=== PATIENT | female | born 1960 | race Caucasian/White ===

== ENCOUNTER 2017-11-09 18:27 | Emergency (ER) | payer OTHER ==
[2017-11-09] MEDS ORDERED: IBUPROFEN 400 MG TAB ONE (20:50)
[2017-11-09] MEDS ORDERED: IBUPROFEN 200 MG TAB PO ONE (20:51)
--- NOTE | 2017-11-09 20:56 | RAD REPORT ---
EXAM DESCRIPTION: RAD - Hip Left 2 View - 11/09/2017 8:42 pm CLINICAL HISTORY: Left hip pain FINDINGS: No fracture or dislocation is seen. The bones appear osteoporotic. Mild osteoarthritis involves the left hip
--- NOTE | 2017-11-09 22:55 | ER ---
Nurse's Notes [facility] Name: Radha Saleh Age: 57 yrs Sex: Female : 1960 Arrival Date: 11/09/2017 Time: 18:28 Bed 23 Private MD: Diagnosis: Strain of adductor muscle, fascia and tendon of left thigh Presentation: 11/09 18:30 Presenting complaint: Patient states: khai been having this pain for 4 days now coming hj from my L groin to the L leg and its also hurts on the L hip are; denies fever and chills;. Transition of care: patient was not received from another setting of care. Onset of symptoms was November 09, 2017. Initial Sepsis Screen: Does the patient meet any 2 criteria? No. Patient's initial sepsis screen is negative. Does the patient have a suspected source of infection? No. Patient's initial sepsis screen is negative. Care prior to arrival: None. 18:30 Method Of Arrival: Ambulatory 18:30 Acuity: OSMANY 3 hj Triage Assessment: 18:34 General: Appears in no apparent distress. uncomfortable, Behavior is calm, cooperative, hj appropriate for age. Pain: Complains of pain in left femoral area Pain currently is 6 out of 10 on a pain scale. 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 - Social history:: The patient lives at home, Smoking status: Patient/guardian denies using tobacco, never smoked. Screenin:14 Abuse screen: Denies threats or abuse. Denies injuries from another. Nutritional aj1 screening: No deficits noted. Tuberculosis screening: No symptoms or risk factors identified. 23:16 Fall Risk None identified. tl3 Assessment: 19:14 General: Appears in no apparent distress. uncomfortable, Behavior is calm, cooperative, aj1 appropriate for age. Pain: Complains of pain in left femoral area Pain radiates to left leg Pain currently is 10 out of 10 on a pain scale. Quality of pain is described as sharp, Pain began 4 days ago Is continuous, Alleviated by nothing. Patient states that she has tried multiple OTC pain medications, none of which have provided relief Aggravated by increased activity, repositioning, weight bearing, Also complains of sleeplessness, Patient states that her pain wakes her up from sleep. Neuro: Level of Consciousness is awake, alert, obeys commands, Oriented to person, place, time, situation, Speech is normal, Facial symmetry appears normal. Cardiovascular: Patient's skin is warm and dry. Respiratory: Airway is patent Respiratory effort is even, unlabored, Respiratory pattern is regular, symmetrical. GI: No signs and/or symptoms were reported involving the gastrointestinal system. : No signs and/or symptoms were reported regarding the genitourinary system. EENT: No signs and/or symptoms were reported regarding the EENT system. Derm: No signs and/or symptoms reported regarding the dermatologic system. Skin is pink, warm \T\ dry. normal. Musculoskeletal: Circulation, motion, and sensation intact. Capillary refill < 3 seconds, in bilateral toes. Range of motion: intact in all extremities. 20:44 Reassessment: Patient appears in no apparent distress at this time. No changes from aj1 previously documented assessment. Patient and/or family updated on plan of care and expected duration. Pain level reassessed. Patient is alert, oriented x 3, equal unlabored respirations, skin warm/dry/pink. 21:46 Reassessment: Patient appears in no apparent distress at this time. No changes from aj1 previously documented assessment. Patient and/or family updated on plan of care and expected duration. Pain level reassessed. Patient is alert, oriented x 3, equal unlabored respirations, skin warm/dry/pink. 22:41 Reassessment: pt to ultra sound. tl3 23:16 Reassessment: Patient appears in no apparent distress at this time. No changes from tl3 previously documented assessment. Patient and/or family updated on plan of care and expected duration. Pain level reassessed. Patient is alert, oriented x 3, equal unlabored respirations, skin warm/dry/pink. augustus at bedside to discuss ultra sound findings. Vital Signs: 18:35 BP 165 / 98; Pulse 94; Resp 18; Temp 97.4(TE); Pulse Ox 99% on R/A; Weight 86.18 kg; hj Height 5 ft. 3 in. (160.02 cm); Pain 6/10; 19:45 BP 143 / 80; Pulse 89; Resp 18; Pulse Ox 100% on R/A; aj1 20:44 BP 127 / 72; Pulse 76; Resp 18; Pulse Ox 98% on R/A; aj1 21:47 BP 134 / 86; Pulse 86; Resp 18; Pulse Ox 99% on R/A; aj1 23:16 BP 147 / 91; Pulse 76; Resp 16; Pulse Ox 100% on R/A; tl3 18:35 Body Mass Index 33.66 (86.18 kg, 160.02 cm) ED Course: 18:28 Patient arrived in ED. sb2 18:32 Triage completed. hj 18:35 Arm band placed on right wrist. hj 18:42 Deisy Philippe, RN is Primary Nurse. aj1 18:48 Fuad Tyson MD is Attending Physician. gs 19:14 Patient has correct armband on for positive identification. Bed in low position. Call aj1 light in reach. Side rails up X 1. 19:14 No provider procedures requiring assistance completed. aj1 20:40 Hip Left 2 View XRAY In Process Unspecified. EDMS 21:01 Notified ED physician of a critical lab result(s). D-dimer 525. aj1 21:53 Augustus Mace PA is PHCP. jr8 22:54 Extremity Venous Uni Ltd In Process Unspecified. EDMS 23:16 IV discontinued, intact, bleeding controlled, No redness/swelling at site. Pressure tl3 dressing applied. Administered Medications: 20:58 Drug: Motrin 600 mg Route: PO; aj1 23:01 Follow up: Response: No adverse reaction; Pain is decreased tl3 Outcome: 22:54 Discharge ordered by . jr8 23:16 Discharged to home ambulatory. tl3 23:16 Condition: stable 23:16 Discharge instructions given to patient, Instructed on discharge instructions, follow up and referral plans. Demonstrated understanding of instructions, follow-up care. 23:19 Patient left the ED. tl3 Signatures: Dispatcher [employer] EDDeisy Hood, RN RN aj1 Augustus Mace PA PA jr8 Viet Wasserman RN RN Fuad Murphy MD MD gs Billeau, Sheri 2 Saloni Baptiste RN RN tl3 Corrections: (The following items were deleted from the chart) 18:38 18:35 Pulse 94bpm; Resp 18bpm; Pulse Ox 99% RA; Temp 97.4F Temporal; 86.18 kg; Height 5 hj ft. 3 in.; BMI: 33.6; Pain 6/10; hj
--- NOTE | 2017-11-09 22:55 | EDPHYS ---
Physician Documentation [facility] Name: Radha Saleh Age: 57 yrs Sex: Female : 1960 Arrival Date: 11/09/2017 Time: 18:28 Bed 23 Private MD: ED Physician Fuad Tyson HPI: 11/09 20:49 This 57 yrs old Female presents to ER via Ambulatory with complaints of Leg gs Pain. 20:49 The patient presents with pain. The complaints affect the pelvis and left femoral area. gs Onset: The symptoms/episode began/occurred 2 day(s) ago, and became worse and became persistent. Modifying factors: The symptoms are alleviated by nothing. the symptoms are aggravated by movement. Associated signs and symptoms: Pertinent negatives numbness, swelling, weakness. Severity of symptoms: At their worst the symptoms were mild. The patient has not experienced similar symptoms in the past. 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 - Social history:: The patient lives at home, Smoking status: Patient/guardian denies using tobacco, never smoked. ROS: 22:24 Eyes: Negative for injury, pain, redness, and discharge, ENT: Negative for injury, jr8 pain, and discharge, Neck: Negative for injury, pain, and swelling, Cardiovascular: Negative for chest pain, palpitations, and edema, Respiratory: Negative for shortness of breath, cough, wheezing, and pleuritic chest pain, Abdomen/GI: Negative for abdominal pain, nausea, vomiting, diarrhea, and constipation, Back: Negative for injury and pain, Skin: Negative for injury, rash, and discoloration, Neuro: Negative for headache, weakness, numbness, tingling, and seizure. 22:24 MS/extremity: Positive for pain, of the left leg. Exam: 20:57 Chest/axilla: Normal chest wall appearance and motion. Nontender with no deformity. gs No lesions are appreciated. Cardiovascular: Regular rate and rhythm with a normal S1 and S2. No gallops, murmurs, or rubs. Normal PMI, no JVD. No pulse deficits. Respiratory: Lungs have equal breath sounds bilaterally, clear to auscultation and percussion. No rales, rhonchi or wheezes noted. No increased work of breathing, no retractions or nasal flaring. Abdomen/GI: Soft, non-tender, with normal bowel sounds. No distension or tympany. No guarding or rebound. No evidence of tenderness throughout. Back: No spinal tenderness. No costovertebral tenderness. Full range of motion. Skin: Warm, dry with normal turgor. Normal color with no rashes, no lesions, and no evidence of cellulitis. Neuro: Awake and alert, GCS 15, oriented to person, place, time, and situation. Cranial nerves II-XII grossly intact. Motor strength 5/5 in all extremities. Sensory grossly intact. Cerebellar exam normal. Normal gait. 20:57 Constitutional: The patient appears in no acute distress, alert, awake. 20:57 Musculoskeletal/extremity: Extremities: noted in the left upper thigh: tenderness, ROM: no acute changes, Circulation is intact in all extremities. Vital Signs: 18:35 BP 165 / 98; Pulse 94; Resp 18; Temp 97.4(TE); Pulse Ox 99% on R/A; Weight 86.18 kg; hj Height 5 ft. 3 in. (160.02 cm); Pain 6/10; 19:45 BP 143 / 80; Pulse 89; Resp 18; Pulse Ox 100% on R/A; aj1 20:44 BP 127 / 72; Pulse 76; Resp 18; Pulse Ox 98% on R/A; aj1 21:47 BP 134 / 86; Pulse 86; Resp 18; Pulse Ox 99% on R/A; aj1 23:16 BP 147 / 91; Pulse 76; Resp 16; Pulse Ox 100% on R/A; tl3 18:35 Body Mass Index 33.66 (86.18 kg, 160.02 cm) MDM: 19:36 Patient medically screened. gs 20:57 Differential diagnosis: tendonitis, dvt. Data reviewed: vital signs, nurses notes. Response to treatment: the patient's symptoms have markedly improved after treatment, and as a result, I will discharge patient. 22:23 Counseling: I had a detailed discussion with the patient and/or guardian regarding: the 8 historical points, exam findings, and any diagnostic results supporting the discharge/admit diagnosis, lab results, radiology results, the need for outpatient follow up, a family practitioner, to return to the emergency department if symptoms worsen or persist or if there are any questions or concerns that arise at home. 11/09 19:36 Order name: D-Dimer; Complete Time: 20:58 11/09 19:36 Order name: Hip Left 2 View XRAY; Complete Time: 20:57 11/09 21:00 Order name: US Extremity Venous Unilateral Ltd 11/09 22:27 Order name: Extremity Venous Uni Ltd EDSC Administered Medications: 20:58 Drug: Motrin 600 mg Route: PO; aj1 23:01 Follow up: Response: No adverse reaction; Pain is decreased tl3 Disposition: 11/09/17 22:54 Discharged to Home. Impression: Strain of adductor muscle, fascia and tendon of left thigh. - Condition is Stable. - Discharge Instructions: Groin Strain. - Medication Reconciliation Form, Thank You Letter, Antibiotic Education, Prescription Opioid Use, Work release form form. - Follow up: Private Physician; When: 2 - 3 days; Reason: Re-evaluation by your physician. Addendum: 11/25/2017 21:53 Co-signature as Attending Physician, Fuad Tyson MD. g s Signatures: Dispatcher [facility] Deisy Philippe RN RN aj1 Augustus Mace PA PA jr8 Viet Wasserman RN RN hj Starr, Gregory, MD MD Saloni Baptiste, RN RN tl3 Corrections: (The following items were deleted from the chart) 11/09 22:24 20:49 All other systems are negative, [id number] 23:19 22:54 11/09/2017 22:54 Discharged to Home. Impression: Strain of adductor muscle, tl3 fascia and tendon of left thigh. Condition is Stable. Discharge Instructions: Groin Strain. Forms are Medication Reconciliation Form, Thank You Letter, Antibiotic Education, Prescription Opioid Use. Follow up: Private Physician; When: 2 - 3 days; Reason: Re-evaluation by your physician. jr8
[2017-11-09 23:32] VITALS: TEMP 97.4
[2017-11-09 23:36] VITALS: BP 147/91; O2SAT 100
--- NOTE | 2017-11-10 07:43 | RAD REPORT ---
EXAM DESCRIPTION: Eric Venous Uni Ltd11/09/2017 10:54 pm CLINICAL HISTORY: left leg pain and swelling. COMPARISON: 2016 FINDINGS: Left common femoral, superficial femoral, popliteal and posterior tibial veins are compre ssible and demonstrate augmentation. Doppler demonstrates good flow. IMPRESSION: No evidence of deep venous thrombosis involving the left lower extremity.
== END 2017-11-09 23:19 | disposition home or self-care (01) ==
LOC: ER 18:27
DX: S76.212A Strain of adductor muscle, fascia and tendon of left thigh, initial encounter (principal); I10 Essential (primary) hypertension; E78.5 Hyperlipidemia, unspecified; E03.9 Hypothyroidism, unspecified; Z88.5 Allergy status to narcotic agent
CPT/HCPCS: 36415; 85379; 93971; 99283

== ENCOUNTER 2018-01-31 15:52 | Emergency (ER) | payer OTHER ==
[2018-01-31] MEDS ORDERED: METOPROLOL TAR 50 MG TAB ONE (16:34)
[2018-01-31] MEDS ORDERED: ASPIRIN 81 MG CHEWABLE TABLET ONE (16:34)
[2018-01-31 16:51] LABS: Protime INR 0.96
[2018-01-31 16:55] LABS: ALT/SGPT 14 U/L (12-78); AST/SGOT 19 U/L (15-37); Albumin 3.5 g/dL (3.4-5.0); Alkaline Phosphatase 73 U/L (45-117); BUN Blood Urea Nitrogen 10 mg/dL (7-18); Bicarbonate 31 mmol/L (21-32); Bilirubin Direct < 0.1 mg/dL (0-0.2); Bilirubin Total 0.2 mg/dL (0.2-1.0); CKMB Creatine Kinase MB 3.2 ng/mL (0.3-3.6); Creatine Phosphokinase 178 U/L (26-192); Glucose Level 85 mg/dL (74-106); Magnesium 2.2 mg/dL (1.8-2.4); NT PRO-BNP 223 pg/mL (<125); Potassium 3.3 mmol/L (3.5-5.1); Protein, Total 7.8 g/dL (6.4-8.2); Sodium Level 137 mmol/L (136-145)
[2018-01-31 17:25] LABS: Urine Blood NEGATIVE (NEG); Urine Glucose NEGATIVE (NEG); Urine Protein NEGATIVE (NEG); Urine pH 6.5 (5.0-7.0)
--- NOTE | 2018-01-31 17:30 | ER ---
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 Transition of care: patient was not received from another setting of care. Onset of symptoms was January 31, 2018 at 15:30. Risk Assessment: Do you want to hurt yourself or someone else? Patient reports no desire to harm self or others. Initial Sepsis Screen: Does the patient meet any 2 criteria? No. Patient's initial sepsis screen is negative. Does the patient have a suspected source of infection? No. Patient's initial sepsis screen is negative. Care prior to arrival: v/s 190/107 02, 95%, pulse 85-90, 99 oral temp. 16:06 Method Of Arrival: EMS: [facility] ae1 16:06 Acuity: OSMANY 3 ae1 Triage Assessment: 16:39 General: Appears in no apparent distress. comfortable, Behavior is calm, cooperative. ae1 Pain: Complains of pain in chest and right arm. Historical: - Allergies: 16:05 Morphine; ae1 - PMHx: 16:05 Hyperlipidemia; Hypertension; Hypothyroidism; ae1 - Immunization history:: Pneumococcal vaccine is not up to date, Flu vaccine is not up to date. - Social history:: Smoking status: Patient uses tobacco products, smokes one pack cigarettes per day. - Ebola Screening: : Patient negative for fever greater than or equal to 101.5 degrees Fahrenheit, and additional compatible Ebola Virus Disease symptoms Patient denies exposure to infectious person Patient denies travel to an Ebola-affected area in the 21 days before illness onset No symptoms or risks identified at this time. Screenin:08 Abuse screen: Denies threats or abuse. Denies injuries from another. Nutritional ae1 screening: No deficits noted. Tuberculosis screening: No symptoms or risk factors identified. Fall Risk None identified. Assessment: 16:09 Pain: Pain does not radiate. Pain began suddenly, 30 min ago. Neuro: Level of ae1 Consciousness is awake, alert, obeys commands, Oriented to person, place, time, situation. Cardiovascular: Heart tones S1 S2 present Patient's skin is warm and dry. Cardiovascular: Reports chest pain. Respiratory: Airway is patent Respiratory effort is even, unlabored, Respiratory pattern is regular, symmetrical. GI: No signs and/or symptoms were reported involving the gastrointestinal system. Patient currently denies nausea. : No signs and/or symptoms were reported regarding the genitourinary system. EENT: No signs and/or symptoms were reported regarding the EENT system. Derm: Skin is pink, warm \T\ dry. Musculoskeletal: No signs and/or symptoms reported regarding the musculoskeletal system. 16:38 Reassessment: patient up to restroom, ambulated with steady gait, patient encouraged to ae1 urinate to provide urine sample. Vital Signs: 16:03 BP 191 / 99; Pulse 82; Resp 20; Temp 98.8(O); Pulse Ox 94% on R/A; Weight 90.26 kg (R); ae1 16:39 BP 171 / 90; ae1 17:25 BP 173 / 85; Pulse 66; Resp 21; Pulse Ox 96% on R/A; ae1 18:21 BP 179 / 96; Pulse 67; Resp 21 S; Pulse Ox 98% on R/A; ae1 ED Course: 16:03 Patient arrived in ED. ae1 16:06 EKG done, by health and safety technician. reviewed by Melecio Eubanks MD. sm3 16:08 Triage completed. ae1 16:08 Placed in gown. Bed in low position. Call light in reach. Side rails up X2. Cardiac ae1 monitor on. Pulse ox on. NIBP on. 16:09 Patient maintains SpO2 saturation greater than 95% on room air. ae1 16:09 Arm band placed on right wrist. EKG completed in triage. Results shown to MD. ae1 16:11 Melecio Goldman PA is PHCP. cp 16:11 Melecio Eubanks MD is Attending Physician. cp 16:24 Pelon Handy, SUSANA is Primary Nurse. ae1 16:37 Inserted saline lock: 20 gauge in right antecubital area, using aseptic technique. ae1 Blood collected. 17:13 XRAY Chest (1 view) In Process Unspecified. EDMS 17:14 X-ray completed. Portable x-ray completed in exam room. Patient tolerated procedure bb2 well. 17:29 Eliza Sharp MD is Hospitalizing Provider. cp 17:50 Yonatan Gaspar MD is Referral Physician. cp 18:22 No provider procedures requiring assistance completed. IV discontinued, intact, ae1 bleeding controlled, No redness/swelling at site. Pressure dressing applied. Administered Medications: 16:37 Drug: Metoprolol 50 mg Route: PO; ae1 16:37 Drug: Aspirin Chewable Tablet 324 mg Route: PO; ae1 17:03 Follow up: Response: No adverse reaction ae1 Outcome: 17:30 Decision to Hospitalize by Provider. cp 18:22 AMA AMA form signed ae1 18:22 Condition: stable 18:22 Instructed on follow up and referral plans. Demonstrated understanding of instructions. 18:23 Patient left the ED. ae1 Signatures: Dispatcher [employer] EDMS Melecio Goldman PA PA cp Elliott, Andrea, RN RN ae1 Kenya Randhawa bb2 Violette Hairston sm3
--- NOTE | 2018-01-31 17:30 | EDPHYS ---
Physician Documentation [facility] Name: Radha Saleh Age: 57 yrs Sex: Female : 1960 Arrival Date: 01/31/2018 Time: 16:03 Bed 20 Private MD: ED Physician Melecio Eubanks HPI: 01/31 16:15 This 57 yrs old Female presents to ER via EMS with complaints of Chest Pain. cp 16:15 The patient or guardian reports chest pain that is located primarily in the anterior cp chest wall. 16:15 Onset: today, at 11:00, and improved. The pain does not radiate. Associated signs and cp symptoms: Pertinent negatives: abdominal pain, cough, diaphoresis, dizziness, lower extremity pain, lower extremity swelling, lightheadedness, shortness of breath, syncope. The chest pain is described as a pressure. Duration: The patient or guardian reports a single episode, that is now resolved. Historical: - Allergies: 16:05 Morphine; ae1 - PMHx: 16:05 Hyperlipidemia; Hypertension; Hypothyroidism; ae1 - Immunization history:: Pneumococcal vaccine is not up to date, Flu vaccine is not up to date. - Social history:: Smoking status: Patient uses tobacco products, smokes one pack cigarettes per day. - Ebola Screening: : Patient negative for fever greater than or equal to 101.5 degrees Fahrenheit, and additional compatible Ebola Virus Disease symptoms Patient denies exposure to infectious person Patient denies travel to an Ebola-affected area in the 21 days before illness onset No symptoms or risks identified at this time. ROS: 16:20 Constitutional: Negative for body aches, chills, fever, poor PO intake. cp 16:20 Eyes: Negative for injury, pain, redness, and discharge. cp 16:20 ENT: Negative for drainage from ear(s), ear pain, sore throat, difficulty swallowing, difficulty handling secretions. 16:20 Cardiovascular: Positive for chest pain, Negative for edema, palpitations. 16:20 Respiratory: Negative for cough, shortness of breath, wheezing. 16:20 Abdomen/GI: Negative for abdominal pain, nausea, vomiting, and diarrhea, black/tarry stool, rectal bleeding. 16:20 Back: Negative for pain at rest, pain with movement, radiated pain. 16:20 : Negative for urinary symptoms. 16:20 Skin: Negative for cellulitis, rash. 16:20 Neuro: Negative for altered mental status, headache, syncope, near syncope, weakness. 16:20 All other systems are negative. Exam: 16:05 ECG was reviewed by the Attending Physician. cp 16:27 Constitutional: The patient appears in no acute distress, alert, awake, cp non-diaphoretic, non-toxic, well developed, well nourished. 16:27 Head/Face: Normocephalic, atraumatic. cp 16:27 Eyes: Periorbital structures: appear normal, Conjunctiva: normal, no exudate, no injection, Sclera: no appreciated abnormality, Lids and lashes: appear normal, bilaterally. 16:27 ENT: External ear(s): are unremarkable, Nose: is normal, Mouth: Lips: moist, Oral mucosa: pink and intact, moist, Posterior pharynx: is normal, airway is patent, no erythema, no exudate. 16:27 Neck: ROM/movement: is normal, is supple, without pain, no range of motions limitations, no meningismus, no nuchal rigidity, nuchal rigidity, is not appreciated. 16:27 Chest/axilla: Inspection: normal, Palpation: is normal, no crepitus, no tenderness. 16:27 Cardiovascular: Rate: normal, Rhythm: regular, Edema: is not appreciated, JVD: is not appreciated. 16:27 Respiratory: the patient does not display signs of respiratory distress, Respirations: normal, no use of accessory muscles, no retractions, no splinting, no tachypnea, labored breathing, is not present, Breath sounds: are clear throughout, no decreased breath sounds, no stridor, no wheezing. 16:27 Abdomen/GI: Inspection: abdomen appears normal, Bowel sounds: active, all quadrants, Palpation: abdomen is soft and non-tender, in all quadrants. 16:27 Back: pain, is absent, ROM is normal. 16:27 Skin: cellulitis, is not appreciated, no rash present. 16:28 Neuro: Orientation: to person, place \T\ time. Mentation: lucid, able to follow commands, cp Cerebellar function: is grossly normal, Motor: moves all fours, strength is normal, Sensation: no obvious gross deficits. Vital Signs: 16:03 BP 191 / 99; Pulse 82; Resp 20; Temp 98.8(O); Pulse Ox 94% on R/A; Weight 90.26 kg (R); ae1 16:39 BP 171 / 90; ae1 17:25 BP 173 / 85; Pulse 66; Resp 21; Pulse Ox 96% on R/A; ae1 18:21 BP 179 / 96; Pulse 67; Resp 21 S; Pulse Ox 98% on R/A; ae1 MDM: 16:11 Patient medically screened. matt 16:30 Differential diagnosis: abnormal EKG, acute myocardial infarction, acute pericarditis, cp costochondritis, esophagitis, gastroesophageal reflux disease (GERD), myocarditis, pericarditis, pleurisy, pneumonia, pneumothorax, pulmonary embolus, stable angina, thoracic aortic disection, unstable angina. 17:25 The patient was given aspirin in the Emergency Department. cp 17:25 Data reviewed: vital signs, nurses notes. cp 17:25 Test interpretation: by ED physician or midlevel provider: ECG, plain radiologic cp studies. Counseling: I had a detailed discussion with the patient and/or guardian regarding: the historical points, exam findings, and any diagnostic results supporting the discharge/admit diagnosis, lab results, radiology results. 17:31 Physician consultation: Eliza Sharp MD was called at 17:25, was contacted at 17:25, regarding admission, to the telemetry unit. patient's condition. 17:50 Refusal of service: The patient/guardian displays adequate decision making capability and despite a detailed discussion of alternatives, benefits, risks, and consequences refuses: Admission to the hospital for further work-up and treatment, Patient reports she has children at home and is unable to be admitted. 01/31 16:17 Order name: Basic Metabolic Panel; Complete Time: 17: cp 01/31 16:17 Order name: Ckmb; Complete Time: 17: cp 01/31 16:17 Order name: CPK; Complete Time: 17:21 cp 01/31 16:17 Order name: LFT's; Complete Time: : cp 01/31 16:17 Order name: Magnesium; Complete Time: 17: cp 01/31 16:17 Order name: NT PRO-BNP; Complete Time: 17:21 cp 01/31 16:17 Order name: PT-INR; Complete Time: 17: cp 01/31 16:17 Order name: Ptt, Activated; Complete Time: 17:21 cp 01/31 16:17 Order name: Troponin (emerg Dept Use Only); Complete Time: 17:21 cp 01/31 17:06 Order name: Urine Dipstick--Ancillary (enter results); Complete Time: 17:40 bd 01/31 17:06 Order name: Urine --Ancillary (enter results); Complete Time: 17:40 bd 01/31 17:47 Order name: Basic Metabolic Panel [facility] 01/31 16:17 Order name: Urine Test (obtain specimen); Complete Time: 17:04 cp 01/31 16:17 Order name: XRAY Chest (1 view); Complete Time: 17:40 cp 01/31 17:40 Interpretation: Report review. 01/31 16:17 Order name: EKG; Complete Time: 16:18 cp 01/31 16:17 Order name: Cardiac monitoring; Complete Time: 16:24 cp 01/31 17:47 Order name: CONS Physician Consult [facility] 01/31 17:47 Order name: Heart Healthy [facility] 01/31 17:47 Order name: CBC with Automated Diff EDMD 01/31 17:47 Order name: Lipid Profile [facility] 01/31 17:47 Order name: Troponin I [facility] 01/31 16:17 Order name: EKG - Nurse/Tech; Complete Time: 16:24 cp 01/31 16:17 Order name: IV Saline Lock; Complete Time: 16:37 cp 01/31 16:17 Order name: Labs collected and sent; Complete Time: 16:37 cp 01/31 16:17 Order name: O2 Per Protocol; Complete Time: 16:25 cp 01/31 16:17 Order name: O2 Sat Monitoring; Complete Time: 16:25 cp 01/31 16:17 Order name: Urine Dipstick-Ancillary (obtain specimen); Complete Time: 17:04 cp EC:05 Rate is 81 beats/min. Rhythm is regular. CA interval is normal. QRS interval is normal. cp QT interval is normal. No ST changes noted. Interpreted by me. Reviewed by me. Administered Medications: 16:37 Drug: Metoprolol 50 mg Route: PO; ae1 16:37 Drug: Aspirin Chewable Tablet 324 mg Route: PO; ae1 17:03 Follow up: Response: No adverse reaction ae1 Disposition: 02/01 07:22 Co-signature as Attending Physician, Melecio Eubanks MD I agree with the assessment and [facility] plan of care. Disposition: 01/31/18 17:51 Patient has left against medical advice. Impression: Chest pain, unspecified, Hypertensive heart disease. - Patients states they are going to Home. - Condition is Stable. - Discharge Instructions: Nonspecific Chest Pain, Hypertension, How to Take Your Blood Pressure, [id number], Aspirin and Your Heart, Managing Your Hypertension, Form - Excuse from Work, School, or Physical Activity. Work release form form. Follow up: Yonatan Gaspar MD; When: 1 - 2 days; Reason: Recheck today's complaints. - Problem is new. - Symptoms have improved. Signatures: Dispatcher [employer] EDMD Melecio Eubanks MD MD cha Page, Corey, PA PA cp Pelon Handy, RN RN ae1 Corrections: (The following items were deleted from the chart) 01/31 17:50 17:30 Hospitalization Ordered by Eliza Sharp MD for Observation. Preliminary diagnosis cp is Chest pain, unspecified. Bed requested for Telemetry/MedSurg (observation). Status is Observation. Condition is Stable. Problem is new. Symptoms have improved. UTI on Admission? No. cp 18:20 16:18 CBC+H.LAB.BRZ ordered. EDMD EDMD 18:22 17:47 Troponin I ordered. [facility] EDMS 18:23 17:51 01/31/2018 17:51 Patients has left against medical advice. Impression: Chest ae1 pain, unspecified; Hypertensive heart disease. Patient states they are going to Home. Condition is Stable. Follow up: Yonatan Gaspar; When: 1 - 2 days; Reason: Recheck today's complaints. Problem is new. Symptoms have improved. cp
--- NOTE | 2018-01-31 17:33 | RAD REPORT ---
EXAM DESCRIPTION: RAD - Chest Single View - 01/31/2018 5:13 pm CLINICAL HISTORY: Chest pain COMPARISON: June 2016 TECHNIQUE: AP portable chest image was obtained 1705 hours . FINDINGS: No peripheral mass or consolidation seen. Cardiac silhouette has enlarged significantly fr om the comparison. Pulmonary vasculature within normal limits. No significant failure or volume overl oad identifiable. Trachea is midline. No measurable pleural effusion and no pneumothorax. No gross [place] abnormality seen. No acute aortic findings suspected. IMPRESSION: Cardiomegaly, new from 2016, without acute failure findings. No acute lung parenchymal process.
[2018-01-31] MEDS ORDERED: ACETAMINOPHEN 500 MG TAB PO PRN (17:43)
[2018-01-31] MEDS ORDERED: MORPHINE 4 MG/ML SYR IV PRN (17:43)
[2018-01-31] MEDS ORDERED: NITROGLYCERIN 0.4 MG/TAB SL PRN (17:54)
[2018-01-31] MEDS ORDERED: ENOXAPARIN 40 MG/0.4 ML SQ SCH (18:00)
[2018-01-31 18:33] VITALS: TEMP 98.8
[2018-01-31 18:37] VITALS: BP 179/96; O2SAT 98
--- NOTE | 2018-01-31 19:09 | EKG ---
Test Date: 2018-01-31 Test Time: 15:56:09 Operations Developer: CHERI MEASUREMENT RESULTS: Intervals: Rate: 81 NM: 190 QRSD: 96 QT: 390 QTc: 453 [place]: P: 43 NM: 190 QRS: -12 T: 73 INTERPRETIVE STATEMENTS: Normal sinus rhythm Normal ECG Compared to ECG 06/16/2016 07:07:52 T-wave abnormality no longer present Electronically Signed On 01-31-18 19:08:21 CDT by Yonatan Gaspar
[2018-01-31] MEDS ORDERED: ATORVASTATIN 40 MG TAB PO SCH (21:00)
[2018-02-01] MEDS ORDERED: METOPROLOL TAR 50 MG TAB PO SCH (09:00)
[2018-02-01] MEDS ORDERED: LISINOPRIL 10 MG TAB PO SCH (09:00)
[2018-02-01] MEDS ORDERED: ASPIRIN EC 81 MG TAB PO SCH (09:00)
== END 2018-01-31 18:23 | disposition left against medical advice (07) ==
LOC: ER 15:52
DX: R07.9 Chest pain, unspecified (principal); I11.9 Hypertensive heart disease without heart failure; E78.5 Hyperlipidemia, unspecified; E03.9 Hypothyroidism, unspecified; F17.210 Nicotine dependence, cigarettes, uncomplicated; Z88.6 Allergy status to analgesic agent
CPT/HCPCS: 36415; 71045; 80048; 80076; 81003; 81025; 82550; 82553; 83735; 83880; 84484; 85610; 85730; 93005; 99285

== ENCOUNTER 2018-02-21 09:04 | Observation (INO) | payer OTHER ==
[2018-02-21 10:13] LABS: Absolute Lymphocytes (CBC) 1.5 K/uL (0.7-4.9); Absolute Monocytes 0.4 K/uL (0.1-1.3); Absolute Neutrophil 3.5 K/uL (1.8-8.0); Basophils % 1.1 % (0-1.3); Eosinophils % 1.8 % (0-4.4); Hematocrit 25.6 % (36.0-45.0); Lymphocytes % 26.1 % (15.3-44.8); MCH 21.2 pg (27.0-35.0); MPV 8.8 fL (7.6-11.3); Monocytes % 7.9 % (3.3-12.3); RBC Red Blood Cell Count 3.66 M/uL (3.86-4.86)
[2018-02-21 10:19] LABS: Albumin 3.5 g/dL (3.4-5.0); Bilirubin Total 0.2 mg/dL (0.2-1.0); Protein, Total 7.8 g/dL (6.4-8.2)
--- NOTE | 2018-02-21 11:49 | ER ---
Nurse's Notes [facility] Name: Radha Saleh Age: 57 yrs Sex: Female : 1960 Arrival Date: 02/21/2018 Time: 09:09 Bed 26 Private MD: None, None Diagnosis: Anemia, unspecified;GI bleeding Presentation: 02/21 09:14 Presenting complaint: Patient states: my pcp was running labs because I have been lightheaded for a while. she called me and said I needed to go to the ER because my labs were off. Transition of care: patient was not received from another setting of care. Onset of symptoms was January 2018. Risk Assessment: Do you want to hurt yourself or someone else? Patient reports no desire to harm self or others. Initial Sepsis Screen: Does the patient meet any 2 criteria? No. Patient's initial sepsis screen is negative. Does the patient have a suspected source of infection? No. Patient's initial sepsis screen is negative. Care prior to arrival: None. 09:14 Method Of Arrival: Ambulatory 09:14 Acuity: OSMANY 3 ch Triage Assessment: 09:17 General: Appears in no apparent distress. comfortable, Behavior is calm, cooperative, ch appropriate for age. Pain: Complains of pain in abdomen Pain currently is 3 out of 10 on a pain scale. Historical: - Allergies: :17 Morphine; ch - Home Meds: :17 amlodipine 10 mg tab 1 tab once daily [Active]; atorvastatin 20 mg Oral tab 1 tab once ch daily [Active]; fenofibrate 160 mg Oral tab 1 tab once daily [Active]; hydrochlorothiazide 25 mg Oral tab 1 tab once daily [Active]; hydroxyzine HCl 25 mg Oral tab 2 tab nightly [Active]; levothyroxine 112 mcg tab 1 tab once daily [Active]; lisinopril 20 mg Oral tab 1 tab once daily [Active]; - PMHx: :17 Hyperlipidemia; Hypertension; Hypothyroidism; ch - PSHx: :17 ; - Immunization history:: Adult Immunizations up to date, Last tetanus immunization: not indicated for visit today. Pneumococcal vaccine is not up to date, Flu vaccine is not up to date. - Social history:: Smoking status: Patient uses tobacco products, smokes one pack cigarettes per day. Patient/guardian denies using alcohol, street drugs. - Ebola Screening: : Patient negative for fever greater than or equal to 101.5 degrees Fahrenheit, and additional compatible Ebola Virus Disease symptoms Patient denies exposure to infectious person Patient denies travel to an Ebola-affected area in the 21 days before illness onset No symptoms or risks identified at this time. Screenin:26 Abuse screen: Denies threats or abuse. Denies injuries from another. Nutritional ss screening: No deficits noted. Tuberculosis screening: Never had TB. Fall Risk None identified. Assessment: 09:35 General: Appears in no apparent distress. comfortable, Behavior is calm, cooperative, sv appropriate for age. Pain: Denies pain. Neuro: Level of Consciousness is awake, alert, obeys commands, Oriented to person, place, time, situation, Moves all extremities. Full function Speech is normal, Reports weakness. Cardiovascular: Patient's skin is warm and dry. Pulses are 3+ in right radial artery and left radial artery. Respiratory: Respiratory effort is even, unlabored, Respiratory pattern is regular, symmetrical. Derm: Skin is pale, Skin temperature is cool. Musculoskeletal: Range of motion: intact in all extremities. 11:26 Reassessment: Patient appears in no apparent distress at this time. Patient is alert, ss oriented x 3, equal unlabored respirations, skin warm/dry/pink. Pt updated on plan of care. Awaiting for CT to be obtained. Pt has no complaints. CT here with wheelchair to transport patient. 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 Pt given verbal reassurance. 11:50 Reassessment: Dr. Lloyd at bedside to discuss POC with patient. Patient verbalizes ss understanding importance of being admitted to hospital for further testing/ assessment. Pt is still concerned about the family member that she provides care for. Patient states she will attempt to call somebody else to care for the elderly family member so she can stay and receive care in the hospital setting. Will call Dr. Lloyd and let her know what patient decides. 14:00 Reassessment: Dr. Lloyd notified that patient can stay over night just for one day. ss 14:30 Reassessment: PRBC blood consent signed. ss 14:35 Reassessment: Patient appears in no apparent distress at this time. No changes from ss previously documented assessment. Patient and/or family updated on plan of care and expected duration. Pain level reassessed. Patient states feeling better. 14:41 Reassessment: attempted to call report. SUSANA Pacheco requests to call back in 15 minutes. ss 15:01 Reassessment: report called to SUSANA Pacheco. Vital Signs: 09:17 BP 162 / 92; Pulse 66; Resp 14; Temp 98.7; Pulse Ox 98% on R/A; Weight 86.18 kg; Height 5 ft. 4 in. (162.56 cm); Pain 3/10; 10:12 BP 136 / 79; Pulse 62; Resp 18; Pulse Ox 96% ; sv 14:00 BP 126 / 79; Pulse 67; Resp 16; Temp 98.0(O); Pulse Ox 98% on R/A; Pain 0/10; ss 09:17 Body Mass Index 32.61 (86.18 kg, 162.56 cm) ED Course: 09:09 Patient arrived in ED. sb2 09:09 None, None is Private Physician. sb2 09:16 Triage completed. ch 09:17 Arm band placed on left wrist. Patient placed in an exam room, on a stretcher. ch 09:18 Yuriy Montoya MD is Attending Physician. kdr 09:40 Tonia Medeiros RN is Primary Nurse. sv 09:40 Initial lab(s) drawn, by vt, sent to lab. Inserted saline lock: 20 gauge in right sv antecubital area, using aseptic technique. Blood collected. Flushed right antecubital with 5 ml normal saline. 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 sv 11:26 Patient has correct armband on for positive identification. Bed in low position. Call ss light in reach. 11:41 CT Abd/Pelvis - W/Contrast In Process Unspecified. EDMS 11:48 Dione Lloyd MD is Hospitalizing Provider. kdr 14:46 Patient admitted, IV remains in place. ss Administered Medications: No medications were administered Outcome: 11:48 Decision to Hospitalize by Provider. kdr 14:46 Condition: good ss 14:46 Instructed on the need for admit. 15:31 Patient left the ED. kr2 Signatures: Dispatcher [employer] EDMS Maris Avalos RN RN Tonia Medeiros RN RN Yuriy Martínez MD MD kdr Yasmin Duran, RN RN ss Jaqui Balbuena RN RN kr2 Luisa Duncan2
--- NOTE | 2018-02-21 11:49 | EDPHYS ---
Physician Documentation [facility] Name: Radha Saleh Age: 57 yrs Sex: Female : 1960 Arrival Date: 02/21/2018 Time: 09:09 Bed 26 Private MD: None, None ED Physician Yuriy Montoya HPI: 02/21 17:39 This 57 yrs old Female presents to ER via Ambulatory with complaints of kdr Abnormal Lab Results. 17:39 The patient presents to the emergency department with rectal bleeding, a small amount, kdr bright red blood with bowel movement, with multiple such episodes. Onset: The symptoms/episode began/occurred Off and on for a year. Abdominal pain: none is appreciated. Modifying factors: The symptoms are alleviated by nothing, the symptoms are aggravated by nothing. Associated signs and symptoms: Pertinent positives: The patient was sent by the [facility] after a blood draw revealed a Hgb of 7.9. The patient states that she has been having BRB per rectum for about a year and was to see GI in the near future. Severity of symptoms: At their worst the symptoms were mild in the emergency department the symptoms are unchanged. It is unknown whether or not the patient has had similar symptoms in the past. The patient has not recently seen a physician. Historical: - Allergies: : Morphine; ch - Home Meds: :17 amlodipine 10 mg tab 1 tab once daily [Active]; atorvastatin 20 mg Oral tab 1 tab once ch daily [Active]; fenofibrate 160 mg Oral tab 1 tab once daily [Active]; hydrochlorothiazide 25 mg Oral tab 1 tab once daily [Active]; hydroxyzine HCl 25 mg Oral tab 2 tab nightly [Active]; levothyroxine 112 mcg tab 1 tab once daily [Active]; lisinopril 20 mg Oral tab 1 tab once daily [Active]; - PMHx: 09:17 Hyperlipidemia; Hypertension; Hypothyroidism; ch - PSHx: :17 ; ch - Immunization history:: Adult Immunizations up to date, Last tetanus immunization: not indicated for visit today. Pneumococcal vaccine is not up to date, Flu vaccine is not up to date. - Social history:: Smoking status: Patient uses tobacco products, smokes one pack cigarettes per day. Patient/guardian denies using alcohol, street drugs. - Ebola Screening: : Patient negative for fever greater than or equal to 101.5 degrees Fahrenheit, and additional compatible Ebola Virus Disease symptoms Patient denies exposure to infectious person Patient denies travel to an Ebola-affected area in the 21 days before illness onset No symptoms or risks identified at this time. ROS: 17:39 Constitutional: Negative for fever, chills, and weight loss, Eyes: Negative for injury, kdr pain, redness, and discharge, Neck: Negative for injury, pain, and swelling, Cardiovascular: Negative for chest pain, palpitations, and edema, Respiratory: Negative for shortness of breath, cough, wheezing, and pleuritic chest pain, Back: Negative for injury and pain, : Negative for injury, bleeding, discharge, and swelling, MS/Extremity: Negative for injury and deformity, Skin: Negative for injury, rash, and discoloration, Neuro: Negative for headache, weakness, numbness, tingling, and seizure activity. Psych: Negative for depression, anxiety, suicide ideation, homicidal ideation, and hallucinations, Allergy/Immunology: Negative for hives, rash, and allergies, Endocrine: Negative for neck swelling, polydipsia, polyuria, polyphagia, and marked weight changes, Hematologic/Lymphatic: Negative for swollen nodes, abnormal bleeding, and unusual bruising. 17:39 Abdomen/GI: Positive for rectal bleeding. Exam: 17:39 Constitutional: This is a well developed, well nourished patient who is awake, alert, kdr and in no acute distress. Head/Face: Normocephalic, atraumatic. Eyes: Pupils equal round and reactive to light, extra-ocular motions intact. Lids and lashes normal. Conjunctiva and sclera are non-icteric and not injected. Cornea within normal limits. Periorbital areas with no swelling, redness, or edema. Neck: Trachea midline, no thyromegaly or masses palpated, and no cervical lymphadenopathy. Supple, full range of motion without nuchal rigidity, or vertebral point tenderness. No Meningismus. Chest/axilla: Normal chest wall appearance and motion. Nontender with no deformity. No lesions are appreciated. Cardiovascular: Regular rate and rhythm with a normal S1 and S2. No gallops, murmurs, or rubs. Normal PMI, no JVD. No pulse deficits. Respiratory: Lungs have equal breath sounds bilaterally, clear to auscultation and percussion. No rales, rhonchi or wheezes noted. No increased work of breathing, no retractions or nasal flaring. Back: No spinal tenderness. No costovertebral tenderness. Full range of motion. Skin: Warm, dry with normal turgor. Normal color with no rashes, no lesions, and no evidence of cellulitis. MS/ Extremity: Pulses equal, no cyanosis. Neurovascular intact. Full, normal range of motion. Neuro: Awake and alert, GCS 15, oriented to person, place, time, and situation. Cranial nerves II-XII grossly intact. Motor strength 5/5 in all extremities. Sensory grossly intact. Cerebellar exam normal. Normal gait. Psych: Awake, alert, with orientation to person, place and time. Behavior, mood, and affect are within normal limits. 17:39 Abdomen/GI: Inspection: Bowel sounds: Palpation: Rectal exam: rectal tone normal, hemorrhoid(s), external, mass, is not appreciated. Vital Signs: 09:17 BP 162 / 92; Pulse 66; Resp 14; Temp 98.7; Pulse Ox 98% on R/A; Weight 86.18 kg; Height ch 5 ft. 4 in. (162.56 cm); Pain 3/10; 10:12 BP 136 / 79; Pulse 62; Resp 18; Pulse Ox 96% ; sv 14:00 BP 126 / 79; Pulse 67; Resp 16; Temp 98.0(O); Pulse Ox 98% on R/A; Pain 0/10; ss 09:17 Body Mass Index 32.61 (86.18 kg, 162.56 cm) MDM: 11:48 Patient medically screened. kdr 17:39 Data reviewed: vital signs, nurses notes, lab test result(s), radiologic studies. kdr Counseling: I had a detailed discussion with the patient and/or guardian regarding: the historical points, exam findings, and any diagnostic results supporting the discharge/admit diagnosis, lab results, radiology results, the need for further work-up and treatment in the hospital. Physician consultation: Dione Lloyd MD regarding admission, and will see patient in ED. 02/21 09:21 Order name: CBC with Diff; Complete Time: 12:36 02/21 09:21 Order name: CMP; Complete Time: 12:36 02/21 09:49 Order name: Type And Screen bd 02/21 10:29 Order name: CBC Smear Scan; Complete Time: 12:36 EDNY 02/21 11:15 Order name: CT Abd/Pelvis - W/Contrast; Complete Time: 12:36 kdr Administered Medications: No medications were administered Disposition: 02/21/18 11:48 Hospitalization ordered by Dione Lloyd for Observation. Preliminary diagnosis are Anemia, unspecified, GI bleeding. - Bed requested for Telemetry/MedSurg (observation). - Status is Observation. kr2 - Condition is Fair. - Problem is new. - Symptoms are unchanged. UTI on Admission? No Signatures: Dispatcher [employer] EDMS Maris Avalos, RN RN Radha Yanez RN RN dw Yuriy Montoya MD MD kdr Jaqui Balbuena RN RN kr2 Corrections: (The following items were deleted from the chart) 14:20 11:48 Hospitalization Ordered by Dione Lloyd MD for Observation. Preliminary dw diagnosis is Anemia, unspecified; GI bleeding. Bed requested for Telemetry/MedSurg (observation). Status is Observation. Condition is Fair. Problem is new. Symptoms are unchanged. UTI on Admission? No. kdr 15:31 14:20 02/21/2018 11:48 Hospitalization Ordered by Dione Lloyd MD for Observation. kr2 Preliminary diagnosis is Anemia, unspecified; GI bleeding. Bed requested for Telemetry/MedSurg (observation). Status is Observation. Condition is Fair. Problem is new. Symptoms are unchanged. UTI on Admission? No. dw
--- NOTE | 2018-02-21 11:51 | RAD REPORT ---
EXAM DESCRIPTION: CTAbdomen Pelvis W Contrast - 02/21/2018 11:41 am CLINICAL HISTORY: Abdominal pain. GI Bleeding;Abd pain COMPARISON: CT ABD PELVIS W CONTRAST dated 05/28/2009 TECHNIQUE: Biphasic CT imaging of the abdomen and pelvis was performed with 100 ml non-ionic IV cont rast. All CT scans are performed using dose optimization technique as appropriate and may include automated exposure control or mA/KV adjustment according to patient size. FINDINGS: The lung bases are clear.Cholelithiasis. The liver, spleen, pancreas, adrenal glands are within normal limits. Mild bilateral hydronephrosis i s present. The bladder is distended. No bowel obstruction, free air, free fluid or abscess. The appendix is normal. No evidence of signi ficant lymphadenopathy. Moderate lower lumbar degenerative changes. IMPRESSION: Cholelithiasis. Prominent bladder distention and mild bilateral hydronephrosis noted. Suggest clinical correlation fo r the possibility of bladder outlet obstruction versus neurogenic bladder.
[2018-02-21 12:01] LABS: Anisocytosis 1+; Blood Morphology Comment NOTED (NOT SEEN); Platelet Estimate ADEQ; Poikilocytosis 1+; Urine White Blood Cell Casts OK
--- NOTE | 2018-02-21 15:08 | P.HP ---
Certification for Inpatient Patient admitted to: Inpatient With expected LOS: >2 Midnights Patient will require the following post-hospital care: None Practitioner: I am a practitioner with admitting privileges, knowledge of patient current condition, hospital course, and medical plan of care. Services: Services provided to patient in accordance with Admission requirements found in Title 42 Section 412.3 of the Code of Federal Regulations Patient History Date of Service: 02/21/18 Primary Care Provider: [facility] Reason for admission: rectal Bleeding History of Present Illness: History of the present hyperlipidemia presented to the ED complaining of having some rectal bleeding. She was sent over to the hospital by her primary care provider after having some labs done. Patient has been seeing her primary care provider more often recently because of dizziness and presyncopal episodes. Patient notify the primary care provider that she has been having some rectal bleeding that has been MN and has been going on an off for a whole year and has progressively gotten worse. Last episode was noted to be 4 days ago. Patient stated that now she is also started to have some dizziness along with presyncopal episode and thus decided to get it checked out. In the ER patient was found to have hemoglobin of 7.8 along with hypotension. Patient was given IV fluids and hypotension did resolve however her hemoglobin remained at 7.8 and thus patient was referred for admission for further care. [facility] and has not been able to make an appointment with GI on outpatient basis. Allergies morphine Allergy (Severe, Verified 03/08/13 22:11) Nausea/Vomiting Home medications list reviewed: Yes Home Medications: Levothyroxine [Synthroid*] 100 mcg PO [id number] 06/15/16 hydrOXYzine HCl [Atarax] 50 mg PO BEDTIME 06/15/16 hydroCHLOROthiazide [Hydrochlorothiazide] 25 mg PO DAILY 06/15/16 Atorvastatin Calcium [Lipitor] 80 mg PO BEDTIME #30 tab 06/16/16 Metoprolol Succinate [Toprol Xl*] 50 mg PO DAILY #30 tab 06/16/16 Amlodipine [Norvasc*] 10 mg PO DAILY #30 tab 06/17/16 Atorvastatin Calcium [Lipitor*] 10 mg PO BEDTIME #30 tab 06/17/16 Clopidogrel Bisulfate [Plavix*] 75 mg PO DAILY #30 tablet 06/17/16 Lisinopril [Prinivil*] 20 mg PO DAILY #30 tab 06/17/16 Nitroglycerin [Nitrostat*] 0.4 mg SL UD PRN #30 tab 06/17/16 - Past Medical/Surgical History Has patient received pneumonia vaccine in the past: No Diabetic: No -: HTN -: HYPOTHYROIDISM -: HIGH CHOLESTEROL -: GASTRIC ULCER -: TIA -: CESARIAN SECTION - Family History Family History: Reviewed- Non-Contributory - Family History Mother -: Diabetes, Kidney disease Father -: Heart disease Brother -: Heart disease Notes: Stent - Social History Smoking Status: Current every day smoker Smoking therapy provided: Yes Patient receptive to therapy: Yes Alcohol use: No CD- Drugs: No Caffeine use: Yes Place of Residence: Home Review of Systems 10-point ROS is otherwise unremarkable General: As per HPI Physical Examination - Physical Exam General: Alert, In no apparent distress, Oriented x3 HEENT: Atraumatic Neck: Supple Respiratory: Clear to auscultation bilaterally, Normal air movement Cardiovascular: Regular rate/rhythm, Normal S1 S2 Gastrointestinal: Normal bowel sounds, Soft and benign, Non-distended, No tenderness Musculoskeletal: No tenderness Integumentary: No rashes Neurological: Normal speech, Normal tone, Normal affect Lymphatics: No axilla or inguinal lymphadenopathy - Studies Laboratory Data (last 24 hrs) 02/21/18 09:40: Sodium 135 L, Potassium 4.0, BUN 5 L, Creatinine 0.80, Glucose 87, Total Bilirubin 0.2, AST 18, ALT 15, Alkaline Phosphatase 72 02/21/18 09:40: WBC 5.6, Hgb 7.8 L*, Hct 25.6 L, Plt Count 351 Assessment and Plan - Problems (Diagnosis) (1) Rectal bleeding Current Visit: Yes Status: Acute Plan: Intermitted LGI bleed. With last episode 4 days ago. Complains of having dizziness and presyncopal episode -IV fluids and 2 Units of PRBC ordered -GI consulted. Awaiting reccs -Iv protonix for now -Pt will need to have colonoscopy vs EGD done during this visit (2) Hypothyroid Current Visit: Yes Status: Chronic Plan: Will restart home medication Qualifiers: Hypothyroidism type: acquired Qualified Code(s): E03.9 - Hypothyroidism, unspecified (3) Hypertension Current Visit: No Status: Chronic Plan: Will restart Home medication Qualifiers: Hypertension type: essential hypertension (4) Dyslipidemia Current Visit: No Status: Chronic Plan: restart Home medication Discharge Plan: Home Plan to discharge in: 48 Hours - Advance Directives Does patient have a Living Will: No Does patient have a Durable POA for Healthcare: No - Code Status/Comfort Care Code Status Assessed: Yes Critical Care: No
[2018-02-21] MEDS ORDERED: ONDANSETRON 4 MG/2 ML VIAL IV PRN (15:31)
[2018-02-21] MEDS: NA CHLORIDE 0.9% 1,000 ML IV SCH (16:14)
[2018-02-21] MEDS: PANTOPRAZOLE INJ 80 MG in NA CHLORIDE 0.9% 250 ML IV SCH (16:15)
[2018-02-21 17:01] VITALS: BMI 32.5
[2018-02-21 19:39] LABS: Hematocrit 24.8 % (36.0-45.0)
[2018-02-21 20:00] LABS: Ferritin 7.1 ng/mL (8-388)
[2018-02-21] MEDS ORDERED: NA CHLORIDE 0.9% 250 ML ONE (23:04)
[2018-02-22] MEDS: NA CHLORIDE 0.9% 1,000 ML IV SCH ×4 (01:31→19:46)
[2018-02-22] MEDS: PANTOPRAZOLE INJ 80 MG in NA CHLORIDE 0.9% 250 ML IV SCH ×2 (02:25→13:02)
[2018-02-22 04:44] LABS: Absolute Lymphocytes (CBC) 1.6 K/uL (0.7-4.9); Absolute Monocytes 0.4 K/uL (0.1-1.3); Absolute Neutrophil 3.1 K/uL (1.8-8.0); Basophils % 0.9 % (0-1.3); Eosinophils % 2.1 % (0-4.4); Hematocrit 27.9 % (36.0-45.0); Lymphocytes % 30.3 % (15.3-44.8); MCH 22.5 pg (27.0-35.0); MCV 72.1 fL (80-100); MPV 8.5 fL (7.6-11.3); Monocytes % 8.2 % (3.3-12.3); RBC Red Blood Cell Count 3.87 M/uL (3.86-4.86)
[2018-02-22 04:54] LABS: ALT/SGPT 13 U/L (12-78); AST/SGOT 14 U/L (15-37); Albumin 3.3 g/dL (3.4-5.0); Alkaline Phosphatase 75 U/L (45-117); BUN Blood Urea Nitrogen 6 mg/dL (7-18); Bicarbonate 29 mmol/L (21-32); Bilirubin Total 0.5 mg/dL (0.2-1.0); Glucose Level 86 mg/dL (74-106); Potassium 3.8 mmol/L (3.5-5.1); Protein, Total 7.4 g/dL (6.4-8.2); Sodium Level 138 mmol/L (136-145)
[2018-02-22] MEDS ORDERED: HYDRALAZINE HCL 20 MG/ML VIAL IV PRN (05:13)
[2018-02-22] MEDS: ACETAMINOPHEN 500 MG TAB PO PRN ×2 (06:22→13:20)
[2018-02-22 08:51] LABS: Hematocrit 31.2 % (36.0-45.0)
[2018-02-22] MEDS ORDERED: PROPOFOL 200 MG/20 ML VIAL IV ONE ×2 (11:05)
[2018-02-22] MEDS ORDERED: LIDOCAINE 1% MPF 2 ML AMPULE ONE (11:05)
[2018-02-22] MEDS: METOCLOPRAMIDE 10 MG/2mL INJ IV SCH ×4 (11:43→17:23)
--- NOTE | 2018-02-22 12:22 | P.PN ---
Subjective Date of Service: 02/22/18 Primary Care Provider: [facility] Chief Complaint: rectal Bleeding Subjective: No C/O voiced, Improving, NPO, Doing well Review of Systems General: As per HPI Physical Examination - Vital Signs Temperature: 97.1 F Blood Pressure: 169/88 Pulse: 78 Respirations: 18 Pulse Ox (%): 95 - Physical Exam General: Alert, In no apparent distress HEENT: Atraumatic, PERRLA, EOMI Neck: Supple, JVD not distended Respiratory: Clear to auscultation bilaterally, Normal air movement Cardiovascular: Regular rate/rhythm, Normal S1 S2 Gastrointestinal: Normal bowel sounds, No tenderness Musculoskeletal: No tenderness Integumentary: No rashes Neurological: Normal speech, Normal tone, Normal affect Lymphatics: No axilla or inguinal lymphadenopathy - Studies Medications List Reviewed: Yes Assessment & Plan - Problems (Diagnosis) (1) Rectal bleeding Onset Date: 02/22/18 Current Visit: Yes Status: Acute Plan: Intermitted LGI bleed. With last episode 4 days ago. Complains of having dizziness and presyncopal episode -IV fluids and 2 Units of PRBC ordered -GI consulted. Reccs for EGD and Colonoscopy -Iv protonix for now (2) Hypothyroid Onset Date: 02/22/18 Current Visit: Yes Status: Chronic Plan: Will restart home medication Qualifiers: Hypothyroidism type: acquired Qualified Code(s): E03.9 - Hypothyroidism, unspecified (3) Hypertension Onset Date: 02/22/18 Current Visit: Yes Status: Chronic Plan: Will restart Home medication Qualifiers: Hypertension type: essential hypertension (4) Dyslipidemia Onset Date: 02/22/18 Current Visit: Yes Status: Chronic Plan: restart Home medication Discharge Plan: Home Plan to discharge in: 48 Hours - Code Status/Comfort Care Code Status Assessed: Yes Critical Care: No
[2018-02-22] MEDS ORDERED: MAGNESIUM CITRATE 300 ML BOT PO SCH (13:00)
[2018-02-22] MEDS: METOPROLOL XL 50 MG TAB PO SCH (13:01)
[2018-02-22] MEDS: LISINOPRIL 20 MG TAB PO SCH (13:01)
[2018-02-22] MEDS: FENOFIBRATE 160 MG TAB PO SCH (13:01)
[2018-02-22] MEDS: AMLODIPINE 10 MG TAB PO SCH (13:02)
[2018-02-22] MEDS ORDERED: GOLYTELY 4000 ML PO SCH (14:00)
[2018-02-22] MEDS ORDERED: ATORVASTATIN 80 MG TAB PO SCH (21:00)
[2018-02-22] MEDS ORDERED: hydrOXYzine HCl 25 MG TAB PO SCH (21:00)
[2018-02-23] MEDS: METOCLOPRAMIDE 10 MG/2mL INJ IV SCH (00:11)
[2018-02-23] MEDS: PANTOPRAZOLE INJ 80 MG in NA CHLORIDE 0.9% 250 ML IV SCH ×2 (00:12→09:00)
[2018-02-23] MEDS: NA CHLORIDE 0.9% 1,000 ML IV SCH ×3 (05:12→12:15)
[2018-02-23] MEDS ORDERED: LEVOTHYROXINE SOD 0.1 MG TAB PO SCH (06:00)
[2018-02-23 06:02] LABS: Absolute Lymphocytes (CBC) 1.1 K/uL (0.7-4.9); Absolute Monocytes 0.4 K/uL (0.1-1.3); Basophils % 0.9 % (0-1.3); Eosinophils % 1.8 % (0-4.4); Hematocrit 29.8 % (36.0-45.0); Lymphocytes % 18.7 % (15.3-44.8); MCH 23.1 pg (27.0-35.0); MPV 8.5 fL (7.6-11.3); Monocytes % 7.4 % (3.3-12.3); RBC Red Blood Cell Count 4.08 M/uL (3.86-4.86)
[2018-02-23 06:24] LABS: ALT/SGPT 14 U/L (12-78); AST/SGOT 14 U/L (15-37); Albumin 3.4 g/dL (3.4-5.0); Alkaline Phosphatase 73 U/L (45-117); BUN Blood Urea Nitrogen 5 mg/dL (7-18); Bicarbonate 26 mmol/L (21-32); Bilirubin Total 0.4 mg/dL (0.2-1.0); Glucose Level 81 mg/dL (74-106); Potassium 3.3 mmol/L (3.5-5.1); Protein, Total 7.5 g/dL (6.4-8.2); Sodium Level 138 mmol/L (136-145)
[2018-02-23] MEDS: METOPROLOL XL 50 MG TAB PO SCH (09:10)
[2018-02-23] MEDS: FENOFIBRATE 160 MG TAB PO SCH (09:10)
[2018-02-23 09:11] LABS: Urine Appearance CLEAR; Urine Bilirubin NEGATIVE (NEG); Urine Blood NEGATIVE (NEG); Urine Color YELLOW; Urine Glucose NEGATIVE (NEG); Urine Protein NEGATIVE (NEG); Urine Specific Gravity <=1.005 (1.005-1.030); Urine Urobilinogen 0.2 mg/dL (0.2-1.0); Urine pH 7.5 (5.0-7.0)
[2018-02-23] MEDS: LISINOPRIL 20 MG TAB PO SCH (09:11)
[2018-02-23] MEDS: AMLODIPINE 10 MG TAB PO SCH (09:11)
[2018-02-23 09:20] LABS: Urine Bacteria <20 /HPF (<20); Urine Culture Reflex Order NOT NEEDED; Urine RBC <5 /HPF (NONE SEEN)
[2018-02-23] MEDS ORDERED: PROPOFOL 200 MG/20 ML VIAL IV ONE (11:06)
[2018-02-23] MEDS ORDERED: LIDOCAINE 1% MPF 2 ML AMPULE ONE (11:07)
--- NOTE | 2018-02-23 11:25 | ENDO RPT ---
[address], [address] COLONOSCOPY PROCEDURE REPORT EXAM DATE: 02/23/2018 PATIENT NAME: Radha Saleh MR #: [id number] BIRTHDATE: 1960 ATTENDING: Malcom Mccallum Dr STATUS: inpatient - [address] TIER: Soha Valenzuela and India Guerra RN INDICATIONS: The patient is a 57 yr old Female here for a colonoscopy due to hematochezia and anemia PROCEDURE PERFORMED: Colonoscopy MEDICATIONS: Per Anesthesia. ESTIMATED BLOOD LOSS: None CONSENT: The patient understands the risks and benefits of the procedure and understands that these risks include, but are not limited to: sedation, allergic reaction, infection, perforation and/or bleeding. Alternative means of evaluation and treatment include, among others: physical exam, x-rays, and/or surgical intervention. The patient elects to proceed with this endoscopic procedure. DESCRIPTION OF PROCEDURE: During intra-op preparation period all mechanical medical equipment was checked for proper function. Hand hygiene and appropriate measures for infection prevention was taken. Procedure, possible complications, alternatives including, but not limited to possibility of bleeding, perforation, tear, infection, sepsis, need for surgery, need for blood transfusion, were explained to the patient. After the risks, benefits and alternatives of the procedure were thoroughly explained, Informed consent was verified, confirmed and timeout was successfully executed by the treatment team. The patient was placed in the left lateral position. A digital rectal exam was performed and revealed several skin tags. After appropriate level of anesthesia, the scope was passed. The [id number] ([id number]) endoscope was introduced through the anus and advanced to the cecum, which was identified by both the appendix and ileocecal valve. The quality of the prep was fair. The instrument was then slowly withdrawn as the colon was fully examined. Scope withdrawal time was 8 minutes. COLON FINDINGS: Large internal hemorrhoids were found. Retroflexed views revealed large hemorrhoids. The scope was then completely withdrawn from the patient and the procedure terminated. ADVERSE EVENTS: There were no complications. IMPRESSIONS: 1. Large internal hemorrhoids 2. Intubation to cecum RECOMMENDATIONS: 1. hemorrhoidal hygiene 2. fiber rich diet 3. Small Bowel Follow Through 4. pillcam / capsule endoscopy 5. yearly hemoccult starting in 4 years RECALL: Return in 10 year(s) for Colonoscopy. Malcom Mccallum Dr eSigned: Malcom Mccallum Dr 02/23/2018 11:25 AM cc: CPT CODES: ICD9 CODES: 455.9 Residual hemorrhoidal skin tags PATIENT NAME: Radha Saleh Rosa MR#: [id number]
[2018-02-23 11:56] VITALS: O2SAT 96
--- NOTE | 2018-02-23 13:41 | P.SSS ---
Patient History Date of Service: 02/23/18 Primary Care Provider: [facility] Reason for admission: rectal Bleeding History of Present Illness: History of the present hyperlipidemia presented to the ED complaining of having some rectal bleeding. She was sent over to the hospital by her primary care provider after having some labs done. Patient has been seeing her primary care provider more often recently because of dizziness and presyncopal episodes. Patient notify the primary care provider that she has been having some rectal bleeding that has been MN and has been going on an off for a whole year and has progressively gotten worse. Last episode was noted to be 4 days ago. Patient stated that now she is also started to have some dizziness along with presyncopal episode and thus decided to get it checked out. In the ER patient was found to have hemoglobin of 7.8 along with hypotension. Patient was given IV fluids and hypotension did resolve however her hemoglobin remained at 7.8 and thus patient was referred for admission for further care. Patient has been seen at the free clinic at the [facility] and has not been able to make an appointment with GI on outpatient basis. Allergies morphine Allergy (Severe, Verified 03/08/13 22:11) Nausea/Vomiting Home Medications: Levothyroxine [Synthroid*] 100 mcg PO [id number] 06/15/16 hydrOXYzine HCl [Atarax] 50 mg PO BEDTIME 06/15/16 hydroCHLOROthiazide [Hydrochlorothiazide] 25 mg PO DAILY 06/15/16 Atorvastatin Calcium [Lipitor] 80 mg PO BEDTIME #30 tab 06/16/16 Metoprolol Succinate [Toprol Xl*] 50 mg PO DAILY #30 tab 06/16/16 Amlodipine [Norvasc*] 10 mg PO DAILY #30 tab 06/17/16 Atorvastatin Calcium [Lipitor*] 10 mg PO BEDTIME #30 tab 06/17/16 Lisinopril [Prinivil*] 20 mg PO DAILY #30 tab 06/17/16 Nitroglycerin [Nitrostat*] 0.4 mg SL UD PRN #30 tab 06/17/16 Fenofibrate [Tricor*] 160 mg PO DAILY 02/21/18 Pantoprazole Sodium [Protonix] 40 mg PO DAILY #30 tablet. 02/23/18 - Past Medical/Surgical History Has patient received pneumonia vaccine in the past: No Diabetic: No -: HTN -: HYPOTHYROIDISM -: HIGH CHOLESTEROL -: GASTRIC ULCER -: TIA -: CESARIAN SECTION - Family History Family History: Reviewed- Non-Contributory - Family History Mother -: Diabetes, Kidney disease Father -: Heart disease Brother -: Heart disease Notes: Stent - Social History Smoking Status: Current every day smoker Alcohol use: No CD- Drugs: No Caffeine use: Yes Place of Residence: Home Review of Systems 10-point ROS is otherwise unremarkable General: As per HPI Physical Examination - Vital Signs Temperature: 98.1 F Blood Pressure: 143/83 Pulse: 65 Respirations: 18 Pulse Ox (%): 96 - Physical Exam General: Alert, In no apparent distress HEENT: Atraumatic, PERRLA, Mucous membr. moist/pink, EOMI, Sclerae nonicteric Neck: Supple, 2+ carotid pulse no bruit, No LAD, Without JVD or thyroid abnormality Respiratory: Clear to auscultation bilaterally, Normal air movement Cardiovascular: Regular rate/rhythm, Normal S1 S2 Gastrointestinal: Normal bowel sounds, No tenderness Musculoskeletal: No tenderness Integumentary: No rashes Neurological: Normal gait, Normal speech, Normal strength at 5/5 x4 extr, Normal tone, Normal affect Lymphatics: No axilla or inguinal lymphadenopathy - Diagnosis (Problem(s)) (1) Rectal bleeding Onset Date: 02/22/18 Current Visit: Yes Status: Acute (2) Hypothyroid Onset Date: 02/22/18 Current Visit: Yes Status: Chronic Qualifiers: Hypothyroidism type: acquired Qualified Code(s): E03.9 - Hypothyroidism, unspecified (3) Hypertension Onset Date: 02/22/18 Current Visit: Yes Status: Chronic Qualifiers: Hypertension type: essential hypertension (4) Dyslipidemia Onset Date: 02/22/18 Current Visit: Yes Status: Chronic Treatment Summary: Overall during the hospital stay patient remained stable The patient was initially admitted to the hospital for rectal bleeding that has been intermittent for over a year. Has been getting progressively worse and her hemoglobin was 7.8 on admission. GI was consulted who recommended a EGD and colonoscopy which hospital. EGD was consistent with gastritis and Erosion at the pyloric Antrum. The patient was recommended to get Protonix 40 mg daily. And was asked to quit smoking. Patient was explained the risks of having a peptic ulcer due to smoking and worsening of her gastritis and erosion that was seen on the EGD. Patient demonstrated understanding. Patient had a colonoscopy done here in the hospital as well which was concerning for polyps and was removed. Without any complication. Patient's H&H remained stable while here in the hospital. Patient was transfused 2 units while here in the hospital. Patient remained asymptomatic after admission and thus was discharged home in stable condition. Patient was asked to follow up with the GI doctor in about 1-2 days post discharge. - Disposition Disposition: ROUTINE DISCHARGE Condition: GOOD Patient Discharge Instructions: Please f.u with PCP and Dr Mccallum in 1 to 2 week post discharge. . New medication. Protonix 40mg daily. DO NOT TAKE NSAIDS CONTAINING PRODUCTS. -Ibuprofen, motrin, aleve it can cause you to bleeding more. Stop You plavis for 3 days and resume it after seeing your PCP Diet: Regular Activity: Ad jannet
--- NOTE | 2018-02-23 15:45 | RAD REPORT ---
EXAM DESCRIPTION: RAD - Small Bowel Series - 02/23/2018 3:25 pm CLINICAL HISTORY: Abdominal pain/ GI bleed FINDINGS: Contrast enters the colon by approximately 1 hour The mucosal folds of the small bowel appear normal. No permanent filling defects, obstructing or constricting lesions are seen. The small bowel caliber is normal. The gastric body lies superior to the gastric fundus IMPRESSION: Unremarkable small bowel series. The gastric body lies superior to the gastric fundus likely indicating a chronic volvulus
[2018-02-23 16:55] VITALS: BP 166/87; TEMP 98.7
--- NOTE | 2018-02-23 17:18 | CON ---
Date of Consultation: 02/22/2018 Reason For Consultation: GI bleed with melena and possible hematochezia. History Of Present Illness: The patient is a 57-year-old white female with history of hypertension, hypercholesterolemia, hypothyroidism, gastric ulcer, TIA. The patient presented to the hospital with GI bleeding. She initially stated it was hematochezia and the RNs on the floor told me that she had melena. Now at bedside, the patient tells me she is having hematochezia, but then denies any melena . The patient does have a history of gastric ulcer and will need to be evaluated with EGD and colono scopy. Past Medical History: Significant for gastric ulcer, hypertension, hypercholesterolemia, and hypothy roidism, TIA, and . Allergies: MORPHINE GIVES HER NAUSEA, VOMITING. Home Medications: Include Synthroid, Atarax, hydrochlorothiazide, Lipitor, Toprol, Norvasc, Plavix, Prinivil, Nitrostat. Social History: She is a . Two children. Positive for tobacco. No alcohol. Lives at home. Family History: Father of myocardial infarction. Mother of renal failure, had diabetes as well. Brother has heart disease. Daughter has hypothyroidism. Review of Systems: The patient has GI bleeding with history of patient states hematochezia, RNs have reports melena. Sh lakesha has a history of gastric ulcer as well. She denies any depression, anxiety, muscle aches, joint ac hes, backaches, fevers, chills, night sweats, chest pain, shortness of breath, seizure, syncope, lowe r extremity edema, hematemesis, coffee-grounds emesis, hemoptysis, or hematuria. Physical Examination: Vital Signs: The patient is 5 feet 4 inches, 190 pounds. BMI of 32.6 kg/m2. She has a temperature of 97.3 Fahrenheit, pulse 80, respirations 16, blood pressure 175/101, O2 saturation 95%. General: She is an obese female, lying in bed, in no acute distress. HEENT: Normocephalic, atraumatic. Anicteric. Pupils equal, round, and reactive to light. Extraocu lar movements are intact. Oropharynx is clear. Neck: Supple. No masses. Respirations: Clear to auscultation bilaterally. Cardiac: Regular rate and rhythm. No gallops. Abdomen: Positive bowel sounds. Soft, nontender, n ondistended. No hepatosplenomegaly. Obese. No peritoneal or Nicholson sign. No rebound. No guarding . Extremities: No clubbing, cyanosis, or edema. 2+ pulses. Neuro: Alert and oriented x3. Grossly nonfocal. 5/5 motor, sensation intact to light touch. Laboratory Data: The patient has a white count of 5.3, hemoglobin 8.7 up from 7.4 yesterday, hematoc rit of 27.9, MCV of 72, up from 70 yesterday, platelet count 319, polys of 59%, lymphocytes 30%, mono cytes 8%, eosinophils 2%. The patient has a sodium 138, potassium 3.8, chloride 105, bicarb 29, BUN of 6, creatinine of 0.6, glucose 86, calcium 8.5, iron saturation low at 3.1, ferritin low at 7.1, to yobani bilirubin 0.5, AST of 14, ALT of 13, alkaline phosphatase 75, total protein 7.4, albumin 3.3. UA shows 20-50 squamous epithelial cells, 30. Urinalysis largely negative except for trace leukocyte e sterase. Imaging: CT of abdomen and pelvis on the yesterday revealed cholelithiasis, prominent bladder d istention and mild bilateral hydronephrosis noted. Suggest clinical correlation for possibility of b ladder outlet obstruction versus neurogenic bladder. Urology referral. Impression: 1.Gastrointestinal bleed with anemia, melena, reported by RNs. The patient denies hematochezia, rep orted by patient today. She is anemic with hemoglobin down to 7.4, yesterday up to 8.7 after blood t ransfusion. Then again, a repeat is up to 9.7 that was on 2 unit packed RBCs. Also, we will need to investigate with esophagogastroduodenoscopy and probable colonoscopy as well. 2.Prominent bladder with mild bilateral hydronephrosis. Will need urology consultation inpatient, o utpatient to follow this up. Recommendation: 1.Serial H and H and transfuse p.r.n. 2.IV fluids. 3.PPI therapy. 4.Keep patient n.p.o. 5.EGD now. 6.Consider colonoscopy on this admission or inpatient outpatient. 7.Urology consult. RUSTAM/GINGER Voice ID: [id number] Report ID: [id number]
== END 2018-02-23 19:25 | disposition home or self-care (01) ==
LOC: ER 09:04 → 4TH 11:48
PROVIDERS: ADMIT Family Medicine; ATTEND Family Medicine
PROC: 30233N1 Transfusion of Nonautologous Red Blood Cells into Peripheral Vein, Percutaneous Approach (ICD-10-PCS; 2018-02-21)
PROC: 0DB68ZX Excision of Stomach, Via Natural or Artificial Opening Endoscopic, Diagnostic (ICD-10-PCS; 2018-02-22)
PROC: 0DJD8ZZ Inspection of Lower Intestinal Tract, Via Natural or Artificial Opening Endoscopic (ICD-10-PCS; principal; 2018-02-23 13:00)
DX: K92.1 Melena (principal); K25.9 Gastric ulcer, unspecified as acute or chronic, without hemorrhage or perforation; K29.70 Gastritis, unspecified, without bleeding; E78.5 Hyperlipidemia, unspecified; K64.8 Other hemorrhoids; N13.30 Unspecified hydronephrosis; K80.20 Calculus of gallbladder without cholecystitis without obstruction; I48.91 Unspecified atrial fibrillation; I10 Essential (primary) hypertension; D64.9 Anemia, unspecified; I95.9 Hypotension, unspecified; F17.210 Nicotine dependence, cigarettes, uncomplicated; E03.9 Hypothyroidism, unspecified; Z87.11 Personal history of peptic ulcer disease; Z79.02 Long term (current) use of antithrombotics/antiplatelets; Z86.73 Personal history of transient ischemic attack (TIA), and cerebral infarction without residual deficits; Z88.5 Allergy status to narcotic agent
CPT/HCPCS: 36415; 74177; 74250; 80053; 81001; 82728; 83540; 84466; 85014; 85018; 85025; 86850; 86900; 86901; 88305; 88312; 99284; C9113; G0378; J0360; J2001; J2765; J7030; P9016; Q9967

== ENCOUNTER 2018-08-23 10:00 | Emergency (ER) | payer OTHER ==
[2018-08-23 11:21] LABS: Absolute Lymphocytes (CBC) 1.5 K/uL (0.7-4.9); Absolute Monocytes 0.5 K/uL (0.1-1.3); Absolute Neutrophil 4.7 K/uL (1.8-8.0); Basophils % 0.5 % (0-1.3); Eosinophils % 1.3 % (0-4.4); Hematocrit 34.1 % (36.0-45.0); Lymphocytes % 21.9 % (15.3-44.8); Monocytes % 6.9 % (3.3-12.3); RBC Red Blood Cell Count 4.28 M/uL (3.86-4.86)
[2018-08-23 11:32] LABS: ALT/SGPT 21 U/L (12-78); AST/SGOT 24 U/L (15-37); Albumin 3.9 g/dL (3.4-5.0); Alkaline Phosphatase 84 U/L (45-117); BUN Blood Urea Nitrogen 7 mg/dL (7-18); Bicarbonate 32 mmol/L (21-32); Bilirubin Direct < 0.1 mg/dL (0-0.2); Bilirubin Total 0.2 mg/dL (0.2-1.0); Glucose Level 79 mg/dL (74-106); Lipase 137 U/L (73-393); Potassium 4.2 mmol/L (3.5-5.1); Protein, Total 8.7 g/dL (6.4-8.2); Sodium Level 133 mmol/L (136-145)
--- NOTE | 2018-08-23 11:53 | ER ---
Nurse's Notes [facility] Name: Radha Saleh Age: 58 yrs Sex: Female : 1960 Arrival Date: 08/23/2018 Time: 10:03 Bed 24 Private MD: Diagnosis: Gastrointestinal hemorrhage, unspecified Presentation: 08/23 10:17 Presenting complaint: Bright red rectal bleeding and upper abdominal pain x 2 days. hb Transition of care: patient was not received from another setting of care. Onset of symptoms was August 22, 2018. Risk Assessment: Do you want to hurt yourself or someone else? Patient reports no desire to harm self or others. Care prior to arrival: None. 10:17 Method Of Arrival: Ambulatory hb 10:17 Acuity: OSMANY 3 hb 10:40 Initial Sepsis Screen: Does the patient meet any 2 criteria? No. Patient's initial ls4 sepsis screen is negative. Does the patient have a suspected source of infection? No. Patient's initial sepsis screen is negative. Triage Assessment: 10:33 General: Appears in no apparent distress. uncomfortable, Behavior is calm, cooperative. ls4 Pain: Complains of pain in epigastric area Pain currently is 7 out of 10 on a pain scale. GI: Abdomen is round non-distended, obese, Last BM was August 23, 2018. Derm: Skin Skin is. Musculoskeletal: Circulation, motion, and sensation intact. Capillary refill < 3 seconds, Range of motion: intact in all extremities. Historical: - Allergies: 10:19 Morphine; hb - Home Meds: 10:19 amlodipine 10 mg tab 1 tab once daily [Active]; atorvastatin 20 mg Oral tab 1 tab once hb daily [Active]; fenofibrate 160 mg Oral tab 1 tab once daily [Active]; hydrochlorothiazide 25 mg Oral tab 1 tab once daily [Active]; hydroxyzine HCl 25 mg Oral tab 2 tab nightly [Active]; levothyroxine 112 mcg tab 1 tab once daily [Active]; lisinopril 20 mg Oral tab 1 tab once daily [Active]; - PMHx: 10:19 Hyperlipidemia; Hypertension; Hypothyroidism; CVA; Myocardial infarction; Gastric Ulcer;hb - PSHx: 10:19 ; hb - Immunization history:: Adult Immunizations up to date. - Social history:: Smoking status: Patient uses tobacco products, smokes one pack cigarettes per day. - Ebola Screening: : No symptoms or risks identified at this time. Screenin:20 Abuse screen: Denies threats or abuse. Denies injuries from another. Nutritional hb screening: No deficits noted. Tuberculosis screening: No symptoms or risk factors identified. Fall Risk None identified. Assessment: 10:41 General: see triage assessment . Respiratory: Airway is patent Respiratory effort is ls4 even, unlabored, Respiratory pattern is regular. 11:41 Reassessment: Patient appears in no apparent distress at this time. Patient and/or ls4 family updated on plan of care and expected duration. Pain level reassessed. Patient is alert, oriented x 3, equal unlabored respirations, skin warm/dry/pink. 11:45 GI: Bowel sounds present X 4 quads. Abd is soft and non tender X 4 quads. ls4 Vital Signs: 10:19 BP 176 / 99; Pulse 88; Resp 18; Temp 96.9(TE); Pulse Ox 100% on R/A; Pain 7/10; hb 10:31 BP 128 / 90; Pulse 69; Resp 16; Pulse Ox 99% on R/A; ls4 ED Course: 10:03 Patient arrived in ED. as 10:18 Triage completed. hb 10:19 Arm band placed on. hb 10:21 Jessica Snowden, RN is Primary Nurse. ls4 10:22 Patient has correct armband on for positive identification. Allergy band placed. Placed ls4 in gown. Bed in low position. Call light in reach. Side rails up X 1. 10:22 residential monitor on. Pulse ox on. NIBP on. ls4 10:30 Fuad Tyson MD is Attending Physician. gs 10:41 No provider procedures requiring assistance completed. Patient maintains SpO2 ls4 saturation greater than 95% on room air. 10:45 Inserted saline lock: 20 gauge in right antecubital area, using aseptic technique. ls4 10:45 Initial lab(s) drawn, by ED staff, sent to lab. ls4 11:52 Malcom Mccallum MD is Referral Physician. gs 12:00 IV discontinued, intact, bleeding controlled, No redness/swelling at site. Pressure ls4 dressing applied. Administered Medications: No medications were administered Outcome: 10:20 Discharged to home ambulatory, with family. ls4 11:52 Discharge ordered by . gs 12:13 Patient left the ED. ls4 12:13 Condition: stable ls4 12:13 Discharge instructions given to patient, family, Instructed on discharge instructions, ls4 follow up and referral plans. medication usage, safety practices, Demonstrated understanding of instructions, follow-up care, medications, Prescriptions given X 1. Signatures: Katelyn Cr Heather, RN RN Fuad Tyson MD MD Jessica Snowden RN RN ls4
--- NOTE | 2018-08-23 11:54 | EDPHYS ---
Physician Documentation [facility] Name: Radha Saleh Age: 58 yrs Sex: Female : 1960 Arrival Date: 08/23/2018 Time: 10:03 Bed 24 Private MD: ED Physician Fuad Tyson HPI: 08/23 11:50 This 58 yrs old Female presents to ER via Ambulatory with complaints of gs Rectal Bleeding, Abdominal Pain. 11:50 The patient presents to the emergency department with bleeding from the rectum/anus, gs that is mild. Onset: The symptoms/episode began/occurred 2 day(s) ago. Context: the patient has no known special context relating to the rectal area complaint(s). Modifying factors: The symptoms are alleviated by nothing, The symptoms are aggravated by bowel movement. Associate signs and symptoms: Pertinent positives: abdominal pain in the right upper quadrant, left upper quadrant, right lower quadrant and left lower quadrant. The patient has experienced similar episodes in the past, a few times. The patient has not recently seen a physician. Historical: - Allergies: 10:19 Morphine; hb - Home Meds: 10:19 amlodipine 10 mg tab 1 tab once daily [Active]; atorvastatin 20 mg Oral tab 1 tab once hb daily [Active]; fenofibrate 160 mg Oral tab 1 tab once daily [Active]; hydrochlorothiazide 25 mg Oral tab 1 tab once daily [Active]; hydroxyzine HCl 25 mg Oral tab 2 tab nightly [Active]; levothyroxine 112 mcg tab 1 tab once daily [Active]; lisinopril 20 mg Oral tab 1 tab once daily [Active]; - PMHx: 10:19 Hyperlipidemia; Hypertension; Hypothyroidism; CVA; Myocardial infarction; Gastric Ulcer;hb - PSHx: 10:19 ; hb - Immunization history:: Adult Immunizations up to date. - Social history:: Smoking status: Patient uses tobacco products, smokes one pack cigarettes per day. - Ebola Screening: : No symptoms or risks identified at this time. ROS: 11:50 All other systems are negative. gs Exam: 11:50 Head/Face: Normocephalic, atraumatic. Eyes: Pupils equal round and reactive to light, gs extra-ocular motions intact. Lids and lashes normal. Conjunctiva and sclera are non-icteric and not injected. Cornea within normal limits. Periorbital areas with no swelling, redness, or edema. ENT: Nares patent. No nasal discharge, no septal abnormalities noted. Tympanic membranes are normal and external auditory canals are clear. Oropharynx with no redness, swelling, or masses, exudates, or evidence of obstruction, uvula midline. Mucous membranes moist. Neck: Trachea midline, no thyromegaly or masses palpated, and no cervical lymphadenopathy. Supple, full range of motion without nuchal rigidity, or vertebral point tenderness. No Meningismus. Chest/axilla: Normal chest wall appearance and motion. Nontender with no deformity. No lesions are appreciated. Cardiovascular: Regular rate and rhythm with a normal S1 and S2. No gallops, murmurs, or rubs. Normal PMI, no JVD. No pulse deficits. Respiratory: Lungs have equal breath sounds bilaterally, clear to auscultation and percussion. No rales, rhonchi or wheezes noted. No increased work of breathing, no retractions or nasal flaring. Abdomen/GI: Soft, non-tender, with normal bowel sounds. No distension or tympany. No guarding or rebound. No evidence of tenderness throughout. Back: No spinal tenderness. No costovertebral tenderness. Full range of motion. Skin: Warm, dry with normal turgor. Normal color with no rashes, no lesions, and no evidence of cellulitis. MS/ Extremity: Pulses equal, no cyanosis. Neurovascular intact. Full, normal range of motion. Neuro: Awake and alert, GCS 15, oriented to person, place, time, and situation. Cranial nerves II-XII grossly intact. Motor strength 5/5 in all extremities. Sensory grossly intact. Cerebellar exam normal. Normal gait. 11:50 Constitutional: The patient appears alert, awake. 11:50 Abdomen/GI: Rectal exam: Stool: normal, guaiac negative. Vital Signs: 10:19 BP 176 / 99; Pulse 88; Resp 18; Temp 96.9(TE); Pulse Ox 100% on R/A; Pain 7/10; hb 10:31 BP 128 / 90; Pulse 69; Resp 16; Pulse Ox 99% on R/A; ls4 MDM: 10:56 Patient medically screened. 11:50 Differential diagnosis: hemorrhoids, fissure, gi beed. Data reviewed: vital signs, gs nurses notes. Counseling: I had a detailed discussion with the patient and/or guardian regarding: the historical points, exam findings, and any diagnostic results supporting the discharge/admit diagnosis, the need for outpatient follow up, a director funeral. Response to treatment: the patient's symptoms have markedly improved after treatment, and as a result, I will discharge patient. 08/23 10:56 Order name: Basic Metabolic Panel; Complete Time: 11:53 08/23 10:56 Order name: CBC with Diff; Complete Time: :53 08/23 10:56 Order name: Hepatic Function; Complete Time: 11:53 08/23 10:56 Order name: Lipase; Complete Time: :53 08/23 10:56 Order name: IV Saline Lock; Complete Time: :57 08/23 10:56 Order name: Labs collected and sent; Complete Time: 10:57 Administered Medications: No medications were administered Disposition: 08/23/18 11:52 Discharged to Home. Impression: Gastrointestinal hemorrhage, unspecified. - Condition is Stable. - Discharge Instructions: Gastrointestinal Bleeding, Rectal Bleeding. - Prescriptions for Pepcid 20 mg Oral Tablet - take 1 tablet by ORAL route every 12 hours for 10 days; 20 tablet. - Medication Reconciliation Form, Thank You Letter, Antibiotic Education, Prescription Opioid Use, Work release form form. - Follow up: Malcom Mccallum MD; When: 2 - 3 days; Reason: Re-evaluation by your physician. Signatures: Dispatcher [employer] EDYadira Marino RN RN Fuad Tyson MD MD Jessica Snowden RN RN ls4 Corrections: (The following items were deleted from the chart) 12:13 11:52 08/23/2018 11:52 Discharged to Home. Impression: Gastrointestinal hemorrhage, ls4 unspecified. Condition is Stable. Forms are Medication Reconciliation Form, Thank You Letter, Antibiotic Education, Prescription Opioid Use. Follow up: Malcom Mccallum; When: 2 - 3 days; Reason: Re-evaluation by your physician.
[2018-08-23 12:18] VITALS: TEMP 96.9
[2018-08-23 12:19] VITALS: BP 128/90; O2SAT 99
== END 2018-08-23 12:13 | disposition home or self-care (01) ==
LOC: ER 10:00
DX: K92.2 Gastrointestinal hemorrhage, unspecified (principal); E78.5 Hyperlipidemia, unspecified; I10 Essential (primary) hypertension; E03.9 Hypothyroidism, unspecified; I25.2 Old myocardial infarction
CPT/HCPCS: 36415; 80048; 80076; 83690; 85025; 99285

== ENCOUNTER 2018-12-07 13:35 | Emergency (ER) | payer OTHER ==
[2018-12-07] MEDS ORDERED: ONDANSETRON 4 MG (ODT) TAB ONE ×2 (14:19→14:21)
--- NOTE | 2018-12-07 15:15 | EDPHYS ---
Physician Documentation [facility] Name: Radha Saleh Age: 58 yrs Sex: Female : 1960 Arrival Date: 12/07/2018 Time: 13:38 Bed 13 Private MD: ED Physician Garrick Blanco HPI: 12/07 14:01 This 58 yrs old Female presents to ER via Ambulatory with complaints of pm1 Nausea/Vomiting, Headache. 14:01 The patient presents to the emergency department with nausea, vomiting, 7 times since pm1 the onset of symptoms. Onset: The symptoms/episode began/occurred last night. Possible causes: sick contacts, by family, her grandchildren have stomach virus. The symptoms are aggravated by nothing. The symptoms are alleviated by nothing. Associated signs and symptoms: Pertinent positives: nausea, vomiting, abdominal cramping, Pertinent negatives: diarrhea, fever. The patient has not recently seen a physician. Historical: - Allergies: 13:40 Morphine; hj - PMHx: 13:40 CVA; gastric ulcer; Hyperlipidemia; Hypertension; Hypothyroidism; Myocardial infarction;hj - PSHx: 13:40 ; hj - Immunization history:: Adult Immunizations unknown. - Social history:: Smoking status: Patient/guardian denies using tobacco. - Ebola Screening: : No symptoms or risks identified at this time. ROS: 14:01 Constitutional: Negative for fever, chills, and weight loss, Eyes: Negative for injury, pm1 pain, redness, and discharge, Neck: Negative for injury, pain, and swelling, Cardiovascular: Negative for chest pain, palpitations, and edema, Respiratory: Negative for shortness of breath, cough, wheezing, and pleuritic chest pain, Back: Negative for injury and pain, : Negative for injury, bleeding, discharge, and swelling. 14:01 MS/Extremity: Negative for injury and deformity, Skin: Negative for injury, rash, and discoloration. 14:01 ENT: Positive for sore throat, Negative for ear pain, difficulty swallowing, difficulty handling secretions, hoarseness. 14:01 Abdomen/GI: Positive for nausea and vomiting, abdominal cramps, Negative for diarrhea, constipation, hematemesis. 14:01 Neuro: Positive for headache, Negative for dizziness, numbness, tingling, weakness. Exam: 14:01 Constitutional: This is a well developed, well nourished patient who is awake, alert, pm1 and in no acute distress. Head/Face: Normocephalic, atraumatic. Eyes: Pupils equal round and reactive to light, extra-ocular motions intact. Lids and lashes normal. Conjunctiva and sclera are non-icteric and not injected. Cornea within normal limits. Periorbital areas with no swelling, redness, or edema. 14:01 Neck: Trachea midline, no thyromegaly or masses palpated, and no cervical lymphadenopathy. Supple, full range of motion without nuchal rigidity, or vertebral point tenderness. No Meningismus. Chest/axilla: Normal chest wall appearance and motion. Nontender with no deformity. No lesions are appreciated. Cardiovascular: Regular rate and rhythm with a normal S1 and S2. No gallops, murmurs, or rubs. Normal PMI, no JVD. No pulse deficits. Respiratory: Lungs have equal breath sounds bilaterally, clear to auscultation and percussion. No rales, rhonchi or wheezes noted. No increased work of breathing, no retractions or nasal flaring. Abdomen/GI: Soft, non-tender, with normal bowel sounds. No distension or tympany. No guarding or rebound. No evidence of tenderness throughout. Back: No spinal tenderness. No costovertebral tenderness. Full range of motion. Skin: Warm, dry with normal turgor. Normal color with no rashes, no lesions, and no evidence of cellulitis. MS/ Extremity: Pulses equal, no cyanosis. Neurovascular intact. Full, normal range of motion. 14:01 ENT: External ear(s): are unremarkable, Ear canal(s): are normal, TM's: are normal, Nose: is normal, Mouth: Lips: normal, Oral mucosa: normal, Posterior pharynx: is normal, airway is patent, Tonsils: bilaterally enlarged, with erythema, no exudate, no ulcerations, erythema, that is moderate, peritonsillar mass, is not appreciated, pooling of secretions, is not appreciated. 14:01 Neuro: Orientation: is normal, Motor: is normal, moves all fours, Sensation: is normal, no obvious gross deficits, Gait: is steady, at a normal pace, without difficulty. Vital Signs: 13:40 BP 144 / 94; Pulse 75; Resp 18; Temp 97.9(O); Pulse Ox 98% on R/A; Weight 95.71 kg; hj Height 5 ft. 4 in. (162.56 cm); Pain 7/10; 15:40 BP 137 / 86; Pulse 77; Resp 18; Temp 97.9; Pulse Ox 100% on R/A; ph 13:40 Body Mass Index 36.22 (95.71 kg, 162.56 cm) hj MDM: 13:54 Patient medically screened. pm1 14:00 Refusal of service: The patient/guardian displays adequate decision making capability pm1 and despite a detailed discussion of alternatives, benefits, risks, and consequences refuses: CT Scan, all lab tests, Patient wants some medications to help stop the nausea and vomiting. 14:00 ED course: Patient is agreeable to flu and strep swab but not blood work. pm1 14:07 Data reviewed: vital signs. Data interpreted: Pulse oximetry: on room air is 98 %. pm1 Interpretation: normal. 15:00 ED course: Discussed current lab results. Offered to ordered blood work and CT scan. pm1 Patient feels better with Zofran and does not want blood work and CT at the moment. Said she will return if her symptoms do not improve or get worse after taking a few days off from work. 15:07 Counseling: I had a detailed discussion with the patient and/or guardian regarding: the pm1 historical points, exam findings, and any diagnostic results supporting the discharge/admit diagnosis, lab results, the need for outpatient follow up, to return to the emergency department if symptoms worsen or persist or if there are any questions or concerns that arise at home. 12/07 14:00 Order name: Flu; Complete Time: 14:59 pm1 12/07 14:00 Order name: Strep; Complete Time: 14:59 pm1 12/07 14:25 Order name: Throat Culture EDMS Administered Medications: 14:18 Drug: Zofran 4 mg Route: PO; ph 15:41 Follow up: Response: No adverse reaction ph Disposition: 15:52 Co-signature as Attending Physician, Garrick Blanco MD. rn Disposition: 12/07/18 15:15 Discharged to Home. Impression: Vomiting, Acute pharyngitis, Headache. - Condition is Stable. - Discharge Instructions: General Headache Without Cause, Pharyngitis, Vomiting, Adult. - Prescriptions for Zofran 4 mg Oral Tablet - take 1 tablet by ORAL route every 12 hours As needed; 20 tablet. - Work release form, Medication Reconciliation Form, Thank You Letter, Antibiotic Education, Prescription Opioid Use form. - Follow up: Emergency Department; When: As needed; Reason: Worsening of condition. Follow up: Private Physician; When: 2 - 3 days; Reason: Recheck today's complaints, Continuance of care, Re-evaluation by your physician. - Problem is new. - Symptoms have improved. Signatures: Dispatcher [employer] EDMS Garrick Blanco MD MD rn Hall, Patricia RN RN ph Viet Wasserman RN RN Juan Antonio Smyth, BRANDON PER DIEM REGISTERED NURSE pm1 Corrections: (The following items were deleted from the chart) 15:42 15:15 12/07/2018 15:15 Discharged to Home. Impression: Vomiting; Acute pharyngitis; ph Headache. Condition is Stable. Forms are Medication Reconciliation Form, Thank You Letter, Antibiotic Education, Prescription Opioid Use. Follow up: Emergency Department; When: As needed; Reason: Worsening of condition. Follow up: Private Physician; When: 2 - 3 days; Reason: Recheck today's complaints, Continuance of care, Re-evaluation by your physician. Problem is new. Symptoms have improved. pm1
--- NOTE | 2018-12-07 15:15 | ER ---
Nurse's Notes [facility] Name: Radha Saleh Age: 58 yrs Sex: Female : 1960 Arrival Date: 12/07/2018 Time: 13:38 Bed 13 Private MD: Diagnosis: Vomiting;Acute pharyngitis;Headache Presentation: 12/07 13:38 Presenting complaint: Patient states: i ve been throwing up that started yesterday hj after work, headache and my throat hurts; reports body aches; denies fever and diarrhea;. Transition of care: patient was not received from another setting of care. Onset of symptoms was December 07, 2018. Risk Assessment: Do you want to hurt yourself or someone else? Patient reports no desire to harm self or others. Initial Sepsis Screen: Does the patient meet any 2 criteria? No. Patient's initial sepsis screen is negative. Does the patient have a suspected source of infection? No. Patient's initial sepsis screen is negative. Care prior to arrival: None. 13:38 Method Of Arrival: Ambulatory 13:38 Acuity: OSMANY 4 hj Historical: - Allergies: 13:40 Morphine; hj - PMHx: 13:40 CVA; gastric ulcer; Hyperlipidemia; Hypertension; Hypothyroidism; Myocardial infarction;hj - PSHx: 13:40 ; hj - Immunization history:: Adult Immunizations unknown. - Social history:: Smoking status: Patient/guardian denies using tobacco. - Ebola Screening: : No symptoms or risks identified at this time. Screenin:38 Abuse screen: Denies threats or abuse. Denies injuries from another. Nutritional ph screening: No deficits noted. Tuberculosis screening: No symptoms or risk factors identified. Fall Risk None identified. Assessment: 14:36 General: Appears in no apparent distress. comfortable, Behavior is calm, cooperative, ph appropriate for age, Denies fever. Pain: Complains of pain in head and throat. Neuro: Level of Consciousness is awake, alert, obeys commands, Oriented to person, place, time, situation. Cardiovascular: Capillary refill < 3 seconds in bilateral fingers Patient's skin is warm and dry. Respiratory: Airway is patent Respiratory effort is even, unlabored, Respiratory pattern is regular, symmetrical. GI: Abdomen is round non-distended, Reports nausea, vomiting, Patient currently denies abdominal pain, diarrhea. EENT: Reports pain when swallowing. Derm: Skin is intact, is healthy with good turgor, Skin is pink, warm \T\ dry. 15:39 Reassessment: Patient appears in no apparent distress at this time. Patient and/or ph family updated on plan of care and expected duration. Pain level reassessed. Patient is alert, oriented x 3, equal unlabored respirations, skin warm/dry/pink. Pt d/c home. Vital Signs: 13:40 BP 144 / 94; Pulse 75; Resp 18; Temp 97.9(O); Pulse Ox 98% on R/A; Weight 95.71 kg; hj Height 5 ft. 4 in. (162.56 cm); Pain 7/10; 15:40 BP 137 / 86; Pulse 77; Resp 18; Temp 97.9; Pulse Ox 100% on R/A; ph 13:40 Body Mass Index 36.22 (95.71 kg, 162.56 cm) ED Course: 13:38 Patient arrived in ED. mr 13:39 Triage completed. hj 13:41 Arm band placed on left wrist. hj 13:50 Juan Antonio Smyth NP is PHCP. pm1 13:50 Garrick Blanco MD is Attending Physician. pm1 13:59 Fatou Rojas, RN is Primary Nurse. ph 14:38 Patient has correct armband on for positive identification. Bed in low position. Call ph light in reach. Side rails up X 1. Pulse ox on. NIBP on. Door closed. Noise minimized. Warm blanket given. Head of bed elevated. 14:41 No provider procedures requiring assistance completed. Patient did not have IV access ph during this emergency room visit. Administered Medications: 14:18 Drug: Zofran 4 mg Route: PO; ph 15:41 Follow up: Response: No adverse reaction ph Outcome: 15:15 Discharge ordered by MD. pm1 15:40 Discharged to home ambulatory. ph 15:40 Condition: good 15:40 Discharge instructions given to patient, Instructed on discharge instructions, follow up and referral plans. medication usage, Demonstrated understanding of instructions, follow-up care, medications, Prescriptions given X 1. 15:42 Patient left the ED. ph Signatures: Carrol Rajan mr Fatou Rojas RN RN ph Viet Wasserman RN RN Juan Antonio Zaragoza NP [employer] pm1 Corrections: (The following items were deleted from the chart) 13:42 13:40 Pulse 75bpm; Resp 18bpm; Pulse Ox 98% RA; Temp 97.9F Oral; 95.71 kg; Height 5 ft. hj 4 in.; BMI: 36.2; Pain 7/10; hj 13:42 13:40 Pulse 75bpm; Resp 18bpm; Pulse Ox 98% RA; Temp 97.9F Oral; 95.71 kg; Height 5 ft. hj 4 in.; BMI: 36.2; Pain 7/10; hj
[2018-12-07 16:25] VITALS: TEMP 97.9
[2018-12-07 16:28] VITALS: BP 137/86; O2SAT 100
== END 2018-12-07 15:42 | disposition home or self-care (01) ==
LOC: ER 13:35
DX: R11.10 Vomiting, unspecified (principal); J02.9 Acute pharyngitis, unspecified; I10 Essential (primary) hypertension; Z88.5 Allergy status to narcotic agent
CPT/HCPCS: 87070; 87081; 87804; 99283

== ENCOUNTER 2018-12-12 10:09 | Emergency (ER) | payer OTHER ==
--- NOTE | 2018-12-12 11:59 | RAD REPORT ---
EXAM DESCRIPTION: Anton Single View12/12/2018 11:49 am CLINICAL HISTORY: cough COMPARISON: January 2018 FINDINGS: The lungs appear clear of acute infiltrate. The heart is mildly to moderately enlarged IMPRESSION: No acute abnormalities displayed
--- NOTE | 2018-12-12 13:04 | ER ---
Nurse's Notes [facility] Name: Radha Saleh Age: 58 yrs Sex: Female : 1960 Arrival Date: 12/12/2018 Time: 10:13 Bed 26 Private MD: Diagnosis: Influenza-like Illness;Cough;fatigue Presentation: 12/12 10:37 Presenting complaint: Patient states: Body aches, cough, pain in posterior ribs when aj coughing. Seen in this ER on Wednesday for same complaint, has not followed up with PCP. Transition of care: patient was not received from another setting of care. Onset of symptoms was December 06, 2018. Risk Assessment: Do you want to hurt yourself or someone else? Patient reports no desire to harm self or others. Initial Sepsis Screen: Does the patient meet any 2 criteria? No. Patient's initial sepsis screen is negative. Does the patient have a suspected source of infection? No. Patient's initial sepsis screen is negative. Care prior to arrival: None. 10:37 Method Of Arrival: Ambulatory aj 10:37 Acuity: OSMANY 3 aj Triage Assessment: 10:38 General: Appears in no apparent distress. comfortable, Behavior is calm, cooperative, aj appropriate for age. Pain: Complains of pain in left subscapular area Aggravated by coughing. Respiratory: Reports shortness of breath cough that is. Derm: Skin is intact, is healthy with good turgor, Skin is pink, warm \T\ dry. normal. Musculoskeletal: Reports pain in everywhere. Historical: - Allergies: 10:38 Morphine; aj - Immunization history:: Adult Immunizations up to date. - Social history:: Smoking status: Patient uses tobacco products, smokes one-half pack cigarettes per day. - Ebola Screening: : Patient negative for fever greater than or equal to 101.5 degrees Fahrenheit, and additional compatible Ebola Virus Disease symptoms Patient denies exposure to infectious person Patient denies travel to an Ebola-affected area in the 21 days before illness onset. Screenin:21 Abuse screen: Denies threats or abuse. Nutritional screening: No deficits noted. ae4 Tuberculosis screening: No symptoms or risk factors identified. Fall Risk None identified. Assessment: 10:30 General: Appears uncomfortable, obese, Behavior is cooperative, anxious. Pain: ae4 Complains of pain in left scapular area, right scapular area, left subscapular area and right subscapular area. Neuro: Level of Consciousness is awake, alert, obeys commands, Oriented to person, place, time, situation, Appropriate for age. Cardiovascular: Heart tones S1 S2 present Patient's skin is warm and dry. Respiratory: Airway is patent Respiratory effort is even, unlabored, Respiratory pattern is regular, symmetrical, Breath sounds are coarse bilaterally. Breath sounds with wheezes bilaterally. GI: No signs and/or symptoms were reported involving the gastrointestinal system. : No signs and/or symptoms were reported regarding the genitourinary system. Urine is clear. EENT: Reports nasal congestion. Derm: Skin is pink, warm \T\ dry. Musculoskeletal: No signs and/or symptoms reported regarding the musculoskeletal system. 11:35 Reassessment: Radiology Technicians at bedside. ae4 12:22 Reassessment: Patient appears in no apparent distress at this time. Patient and/or ae4 family updated on plan of care and expected duration. Pain level reassessed. Vital Signs: 10:38 BP 101 / 65; Pulse 82; Resp 22; Temp 98.9(O); Pulse Ox 92% on R/A; Weight 81.65 kg; aj Height 5 ft. 4 in. (162.56 cm); 11:53 BP 117 / 69; Pulse 83; Resp 19; Pulse Ox 91% on R/A; ae4 12:21 BP 136 / 91; Pulse 88; Resp 20; Pulse Ox 92% on R/A; ae4 10:38 Body Mass Index 30.90 (81.65 kg, 162.56 cm) aj ED Course: 10:13 Patient arrived in ED. tw3 10:14 Miko Brown MD is Attending Physician. ps1 10:38 Triage completed. aj 10:38 Arm band placed on left wrist. aj 10:45 Bed in low position. Call light in reach. Side rails up X 1. Pulse ox on. NIBP on. Warm ae4 blanket given. 10:59 Pelon Handy, SUSANA is Primary Nurse. ae4 11:45 X-ray completed. Portable x-ray completed in exam room. Patient tolerated procedure jb2 well. 12:22 No provider procedures requiring assistance completed. Patient did not have IV access ae4 during this emergency room visit. 13:07 CXR XRAY In Process Unspecified. EDMS Administered Medications: No medications were administered Outcome: 12:06 Discharge ordered by . ps1 12:23 Discharged to home ambulatory. ae4 12:23 Condition: stable 12:23 Discharge instructions given to patient, Instructed on discharge instructions, follow up and referral plans. medication usage, Demonstrated understanding of instructions, Prescriptions given X 3. 12:23 Patient left the ED. ae4 Signatures: Dispatcher [employer] EDMS Janee Myers, RN RN Jian Cho jb2 Lea Ceballos tw3 Miko Brown MD MD ps1 Pelon Handy RN RN ae4
--- NOTE | 2018-12-12 13:05 | EDPHYS ---
Physician Documentation [facility] Name: Radha Saleh Age: 58 yrs Sex: Female : 1960 Arrival Date: 12/12/2018 Time: 10:13 Bed 26 Private MD: ED Physician Miko Brown Historical: - Allergies: 12/12 10:38 Morphine; aj - Immunization history:: Adult Immunizations up to date. - Social history:: Smoking status: Patient uses tobacco products, smokes one-half pack cigarettes per day. - Ebola Screening: : Patient negative for fever greater than or equal to 101.5 degrees Fahrenheit, and additional compatible Ebola Virus Disease symptoms Patient denies exposure to infectious person Patient denies travel to an Ebola-affected area in the 21 days before illness onset. Vital Signs: 10:38 BP 101 / 65; Pulse 82; Resp 22; Temp 98.9(O); Pulse Ox 92% on R/A; Weight 81.65 kg; aj Height 5 ft. 4 in. (162.56 cm); 11:53 BP 117 / 69; Pulse 83; Resp 19; Pulse Ox 91% on R/A; ae4 12:21 BP 136 / 91; Pulse 88; Resp 20; Pulse Ox 92% on R/A; ae4 10:38 Body Mass Index 30.90 (81.65 kg, 162.56 cm) aj MDM: 10:51 Patient medically screened. [facility] 12/12 10:52 Order name: Flu [facility] 12/12 11:59 Order name: Urine Dipstick--Ancillary (enter results) 12/12 10:52 Order name: CXR XRAY [facility] 12/12 10:52 Order name: Urine Dipstick-Ancillary (obtain specimen); Complete Time: 11:51 ps1 Administered Medications: No medications were administered Disposition: 12/12/18 12:06 Discharged to Home. Impression: Influenza-like Illness, Cough, fatigue. - Condition is Stable. - Discharge Instructions: Upper Respiratory Infection, Adult. - Prescriptions for Anaprox DS 550 mg Oral Tablet - take 1 tablet by ORAL route every 12 hours As needed; 20 tablet. Tessalon Perles 100 mg Oral Capsule - take 1 capsule by ORAL route every 8 hours As needed; 15 capsule. chlorpheniramine maleate 4 mg Oral Tablet - take 1 tablet by ORAL route every 6 hours As needed; 30 tablet. - Medication Reconciliation Form, Thank You Letter, Antibiotic Education, Prescription Opioid Use, Work release form form. - Follow up: Private Physician; When: As needed; Reason: Further diagnostic work-up, Recheck today's complaints, Continuance of care, Re-evaluation by your physician. Follow up: Emergency Department; When: As needed; Reason: Fever > 102 F, Worsening of condition. - Problem is new. - Symptoms are unchanged. Signatures: Dispatcher [employer] EDJanee Apodaca RN RN Miko Vergara MD MD ps1 Pelon Handy RN RN ae4 Corrections: (The following items were deleted from the chart) 12:23 12:06 12/12/2018 12:06 Discharged to Home. Impression: Influenza-like Illness; Cough; ae4 fatigue. Condition is Stable. Forms are Medication Reconciliation Form, Thank You Letter, Antibiotic Education, Prescription Opioid Use. Follow up: Private Physician; When: As needed; Reason: Further diagnostic work-up, Recheck today's complaints, Continuance of care, Re-evaluation by your physician. Follow up: Emergency Department; When: As needed; Reason: Fever > 102 F, Worsening of condition. Problem is new. Symptoms are unchanged. ps1
[2018-12-12 13:28] LABS: Urine Blood NEGATIVE (NEG); Urine Glucose NEGATIVE (NEG); Urine Protein NEGATIVE (NEG)
[2018-12-12 18:31] VITALS: TEMP 98.9
[2018-12-12 18:34] VITALS: BP 136/91; O2SAT 92
== END 2018-12-12 12:23 | disposition home or self-care (01) ==
LOC: ER 10:09
DX: R05 Cough (principal); R53.83 Other fatigue; F17.210 Nicotine dependence, cigarettes, uncomplicated; Z88.6 Allergy status to analgesic agent
CPT/HCPCS: 71045; 81003; 87804; 99283

== ENCOUNTER 2019-03-07 19:11 | Emergency (ER) | payer OTHER ==
--- OUTSIDE RECORDS SUMMARY | 2019-03-07 19:13 | XMS REPORT ---
:1960 [facility] Address [address] [place] [address] [address] [place] [address] Care Team Providers Name Role Phone Unavailable Unavailable Unavailable Problems This patient has no known problems. Allergies, Adverse Reactions, Alerts This patient has no known allergies or adverse reactions. Medications This patient has no known medications.
[2019-03-07] MEDS ORDERED: cloNIDine HCl 0.1 MG TAB ONE (19:56)
[2019-03-07] MEDS ORDERED: ALBUTEROL 2.5 MG/3 ML NEB SOL ONE (19:57)
[2019-03-07] MEDS ORDERED: IPRATROPIUM BROM 0.5MG/2.5ML ONE (19:58)
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
--- NOTE | 2019-03-07 20:55 | EDPHYS ---
Physician Documentation [facility] Name: Radha Saleh Age: 58 yrs Sex: Female : 1960 Arrival Date: 03/07/2019 Time: 19:14 Bed 23 Private MD: ED Physician Capo Santiago HPI: 03/07 20:50 This 58 yrs old Female presents to ER via Ambulatory with complaints of tw4 Weakness. 20:50 The patient presents with dizziness, generalized weakness. Onset: The symptoms/episode tw4 began/occurred today. Context: occurred at home. Modifying factors: The symptoms are alleviated by nothing, the symptoms are aggravated by nothing. Associated signs and symptoms: The patient has no apparent associated signs or symptoms. Severity of symptoms: At their worst the symptoms were moderate in the emergency department the symptoms are unchanged. Patient's baseline: Neuro: alert and fully oriented, Motor: no deficits, Ambulation: walks without assistance. The patient has not experienced similar symptoms in the past. Historical: - Allergies: 19:37 Morphine; ak1 - Home Meds: 19:37 amlodipine 10 mg tab 1 tab once daily [Active]; atorvastatin 20 mg Oral tab 1 tab once ak1 daily [Active]; fenofibrate 160 mg Oral tab 1 tab once daily [Active]; hydrochlorothiazide 25 mg Oral tab 1 tab once daily [Active]; hydroxyzine HCl 25 mg Oral tab 2 tab nightly [Active]; levothyroxine 112 mcg tab 1 tab once daily [Active]; lisinopril 20 mg Oral tab 1 tab once daily [Active]; - PMHx: 19:37 CVA; gastric ulcer; Hyperlipidemia; Myocardial infarction; Hypothyroidism; Hypertension;ak1 - Immunization history:: Adult Immunizations unknown. - Social history:: Smoking status: Patient/guardian denies using tobacco, the patient reports quitting approximately .05 years ago. - Ebola Screening: : No symptoms or risks identified at this time. ROS: 20:50 Constitutional: Negative for fever, chills, and weight loss, Eyes: Negative for injury, tw4 pain, redness, and discharge, Cardiovascular: Negative for chest pain, palpitations, and edema, Respiratory: Negative for shortness of breath, cough, wheezing, and pleuritic chest pain, Abdomen/GI: Negative for abdominal pain, nausea, vomiting, diarrhea, and constipation, Back: Negative for injury and pain, MS/Extremity: Negative for injury and deformity, Skin: Negative for injury, rash, and discoloration. Exam: 20:50 Constitutional: This is a well developed, well nourished patient who is awake, alert, tw4 and in no acute distress. Head/Face: Normocephalic, atraumatic. Chest/axilla: Normal chest wall appearance and motion. Nontender with no deformity. No lesions are appreciated. Cardiovascular: Regular rate and rhythm with a normal S1 and S2. No gallops, murmurs, or rubs. Normal PMI, no JVD. No pulse deficits. 20:50 Abdomen/GI: Soft, non-tender, with normal bowel sounds. No distension or tympany. No guarding or rebound. No evidence of tenderness throughout. Back: No spinal tenderness. No costovertebral tenderness. Full range of motion. MS/ Extremity: Pulses equal, no cyanosis. Neurovascular intact. Full, normal range of motion. Neuro: Awake and alert, GCS 15, oriented to person, place, time, and situation. Cranial nerves II-XII grossly intact. Motor strength 5/5 in all extremities. Sensory grossly intact. Cerebellar exam normal. Normal gait. 20:50 Respiratory: the patient does not display signs of respiratory distress, Respirations: normal, Breath sounds: wheezing: Vital Signs: 19:34 BP 183 / 92; Pulse 62; Resp 20; Temp 98.; Pulse Ox 96% on R/A; Weight 86.18 kg (R); ak1 Height 5 ft. 4 in. (162.56 cm) (R); Pain 3/10; 20:50 BP 136 / 92; Pulse 68; Resp 18; Temp 98(O); Pulse Ox 97% on R/A; Pain 0/10; mg2 19:34 Body Mass Index 32.61 (86.18 kg, 162.56 cm) ak1 MDM: 19:49 Patient medically screened. tw4 03/08 06:51 Data reviewed: vital signs, nurses notes. Data interpreted: Pulse oximetry: tw4 Interpretation: normal. Counseling: I had a detailed discussion with the patient and/or guardian regarding: the historical points, exam findings, and any diagnostic results supporting the discharge/admit diagnosis. Special discussion: I discussed with the patient/guardian in detail that at this point there is no indication for admission to the hospital. It is understood, however, that if the symptoms persist or worsen the patient needs to return immediately for re-evaluation. Administered Medications: 03/07 19:56 CANCELLED (Physician Discretion): NS 0.9% 1000 ml IV at 1 bolus Per protocol; 1000 mL tw4 bolus 20:03 Drug: cloNIDine 0.1 mg Route: PO; mg2 21:09 Follow up: Response: No adverse reaction; Marked relief of symptoms; Blood pressure is mg2 lowered 20:03 Drug: DuoNeb (3:1) (2.5 mg - 0.5 mg) 3 ml Route: Nebulizer; mg2 21:08 Follow up: Response: No adverse reaction; Marked relief of symptoms mg2 Disposition: 03/07/19 20:53 Discharged to Home. Impression: Chronic obstructive pulmonary disease with (acute) exacerbation, Weakness. - Condition is Stable. - Discharge Instructions: Chronic Obstructive Pulmonary Disease, Weakness, Fatigue, Peak Flow Meter. - Prescriptions for Prednisone 20 mg Oral Tablet - take 3 tablet by ORAL route once daily for 5 days; 15 tablet. Albuterol Sulfate 90 mcg/actuation - inhale 1-2 puff by INHALATION route every 4-6 hours; 1 Inhaler. - Work release form, Medication Reconciliation Form, Thank You Letter, Antibiotic Education, Prescription Opioid Use form. - Follow up: Private Physician; When: Upon discharge from the Emergency Department; Reason: If symptoms return, Recheck today's complaints, Continuance of care. - Problem is new. - Symptoms have improved. Signatures: Dispatcher [employer] EDMS Kath Kennedy RN RN ak1 Capo Santiago MD MD tw4 Emerson Whiting RN RN mg2 Corrections: (The following items were deleted from the chart) 19: 19:50 IV Saline Lock ordered. tw 19:56 19:50 Labs collected and sent ordered. 19: 19:50 NS 0.9% 1000 ml IV at 1 bolus Per protocol; 1000 mL bolus ordered. tw tw4 20:52 20:50 Constitutional: This is a well developed, well nourished patient who is awake, tw4 alert, and in no acute distress. Head/Face: Normocephalic, atraumatic. Eyes: Pupils equal round and reactive to light, extra-ocular motions intact. Lids and lashes normal. Conjunctiva and sclera are non-icteric and not injected. Cornea within normal limits. Periorbital areas with no swelling, redness, or edema. Chest/axilla: Normal chest wall appearance and motion. Nontender with no deformity. No lesions are appreciated. Cardiovascular: Regular rate and rhythm with a normal S1 and S2. No gallops, murmurs, or rubs. Normal PMI, no JVD. No pulse deficits. Respiratory: Lungs have equal breath sounds bilaterally, clear to auscultation and percussion. No rales, rhonchi or wheezes noted. No increased work of breathing, no retractions or nasal flaring. Abdomen/GI: Soft, non-tender, with normal bowel sounds. No distension or tympany. No guarding or rebound. No evidence of tenderness throughout. Back: No spinal tenderness. No costovertebral tenderness. Full range of motion. MS/ Extremity: Pulses equal, no cyanosis. Neurovascular intact. Full, normal range of motion. Neuro: Awake and alert, GCS 15, oriented to person, place, time, and situation. Cranial nerves II-XII grossly intact. Motor strength 5/5 in all extremities. Sensory grossly intact. Cerebellar exam normal. Normal gait. tw4 21:10 20:53 03/07/2019 20:53 Discharged to Home. Impression: Chronic obstructive pulmonary mg2 disease with (acute) exacerbation; Weakness. Condition is Stable. Forms are Medication Reconciliation Form, Thank You Letter, Antibiotic Education, Prescription Opioid Use. Follow up: Private Physician; When: Upon discharge from the Emergency Department; Reason: If symptoms return, Recheck today's complaints, Continuance of care. Problem is new. Symptoms have improved. tw4
[2019-03-07 22:05] VITALS: TEMP 98
[2019-03-07 22:06] VITALS: BP 136/92; O2SAT 97
== END 2019-03-07 21:10 | disposition home or self-care (01) ==
LOC: ER 19:11
DX: J44.1 Chronic obstructive pulmonary disease with (acute) exacerbation (principal); Z88.6 Allergy status to analgesic agent; I25.2 Old myocardial infarction; E03.9 Hypothyroidism, unspecified; I10 Essential (primary) hypertension; E78.5 Hyperlipidemia, unspecified; Z87.891 Personal history of nicotine dependence
CPT/HCPCS: 94640; 99284

== ENCOUNTER 2019-06-15 11:38 | Emergency (ER) | payer OTHER ==
--- OUTSIDE RECORDS SUMMARY | 2019-06-15 12:00 | XMS REPORT ---
:1960 [facility] Address [address] [place] [address] [address] [place] [address] Care Team Providers Name Role Phone Unavailable Unavailable Unavailable Problems This patient has no known problems. Allergies, Adverse Reactions, Alerts This patient has no known allergies or adverse reactions. Medications This patient has no known medications.
--- OUTSIDE RECORDS SUMMARY | 2019-06-15 12:01 | XMS REPORT | Continuity of Care Document ---
:1960 Author Organization [facility] Address [address] [place] [address] Allergies, Adverse Reactions, Alerts Allergen Type Severity Reaction Last Updated Verified Status Morphine ([id number]) Allergy Unknown RASH March 23, 2019 No Active Medications Medication Status Dose Units Route Sig Qty Days Start End Instructions Date Date Atorvastatin Active 20 ORAL Once 30 30 Calcium Daily At Bedtime Fluticasone Discontinu 2 NASAL Daily 9.9 30 April Propionate ed for r , , (Nasal) Allergy 2019 2018 11:57am Ibuprofen Discontinu 1 ORAL Every 6 20 April ed Hours , , As 2019 2019 Needed 2:27am as needed for Pain Levothyroxine Discontinu 1 ORAL Daily 30 30 April Sodium ed for r , , Hypothy 2019 2019 roidism 11:57am Lisinopril Discontinu 1 ORAL Daily 30 30 April ed for r , , Hyperte 2019 2019 nsion 11:57am Loratadine Discontinu 1 ORAL Daily 30 30 April ed for r , , Allergy 2019 2019 Symptom 11:57am s Metoprolol Discontinu 25 ORAL Twice A 60 30 April Tartrate ed Day for r , , Hyperte 2019 2019 nsion 11:57am Naproxen Active 1 ORAL Twice A 60 30 Day for Pain Ondansetron Discontinu 1 ORAL Every [address] IN Hcl ed Hours , , MOUTH AND As 2019 2018 ALLOW TABLET Needed 2:27am TO DISSOLVE as needed for Nausea Prednisone Discontinu 40 ORAL Daily 6 3 ed for r , er Allergy 2019 , 11:58am 2019 Ranitidine Hcl Active 150 ORAL Twice A 60 30 Day Tramadol/Apap Discontinu 1 ORAL Every 4 15 03 May Novembe * ed Hours , r , As 2019 2019 Needed 2:27am for Pain Levothyroxine Discontinu 1 ORAL Daily 30 30 Sodium ed er 2018 Lisinopril Discontinu 1 ORAL Daily 30 30 Septemb ed er 2018 Metoprolol Discontinu 25 ORAL Twice A 60 30 [facility] Tartrate ed Day er 2018 Problems Active Problems Medical Problem Onset Date Status Chest wall pain Active Inactive/Resolved Problems Medical Problem Onset Date Status Allergic pharyngitis Resolved Allergic rhinitis Resolved Procedures Procedure Date Performed Status EMERGENCY DEPT VISIT March 23, 2019 completed X-ray of chest, single view April 22, 2019 completed Relevant Diagnostic Tests and/or Laboratory Data Laboratory Results Test Date/Time Result Interpretation Reference Result Comment Performing Range Site White Blood Count April 5.8 4.0-11.5 [facility] [address] [facility] 2018 11:03pm [place] [address] Red Blood Count April 3.97 3.80-5.20 [facility], [address] 2018 11:03pm [facility] [address] Hemoglobin April 10.6 10.5-15.7 [facility] [address] [facility] 2018 11:03pm [place] [address] Hematocrit April 34.3 34.0-50.0 [facility] [address] [facility] 2018 11:03pm [place] [address] Mean Corpuscular April 86.4 86-100 [facility] [address] [facility] Volume 2018 11:03pm [place] [address] Mean Corpuscular April 26.7 26.2-33.4 [facility] [address] [facility] Hemoglobin 2018 11:03pm [place] [address] Mean Corpuscular April 30.9 30-34 [facility] [address] [facility] Hemoglobin 2018 Concent 11:03pm [place] [address] Red Cell April 16.0 12.0-15.5 [facility] [address] [facility] Distribution 2018 Width 11:03pm [place] [address] Platelet Count April 232 165-450 [facility], [address] [facility] 2018 11:03pm [place] [address] Mean Platelet April 10.5 9.4-12.6 [facility] [address] [facility] Volume 2018 11:03pm [place] [address] Neutrophils (%) April 56.3 44.4-80.1 [facility] [address] [facility] (Auto) 2018 11:03pm [place] [address] Immature October 0.2 0.0-0.4 [facility], [address] [facility] Granulocyte % 2018 (Auto) 11:03pm [place] [address] Lymphocytes (%) April 27.1 10.0-50.0 [facility], [address] [facility] (Auto) 2018 11:03pm [place] [address] Monocytes (%) April 13.8 3.6-12.0 [facility], [address] [facility] (Auto) 2018 11:03pm [place] [address] Eosinophils (%) April 2.1 0.0-5.4 [facility], [address] [facility] (Auto) 2018 11:03pm [place] [address] Basophils (%) April 0.5 0.1-1.2 [facility], [address] [facility] (Auto) 2018 11:03pm [place] [address] Neutrophils # October 3.27 1.56-6.13 [facility], [address] [facility] (Auto) 2018 11:03pm [place] [address] Absolute Immature October 0.0 0.0-0.03 [facility], [address] [facility] Granulocyte (auto 2018 11:03pm [place] [address] Lymphocytes # October 1.6 1.18-3.74 [facility], [address] [facility] (Auto) 2018 11:03pm [place] [address] Monocytes # April 0.80 0.24-0.86 [facility], [address] [facility] (Auto) 2018 11:03pm [place] [address] Eosinophils # April 0.12 0.04-0.36 [facility], [address] [facility] (Auto) 2018 11:03pm [place] [address] Basophils # October 0.03 0.01-0.08 [facility], [address] [facility] (Auto) 2018 11:03pm [place] [address] Nucleated Red October 0 0-0.2 [facility], [address] [facility] [address] Blood Cells % 2018 11:03pm [place] [address] Nucleated Red October 0 0 [facility], [address] [facility] Blood Cells # 2018 11:03pm [place] [address] Prothrombin Time October 10.3 10.3-12.3 THERAPEUTIC [facility], [address] [facility] 2018 LEVEL: 1.5 to 11:03pm 1.9 times [facility] [address] normal range of PT Prothromb Time April 0.95 Recommended [facility], [address] [facility] International 2018 therapeutic Ratio 11:03pm range for [place] [address] patients receiving warfarin (coumadin) therapy: INR is 2.0 to 3.0Recommended range for patients with mechanical prosthetic heart valves: INR is 2.5 to 3.5 Activated Partial April 30.8 22.5-37.0 [facility], [address] [facility] Thromboplast Time 2018 11:03pm [facility] [address] Random Glucose April 74-106 [facility], [address] [facility] 2018 11:03pm [facility] [address] Blood Urea April 9 - [facility], [address] [facility] Nitrogen 2018 11:03pm [place] [id number] Serum Osmolality April 264 280-300 [facility], [address] [facility] 2018 11:03pm [facility] [address] Creatinine April 0.8 0.50-0.90 [facility], [address] [place] [address] 2018 11:03pm [place] [id number] Glomerular April > 60.00 GFR RESULTS ARE [address] Filtration Rate 2018 REPORTED IN Calc 11:03pm mL/min/1.73m2.N [facility] [address] ormal GFR: >60mL/minModera tely decreased GFR: 30-59 mL/minSeverely decreased GFR: 15-29 mL/minKidney Failure (or Dialysis): <15 mL/minThe calculated eGFR is not valid for patients younger than 18 years or older than 75 years. BUN/Creatinine April 11.3 -20 [facility], [address] [facility] Ratio 2018 11:03pm [facility] [address] Sodium Level April 132 135-145 [facility], [address] [facility] 2018 11:03pm [facility] [address] Potassium Level April 4.1 3.5-5.2 [facility], [address] [facility] 2018 11:03pm [facility] [address] Chloride Level April 90 98-108 [facility], [address] [facility] 2018 11:03pm [facility] [address] Carbon Dioxide April 30 21-32 [facility], [address] Level 2018 11:03pm [facility] [address] Anion Gap April 16.1 12-20 [facility] [address] [facility] 2018 11:03pm [facility] [address] Calcium Level April 9.5 8.6-10.0 [facility] [address] 2018 11:03pm [facility] [address] Total Protein April 7.8 6.6-8.7 [facility] [address] 2018 11:03pm [facility] [address] Albumin April 4.4 3.5-5.2 [facility] [address] 2018 11:03pm [place] [address] Globulin October 3.4 [facility], [address] [facility] 2018 11:03pm [facility] [address] Albumin/Globulin October 1.3 >1.0 [facility], [address] [facility] 2018 11:03pm [facility] [address] Total Bilirubin April 0.3 0.0-1.2 [facility] [address] [facility] 2018 11:03pm [facility] [address] Aspartate Amino April 16 15-32 [facility] [address] [facility] Transf (AST/SGOT) 2018 11:03pm [place] [address] Alanine April 12 0-33 [facility], [address] [facility] Aminotransferase 2018 (ALT/SGPT) 11:03pm [facility] [address] DI-Mei-I-Type April 32 0-125 [facility], [address] [facility] Natriuretic 2018 Peptide 11:03pm [facility] [address] Total Alkaline April 81 35-105 [facility], [address] [facility] Phosphatase 2018 11:03pm [facility] [address] Creatine Kinase April 149 20-180 [facility], [address] [facility] 2018 11:03pm [facility] [address] Troponin I April < 0.30 0.0-0.5 Published [facility], 104 2018 clinical 2:00am studies have [place] [address] shown elevations of cTnI in patients with myocardial injury, as seen in unstable angina pectoris, cardiac contusions, and heart transplants. Elevations have also been seen in patients with rhabdomyolysis and polymyositis.El evated troponin levels point to myocardial injury, but are not necessarily indicative of an ischemic mechanism. The term PA should be used when there is evidence of cardiac damage, as detected by marker proteins in a clinical setting consistent with myocardial ischemia. If the clinical circumstance suggests that an ischemic mechanism is unlikely, other causes of cardiac injury should be considered.For diagnostic purposes, the results should always be assessed in conjunction with the patient's medical history, clinical examination and other findings. Creatine Kinase April 4.6 0.0-3.6 DIAGNOSTIC [facility], [address] MB 2018 CITERIA: 11:03pm [facility] [address] [facility] RELATIVE INDEX -----SUGGESTIVE OF NON-AMI < or=5 N/AGRAY ZONE (INCONCLUSIVE) > 5 < or=4SUGGESTIVE OF AMI >5 > 4 Health Concerns No known health concerns documented Advance Directives Advance Directive Response Recorded Date/Time Advance Directive on File No April 22, 2019 10:47pm Chief Complaint and Reason for Visit Chief Complaint Chest Pain Reason for Visit [id number] Encounters Encounter Location(s) Arrival/Admit Date Discharge/Depart Date Provider(s) Registered [place] April 22, 2019 EMERALD KRAMER Emergency Room [facility] 10:39pm Den[facility] Departed [place] March 23March 23, 2019 JUANCHO Emergency Room [facility] 2018 11:20am 12:12pm NIC Lentz MD Assessments No Assessments Information Available Functional Status No Functional Status information available Goals No Goals Information Available Immunizations No Immunization Information Available Mental Status No Mental Status Information Available Medical Equipment No Medical Equipment Information available Insurance Providers Guarantor Radha Saleh Address [address] [place] [id number] Contact Info. Home Phone: Payer Policy Id Coverage Id Subscriber's Subscriber Id Effective Expiration Name Date Date Self Pay Radha Saleh Insurance Plan of Treatment Recommend that you take the Ultracet as needed for pain, also take the Motrin 600 mg as needed for inflammatory pain, and take the Zofran 4 mg as needed for nausea. Follow up with your primary doctor in 2 days for re check of your condition, or otherwise return to the ED ifyour condition worsens. Future Tests Future scheduled test information is unavailable Pending Tests Pending diagnostic test information is unavailable Future Visits Future appointment information is unavailable Referrals to Other Providers Reason for Referral Start Provider Provider Contact Provider Address Referral Date Information OTHER, ENTER NAME IN NOTES Future Procedures Future procedure information is unavailable Future Medications Future medication information is unavailable Patient Instructions Chest Wall Pain Social History Smoking Status Status Date of Observation Ex-smoker (finding) April 22, 2019 10:47pm Observation Status Observation Response Date of Response Hx Physical Abuse No April 22, 2019 10:47pm Assigned Sex Female Vital Signs Vital Reading Result Collection Date/Time
--- OUTSIDE RECORDS SUMMARY | 2019-06-15 12:01 | XMS REPORT | Continuity of Care Document ---
:1960 Author Organization [facility] Address [address] [place] [address] Phone Unavailable Care Team Providers Name Role Phone OTHER, ENTER NAME IN NOTES Primary Care Physician Unavailable Insurance Providers Guarantor Radha Saleh Address [address] [place] [address] Email DENIED Payer Self Pay Insurance Subscriber's Name Radha Saleh Relationship Self / Same As Patient Group Number NA Group Name NA Advance Directives No advance directive information available. Chief Complaint and Reason for Visit Chief Complaint Dyspnea/Respdistress Reason for Visit Allergic pharyngitis Allergic rhinitis Problems Active ProblemsNo active problem information available. Past Problems Medical Problem Onset Date Status Allergic pharyngitis Unknown Acute Allergic rhinitis Unknown Acute Medications Current Home Medications Medication Dose Units Route Directions Days Qty Instructions Start Date Atorvastatin 20 Mg ORAL Once Daily At 30 30 Tablet Calcium * Bedtime Days (Lipitor *) 20 Mg Tab Fluticasone 2 Logan NASAL Daily for 30 9.9 03/23/ Propionate Allergy Days Milliliter 19 (Nasal) (Flonase Allergy Relief) 50 Mcg/Act Spr Levothyroxine 1 Tab ORAL Daily for 30 30 Tablet 03/23/ Sodium Hypothyroidism Days 19 (Synthroid 175 Mcg*) 175 Mcg Tab Lisinopril 1 Tab ORAL Daily for 30 30 Tablet 03/23/ (Prinivil 20 Hypertension Days 19 Mg*) 20 Mg Tab Loratadine 1 Tab ORAL Daily for 30 30 Tablet 03/23/ (Loradamed 10 Allergy Symptoms Days 19 Mg) 10 Mg Tab Metoprolol 25 Mg ORAL Twice A Day for 30 60 Tablet 03/23/ Tartrate Hypertension Days 19 (Lopressor *) 25 Mg Tab Naproxen 1 Tab ORAL Twice A Day for 30 60 Tablet (Naproxen 500 Pain Days Mg) 500 Mg Tab Prednisone 40 Mg ORAL Daily for 3 Days 6 Tablet 03/23/ (Prednisone *) Allergy 19 20 Mg Tab Ranitidine Hcl 150 Mg ORAL Twice A Day 30 60 Cap (Zantac *) 150 Days Mg Cap Past Home Medications Medication Directions Ordered Status Levothyroxine Sodium (Synthroid 175 Mcg*) 175 Mcg Daily Discontinued Tab, 1 Tab Oral Lisinopril (Prinivil 20 Mg*) 20 Mg Tab, 1 Tab Oral Daily Discontinued Metoprolol Tartrate (Lopressor *) 25 Mg Tab, 25 Mg Twice A Day Discontinued Oral Social History Smoking Status Start Date Stop Date Current every day smoker Hospital Discharge Instructions No hospital discharge instruction information available. Plan of Care Discharge Date 03/23/19 12:12pm Instructions/Education Provided Pharyngitis Allergic Rhinitis, Adult Forms Provided Portal Welcome Letter Prescriptions See Medication Section Referrals OTHER,ENTER NAME IN NOTES Functional Status No functional status information available. Allergies, Adverse Reactions, Alerts Allergen Type Severity Reaction Status Last Updated Morphine ([id number]) Allergy Unknown RASH Active 03/23/19 Immunizations No immunization information available. Vital Signs Acute Vital Signs Vital Response Date/Time Blood Pressure 125/89 mm Hg 03/23/2019 1:44pm Pulse Pulse Rate (adult) 80 beats per minute (60 - 100) 03/23/2019 1:44pm Respiratory Rate 18 breaths per minute (10 - 24) 03/23/2019 1:44pm Temperature Source Oral 03/23/2019 1:44pm Height 5 ft 3 in 03/23/2019 11:26am Weight 200 lb 03/23/2019 11:26am Body Mass Index 35.4 kg/m^2 03/23/2019 11:26am Results No relevant diagnostic test, laboratory data and/or discharge summary information available. Procedures No procedure information available. Encounters Encounter Location Arrival/Admit Date Discharge/Depart Date Attending Provider Departed [place] 03/23/19 11:20am 03/23/19 12:12pm J[place]AN[place], Emergency Room [facility] Recent Diagnosis
[2019-06-15 12:35] LABS: Absolute Lymphocytes (CBC) 1.1 K/uL (0.7-4.9); Basophils % 0.8 % (0-1.3); Hematocrit 31.6 % (36.0-45.0); Lymphocytes % 17.6 % (15.3-44.8); MPV 8.6 fL (7.6-11.3); RBC Red Blood Cell Count 3.89 M/uL (3.86-4.86)
[2019-06-15 12:39] LABS: Protime INR 0.95
--- NOTE | 2019-06-15 12:44 | RAD REPORT ---
EXAM DESCRIPTION: [place] Single View06/15/2019 12:29 pm CLINICAL HISTORY: sob COMPARISON: 12/2018 FINDINGS: The lungs appear clear of acute infiltrate. The heart is mildly to moderately enlarged IMPRESSION: No acute abnormalities displayed
[2019-06-15] MEDS ORDERED: METHYLPREDNISOLONE 125 MG INJ ONE (13:03)
[2019-06-15] MEDS ORDERED: IPRATROPIUM BROM 0.5MG/2.5ML ONE (13:03)
[2019-06-15] MEDS ORDERED: ALBUTEROL 2.5 MG/3 ML NEB SOL ONE (13:03)
[2019-06-15] MEDS ORDERED: ASPIRIN 81 MG CHEWABLE TABLET ONE (13:03)
[2019-06-15] MEDS ORDERED: HYDRALAZINE HCL 20 MG/ML VIAL ONE (13:04)
[2019-06-15 13:13] LABS: ALT/SGPT 31 U/L (12-78); AST/SGOT 51 U/L (15-37); Albumin 3.6 g/dL (3.4-5.0); Alkaline Phosphatase 69 U/L (45-117); BUN Blood Urea Nitrogen 6 mg/dL (7-18); Bicarbonate 37 mmol/L (21-32); Bilirubin Direct < 0.1 mg/dL (0-0.2); Bilirubin Total 0.3 mg/dL (0.2-1.0); Glucose Level 93 mg/dL (74-106); NT PRO-BNP 75 pg/mL (<125); Protein, Total 7.4 g/dL (6.4-8.2); Sodium Level 134 mmol/L (136-145); Troponin (Emerg Dept Use Only) < 0.02 ng/mL (0.0-0.045)
[2019-06-15 13:14] LABS: Potassium 2.8 mmol/L (3.5-5.1)
[2019-06-15] MEDS ORDERED: POTASSIUM CL SA 10 MEQ TAB PO ONE (13:36)
--- NOTE | 2019-06-15 14:04 | EDPHYS ---
Physician Documentation [facility] Name: Radha Saleh Age: 58 yrs Sex: Female : 1960 Arrival Date: 06/15/2019 Time: 11:41 Bed 27 Private MD: ED Physician Yuriy Montoya HPI: 06/15 13:15 This 58 yrs old Female presents to ER via Ambulatory with complaints of COPD jr8 Exacerbation, Breathing Difficulty. 13:15 The patient has shortness of breath at rest. Onset: The symptoms/episode began/occurred jr8 gradually, 2 day(s) ago. Duration: The symptoms are continuous. The patient's shortness of breath is aggravated by talking, walking. Associated signs and symptoms: Pertinent positives: headache . Severity of symptoms: At their worst the symptoms were moderate in the emergency department the symptoms are unchanged. It is unknown whether or not the patient has had similar symptoms in the past. The patient has not recently seen a physician. Patient stated that she has had increased shortness of breath over past couple of days. Stated that she has also had chest tightness and headache today. BP elevated. Stated that she has been out of her medication for past two days . Historical: - Allergies: 11:51 Morphine (Hives); tw2 - Home Meds: 11:51 lisinopril 20 mg Oral tab 1 tab once daily [Active]; levothyroxine 112 mcg tab 1 tab tw2 once daily [Active]; hydroxyzine HCl 25 mg Oral tab 2 tab nightly [Active]; hydrochlorothiazide 25 mg Oral tab 1 tab once daily [Active]; fenofibrate 160 mg Oral tab 1 tab once daily [Active]; atorvastatin 20 mg Oral tab 1 tab once daily [Active]; amlodipine 10 mg tab 1 tab once daily [Active]; - PMHx: 11:51 CVA; gastric ulcer; Hyperlipidemia; Hypertension; Hypothyroidism; Myocardial infarction;tw2 - Immunization history:: Adult Immunizations. - Social history:: Smoking status: Patient/guardian denies using tobacco, the patient reports quitting approximately .5 years ago. - Ebola Screening: : Patient denies travel to an Ebola-affected area in the 21 days before illness onset. ROS: 13:15 Eyes: Negative for injury, pain, redness, and discharge, ENT: Negative for injury, jr8 pain, and discharge, Neck: Negative for injury, pain, and swelling, Abdomen/GI: Negative for abdominal pain, nausea, vomiting, diarrhea, and constipation, Back: Negative for injury and pain, MS/Extremity: Negative for injury and deformity, Skin: Negative for injury, rash, and discoloration. 13:15 Cardiovascular: Positive for chest pain, Negative for edema, orthopnea, palpitations, paroxysmal nocturnal dyspnea. 13:15 Respiratory: Positive for dyspnea on exertion, shortness of breath, wheezing. 13:15 Neuro: Positive for headache, Negative for altered mental status, dizziness, seizure activity, syncope. Exam: 13:15 Eyes: Pupils equal round and reactive to light, extra-ocular motions intact. Lids and jr8 lashes normal. Conjunctiva and sclera are non-icteric and not injected. Cornea within normal limits. Periorbital areas with no swelling, redness, or edema. ENT: Nares patent. No nasal discharge, no septal abnormalities noted. Tympanic membranes are normal and external auditory canals are clear. Oropharynx with no redness, swelling, or masses, exudates, or evidence of obstruction, uvula midline. Mucous membranes moist. Neck: Trachea midline, no thyromegaly or masses palpated, and no cervical lymphadenopathy. Supple, full range of motion without nuchal rigidity, or vertebral point tenderness. No Meningismus. Cardiovascular: Regular rate and rhythm with a normal S1 and S2. No gallops, murmurs, or rubs. Normal PMI, no JVD. No pulse deficits. Abdomen/GI: Soft, non-tender, with normal bowel sounds. No distension or tympany. No guarding or rebound. No evidence of tenderness throughout. Back: No spinal tenderness. No costovertebral tenderness. Full range of motion. Skin: Warm, dry with normal turgor. Normal color with no rashes, no lesions, and no evidence of cellulitis. MS/ Extremity: Pulses equal, no cyanosis. Neurovascular intact. Full, normal range of motion. Neuro: Awake and alert, GCS 15, oriented to person, place, time, and situation. Cranial nerves II-XII grossly intact. Motor strength 5/5 in all extremities. Sensory grossly intact. Cerebellar exam normal. Normal gait. 13:15 Respiratory: the patient does not display signs of respiratory distress, Respirations: normal, symetrical, no use of accessory muscles, no grunting, no evidence of nasal flaring, no prolonged exhalations, no pursed lip breathing, no retractions, no shallow respirations, no splinting, no tachypnea, Breath sounds: wheezing: expiratory that is mild, is heard diffusely. Vital Signs: 11:49 BP 185 / 99; Pulse 82; Resp 19; Temp 97.8(TE); Pulse Ox 97% on R/A; Weight 90.72 kg tw2 (R); Height 5 ft. 4 in. (162.56 cm); Pain 8/10; 13:14 BP 161 / 95; Pulse 68; Resp 16; Temp 97.7(A); Pulse Ox 100% ; lt1 13:50 BP 158 / 85; Pulse 76; Resp 18; Pulse Ox 98% on R/A; mg2 11:49 Body Mass Index 34.33 (90.72 kg, 162.56 cm) tw2 MDM: 12:07 Patient medically screened. [facility] 14:02 Data reviewed: vital signs, nurses notes, lab test result(s), EKG, radiologic studies, jr8 plain films. Data interpreted: Pulse oximetry: on room air is 98 %. Interpretation: normal. Counseling: I had a detailed discussion with the patient and/or guardian regarding: the historical points, exam findings, and any diagnostic results supporting the discharge/admit diagnosis, lab results, radiology results, the need for outpatient follow up, a lime kiln operator, a family practitioner, to return to the emergency department if symptoms worsen or persist or if there are any questions or concerns that arise at home. Response to treatment: the patient's symptoms have markedly improved after treatment. 06/15 12:07 Order name: Basic Metabolic Panel; Complete Time: 13:17 jr8 06/15 12:07 Order name: CBC with Diff; Complete Time: 12:38 jr8 06/15 12:07 Order name: LFT's; Complete Time: 13:17 jr8 06/15 12:07 Order name: Magnesium; Complete Time: 13:17 jr8 06/15 12:07 Order name: NT PRO-BNP; Complete Time: 13:17 jr8 06/15 12:07 Order name: PT-INR; Complete Time: 13:17 jr8 06/15 12:07 Order name: Troponin (emerg Dept Use Only); Complete Time: 13:17 jr8 06/15 12:07 Order name: XRAY Chest (1 view); Complete Time: 13:48 8 06/15 12:07 Order name: EKG; Complete Time: 12:09 8 06/15 12:07 Order name: Cardiac monitoring; Complete Time: 13:14 8 06/15 12:07 Order name: EKG - Nurse/Tech; Complete Time: 12:43 8 06/15 12:07 Order name: IV Saline Lock; Complete Time: 12:42 8 06/15 12:07 Order name: Labs collected and sent; Complete Time: 12:42 8 06/15 12:07 Order name: O2 Per Protocol; Complete Time: 12:28 8 06/15 12:07 Order name: O2 Sat Monitoring; Complete Time: 12:27 jr Administered Medications: 13:20 Drug: SOLU-Medrol 125 mg Route: IVP; Site: right antecubital; mg2 13:46 Follow up: Response: No adverse reaction mg2 13:20 Drug: Albuterol - atroVENT (3:1) (2.5 mg - 0.5 mg) 3 ml Route: Nebulizer; mg2 13:45 Follow up: Response: No adverse reaction mg2 13:20 Drug: hydrALAZINE 10 mg Route: IV; Rate: calculated rate; Site: right antecubital; mg2 13:20 Drug: Aspirin Chewable Tablet 324 mg Route: PO; mg2 13:46 Follow up: Response: No adverse reaction mg2 13:45 Drug: Potassium Chloride 40 mEq Route: PO; mg2 14:18 Follow up: Response: No adverse reaction mg2 Disposition: 15:55 Co-signature as Attending Physician, Yuriy Montoya MD I agree with the assessment and kdr plan of care. Disposition: 06/15/19 14:03 Discharged to Home. Impression: Chronic obstructive pulmonary disease with (acute) exacerbation, Hypertensive Emergency . - Condition is Stable. - Discharge Instructions: Chronic Obstructive Pulmonary Disease, Hypertension. - Prescriptions for Albuterol Sulfate 2.5 mg /3 mL (0.083 %) Inhalation Solution for Nebulization - inhale 1 unit by NEBULIZATION route every 8 hours As needed; 1 box. Lisinopril 20 mg Oral Tablet - take 1 tablet by ORAL route once daily; 20 tablet. Medrol (Andre) 4 mg Oral Tablets, Dose Pack - take 1 tablet by ORAL route as directed - follow package instructions; 1 packet. Carvedilol 12.5 mg Oral Tablet - take 1 tablet by ORAL route 2 times per day with food; 60 tablet. - Medication Reconciliation Form, Thank You Letter, Antibiotic Education, Prescription Opioid Use, Work release form form. - Follow up: Jamir Cervantes MD; When: 5 - 6 days; Reason: Recheck today's complaints, Continuance of care, Re-evaluation by your physician. - Problem is new. - Symptoms have improved. Signatures: Dispatcher [employer] EDMS Yuriy Montoya MD MD kdr Augustus Mace PA PA jr8 Zora Martino RN RN tw2 Emerson Whiting RN RN mg2 Nick Jackson RN RN tr5 Corrections: (The following items were deleted from the chart) 14:24 14:03 06/15/2019 14:03 Discharged to Home. Impression: Chronic obstructive pulmonary tr5 disease with (acute) exacerbation; Hypertensive Emergency . Condition is Stable. Forms are Medication Reconciliation Form, Thank You Letter, Antibiotic Education, Prescription Opioid Use. Follow up: Jamir Cervantes; When: 5 - 6 days; Reason: Recheck today's complaints, Continuance of care, Re-evaluation by your physician. Problem is new. Symptoms have improved. jr8
--- NOTE | 2019-06-15 14:04 | ER ---
Nurse's Notes [facility] Name: Radha Saleh Age: 58 yrs Sex: Female : 1960 Arrival Date: 06/15/2019 Time: 11:41 Bed 27 Private MD: Diagnosis: Chronic obstructive pulmonary disease with (acute) exacerbation;Hypertensive Emergency Presentation: 06/15 11:49 Presenting complaint: Patient states: i am having trouble breathing, it started tw2 yesterday, my chest is tight and my muscles ache, i have some cough and congestion as well. Transition of care: patient was not received from another setting of care. Onset of symptoms was June 15, 2019. Risk Assessment: Do you want to hurt yourself or someone else? Patient reports no desire to harm self or others. Initial Sepsis Screen: Does the patient meet any 2 criteria? No. Patient's initial sepsis screen is negative. Does the patient have a suspected source of infection? No. Patient's initial sepsis screen is negative. Care prior to arrival: None. 11:49 Method Of Arrival: Ambulatory tw2 11:49 Acuity: OSMANY 3 tw2 Triage Assessment: 11:51 General: Appears in no apparent distress. obese, Behavior is calm, cooperative, tw2 appropriate for age. Pain: Complains of pain in "my muscles". Respiratory: Reports shortness of breath at rest on exertion cough that is Onset: The symptoms/episode began/occurred yesterday, the patient has moderate shortness of breath. Historical: - Allergies: 11:51 Morphine (Hives); tw2 - Home Meds: 11:51 lisinopril 20 mg Oral tab 1 tab once daily [Active]; levothyroxine 112 mcg tab 1 tab tw2 once daily [Active]; hydroxyzine HCl 25 mg Oral tab 2 tab nightly [Active]; hydrochlorothiazide 25 mg Oral tab 1 tab once daily [Active]; fenofibrate 160 mg Oral tab 1 tab once daily [Active]; atorvastatin 20 mg Oral tab 1 tab once daily [Active]; amlodipine 10 mg tab 1 tab once daily [Active]; - PMHx: 11:51 CVA; gastric ulcer; Hyperlipidemia; Hypertension; Hypothyroidism; Myocardial infarction;tw2 - Immunization history:: Adult Immunizations. - Social history:: Smoking status: Patient/guardian denies using tobacco, the patient reports quitting approximately .5 years ago. - Ebola Screening: : Patient denies travel to an Ebola-affected area in the 21 days before illness onset. Screenin:15 Nutritional screening: No deficits noted. ss 13:25 Abuse screen: Denies threats or abuse. Denies injuries from another. Tuberculosis mg2 screening: No symptoms or risk factors identified. Fall Risk IV access (20 points). Assessment: 13:14 Reassessment: NISHA Pantoja notified of critical lab value K+ 2.8. ss 13:24 General: Appears in no apparent distress. comfortable, Behavior is calm, cooperative. mg2 Pain: Complains of pain in chest Pain does not radiate. Pain currently is 5 out of 10 on a pain scale. Quality of pain is described as aching, heavy, pressure, Pain began gradually, 2-3 days ago. Neuro: Level of Consciousness is awake, alert, obeys commands, Oriented to person, place, time, situation. Cardiovascular: Rhythm is regular. Respiratory: Airway is patent Respiratory effort is even, unlabored, Breath sounds with wheezes. Respiratory: Reports cough that is. GI: No signs and/or symptoms were reported involving the gastrointestinal system. : No signs and/or symptoms were reported regarding the genitourinary system. EENT: No signs and/or symptoms were reported regarding the EENT system. Derm: Skin is intact, is healthy with good turgor, Skin is pink, warm \\T\\ dry. normal. Musculoskeletal: Circulation, motion, and sensation intact. Capillary refill < 3 seconds. 13:51 Reassessment: Patient appears in no apparent distress at this time. Patient and/or mg2 family updated on plan of care and expected duration. Pain level reassessed. Patient is alert, oriented x 3, equal unlabored respirations, skin warm/dry/pink. Vital Signs: 11:49 BP 185 / 99; Pulse 82; Resp 19; Temp 97.8(TE); Pulse Ox 97% on R/A; Weight 90.72 kg tw2 (R); Height 5 ft. 4 in. (162.56 cm); Pain 8/10; 13:14 BP 161 / 95; Pulse 68; Resp 16; Temp 97.7(A); Pulse Ox 100% ; lt1 13:50 BP 158 / 85; Pulse 76; Resp 18; Pulse Ox 98% on R/A; mg2 11:49 Body Mass Index 34.33 (90.72 kg, 162.56 cm) tw2 ED Course: 11:41 Patient arrived in ED. mr 11:49 Triage completed. tw2 11:51 Arm band placed on. tw2 12:06 Augustus Mace PA is PHCP. jr8 12:06 Yuriy Montoya MD is Attending Physician. jr8 12:10 Yasmin Duran, SUSANA is Primary Nurse. ss 12:27 Initial lab(s) drawn, by me, sent to lab. Inserted saline lock: 22 gauge in right lt1 antecubital area, using aseptic technique. 12:33 EKG done, by hydraulic technician. reviewed by Augustus CAMERON. at1 12:36 XRAY Chest (1 view) In Process Unspecified. EDMS 13:25 Patient has correct armband on for positive identification. ekg monitor on. Pulse mg2 ox on. NIBP on. Door closed. Warm blanket given. 13:33 Emerson Whiting, SUSANA is Primary Nurse. mg2 14:03 Jamir Cervantes MD is Referral Physician. jr8 14:20 No provider procedures requiring assistance completed. IV discontinued, intact, mg2 bleeding controlled, No redness/swelling at site. Pressure dressing applied. Administered Medications: 13:20 Drug: SOLU-Medrol 125 mg Route: IVP; Site: right antecubital; mg2 13:46 Follow up: Response: No adverse reaction mg2 13:20 Drug: Albuterol - atroVENT (3:1) (2.5 mg - 0.5 mg) 3 ml Route: Nebulizer; mg2 13:45 Follow up: Response: No adverse reaction mg2 13:20 Drug: hydrALAZINE 10 mg Route: IV; Rate: calculated rate; Site: right antecubital; mg2 13:20 Drug: Aspirin Chewable Tablet 324 mg Route: PO; mg2 13:46 Follow up: Response: No adverse reaction mg2 13:45 Drug: Potassium Chloride 40 mEq Route: PO; mg2 14:18 Follow up: Response: No adverse reaction mg2 Outcome: 14:03 Discharge ordered by . jr8 14:20 Discharged to home ambulatory. mg2 14:20 Condition: stable 14:20 Discharge instructions given to patient, Instructed on discharge instructions, follow mg2 up and referral plans. medication usage, Demonstrated understanding of instructions, follow-up care, medications, Prescriptions given X 3. 14:24 Patient left the ED. tr5 Signatures: Dispatcher [employer] Carrol ByrdYasmin, RN RN ss Augustus Mace PA PA jr8 Janee Stein, drafter marine EKG Tat1 Zora Martino RN RN tw2 Emerson Whiting RN RN mg2 Phelan, Anastasiya lt1 Nick Jackson RN RN tr5 Corrections: (The following items were deleted from the chart) 11:51 11:49 Pulse 82bpm; Resp 19bpm; Pulse Ox 94% RA; Temp 97.8F Temporal; 90.72 kg Reported; tw2 Height 5 ft. 4 in.; BMI: 34.3; Pain 8/10; tw2 11:56 11:49 Pulse 82bpm; Resp 19bpm; Pulse Ox 97% RA; Temp 97.8F Temporal; 90.72 kg Reported; tw2 Height 5 ft. 4 in.; BMI: 34.3; Pain 8/10; tw2
--- NOTE | 2019-06-15 14:55 | EKG ---
Test Date: 2019-06-15 Test Time: 12:25:56 Vice President Business & Corporate Development: KIMBERLY MEASUREMENT RESULTS: Intervals: Rate: 68 [place]: 196 QRSD: 98 QT: 348 QTc: 370 [place]: P: 58 [place]: 196 QRS: -39 T: 90 INTERPRETIVE STATEMENTS: Normal sinus rhythm Left axis deviation Abnormal ECG Compared to ECG 01/31/2018 15:56:09 Left-axis deviation now present Electronically Signed On 06-15-19 14:54:49 COURTROOM DEPUTY OR CALENDAR CLERK by Jamir Cervantes
[2019-06-15 15:01] VITALS: TEMP 97.7
[2019-06-15 15:02] VITALS: BP 158/85; O2SAT 98
== END 2019-06-15 14:24 | disposition home or self-care (01) ==
LOC: ER 11:38
DX: J44.1 Chronic obstructive pulmonary disease with (acute) exacerbation (principal); I16.0 Hypertensive urgency; Z88.6 Allergy status to analgesic agent; E03.9 Hypothyroidism, unspecified; I25.2 Old myocardial infarction; E78.5 Hyperlipidemia, unspecified; Z86.73 Personal history of transient ischemic attack (TIA), and cerebral infarction without residual deficits
CPT/HCPCS: 93005; 85025; 80048; 36415; 83735; 85610; 80076; 84484; 83880; 71045; 94640; 96375; 96374; 99285; J0360; J2930

== ENCOUNTER 2020-08-17 20:59 | Inpatient (IN) | payer OTHER, SELFPAY ==
[2020-08-17] MEDS ORDERED: ASPIRIN 81 MG CHEWABLE TABLET ONE (21:52)
[2020-08-17 22:09] LABS: Absolute Lymphocytes (CBC) 1.1 K/uL (0.7-4.9); Basophils % 0.6 % (0-1.3); Hematocrit 32.4 % (36.0-45.0); Lymphocytes % 18.7 % (15.3-44.8); MPV 8.8 fL (7.6-11.3); RBC Red Blood Cell Count 3.81 M/uL (3.86-4.86)
[2020-08-17 22:10] LABS: Protime INR 1.04
[2020-08-17] MEDS ORDERED: HYDRALAZINE HCL 20 MG/ML VIAL ONE (22:23)
[2020-08-17 22:38] LABS: ALT/SGPT 14 U/L (12-78); AST/SGOT 22 U/L (15-37); Albumin 3.6 g/dL (3.4-5.0); Alkaline Phosphatase 58 U/L (45-117); BUN Blood Urea Nitrogen 10 mg/dL (7-18); Bicarbonate 32 mmol/L (21-32); Bilirubin Direct < 0.1 mg/dL (0-0.2); Bilirubin Total 0.4 mg/dL (0.2-1.0); Glucose Level 92 mg/dL (74-106); NT PRO-BNP 152 pg/mL (<125); Potassium 4.3 mmol/L (3.5-5.1); Protein, Total 7.5 g/dL (6.4-8.2); Sodium Level 137 mmol/L (136-145); Troponin (Emerg Dept Use Only) < 0.02 ng/mL (0.0-0.045)
--- NOTE | 2020-08-17 23:02 | ER ---
Nurse's Notes [facility] Name: Radha Saleh Age: 59 yrs Sex: Female : 1960 Arrival Date: 08/17/2020 Time: 21:03 Bed 16 Private MD: Diagnosis: Chest pain, unspecified Presentation: 08/17 21:18 Chief complaint: Patient states: Chest pain that began about an hour ago with shortness lp1 of breath; Reports recent hospitalization in [place] for heart attack, discharge home about 1 week ago. Coronavirus screen: Client denies travel out of the [place] in the last 14 days. difficulty breathing. Ebola Screen: No symptoms or risks identified at this time. Initial Sepsis Screen: Does the patient meet any 2 criteria? No. Patient's initial sepsis screen is negative. Does the patient have a suspected source of infection? No. Patient's initial sepsis screen is negative. Risk Assessment: Do you want to hurt yourself or someone else? Patient reports no desire to harm self or others. Onset of symptoms was August 17, 2020 at 20:00. 21:18 Method Of Arrival: Wheelchair lp1 21:18 Acuity: OSMANY 3 lp1 Historical: - Allergies: 21:22 Morphine (Hives); lp1 - Home Meds: 21:47 ranolazine oral 1000 mg oral 2 times per day [Active]; Lisinopril 75 mg Oral once daily lp1 [Active]; Synthroid 150 mcg Oral tab 1 tab once daily [Active]; isosorbide mononitrate 60 mg Oral Tb24 1 tab once daily [Active]; aspirin 81 mg Oral TbEC 1 tab once daily [Active]; budesonide inhalation inhalation [Active]; - PMHx: 21:22 CVA; gastric ulcer; Hyperlipidemia; Hypertension; Hypothyroidism; Myocardial infarction;lp1 21:29 Sleep Apnea; COPD; lp1 - PSHx: 21:22 ; lp1 - Immunization history:: Adult Immunizations up to date. - Social history:: Smoking status: Patient/guardian denies using tobacco, the patient reports quitting approximately 2 years ago. Screenin:57 Abuse screen: Denies threats or abuse. Nutritional screening: No deficits noted. jb4 Tuberculosis screening: No symptoms or risk factors identified. Fall Risk None identified. Assessment: 21:15 General: Appears in no apparent distress. comfortable, Behavior is calm, cooperative. vg1 Pain: Complains of pain in mid-sternal area Pain does not radiate. Pain currently is 5 out of 10 on a pain scale. Pain began 1 hour ago. Neuro: Level of Consciousness is awake, alert, obeys commands, Oriented to person, place, time, situation. Cardiovascular: Patient's skin is warm and dry. Respiratory: Airway is patent Respiratory effort is even, unlabored, Respiratory pattern is regular, symmetrical. GI: No signs and/or symptoms were reported involving the gastrointestinal system. : No signs and/or symptoms were reported regarding the genitourinary system. EENT: No signs and/or symptoms were reported regarding the EENT system. Derm: Skin is pink, warm \T\ dry. Musculoskeletal: Circulation, motion, and sensation intact. 22:15 Reassessment: Patient appears in no apparent distress at this time. No changes from vg1 previously documented assessment. Patient and/or family updated on plan of care and expected duration. Pain level reassessed. Patient is alert, oriented x 3, equal unlabored respirations, skin warm/dry/pink. 23:00 Reassessment: Patient appears in no apparent distress at this time. Patient and/or jb4 family updated on plan of care and expected duration. Pain level reassessed. Patient is alert, oriented x 3, equal unlabored respirations, skin warm/dry/pink. Vital Signs: 21:18 BP 209 / 102 RA; Pulse 97; Resp 20; Temp 97.4(TE); Pulse Ox 92% on R/A; Weight 81.65 kg lp1 (R); Height 5 ft. 4 in. (162.56 cm); Pain 6/10; 21:20 BP 204 / 119 LA; lp1 21:21 Pulse Ox 94% on 2 lpm NC; lp1 22:00 BP 178 / 94; Pulse 80; Resp 20; Pulse Ox 95% on 2 lpm NC; vg1 23:00 BP 164 / 97; Pulse 87; Resp 22; Pulse Ox 96% on 2 lpm NC; jb4 21:18 Body Mass Index 30.90 (81.65 kg, 162.56 cm) lp1 ED Course: 21:03 Patient arrived in ED. cf2 21:09 Juan Antonio Smyth NP is PHCP. pm1 21:09 Kwabena Jerome MD is Attending Physician. pm1 21:11 Tanika Galicia, RN is Primary Nurse. vg1 21:15 Missed attempt(s): 20 gauge in left wrist. Bleeding controlled, band aid applied, jp3 catheter tip intact. 21:20 Triage completed. lp1 21:20 Arm band placed on. lp1 21:26 Basic Metabolic Panel Sent. jp3 21:26 Initial lab(s) drawn, by me, sent to lab. EKG done, by ED staff, reviewed by Juan Antonio Smyth FOOD PRODUCT INSPECTOR COVID swab sent to lab. Inserted saline lock: 20 gauge in left ,using aseptic technique. thumb Blood collected. Oxygen administration via nasal cannula \T\ 2L/min. 21:40 XRAY Chest (1 view) In Process Unspecified. EDMS 22:30 Patient has correct armband on for positive identification. Placed in gown. Bed in low jb4 position. Call light in reach. Side rails up X 1. court monitor on. Pulse ox on. NIBP on. 23:01 Humera Mccormack MD is Hospitalizing Provider. pm1 23:57 No provider procedures requiring assistance completed. Patient admitted, IV remains in jb4 place. Administered Medications: 21:44 Drug: Aspirin Chewable Tablet 324 mg Route: PO; vg1 22:12 Drug: hydrALAZINE 10 mg Route: IV; Rate: calculated rate; Site: left hand; vg1 Outcome: 23:01 Decision to Hospitalize by Provider. pm1 23:57 Admitted to Med/surg accompanied by nurse, via stretcher, room 232, with oxygen, with jb4 chart, Report called to SUSANA Reynoso 23:57 Condition: stable 23:57 Discharge instructions given to patient, Instructed on the need for admit, Demonstrated understanding of instructions. 08/18 00:03 Patient left the ED. jb4 Signatures: Dispatcher [employer] EDAZ Heather Christianson, RN RN lp1 Juan Antonio Smyth, BRANDON FOOD PRODUCT INSPECTOR pm1 Reji Pham, RN RN jb4 Olman Aparicio jp3 Betsy Kauffman cf2 Tanika Galicia, RN RN vg1
[2020-08-17] MEDS ORDERED: ONDANSETRON 4 MG/2 ML VIAL IV PRN (23:03)
--- NOTE | 2020-08-17 23:03 | EDPHYS ---
Physician Documentation [facility] Name: Radha Saleh Age: 59 yrs Sex: Female : 1960 Arrival Date: 08/17/2020 Time: 21:03 Bed 16 Private MD: ED Physician Kwabena Jerome HPI: 08/17 21:27 This 59 yrs old Female presents to ER via Wheelchair with complaints of Chest pm1 Pain, Breathing Difficulty. 21:27 The patient or guardian reports chest pain that is located primarily in the mid-sternal pm1 area and left breast. Onset: 1 hour(s) ago. The pain does not radiate. Associated signs and symptoms: Pertinent positives: shortness of breath, neck pain. The chest pain is described as squeezing, Tightness. Duration: The patient or guardian reports multiple episodes, one episode 1 hour ago that lasted for 15 minutes and another episode that lasted for 20 minutes that resolved prior to arrival. Modifying factors: The symptoms are alleviated by nothing. the symptoms are aggravated by nothing. Severity of pain: in the emergency department the pain has resolved and did so just prior to arrival. Hospitalization at [facility] 07/30 for heart attack. Historical: - Allergies: 21:22 Morphine (Hives); lp1 - Home Meds: 21:47 ranolazine oral 1000 mg oral 2 times per day [Active]; Lisinopril 75 mg Oral once daily lp1 [Active]; Synthroid 150 mcg Oral tab 1 tab once daily [Active]; isosorbide mononitrate 60 mg Oral Tb24 1 tab once daily [Active]; aspirin 81 mg Oral TbEC 1 tab once daily [Active]; budesonide inhalation inhalation [Active]; - PMHx: 21:22 CVA; gastric ulcer; Hyperlipidemia; Hypertension; Hypothyroidism; Myocardial infarction;lp1 21:29 Sleep Apnea; COPD; lp1 - PSHx: 21:22 ; lp1 - Immunization history:: Adult Immunizations up to date. - Social history:: Smoking status: Patient/guardian denies using tobacco, the patient reports quitting approximately 2 years ago. ROS: 21:27 Constitutional: Negative for fever, chills, and weight loss. pm1 21:27 Back: Negative for injury and pain, MS/Extremity: Negative for injury and deformity, Skin: Negative for injury, rash, and discoloration, Neuro: Negative for headache, weakness, numbness, tingling, and seizure. 21:27 Cardiovascular: Positive for chest pain, Negative for edema, palpitations. 21:27 Respiratory: Positive for shortness of breath, more than her baseline for COPD. 21:27 Abdomen/GI: Positive for nausea, Negative for vomiting, diarrhea. Exam: 21:27 Constitutional: This is a well developed, well nourished patient who is awake, alert, pm1 and in no acute distress. Head/Face: Normocephalic, atraumatic. 21:27 Chest/axilla: Normal chest wall appearance and motion. Nontender with no deformity. No lesions are appreciated. Respiratory: Lungs have equal breath sounds bilaterally, clear to auscultation and percussion. No rales, rhonchi or wheezes noted. No increased work of breathing, no retractions or nasal flaring. 21:27 Back: No spinal tenderness. No costovertebral tenderness. Full range of motion. Skin: Warm, dry with normal turgor. Normal color with no rashes, no lesions, and no evidence of cellulitis. MS/ Extremity: Pulses equal, no cyanosis. Neurovascular intact. Full, normal range of motion. 21:27 Neck: Exam negative for acute changes, External neck: is normal, ROM/movement: is normal. 21:27 Cardiovascular: Exam negative for acute changes, Rate: normal, Rhythm: regular, Pulses: no pulse deficits are appreciated, Heart sounds: normal, normal S1and S2. 21:27 Respiratory: Exam negative for acute changes, respiratory distress, shortness of breath. 21:27 Neuro: Exam negative for acute changes, Orientation: is normal, Mentation: is normal, Motor: is normal, moves all fours. Vital Signs: 21:18 BP 209 / 102 RA; Pulse 97; Resp 20; Temp 97.4(TE); Pulse Ox 92% on R/A; Weight 81.65 kg lp1 (R); Height 5 ft. 4 in. (162.56 cm); Pain 6/10; 21:20 BP 204 / 119 LA; lp1 21:21 Pulse Ox 94% on 2 lpm NC; lp1 22:00 BP 178 / 94; Pulse 80; Resp 20; Pulse Ox 95% on 2 lpm NC; vg1 23:00 BP 164 / 97; Pulse 87; Resp 22; Pulse Ox 96% on 2 lpm NC; jb4 21:18 Body Mass Index 30.90 (81.65 kg, 162.56 cm) lp1 MDM: 21:11 Patient medically screened. pm1 21:33 Data reviewed: vital signs. pm1 23:01 Physician consultation: Humera Mccormack MD was called at 23:01, was contacted at 23:01, pm1 regarding admission, patient's condition, and will see patient. 08/17 21:16 Order name: Basic Metabolic Panel pm1 08/17 21:16 Order name: CBC with Diff pm1 08/17 21:16 Order name: LFT's pm1 08/17 21:16 Order name: Magnesium; Complete Time: 22:53 pm1 08/17 21:16 Order name: NT PRO-BNP; Complete Time: 22:53 pm1 08/17 21:16 Order name: PT-INR; Complete Time: 22:18 pm1 08/17 21:16 Order name: Troponin (emerg Dept Use Only); Complete Time: 22:53 pm1 08/17 21:17 Order name: Basic Metabolic Panel; Complete Time: 22:53 EDMS 08/17 21:17 Order name: CBC with Automated Diff; Complete Time: 22:18 EDMS 08/17 21:17 Order name: Liver (Hepatic) Function; Complete Time: 22:53 EDMS 08/17 22:42 Order name: SARS-COV-2 RT PCR; Complete Time: 22:53 EDMS 08/17 23:08 Order name: CBC with Automated Diff EDMS 08/17 23:08 Order name: CBC with Automated Diff EDMS 08/17 21:16 Order name: XRAY Chest (1 view) pm1 08/17 21:16 Order name: EKG; Complete Time: 21:17 pm1 08/17 21:16 Order name: Cardiac monitoring; Complete Time: 21:26 pm1 08/17 21:16 Order name: EKG - Nurse/Tech; Complete Time: 21:26 pm1 08/17 21:16 Order name: IV Saline Lock; Complete Time: 22:05 pm1 08/17 23:08 Order name: CT-LOW DOSE CT CHEST EDMS 08/17 23:08 Order name: CONS Pharmacy Consult EDMS 08/17 23:08 Order name: CONS Physician Consult EDAK 08/17 23:08 Order name: Heart Healthy EDAK 08/17 23:08 Order name: Comprehensive Metabolic Panel EDAK 08/17 23:08 Order name: Comprehensive Metabolic Panel EDAK 08/17 23:08 Order name: Troponin I EDAK 08/17 23:08 Order name: Troponin I EDAK 08/17 23:08 Order name: Troponin I EDAK 08/17 21:16 Order name: Labs collected and sent; Complete Time: 22:05 pm1 08/17 21:16 Order name: O2 Per Protocol; Complete Time: 21:29 pm1 08/17 21:16 Order name: O2 Sat Monitoring; Complete Time: 21:26 pm1 Administered Medications: 21:44 Drug: Aspirin Chewable Tablet 324 mg Route: PO; vg1 22:12 Drug: hydrALAZINE 10 mg Route: IV; Rate: calculated rate; [facility] Disposition: 08/18 04:09 Co-signature as Attending Physician, Kwabena Jerome MD. 7 Disposition: 08/17/20 23:01 Hospitalization ordered by Humera Mccormack for Observation. Preliminary diagnosis is Chest pain, unspecified. - Bed requested for Telemetry/MedSurg (observation). - Status is Observation. jb4 - Condition is Stable. - Problem is new. - Symptoms have improved. Signatures: Dispatcher [employer] [facility] Nani Jensen RN RN Heather Christianson RN RN lp1 Juan Antonio Smyth, BRANDON ORGAN GRINDER pm1 Reji Pham RN RN jb4 Tanika Galicia RN RN 1 Kwabena Jerome MD MD 7 Corrections: (The following items were deleted from the chart) 08/17 22:02 21:17 CORONAVIRUS+MR.LAB.BRZ ordered. [facility] EDAK 23:17 23:01 Hospitalization Ordered by Humera Mccormack MD for Observation. Preliminary mw diagnosis is Chest pain, unspecified. Bed requested for Telemetry/MedSurg (observation). Status is Observation. Condition is Stable. Problem is new. Symptoms have improved. pm1 08/18 00:03 08/17 23:17 08/17/2020 23:01 Hospitalization Ordered by Humera Mccormack MD for jb4 Observation. Preliminary diagnosis is Chest pain, unspecified. Bed requested for Telemetry/MedSurg (observation). Status is Observation. Condition is Stable. Problem is new. Symptoms have improved. mw
[2020-08-17] MEDS: ASPIRIN EC 81 MG TAB PO SCH (23:06)
[2020-08-17] MEDS ORDERED: CEFTRIAXONE 1 GM/NS 50 ML 1 GM/50 ML BAG IV SCH (23:06)
--- NOTE | 2020-08-17 23:36 | P.HP ---
Certification for Inpatient With expected LOS: >2 Midnights Patient will require the following post-hospital care: None Practitioner: I am a practitioner with admitting privileges, knowledge of patient current condition, hospital course, and medical plan of care. Services: Services provided to patient in accordance with Admission requirements found in Title 42 Section 412.3 of the Code of Federal Regulations Patient History Date of Service: 08/17/20 Reason for admission: SOB and Chest pain History of Present Illness: 59 yr old female with HTN , HLD, ex smoker ,COPD, CVA with no residual deficit , CAD s/p recent self reported NSTEMI 2 week ago at [place], states she had angiogram but unsure of result but denies any stent placement , presented for left sided chest pain , onset 1 hr before ER visit , state pain is radiating to neck , more like tightness , no palpitation or dizziness. pain resolved spontaneously after 15 min and recurr again after 20 mins but again resolved prior to ER arrival She describe SOB with exertional , worsening body swelling, unsure if she is taking any diuretics at ER, noted with elevated BP with systolic above 200s, but improving now with ntg patch . Ekg shows first degree AV block , CXR shows left base opacity - possible effusions vs pneumonia , mild congestion Allergies morphine Allergy (Severe, Verified 03/08/13 22:11) Nausea/Vomiting Home Medications: Levothyroxine [Synthroid*] 100 mcg PO [id number] 06/15/16 hydrOXYzine HCL [Atarax] 50 mg PO BEDTIME 06/15/16 hydroCHLOROthiazide [Hydrochlorothiazide] 25 mg PO DAILY 06/15/16 Atorvastatin Calcium [Lipitor] 80 mg PO BEDTIME #30 tab 06/16/16 Metoprolol Succinate [Toprol Xl*] 50 mg PO DAILY #30 tab 06/16/16 Amlodipine [Norvasc*] 10 mg PO DAILY #30 tab 06/17/16 Atorvastatin Calcium [Lipitor*] 10 mg PO BEDTIME #30 tab 06/17/16 Nitroglycerin [Nitrostat*] 0.4 mg SL UD PRN #30 tab 06/17/16 lisinopriL [Prinivil*] 20 mg PO DAILY #30 tab 06/17/16 Fenofibrate [Tricor*] 160 mg PO DAILY 02/21/18 Ciprofloxacin HCl [Cipro 500 MG Tablet] 500 mg PO DAILY #3 tab 02/23/18 Pantoprazole Sodium [Protonix] 40 mg PO DAILY #30 tablet. 02/23/18 - Past Medical/Surgical History Diabetic: No -: HTN -: HYPOTHYROIDISM -: HIGH CHOLESTEROL -: GASTRIC ULCER -: TIA -: CESARIAN SECTION - Family History Mother -: Diabetes, Kidney disease Father -: Heart disease Brother -: Heart disease Notes: Stent - Social History Smoking Status: Former smoker Alcohol use: No CD- Drugs: No Caffeine use: Yes Place of Residence: Home Review of Systems 10-point ROS is otherwise unremarkable Physical Examination - Physical Exam General: Alert, In no apparent distress, Oriented x3, Obese HEENT: Atraumatic, Normocephalic, PERRLA Neck: Supple, 2+ carotid pulse no bruit, JVD not distended Respiratory: Diminished, Crackles/rales Cardiovascular: Normal pulses, Regular rate/rhythm, Normal S1 S2, Edema Gastrointestinal: Normal bowel sounds, Soft and benign, Non-distended Musculoskeletal: No clubbing, Swelling Integumentary: No rashes, No breakdown Neurological: Normal gait, Normal speech, Normal strength at 5/5 x4 extr, Normal tone, Cranial nerves 3-12 intact - Studies Laboratory Data (last 24 hrs) 08/17/20 21:50: PT 12.0, INR 1.04 08/17/20 21:50: WBC 6.10, Hgb 10.7 L, Hct 32.4 L, Plt Count 294 08/17/20 21:50: Sodium 137, Potassium 4.3, BUN 10, Creatinine 1.00, Glucose 92, Magnesium 2.0, Total Bilirubin 0.4, AST 22, ALT 14, Alkaline Phosphatase 58 Imagings Data: CXR -reveiwed by pr - left base opacity -pna vs effusions , mild congestion Assessment and Plan - Problems (Diagnosis) (1) CHF exacerbation Current Visit: Yes Status: Acute (2) Chest pain Onset Date: 06/16/16 Current Visit: No Status: Acute (3) Dyslipidemia Onset Date: 02/22/18 Current Visit: No Status: Chronic (4) Hypertension Onset Date: 02/22/18 Current Visit: No Status: Chronic Qualifiers: Hypertension type: essential hypertension (5) Hypothyroid Onset Date: 02/22/18 Current Visit: No Status: Chronic Qualifiers: Hypothyroidism type: acquired Qualified Code(s): E03.9 - Hypothyroidism, unspecified - Plan # Chest pain - possible due to ACS - negative intial troponin , follow serial CE - may need stress test -obtain records from [place] of recent nagiogram -cardiology consult in am - restart Aspirin and home meds - ngt prn recurrent chest pain # COPD - stable # CHF exacerbation -possible systolic -follow old records for EF from recent angiogram - start lasix IV bid -obtain home meds - daily weights -intake and output # HTN urgency -improving -follow with diuresis - restart home regime # DVT prop - sc lovenox # Advance directive - full code # Hypothyrodiism - resume synthroid home dosage - follow TSH - Advance Directives Does patient have a Living Will: No Does patient have a Durable POA for Healthcare: No Time Spent Managing Pts Care (In Minutes): 65
[2020-08-18 00:31] VITALS: BMI 44.1
[2020-08-18] MEDS: FUROSEMIDE 40 MG/4 ML VIAL IV SCH ×3 (01:02→17:00)
[2020-08-18] MEDS: CEFTRIAXONE/SWI 1gm 1 GM/10 ML SYR IV SCH ×2 (01:03→09:00)
[2020-08-18] MEDS: IPRATROPIUM BROM 0.5MG/2.5ML NEB SCH ×4 (01:25→19:54)
[2020-08-18] MEDS ORDERED: HYDRALAZINE HCL 20 MG/ML VIAL IV PRN (04:00)
[2020-08-18] MEDS ORDERED: INFLUENZA VACCINE (for 3y+) 0.5 ML DOSE IMVAC ONE (06:00)
[2020-08-18] MEDS: LEVOTHYROXINE SOD 0.1 MG TAB PO SCH (06:27)
[2020-08-18 06:50] LABS: Basophils % 0.7 % (0-1.3); Hematocrit 34.4 % (36.0-45.0); Lymphocytes % 14.8 % (15.3-44.8); MPV 9.1 fL (7.6-11.3); RBC Red Blood Cell Count 4.01 M/uL (3.86-4.86)
[2020-08-18 07:14] LABS: Albumin 3.8 g/dL (3.4-5.0); Bilirubin Total 0.3 mg/dL (0.2-1.0); Potassium 3.6 mmol/L (3.5-5.1); Protein, Total 7.3 g/dL (6.4-8.2)
--- NOTE | 2020-08-18 07:53 | EKG ---
Test Date: 2020-08-17 Test Time: 21:18:55 Key Account Executive: JEANNE MEASUREMENT RESULTS: Intervals: Rate: 87 AR: 212 QRSD: 90 QT: 364 QTc: 438 [place]: P: 63 AR: 212 QRS: -8 T: 75 INTERPRETIVE STATEMENTS: Sinus rhythm with 1st degree AV block Otherwise normal ECG Compared to ECG 06/15/2019 12:25:56 First degree AV block now present Left-axis deviation no longer present Electronically Signed On 08-18-20 07:52:54 SINGING TELEGRAM PERFORMER by Jamir Cervantes
[2020-08-18] MEDS: ENOXAPARIN 40 MG/0.4 ML SQ SCH (09:00)
[2020-08-18] MEDS: ASPIRIN EC 81 MG TAB PO SCH (09:00)
[2020-08-18] MEDS: ACETAMINOPHEN 500 MG TAB PO PRN ×2 (10:23→21:45)
--- NOTE | 2020-08-18 10:48 | RAD REPORT ---
EXAM DESCRIPTION: Anton Single View08/17/2020 9:40 pm CLINICAL HISTORY: Chest pain COMPARISON: 2019 FINDINGS: Areas subsegmental atelectasis lingula. Right lung appears clear Heart is moderately to markedly enlarged
--- NOTE | 2020-08-18 11:25 | CON ---
Admitted to Dr. Davila's service on 08/17/2020 for atypical chest pain. History Of Present Illness: Ms. Saleh is a 59-year-old female with history of CVA, a gastric ulcer, hyperlipidemia, hypertension, hypothyroidism, coronary artery disease, sleep apnea, COPD. She came in with chest pain and breathing difficulty. The chest pain is in the midsternal area. It is not ra diating. She has neck pain and shortness of breath. Symptoms are described as tightness to the none xertional. Has had multiple episodes in the past. They usually last 15-20 minutes. Apparently had a heart attack and was admitted to [place] in July. Details are unavailable. Past Medical History: As stated above. Allergies: TO MORPHINE. Review of Systems: Negative. Social History: Negative. Family History: Noncontributory. Medications: At home include Ranexa 1000 mg b.i.d., lisinopril, Synthroid, Imdur, aspirin and inhale rs. Physical Examination: Vital Signs: Her initial pressure when she came in was 204/119 with a pulse of 97, respiratory rate o f 20, temperature 97.4. Her last blood pressure was 134/83. She weighs 257 pounds. She is in sinus rhythm. HEENT: Negative. Neck: Supple without any bruit, lymphadenopathy, JVD, or thyromegaly. Chest: Clear to auscultation and percussion. Cardiac: Revealed a regular rhythm and rate. No murmurs, gallops, or rubs. Abdomen: Benign Extremities: Revealed no clubbing, cyanosis, or edema. Diagnostic Data: Within normal limit. Impression And Plan: Obviously history of coronary artery disease, status post myocardial infarction in July. Details are unavailable. I will try to get the records from [place]. Meanwhile, cont inue her present regimen. So, I am surprised she is not on Plavix but she is on Ranexa, Imdur, and m etoprolol as well as Lipitor and aspirin. I would continue that regimen. So far she was ruled out f or myocardial infarction. We may have to adjust her medications. Her metoprolol can certainly be in creased. Her other problems include very poorly controlled hypertension, may be secondary to chest p ain and anxiety is now much better controlled. She has lipidemia and hypothyroidism, gastroesophagea l reflux disease, all these are well controlled. She is presently on her home medication Lasix IV b. i.d. as well as Lovenox. She is also on hydralazine as needed, inhalers. Chest x-ray and CT of her chest are still pending. We will continue to follow her along. LAURA Voice ID: [id number] Report ID: [id number]
[2020-08-18] MEDS ORDERED: PNEUMOCOCCAL VACCINE 0.5 ML IMVAC ONE (13:00)
[2020-08-19] MEDS: IPRATROPIUM BROM 0.5MG/2.5ML NEB SCH ×4 (01:25→19:35)
--- NOTE | 2020-08-19 05:47 | P.PN ---
Subjective Date of Service: 08/18/20 Patient is doing well. Had extensive workup done at [facility]. Multivessel disease. No stents were placed. Coronary artery disease medications were initiated. Patient was discharged home. Patient has comeback in the hypoxic. May benefit from further diaries N. Repeat CT scan of the chest were initial results did not reveal any significant pulmonary edema. Arrange for home oxygen as her oxygen is 91% on 2 L. Room air O2 sat was in the low 80s. Review of Systems 10-point ROS is otherwise unremarkable Physical Examination - Vital Signs Temperature: 97.5 F Blood Pressure: 165/79 Pulse: 85 Respirations: 18 Pulse Ox (%): 95 - Physical Exam General: Alert, In no apparent distress, Oriented x3 Respiratory: Clear to auscultation bilaterally, Normal air movement Cardiovascular: Regular rate/rhythm, Normal S1 S2 Gastrointestinal: Normal bowel sounds, Soft and benign, Non-distended, No tenderness, No rebound, No guarding Musculoskeletal: No clubbing, No swelling, No tenderness Integumentary: No rashes Neurological: Normal speech, Normal tone, Normal affect Lymphatics: No axilla or inguinal lymphadenopathy - Studies Laboratory Data (last 24 hrs) 08/18/20 05:49: Sodium 139, Potassium 3.6, BUN 8, Creatinine 1.04, Glucose 101, Total Bilirubin 0.3, AST 14 L, ALT 13, Alkaline Phosphatase 62 08/18/20 05:49: WBC 6.70, Hgb 11.3 L, Hct 34.4 L, Plt Count 293 08/18/20 05:49: Troponin I < 0.02 Medications List Reviewed: Yes Assessment & Plan - Problems (Diagnosis) (1) Coronary artery disease Current Visit: Yes Status: Acute (2) NSTEMI (non-ST elevated myocardial infarction) Onset Date: 06/16/16 Current Visit: No Status: Acute (3) Transient ischemia Current Visit: No Status: Acute (4) Dyslipidemia Onset Date: 02/22/18 Current Visit: No Status: Chronic (5) Hypertension Onset Date: 02/22/18 Current Visit: No Status: Chronic Qualifiers: Hypertension type: essential hypertension (6) Hypothyroid Onset Date: 02/22/18 Current Visit: No Status: Chronic Qualifiers: Hypothyroidism type: acquired Qualified Code(s): E03.9 - Hypothyroidism, unspecified (7) Tobacco abuse Current Visit: No Status: Chronic - Plan Plan to arrange oxygen for patient and if this is stable then possible discharge today. However patient room air oxygen is low they will arrange for home oxygen prior to discharge. Echocardiogram pending per cardiology recommendation. Further cardiac intervention after review of records that were placed in the chart. Discharge Plan: Detention - Advance Directives Does patient have a Living Will: No Does patient have a Durable POA for Healthcare: No - Code Status/Comfort Care Code Status Assessed: Yes Code Status: Full Code Critical Care: No Time Spent Managing PTS Care (In Minutes): 35
[2020-08-19] MEDS: LEVOTHYROXINE SOD 0.1 MG TAB PO SCH (05:49)
[2020-08-19] MEDS: ACETAMINOPHEN 500 MG TAB PO PRN (08:44)
[2020-08-19] MEDS: ASPIRIN EC 81 MG TAB PO SCH (08:44)
[2020-08-19] MEDS: ENOXAPARIN 40 MG/0.4 ML SQ SCH (08:44)
[2020-08-19] MEDS: FUROSEMIDE 40 MG/4 ML VIAL IV SCH (08:45)
[2020-08-19] MEDS: CEFTRIAXONE/SWI 1gm 1 GM/10 ML SYR IV SCH (09:00)
--- NOTE | 2020-08-19 09:12 | P.PN ---
Subjective Date of Service: 08/19/20 Primary Care Provider: none Chief Complaint: SOB and Chest pain Subjective: Improving (No chest pain noted.) Physical Examination - Vital Signs Temperature: 97.5 F Blood Pressure: 126/67 Pulse: 94 Respirations: 18 Pulse Ox (%): 95 - Physical Exam General: Alert, In no apparent distress, Oriented x3, Cooperative HEENT: Atraumatic Neck: Supple Respiratory: Clear to auscultation bilaterally, Normal air movement Cardiovascular: Normal pulses, Regular rate/rhythm Gastrointestinal: Normal bowel sounds, No masses, No rebound, No guarding Neurological: Normal speech, Normal strength at 5/5 x4 extr, Normal tone, Normal affect - Studies Medications List Reviewed: Yes Assessment & Plan Discharge Plan: Home Plan to discharge in: 24 Hours Physician Review Additional Text: Impression: Chest pain, atypical with history of multi-vessel cardiac disease Hypertension Hyperlipidemia History of CVA COPD Chronic diastolic CHF Anxiety Hypothyroidism Plan: Chest pain, atypical with history of multi-vessel cardiac disease: Cardiac enzymes unremarkable. Continue aspirin, metoprolol. Lisinopril added. Continue Lipitor. Will obtain and verify home medication. Patient had prior workup at [facility]. Will discuss with cardiology. Anticipate no further intervention at this time. Continue with medical management. Will need to check and see if patient will require home oxygen at discharge. Will check to see if patient will require additional medication including Plavix. Will discuss with cardiology.Possible discharge today if okay with cardiology. Hypertension: Continue metoprolol. Lisinopril added at night. Parameters in place. Hyperlipidemia: Continue Lipitor History of CVA: Continue aspirin, Lipitor and blood pressure medication. COPD: Continue COPD medication. Medication provided. Will check to see patient will require home oxygen at discharge. Chronic diastolic CHF: Wean off oxygen. Continue Lasix. Continue 1500 cc per day fluid restriction. Anxiety: Provide medication as needed Hypothyroidism: Continue home medication Time Spent Managing Pts Care (In Minutes): 55
--- NOTE | 2020-08-19 12:04 | RAD REPORT ---
EXAM DESCRIPTION: CT - Thorax Dilcia Domínguez - 08/18/2020 12:54 am RadLex: CT CHEST WITHOUT IV CONTRAST CLINICAL HISTORY: Left basal infiltrate vs effusion. COMPARISON: None. TECHNIQUE: CT of the chest was performed without contrast. Axial, coronal, and sagittal reconstructi ons were created and sent to PACS. This exam was performed according to our departmental dose-optimization program, which includes autom ated exposure control, adjustment of the mA and/or kV according to patient size and/or use of iterati ve reconstruction technique. FINDINGS: Lungs and pleura: Right lower lobe 0.3 cm nodule (axial image 37). Inferior-anterior right lower lobe 0.4 cm nodule (axial image 40). No pulmonary consolidation. Minimal lingular atelectasis. Minimal scarring in or atelectasis in the right and left basilar lower lobes. No pleural effusion. N o pneumothorax. Mediastinum and neck: No mediastinal lymphadenopathy by CT size criteria. Unremarkable appearance of the thyroid gland. Cardiovascular: Mild cardiomegaly. No pericardial effusion. No thoracic aortic aneurysm or dissection . Large amount of calcifications in the left anterior descending and left circumflex coronary arterie s. Mild aortic calcifications. Mild prominence of the main pulmonary trunk, measuring up to 3.8 cm in diameter. Abdomen: No significant upper abdominal abnormality identified. Musculoskeletal: No concerning osseous abnormality. IMPRESSION: 1. No pulmonary consolidation or pleural effusions identified. 2. Minimal atelectasis and/or scarring in the lung bases. 3. No routine follow-up imaging is recommended. These guidelines do not apply to immunocompromised patients and patients with cancer. Follow up in patients with significant comorbidities as clinically warranted (Reference: Radiology. 2017; 284(1):228-43). 4. Mild cardiomegaly. Prominent coronary artery calcifications. 5. Prominent main pulmonary trunk, suggestive of pulmonary arterial hypertension. Electronically signed by: Angeles Mathews MD 08/18/2020 12:37 AM CARE PROGRAM RESIDENT Due to temporary technical issues with the PACS/Fluency reporting system, reports are being signed by the in house radiologists without review as a courtesy to insure prompt reporting. The interpreting radiologist is fully responsible for the content of the report.
[2020-08-19] MEDS: METOPROLOL TAR 25 MG TAB PO SCH (17:49)
[2020-08-19] MEDS: FUROSEMIDE 40 MG TABLET PO SCH (17:49)
[2020-08-19] MEDS ORDERED: lisinopriL 5 MG TAB PO SCH (21:00)
[2020-08-19] MEDS: ATORVASTATIN 40 MG TAB PO SCH (21:43)
[2020-08-19] MEDS: DULERA 100/5 (MOMETASONE/FORMOTEROL) INHALER IH SCH (21:43)
[2020-08-20] MEDS: IPRATROPIUM BROM 0.5MG/2.5ML NEB SCH ×4 (02:25→19:19)
[2020-08-20] MEDS: LEVOTHYROXINE SOD 0.1 MG TAB PO SCH (05:54)
[2020-08-20] MEDS: METOPROLOL TAR 25 MG TAB PO SCH ×2 (05:54→17:57)
[2020-08-20] MEDS: FUROSEMIDE 40 MG TABLET PO SCH ×2 (08:42→17:57)
[2020-08-20] MEDS: ASPIRIN EC 81 MG TAB PO SCH (08:42)
[2020-08-20] MEDS: ENOXAPARIN 40 MG/0.4 ML SQ SCH (08:42)
[2020-08-20] MEDS: DULERA 100/5 (MOMETASONE/FORMOTEROL) INHALER IH SCH ×2 (08:43→22:35)
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
[2020-08-20] MEDS: ATORVASTATIN 40 MG TAB PO SCH (22:35)
[2020-08-21] MEDS: IPRATROPIUM BROM 0.5MG/2.5ML NEB SCH ×4 (01:29→20:05)
[2020-08-21] MEDS: METOPROLOL TAR 25 MG TAB PO SCH ×2 (05:45→17:16)
[2020-08-21] MEDS: LEVOTHYROXINE SOD 0.1 MG TAB PO SCH (05:46)
[2020-08-21] MEDS: DULERA 100/5 (MOMETASONE/FORMOTEROL) INHALER IH SCH ×2 (08:51→21:45)
[2020-08-21] MEDS: ENOXAPARIN 40 MG/0.4 ML SQ SCH (08:51)
[2020-08-21] MEDS: ASPIRIN EC 81 MG TAB PO SCH (08:52)
[2020-08-21] MEDS: FUROSEMIDE 40 MG TABLET PO SCH ×2 (08:52→17:17)
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
[2020-08-21] MEDS: ATORVASTATIN 40 MG TAB PO SCH (21:00)
[2020-08-21] MEDS: ACETAMINOPHEN 500 MG TAB PO PRN (21:45)
[2020-08-22] MEDS: IPRATROPIUM BROM 0.5MG/2.5ML NEB SCH ×4 (01:37→19:45)
[2020-08-22] MEDS: LEVOTHYROXINE SOD 0.1 MG TAB PO SCH (06:02)
[2020-08-22] MEDS: METOPROLOL TAR 25 MG TAB PO SCH ×2 (06:02→17:58)
[2020-08-22] MEDS: ALBUTEROL 2.5 MG/3 ML NEB SOL NEB PRN ×2 (09:10→14:40)
[2020-08-22] MEDS: FUROSEMIDE 40 MG TABLET PO SCH ×2 (09:44→17:58)
[2020-08-22] MEDS: ASPIRIN EC 81 MG TAB PO SCH (09:44)
[2020-08-22] MEDS: ENOXAPARIN 40 MG/0.4 ML SQ SCH (09:46)
--- NOTE | 2020-08-22 10:14 | PN ---
Subjective: The patient has been followed along with Dr. Coker for chest pain. The patient was teetee carl seen on 08/18/2020. On 08/19/2020, the patient remained chest pain free. She is on appropria te medication including Ranexa, beta thaddeus, aspirin. She is awaiting home O2 before she goes home. The catheterization that was done very recently showed extensive diffuse coronary artery disease. She has had an NC in the last month or so. No intervention was done by Dr. Chan. Medical therapy w as opted. She is asymptomatic from a cardiac standpoint. We will continue her present regimen. She can go home whenever it is okay with Dr. Coker. No need for any further intervention. She will fo llow up with Dr. Chan in the near future. SHONDA/GINGER Voice ID: [id number] Report ID: [id number]
[2020-08-22] MEDS: DULERA 100/5 (MOMETASONE/FORMOTEROL) INHALER IH SCH ×2 (10:42→20:42)
--- NOTE | 2020-08-22 14:15 | P.DS ---
Admission Date: 08/18/20 Discharge Date: 08/22/20 Primary Care Provider: none Disposition: ROUTINE DISCHARGE Discharge Condition: GOOD Reason for Admission: SOB and Chest pain Consultations: Cardiology-Dr. Cervantes Procedures: COVID: Negative CT Chest: FINDINGS: Lungs and pleura: Right lower lobe 0.3 cm nodule (axial image 37). Inferior-anterior right lower lobe 0.4 cm nodule (axial image 40). No pulmonary consolidation. Minimal lingular atelectasis. Minimal scarring in or atelectasis in the right and left basilar lower lobes. No pleural effusion. No pneumothorax. Mediastinum and neck: No mediastinal lymphadenopathy by CT size criteria. Unremarkable appearance of the thyroid gland. Cardiovascular: Mild cardiomegaly. No pericardial effusion. No thoracic aortic aneurysm or dissection. Large amount of calcifications in the left anterior descending and left circumflex coronary arteries. Mild aortic calcifications. Mild prominence of the main pulmonary trunk, measuring up to 3.8 cm in diameter. Abdomen: No significant upper abdominal abnormality identified. Musculoskeletal: No concerning osseous abnormality. IMPRESSION: 1. No pulmonary consolidation or pleural effusions identified. 2. Minimal atelectasis and/or scarring in the lung bases. 3. No routine follow-up imaging is recommended. These guidelines do not apply to immunocompromised patients and patients with cancer. Follow up in patients with significant comorbidities as clinically warranted (Reference: Radiology. 2017; 284(1):228-43). 4. Mild cardiomegaly. Prominent coronary artery calcifications. 5. Prominent main pulmonary trunk, suggestive of pulmonary arterial hypertension. Medical Problem List: Chest pain, atypical with history of multi-vessel cardiac disease Hypertension Hyperlipidemia History of CVA COPD Chronic diastolic CHF with pulmonary hypertension Anxiety Hypothyroidism Brief History of Present Illness: 60-year-old female presented to the emergency room with chest pain. Patient admitted for further evaluation and treatment. Hospital Course: Patient presented with chest pain. Patient with history of multi-vessel cardiac disease. Patient was seen and evaluated by Cardiology. Cardiac enzymes unremarkable. Cardiology reviewed information from a her prior cardiac physician. Patient has extensive diffuse CAD. No intervention was recommended at that time by Dr. Chan. Medical therapy was recommended. No further intervention needed at this time. Patient remains stable on aspirin, Ranexa and beta-thaddeus therapy. At discharge patient will continue with aspirin 81 mg daily, Ranexa 500 mg 1 pill twice daily, and metoprolol 12.5 mg 1 pill twice daily. Recommend follow up with PCP in 1 week to follow up this hospitalization. Recommend follow up with cardiology in 1-2 weeks to follow up this hospitalization and continue her care. Patient with underlying chronic diastolic CHF. Pulmonary hypertension noted. Patient required oxygen and diuresis. At discharge patient will continue with home oxygen to maintain sats above 93%. Patient currently on 2 L. this was arranged prior to discharge. At discharge she will continue with a 1500 cc per day fluid restriction and low-salt diet. Patient will also continue with Lasix 40 mg 1 pill twice daily. Recommend to monitor her weight daily. If her weight increases by more than 5 lb she is to contact her PCP for further recommendation. Patient with underlying COPD. This has remained stable on medication. At discharge she will continue with Symbicort 2 puffs twice daily and Pro air 2 puffs 3 times a day as needed for shortness of breath. Patient will continue with oxygen as stated above to maintain sats above 90%. Recommend to follow up with pulmonology as an outpatient to further monitor. Patient with hyperlipidemia. At discharge she will continue with Lipitor 80 mg daily and Tricor 160 mg daily. Recommend recheck fasting lipid panel in 4-6 weeks to monitor her progress. Further adjustment can be done by her PCP or cardiology. Patient with GERD. At discharge she will continue with Protonix 40 mg daily. Patient with hypothyroidism. At discharge she will continue with levothyroxine 100 mcg daily. Vital Signs/Physical Exam: Temp Pulse Resp BP Pulse Ox 97.1 F 72 18 107/71 95 08/22/20 12:00 08/22/20 12:08/22/20 12:08/22/20 12:08/22/20 12:00 General: Alert, In no apparent distress, Oriented x3, Cooperative HEENT: Atraumatic Neck: Supple Respiratory: Clear to auscultation bilaterally, Normal air movement Cardiovascular: Normal pulses, Regular rate/rhythm Gastrointestinal: Normal bowel sounds, No tenderness, No masses, No rebound, No guarding Musculoskeletal: No erythema, No tenderness, No warmth Neurological: Normal speech, Normal strength at 5/5 x4 extr, Normal tone, Normal affect Laboratory Data at Discharge: WBC 6.70 K/uL (4.3-10.9) 08/18/20 05:49 Hgb 11.3 g/dL (12.0-15.0) L 08/18/20 05:49 Hct 34.4 % (36.0-45.0) L 08/18/20 05:49 Plt Count 293 K/uL (152-406) 08/18/20 05:49 PT 12.0 SECONDS (9.5-12.5) 08/17/20 21:50 INR 1.04 08/17/20 21:50 Sodium 139 mmol/L (136-145) 08/18/20 05:49 Potassium 3.6 mmol/L (3.5-5.1) 08/18/20 05:49 BUN 8 mg/dL (7-18) 08/18/20 05:49 Creatinine 1.04 mg/dL (0.55-1.3) 08/18/20 05:49 Glucose 101 mg/dL (74-106) 08/18/20 05:49 Magnesium 2.0 mg/dL (1.8-2.4) 08/17/20 21:50 Total Bilirubin 0.3 mg/dL (0.2-1.0) 08/18/20 05:49 AST 14 U/L (15-37) L 08/18/20 05:49 ALT 13 U/L (12-78) 08/18/20 05:49 Alkaline Phosphatase 62 U/L (45-117) 08/18/20 05:49 Troponin I < 0.02 ng/mL (0.0-0.045) 08/18/20 05:49 Home Medications: Levothyroxine [Synthroid*] 100 mcg PO [id number] 06/15/16 Atorvastatin Calcium [Lipitor] 80 mg PO BEDTIME #30 tab 06/16/16 Fenofibrate [Tricor*] 160 mg PO DAILY 02/21/18 Pantoprazole Sodium [Protonix] 40 mg PO DAILY #30 tablet. 02/23/18 Albuterol Sulfate [Proair Hfa] 2 puff IH TID PRN #1 hfa.aer.ad 08/22/20 Aspirin [Aspirin EC 81 MG] 81 mg PO DAILY #90 tablet. 08/22/20 Budesonide/Formoterol Fumarate [Symbicort 160-4.5 Mcg Inhaler] 2 puff IH BID #1 hfa.aer.ad 08/22/20 Furosemide [Lasix] 40 mg PO BIDL #60 tab 08/22/20 Metoprolol Tartrate [Lopressor*] 12.5 mg PO BID 6AM 6PM #60 tab 08/22/20 Ranolazine [Ranolazine ER] 500 mg PO BID #60 tab.er.12h 08/22/20 New Medications: Aspirin [Aspirin EC 81 MG] 81 mg PO DAILY #90 tablet. Furosemide [Lasix] 40 mg PO BIDL #60 tab Metoprolol Tartrate [Lopressor*] 12.5 mg PO BID 6AM 6PM #60 tab Albuterol Sulfate [Proair Hfa] 2 puff IH TID PRN #1 hfa.aer.ad PRN Reason: Shortness Of Breath Ranolazine [Ranolazine ER] 500 mg PO BID #60 tab.er.12h Budesonide/Formoterol Fumarate [Symbicort 160-4.5 Mcg Inhaler] 2 puff IH BID #1 hfa.aer.ad Physician Discharge Instructions: Follow up with PCP in 1 week to follow up this hospitalization. Patient presented with chest pain. Patient with history of multi-vessel cardiac disease. Patient was seen and evaluated by Cardiology. Cardiac enzymes unremarkable. Cardiology reviewed information from a her prior cardiac physician. Patient has extensive diffuse CAD. No intervention was recommended at that time by Dr. Chan. Medical therapy was recommended. No further intervention needed at this time. Patient remains stable on aspirin, Ranexa and beta-thaddeus therapy. At discharge patient will continue with aspirin 81 mg daily, Ranexa 500 mg 1 pill twice daily, and metoprolol 12.5 mg 1 pill twice daily. Recommend follow up with PCP in 1 week to follow up this hospitalization. Recommend follow up with cardiology in 1-2 weeks to follow up this hospitalization and continue her care. Patient with underlying chronic diastolic CHF. Pulmonary hypertension noted. Patient required oxygen and diuresis. At discharge patient will continue with home oxygen to maintain sats above 93%. Patient currently on 2 L. this was arranged prior to discharge. At discharge she will continue with a 1500 cc per day fluid restriction and low-salt diet. Patient will also continue with Lasix 40 mg 1 pill twice daily. Recommend to monitor her weight daily. If her weight increases by more than 5 lb she is to contact her PCP for further recommendation. Patient with underlying COPD. This has remained stable on medication. At discharge she will continue with Symbicort 2 puffs twice daily and Pro air 2 puffs 3 times a day as needed for shortness of breath. Patient will continue with oxygen as stated above to maintain sats above 90%. Recommend to follow up with pulmonology as an outpatient to further monitor. Patient with hyperlipidemia. At discharge she will continue with Lipitor 80 mg daily and Tricor 160 mg daily. Recommend recheck fasting lipid panel in 4-6 weeks to monitor her progress. Further adjustment can be done by her PCP or cardiology. Patient with GERD. At discharge she will continue with Protonix 40 mg daily. Patient with hypothyroidism. At discharge she will continue with levothyroxine 100 mcg daily. Diet: AHA Activity: Ad jannet Followup: NONE,NONE [Primary Care Provider] - Time spent managing pt's care (in minutes): 55
[2020-08-22] MEDS: ATORVASTATIN 40 MG TAB PO SCH (20:41)
[2020-08-23] MEDS: IPRATROPIUM BROM 0.5MG/2.5ML NEB SCH ×3 (02:00→14:23)
[2020-08-23] MEDS: LEVOTHYROXINE SOD 0.1 MG TAB PO SCH (06:00)
[2020-08-23] MEDS: METOPROLOL TAR 25 MG TAB PO SCH (07:01)
[2020-08-23] MEDS: ASPIRIN EC 81 MG TAB PO SCH (08:14)
[2020-08-23] MEDS: FUROSEMIDE 40 MG TABLET PO SCH (08:14)
[2020-08-23] MEDS: DULERA 100/5 (MOMETASONE/FORMOTEROL) INHALER IH SCH (08:15)
[2020-08-23] MEDS: ENOXAPARIN 40 MG/0.4 ML SQ SCH (08:15)
[2020-08-23] MEDS: ALBUTEROL 2.5 MG/3 ML NEB SOL NEB PRN (08:57)
[2020-08-23 09:20] VITALS: TEMP 96.9
--- NOTE | 2020-08-23 13:19 | P.DS ---
Admission Date: 08/18/20 Discharge Date: 08/23/20 Primary Care Provider: none Disposition: ROUTINE DISCHARGE Discharge Condition: GOOD Reason for Admission: SOB and Chest pain Consultations: Cardiology-Dr. Cervantes Procedures: COVID: Negative CT Chest: FINDINGS: Lungs and pleura: Right lower lobe 0.3 cm nodule (axial image 37). Inferior-anterior right lower lobe 0.4 cm nodule (axial image 40). No pulmonary consolidation. Minimal lingular atelectasis. Minimal scarring in or atelectasis in the right and left basilar lower lobes. No pleural effusion. No pneumothorax. Mediastinum and neck: No mediastinal lymphadenopathy by CT size criteria. Unremarkable appearance of the thyroid gland. Cardiovascular: Mild cardiomegaly. No pericardial effusion. No thoracic aortic aneurysm or dissection. Large amount of calcifications in the left anterior descending and left circumflex coronary arteries. Mild aortic calcifications. Mild prominence of the main pulmonary trunk, measuring up to 3.8 cm in diameter. Abdomen: No significant upper abdominal abnormality identified. Musculoskeletal: No concerning osseous abnormality. IMPRESSION: 1. No pulmonary consolidation or pleural effusions identified. 2. Minimal atelectasis and/or scarring in the lung bases. 3. No routine follow-up imaging is recommended. These guidelines do not apply to immunocompromised patients and patients with cancer. Follow up in patients with significant comorbidities as clinically warranted (Reference: Radiology. 2017; 284(1):228-43). 4. Mild cardiomegaly. Prominent coronary artery calcifications. 5. Prominent main pulmonary trunk, suggestive of pulmonary arterial hypertension. Medical Problem List: Chest pain, atypical with history of multi-vessel cardiac disease Hypertension Hyperlipidemia History of CVA COPD Chronic diastolic CHF with pulmonary hypertension Anxiety Hypothyroidism Brief History of Present Illness: 60-year-old female presented to the emergency room with chest pain. Patient admitted for further evaluation and treatment. Hospital Course: Patient presented with chest pain. Patient with history of multi-vessel cardiac disease. Patient was seen and evaluated by Cardiology. Cardiac enzymes unremarkable. Cardiology reviewed information from a her prior cardiac physician. Patient has extensive diffuse CAD. No intervention was recommended at that time by Dr. Chan. Medical therapy was recommended. No further intervention needed at this time. Patient remains stable on aspirin, Ranexa and beta-thaddeus therapy. At discharge patient will continue with aspirin 81 mg daily, Ranexa 500 mg 1 pill twice daily, and metoprolol 12.5 mg 1 pill twice daily. Recommend follow up with PCP in 1 week to follow up this hospitalization. Recommend follow up with cardiology in 1-2 weeks to follow up this hospitalization and continue her care. Discharge was delayed 1 day due to set up of home oxygen. Patient does not have insurance but patient will pay [id number] for oxygen. Patient with underlying chronic diastolic CHF. Pulmonary hypertension noted. Patient required oxygen and diuresis. At discharge patient will continue with home oxygen to maintain sats above 93%. Patient currently on 2 L. this was arranged prior to discharge. At discharge she will continue with a 1500 cc per day fluid restriction and low-salt diet. Patient will also continue with Lasix 40 mg 1 pill twice daily. Recommend to monitor her weight daily. If her weight increases by more than 5 lb she is to contact her PCP for further recommendation. As mentioned above home oxygen will be arranged. Patient with underlying COPD. This has remained stable on medication. At discharge she will continue with Symbicort 2 puffs twice daily and Pro air 2 puffs 3 times a day as needed for shortness of breath. Patient will continue with oxygen as stated above to maintain sats above 90%. Recommend to follow up with pulmonology as an outpatient to further monitor. Patient with hyperlipidemia. At discharge she will continue with Lipitor 80 mg daily and Tricor 160 mg daily. Recommend recheck fasting lipid panel in 4-6 weeks to monitor her progress. Further adjustment can be done by her PCP or cardiology. Patient with GERD. At discharge she will continue with Protonix 40 mg daily. Patient with hypothyroidism. At discharge she will continue with levothyroxine 100 mcg daily. Vital Signs/Physical Exam: Temp Pulse Resp BP Pulse Ox 96.9 F 75 20 120/60 91 08/23/20 08:00 08/23/20 08:14 08/23/20 08:00 08/23/20 08:14 08/23/20 08:00 General: Alert, In no apparent distress, Oriented x3, Cooperative HEENT: Atraumatic Neck: Supple Respiratory: Clear to auscultation bilaterally, Other (Patient on 3 L per nasal cannula) Cardiovascular: Normal pulses, Regular rate/rhythm Gastrointestinal: No masses, No rebound, No guarding Neurological: Normal speech, Normal strength at 5/5 x4 extr, Normal tone, Normal affect Laboratory Data at Discharge: WBC 6.70 K/uL (4.3-10.9) 08/18/20 05:49 Hgb 11.3 g/dL (12.0-15.0) L 08/18/20 05:49 Hct 34.4 % (36.0-45.0) L 08/18/20 05:49 Plt Count 293 K/uL (152-406) 08/18/20 05:49 PT 12.0 SECONDS (9.5-12.5) 08/17/20 21:50 INR 1.04 08/17/20 21:50 Sodium 139 mmol/L (136-145) 08/18/20 05:49 Potassium 3.6 mmol/L (3.5-5.1) 08/18/20 05:49 BUN 8 mg/dL (7-18) 08/18/20 05:49 Creatinine 1.04 mg/dL (0.55-1.3) 08/18/20 05:49 Glucose 101 mg/dL (74-106) 08/18/20 05:49 Magnesium 2.0 mg/dL (1.8-2.4) 08/17/20 21:50 Total Bilirubin 0.3 mg/dL (0.2-1.0) 08/18/20 05:49 AST 14 U/L (15-37) L 08/18/20 05:49 ALT 13 U/L (12-78) 08/18/20 05:49 Alkaline Phosphatase 62 U/L (45-117) 08/18/20 05:49 Troponin I < 0.02 ng/mL (0.0-0.045) 08/18/20 05:49 Home Medications: Levothyroxine [Synthroid*] 100 mcg PO [id number] 06/15/16 Atorvastatin Calcium [Lipitor] 80 mg PO BEDTIME #30 tab 06/16/16 Fenofibrate [Tricor*] 160 mg PO DAILY 02/21/18 Pantoprazole Sodium [Protonix] 40 mg PO DAILY #30 tablet. 02/23/18 Albuterol Sulfate [Proair Hfa] 2 puff IH TID PRN #1 hfa.aer.ad 08/22/20 Aspirin [Aspirin EC 81 MG] 81 mg PO DAILY #90 tablet. 08/22/20 Budesonide/Formoterol Fumarate [Symbicort 160-4.5 Mcg Inhaler] 2 puff IH BID #1 hfa.aer.ad 08/22/20 Furosemide [Lasix] 40 mg PO BIDL #60 tab 08/22/20 Metoprolol Tartrate [Lopressor*] 12.5 mg PO BID 6AM 6PM #60 tab 08/22/20 Ranolazine [Ranolazine ER] 500 mg PO BID #60 tab.er.12h 08/22/20 New Medications: Aspirin [Aspirin EC 81 MG] 81 mg PO DAILY #90 tablet. Furosemide [Lasix] 40 mg PO BIDL #60 tab Metoprolol Tartrate [Lopressor*] 12.5 mg PO BID 6AM 6PM #60 tab Albuterol Sulfate [Proair Hfa] 2 puff IH TID PRN #1 hfa.aer.ad PRN Reason: Shortness Of Breath Ranolazine [Ranolazine ER] 500 mg PO BID #60 tab.er.12h Budesonide/Formoterol Fumarate [Symbicort 160-4.5 Mcg Inhaler] 2 puff IH BID #1 hfa.aer.ad Physician Discharge Instructions: Follow up with PCP in 1 week to follow up this hospitalization. Patient presented with chest pain. Patient with history of multi-vessel cardiac disease. Patient was seen and evaluated by Cardiology. Cardiac enzymes unremarkable. Cardiology reviewed information from a her prior cardiac physician. Patient has extensive diffuse CAD. No intervention was recommended at that time by Dr. Chan. Medical therapy was recommended. No further intervention needed at this time. Patient remains stable on aspirin, Ranexa and beta-thaddeus therapy. At discharge patient will continue with aspirin 81 mg daily, Ranexa 500 mg 1 pill twice daily, and metoprolol 12.5 mg 1 pill twice daily. Recommend follow up with PCP in 1 week to follow up this hospitalization. Recommend follow up with cardiology in 1-2 weeks to follow up this hospitalization and continue her care. Discharge was delayed 1 day due to set up of home oxygen. Patient does not have insurance but patient will pay [id number] for oxygen. Patient with underlying chronic diastolic CHF. Pulmonary hypertension noted. Patient required oxygen and diuresis. At discharge patient will continue with home oxygen to maintain sats above 93%. Patient currently on 2 L. this was arranged prior to discharge. At discharge she will continue with a 1500 cc per day fluid restriction and low-salt diet. Patient will also continue with Lasix 40 mg 1 pill twice daily. Recommend to monitor her weight daily. If her weight increases by more than 5 lb she is to contact her PCP for further recommendation. As mentioned above home oxygen will be arranged. Patient with underlying COPD. This has remained stable on medication. At discharge she will continue with Symbicort 2 puffs twice daily and Pro air 2 puffs 3 times a day as needed for shortness of breath. Patient will continue with oxygen as stated above to maintain sats above 90%. Recommend to follow up with pulmonology as an outpatient to further monitor. Patient with hyperlipidemia. At discharge she will continue with Lipitor 80 mg daily and Tricor 160 mg daily. Recommend recheck fasting lipid panel in 4-6 weeks to monitor her progress. Further adjustment can be done by her PCP or cardiology. Patient with GERD. At discharge she will continue with Protonix 40 mg daily. Patient with hypothyroidism. At discharge she will continue with levothyroxine 100 mcg daily. Diet: AHA Activity: Ad jannet Followup: NONE,NONE [Primary Care Provider] - Time spent managing pt's care (in minutes): 55
[2020-08-23 16:03] VITALS: O2SAT 93
[2020-08-23 17:19] VITALS: BP 125/69
== END 2020-08-23 17:32 | disposition home or self-care (01) | DRG 281 ==
LOC: ER 20:59 → ERHOLD 23:03 → 2ND 23:35 → OBSVTOIN 08-18 20:51
PROVIDERS: ADMIT Internal Medicine; ATTEND Family Medicine
DX: R07.89 Other chest pain (principal); I21.4 Non-ST elevation (NSTEMI) myocardial infarction; Z68.41 Body mass index [BMI] 40.0-44.9, adult; I50.32 Chronic diastolic (congestive) heart failure; I11.0 Hypertensive heart disease with heart failure; E66.9 Obesity, unspecified; I16.0 Hypertensive urgency; I99.8 Other disorder of circulatory system; F41.9 Anxiety disorder, unspecified; E03.9 Hypothyroidism, unspecified; K21.9 Gastro-esophageal reflux disease without esophagitis; J44.9 Chronic obstructive pulmonary disease, unspecified; E78.5 Hyperlipidemia, unspecified; I27.20 Pulmonary hypertension, unspecified; I25.10 Atherosclerotic heart disease of native coronary artery without angina pectoris; I25.2 Old myocardial infarction; Z23 Encounter for immunization; Z88.5 Allergy status to narcotic agent; Z79.890 Hormone replacement therapy; Z79.82 Long term (current) use of aspirin; Z79.899 Other long term (current) drug therapy; Z86.73 Personal history of transient ischemic attack (TIA), and cerebral infarction without residual deficits; Z87.891 Personal history of nicotine dependence; Z20.822 Contact with and (suspected) exposure to COVID-19
CPT/HCPCS: 36415; 71045; 71250; 80048; 80053; 80076; 83735; 83880; 84484; 85025; 85610; 90471; 93005; 96374; 99285; G0378; J0360; J0696; J1650; J1940; J7606; Q2035; U0003

== ENCOUNTER 2020-12-10 14:43 | Emergency (ER) | payer SELFPAY ==
--- NOTE | 2020-12-10 15:56 | RAD REPORT ---
EXAM DESCRIPTION: Anton Single View12/10/2020 3:40 pm CLINICAL HISTORY: Shortness of breath COMPARISON: 2019 FINDINGS: The lungs appear clear of acute infiltrate. The heart is moderately enlarged IMPRESSION: No acute abnormalities displayed
[2020-12-10 16:15] LABS: Absolute Lymphocytes (CBC) 1.4 K/uL (0.7-4.9); Basophils % 0.5 % (0-1.3); Hematocrit 32.2 % (36.0-45.0); MPV 9.5 fL (7.6-11.3); RBC Red Blood Cell Count 3.77 M/uL (3.86-4.86)
[2020-12-10 16:32] LABS: BUN Blood Urea Nitrogen 10 mg/dL (7-18); Bicarbonate 36 mmol/L (21-32); Glucose Level 93 mg/dL (74-106); Magnesium 2.1 mg/dL (1.8-2.4); NT PRO-BNP 42 pg/mL (<125); Potassium 3.9 mmol/L (3.5-5.1); Sodium Level 140 mmol/L (136-145); Troponin (Emerg Dept Use Only) < 0.02 ng/mL (0.0-0.045)
[2020-12-10] MEDS ORDERED: METHYLPREDNISOLONE 125 MG INJ ONE (16:33)
[2020-12-10] MEDS ORDERED: LEVALBUTEROL 1.25 MG/3 ML NEB ONE (16:34)
[2020-12-10] MEDS ORDERED: MAGNESIUM SULFATE 1 gm IVPB 1 GM/100 ML BAG IV ONE (16:34)
[2020-12-10 16:52] LABS: Urine Blood Negative (Negative); Urine Glucose Negative (Negative); Urine Protein Negative (Negative); Urine Specific Gravity 1.015 (1.005-1.030)
--- NOTE | 2020-12-10 17:34 | RAD REPORT ---
EXAM DESCRIPTION: CT - Chest For Pe Angio - 12/10/2020 5:22 pm CLINICAL HISTORY: Shortness of breath COMPARISON: August 2020 TECHNIQUE: Dynamically enhanced axial 3 mm thick images of the chest were obtained during administra tion of <100> mL Isovue 370 IV contrast. Coronal and oblique reconstruction images were generated and reviewed. Exam utilizes a protocol for optimal evaluation of pulmonary arterial tree. Maximum intensity projections 3D imaging was utilized All CT scans are performed using dose optimization technique as appropriate and may include automated exposure control or mA/KV adjustment according to patient size. FINDINGS: A pulmonary embolus is not seen. Ascending thoracic aorta has an AP diameter 4.4 centimeters. A pleural effusion is not seen. A pericardial effusion is not seen. The heart is moderately enlarged A lung consolidation is not present. IMPRESSION: Negative for a pulmonary embolism. Ascending thoracic aorta 4.4 centimeters
--- NOTE | 2020-12-10 17:42 | ER ---
Nurse's Notes [facility] Name: Radha Saleh Age: 60 yrs Sex: Female : 1960 Arrival Date: 12/10/2020 Time: 14:46 Bed 4 Private MD: Diagnosis: Chronic obstructive pulmonary disease with (acute) exacerbation Presentation: 12/10 15:05 Chief complaint: Patient states: SOB today, chest pain yesterday, states that Spo2 was ph reading low, uses oxygen at home \T\ 2L. Spo2 in triage 93% RA. Denies fever. Coronavirus screen: difficulty breathing. Ebola Screen: No symptoms or risks identified at this time. Initial Sepsis Screen: Does the patient meet any 2 criteria? No. Patient's initial sepsis screen is negative. Does the patient have a suspected source of infection? No. Patient's initial sepsis screen is negative. Risk Assessment: Do you want to hurt yourself or someone else? Patient reports no desire to harm self or others. Onset of symptoms was December 10, 2020. 15:05 Method Of Arrival: Ambulatory ph 15:05 Acuity: OSMANY 3 ph Historical: - Allergies: 16:09 Morphine (Hives); tw2 - Home Meds: 16:09 Synthroid 150 mcg Oral tab 1 tab once daily [Active]; ranolazine 1000 mg Oral 2 times tw2 per day [Active]; Lisinopril 75 mg Oral once daily [Active]; budesonide inhalation [Active]; aspirin 81 mg Oral TbEC 1 tab once daily [Active]; isosorbide mononitrate 60 mg Oral Tb24 1 tab once daily [Active]; - PMHx: 16:09 COPD; CVA; gastric ulcer; Hyperlipidemia; Hypertension; Hypothyroidism; Myocardial tw2 infarction; Sleep Apnea; - PSHx: 16:09 ; tw2 - Immunization history:: Adult Immunizations. - Family history:: not pertinent. - Social history:: Smoking status: . - Hospitalizations: : No recent hospitalization is reported. Screenin:10 Abuse screen: Denies threats or abuse. Nutritional screening: No deficits noted. tw2 Tuberculosis screening: No symptoms or risk factors identified. Fall Risk Secondary diagnosis (15 points) impaired mobility. Assessment: 15:22 Reassessment: provider at bedside at this time. tw2 15:25 General: Appears in no apparent distress. obese, well groomed, Behavior is calm, tw2 cooperative, appropriate for age. Pain: Denies pain. Neuro: Level of Consciousness is awake, alert, obeys commands, Oriented to person, place, time, situation. Cardiovascular: Capillary refill < 3 seconds Patient's skin is warm and dry. Rhythm is regular. Respiratory: Reports shortness of breath at rest on exertion Airway is patent Respiratory effort is even, unlabored, Respiratory pattern is regular, symmetrical, Breath sounds are diminished bilaterally. GI: No signs and/or symptoms were reported involving the gastrointestinal system. Abdomen is round non-distended, obese. : No signs and/or symptoms were reported regarding the genitourinary system. Derm: No signs and/or symptoms reported regarding the dermatologic system. Musculoskeletal: Range of motion: intact in all extremities. 17:11 Reassessment: Patient appears in no apparent distress at this time. No changes from tw2 previously documented assessment. Patient and/or family updated on plan of care and expected duration. Pain level reassessed. Patient is alert, oriented x 3, equal unlabored respirations, skin warm/dry/pink. 17:39 Reassessment: provider at bedside with results at this time. tw2 18:05 Reassessment: Pt discharged, IV removed, awaiting transportation from [facility]. jl7 18:23 Reassessment: Patient appears in no apparent distress at this time. No changes from tw2 previously documented assessment. Patient and/or family updated on plan of care and expected duration. Pain level reassessed. Patient is alert, oriented x 3, equal unlabored respirations, skin warm/dry/pink. Vital Signs: 15:05 BP 127 / 72; Pulse 65; Resp 26; Temp 98.4; Pulse Ox 94% on R/A; Weight 90.72 kg; Height ph 5 ft. 4 in. (162.56 cm); 16:08 BP 129 / 85; Pulse 67; Resp 20; Pulse Ox 95% on 2 lpm NC; tw2 17:09 BP 129 / 65; Pulse 75; Resp 17; Pulse Ox 96% on R/A; tw2 15:05 Body Mass Index 34.33 (90.72 kg, 162.56 cm) ph ED Course: 14:46 Patient arrived in ED. ds1 15:07 Triage completed. ph 15:07 Bed in low position. Call light in reach. Side rails up X2. automobile rental agent on. Pulse tw2 ox on. NIBP on. Warm blanket given. 15:07 Arm band placed on. tw2 15:08 Garrick Blanco MD is Attending Physician. rn 15:40 XRAY CXR (1 view) In Process Unspecified. EDMS 15:40 First set of blood cultures drawn. Inserted saline lock: 20 gauge in right antecubital kj1 area, using aseptic technique. Blood collected. 16:05 Second set of blood cultures drawn. kj1 16:06 Zora Martino, SUSANA is Primary Nurse. tw2 16:09 Procalcitonin Sent. kj1 16:25 Notified ED physician of a critical lab result(s). D dimer 620. ll1 17:22 CT Chest For PE Angio In Process Unspecified. EDMS 17:41 Oseas Laura MD is Referral Physician. rn 18:03 Awaiting transportation, Awaiting: prior to discharge. tw2 18:03 IV discontinued, intact, bleeding controlled, No redness/swelling at site. Pressure tw2 dressing applied. 18:23 No provider procedures requiring assistance completed. tw2 Administered Medications: 16:18 Drug: SOLU-Medrol (methylPrednisoLONE) 125 mg Route: IVP; Site: right antecubital; tw2 18:04 Follow up: Response: No adverse reaction tw2 16:20 Drug: Xopenex (levalbuterol) (3) 1.25 mg Route: Inhalation; tw2 16:20 Drug: Magnesium Sulfate 1 grams Route: IVPB; Infused Over: 1 hrs; Site: right tw2 antecubital; 17:20 Follow up: Response: No adverse reaction; IV Status: Completed infusion; IV Intake: tw2 100ml Intake: 17:20 IV: 100ml; Total: 100ml. tw2 Outcome: 17:41 Discharge ordered by . rn 18:23 Discharged to home via wheelchair. tw2 18:23 Condition: stable 18:23 Discharge instructions given to patient, Instructed on discharge instructions, follow up and referral plans. medication usage, Demonstrated understanding of instructions, follow-up care, medications, Prescriptions given X 1. 18:23 Patient left the ED. tw2 Signatures: Dispatcher [employer] EDDE MunsonMary zaragoza ds1 Garrick Blanco MD MD rn Hall, Patricia RN RN ph Gunner, Zora RN RN tw2 Emigdio Duarte RN RN [id number] Natalya Buchanan 1 Jovan Carcamo RN RN ll1 Corrections: (The following items were deleted from the chart) 17:15 17:14 Arm band placed on tw2 tw2
--- NOTE | 2020-12-10 17:42 | EDPHYS ---
Physician Documentation [facility] Name: Radha Saleh Age: 60 yrs Sex: Female : 1960 Arrival Date: 12/10/2020 Time: 14:46 Bed 4 Private MD: ED Physician Garrick Blanco HPI: 12/10 15:51 This 60 yrs old Female presents to ER via Ambulatory with complaints of rn Shortness Of Breath. 15:51 The patient has shortness of breath at rest, with light activity. Onset: The rn symptoms/episode began/occurred 2 day(s) ago. Duration: The symptoms are continuous. The patient's shortness of breath is aggravated by coughing, light activity, talking, walking, is alleviated by nebulizer treatment, application of supplemental oxygen. Associated signs and symptoms: Pertinent positives: non-productive cough, Pertinent negatives: fever, hemoptysis. Severity of symptoms: At their worst the symptoms were moderate in the emergency department the symptoms are unchanged. The patient has experienced similar episodes in the past. The patient has not recently seen a physician. Historical: - Allergies: 16:09 Morphine (Hives); tw2 - Home Meds: 16:09 Synthroid 150 mcg Oral tab 1 tab once daily [Active]; ranolazine 1000 mg Oral 2 times tw2 per day [Active]; Lisinopril 75 mg Oral once daily [Active]; budesonide inhalation [Active]; aspirin 81 mg Oral TbEC 1 tab once daily [Active]; isosorbide mononitrate 60 mg Oral Tb24 1 tab once daily [Active]; - PMHx: 16:09 COPD; CVA; gastric ulcer; Hyperlipidemia; Hypertension; Hypothyroidism; Myocardial tw2 infarction; Sleep Apnea; - PSHx: 16:09 ; tw2 - Immunization history:: Adult Immunizations. - Family history:: not pertinent. - Social history:: Smoking status: . - Hospitalizations: : No recent hospitalization is reported. ROS: 15:51 Constitutional: Negative for fever, chills, and weight loss, Eyes: Negative for injury, rn pain, redness, and discharge, Neck: Negative for injury, pain, and swelling, Cardiovascular: Negative for chest pain, palpitations, and edema, Respiratory: + sob and cough Abdomen/GI: Negative for abdominal pain, nausea, vomiting, diarrhea, and constipation, Back: Negative for injury and pain, MS/Extremity: Negative for injury and deformity, Skin: Negative for injury, rash, and discoloration, Neuro: Negative for headache, weakness, numbness, tingling, and seizure. Exam: 15:51 Constitutional: This is a well developed, well nourished patient who is awake, alert, rn mild tachypnea Head/Face: Normocephalic, atraumatic. Eyes: Periorbital areas with no swelling, redness, or edema. ENT: NO stridor Neck: No neck swelling or crepitus Cardiovascular: Regular rate and rhythm. No pulse deficits. Respiratory: + mild tachypnea, faint wheezing bilaterally, no retractions Abdomen/GI: soft, non-tender Skin: Warm, dry MS/ Extremity: Pulses equal, no cyanosis. Neuro: Awake and alert, GCS 15 17:39 ECG was reviewed by the Attending Physician. rn Vital Signs: 15:05 BP 127 / 72; Pulse 65; Resp 26; Temp 98.4; Pulse Ox 94% on R/A; Weight 90.72 kg; Height ph 5 ft. 4 in. (162.56 cm); 16:08 BP 129 / 85; Pulse 67; Resp 20; Pulse Ox 95% on 2 lpm NC; tw2 17:09 BP 129 / 65; Pulse 75; Resp 17; Pulse Ox 96% on R/A; tw2 15:05 Body Mass Index 34.33 (90.72 kg, 162.56 cm) ph MDM: 15:08 Patient medically screened. rn 17:39 Differential diagnosis: Chronic Obstructive Pulmonary Disease Myocardial Infarction rn pneumonia, Pneumothorax pulmonary edema, Pulmonary Embolism. Data reviewed: vital signs, nurses notes, lab test result(s), EKG, radiologic studies, CT scan, plain films, and as a result, I will discharge patient. 17:40 Counseling: I had a detailed discussion with the patient and/or guardian regarding: the rn historical points, exam findings, and any diagnostic results supporting the discharge/admit diagnosis, lab results, radiology results, the need for outpatient follow up, to return to the emergency department if symptoms worsen or persist or if there are any questions or concerns that arise at home. Response to treatment: the patient's symptoms have markedly improved after treatment, and as a result, I will discharge patient. Special discussion: I discussed with the patient/guardian in detail that at this point there is no indication for admission to the hospital. It is understood, however, that if the symptoms persist or worsen the patient needs to return immediately for re-evaluation. ED course: CT chest for PE neg, no pneumonia, no increase in oxygen requirement, breathing much better, stable vitals, will dc home with abx, steroids, and nebulizer treatments with pcp and pulmonology f/u. Return precautions given and understood.. 12/10 15:24 Order name: Blood Culture Adult (2) rn 12/10 15:24 Order name: BMP; Complete Time: 17:27 12/10 15:24 Order name: CBC with Diff; Complete Time: 16:27 12/10 15:24 Order name: D-Dimer; Complete Time: 16:27 12/10 15:24 Order name: Magnesium; Complete Time: 17:27 12/10 15:24 Order name: NT PRO-BNP; Complete Time: 17:27 12/10 15:24 Order name: XRAY CXR (1 view); Complete Time: 15:58 12/10 15:24 Order name: Troponin (emerg Dept Use Only); Complete Time: 17:27 12/10 15:39 Order name: Lactate; Complete Time: 16:25 ll1 12/10 15:42 Order name: Procalcitonin 12/10 15:43 Order name: Procalcitonin; Complete Time: 17:27 EDIN 12/10 16:52 Order name: Urine Dipstick-Ancillary; Complete Time: 17:27 [facility] 12/10 17:21 Order name: SARS-COV-2 RT PCR; Complete Time: 17:27 [facility] 12/10 15:24 Order name: EKG; Complete Time: 15:25 12/10 15:24 Order name: Cardiac monitoring; Complete Time: 16:07 rn 12/10 15:24 Order name: EKG - Nurse/Tech; Complete Time: 16: rn 12/10 15:24 Order name: IV Saline Lock; Complete Time: 16:06 rn 12/10 15:24 Order name: Labs collected and sent; Complete Time: 16:06 rn 12/10 15:24 Order name: O2 Per Protocol; Complete Time: 16: rn 12/10 15:24 Order name: O2 Sat Monitoring; Complete Time: 16:07 rn 12/10 16:28 Order name: CT Chest For PE Angio; Complete Time: 17:36 rn EC:39 Rate is 69 beats/min. Rhythm is regular. QRS [place] is Normal. MS interval is normal. QRS rn interval is normal. QT interval is normal. No Q waves. T waves are Normal. No ST changes noted. Clinical impression: Normal ECG. Interpreted by me. Reviewed by me. Administered Medications: 16:18 Drug: SOLU-Medrol (methylPrednisoLONE) 125 mg Route: IVP; Site: right antecubital; tw2 18:04 Follow up: Response: No adverse reaction tw2 16:20 Drug: Xopenex (levalbuterol) (3) 1.25 mg Route: Inhalation; tw2 16:20 Drug: Magnesium Sulfate 1 grams Route: IVPB; Infused Over: 1 hrs; Site: right tw2 antecubital; 17:20 Follow up: Response: No adverse reaction; IV Status: Completed infusion; IV Intake: tw2 100ml Disposition: 12/10/20 17:41 Discharged to Home. Impression: Chronic obstructive pulmonary disease with (acute) exacerbation. - Condition is Stable. - Discharge Instructions: Chronic Obstructive Pulmonary Disease Exacerbation. - Prescriptions for Prednisone 20 mg Oral Tablet - take 3 tablet by ORAL route once daily for 5 days; 15 tablet. Zithromax Z- Andre 250 mg Oral Tablet - take 1 tablet by ORAL route as directed for 5 days Day 1 - take two (2) tablets one time. Day 2, 3, 4 , 5 take one (1) tablet once daily.; 6 tablet. Albuterol Sulfate 2.5 mg /3 mL (0.083 %) Inhalation Solution for Nebulization - inhale 1 unit by NEBULIZATION route every 8 hours As needed; 1 box. - Medication Reconciliation Form, Thank You Letter, Antibiotic Education, Prescription Opioid Use form. - Follow up: Oseas Laura MD; When: As needed; Reason: Recheck today's complaints, Re-evaluation by your physician. - Problem is new. - Symptoms have improved. Signatures: Dispatcher [employer] EDMS Garrick Blanco MD MD rn Wise, Tara, RN RN tw2 Corrections: (The following items were deleted from the chart) 16:21 15:26 CORONAVIRUS+MR.LAB.BRZ ordered. EDIN EDMS 18:23 17:41 12/10/2020 17:41 Discharged to Home. Impression: Chronic obstructive pulmonary tw2 disease with (acute) exacerbation. Condition is Stable. Forms are Medication Reconciliation Form, Thank You Letter, Antibiotic Education, Prescription Opioid Use. Follow up: Oseas Laura; When: As needed; Reason: Recheck today's complaints, Re-evaluation by your physician. Problem is new. Symptoms have improved. rn
[2020-12-10 18:30] VITALS: TEMP 98.4
[2020-12-10 18:33] VITALS: BP 129/65; O2SAT 96
== END 2020-12-10 18:23 | disposition home or self-care (01) ==
LOC: ER 14:43
DX: J44.1 Chronic obstructive pulmonary disease with (acute) exacerbation (principal); I10 Essential (primary) hypertension; E03.9 Hypothyroidism, unspecified; E78.5 Hyperlipidemia, unspecified; Z79.82 Long term (current) use of aspirin; Z88.5 Allergy status to narcotic agent; Z20.822 Contact with and (suspected) exposure to COVID-19
CPT/HCPCS: 36415; 71045; 71275; 80048; 81003; 83605; 83735; 83880; 84145; 84484; 85025; 85379; 87040; 93005; 96365; 96375; 99285; J2930; J3475; Q9967; U0003

== ENCOUNTER 2021-07-17 20:36 | Inpatient (IN) | payer OTHER, SELFPAY ==
--- OUTSIDE RECORDS SUMMARY | 2021-07-17 20:40 | XMS REPORT | Continuity of Care Document ---
:1960 Author Organization [facility] t Address [address] [place] [address] Care Team Providers Name Role Phone PCP, DOES NOT HAVE A Primary Care Physician Unavailable Carmelo BECK Attending Clinician Unavailable Carmelo BECK Admitting Clinician Unavailable Payers Payer Name Policy Type Policy Number Effective Date Expiration Date S arleth ENTRUST [id number] 2019 00:00:00 Problems This patient has no known problems. Allergies, Adverse Reactions, Alerts Allergy Allergy Status Severity Reaction(s) Onset Inactive Treating Comm ents Source Name Type Date Date Clinician MORPHINE DRUG Active Rash 2018-0 [facility]I 6-15 ity of 00:00: [address] Medications This patient has no known medications. Procedures This patient has no known procedures. Encounters Start End Encounter Admission Attending Care Care Encounter Source Date/Time Date/Time Type Type Clinicians Facility Department ID 2019-06-22 2019-06-22 Emergency X YESSICA BECK ERT [id number] [facility] 07:30:42 10:40:00 MAHENDRA ittressa of [facility] Results This patient has no known results.
--- NOTE | 2021-07-17 21:47 | RAD REPORT ---
EXAM DESCRIPTION: RAD - Chest Single View - 07/17/2021 9:37 pm CLINICAL HISTORY: DYSPNEA COMPARISON: Chest Single View dated 12/10/2020; Chest Single View dated 08/17/2020; Chest Single View d ated 06/15/2019; Chest Single View dated 12/12/2018 FINDINGS: Lines: None. Lungs: No evidence of edema or pneumonia. Pleural: No significant pleural effusions or pneumothorax. Cardiac: Cardiomegaly. Bones: No acute fractures. Other: IMPRESSION: No acute cardiopulmonary disease.
[2021-07-17 21:59] LABS: Hematocrit 35.3 % (36.0-45.0); Lymphocytes % 16.9 % (15.3-44.8); MPV 8.1 fL (7.6-11.3); RBC Red Blood Cell Count 3.98 M/uL (3.86-4.86)
[2021-07-17 22:07] LABS: Protime INR 0.93
[2021-07-17] MEDS ORDERED: LEVALBUTEROL 1.25 MG/3 ML NEB ONE (22:14)
[2021-07-17] MEDS ORDERED: METHYLPREDNISOLONE 125 MG INJ ONE (22:14)
[2021-07-17] MEDS ORDERED: IPRATROPIUM BROM 0.5MG/2.5ML ONE (22:15)
[2021-07-17 22:33] LABS: Urine Blood Trace-intact (Negative); Urine Glucose Negative (Negative); Urine Protein Negative (Negative)
[2021-07-17 22:50] LABS: ALT/SGPT 18 U/L (12-78); AST/SGOT 23 U/L (15-37); Albumin 3.6 g/dL (3.4-5.0); Alkaline Phosphatase 70 U/L (45-117); BUN Blood Urea Nitrogen 7 mg/dL (7-18); Bilirubin Direct < 0.1 mg/dL (0-0.2); Bilirubin Total 0.2 mg/dL (0.2-1.0); Glucose Level 87 mg/dL (74-106); Lipase 154 U/L (73-393); Magnesium 2.2 mg/dL (1.8-2.4); NT PRO-BNP 25 pg/mL (<125); Potassium 3.4 mmol/L (3.5-5.1); Protein, Total 7.7 g/dL (6.4-8.2); Sodium Level 135 mmol/L (136-145)
[2021-07-17 22:51] LABS: Bicarbonate > 45 mmol/L (21-32)
[2021-07-17 23:23] LABS: SARS-COV-2 RT PCR NEGATIVE (NEGATIVE)
[2021-07-17 23:25] LABS: Arterial Blood Carboxyhemoglob 1.4 % (0-1.5); Blood Gas Oxyhemoglobin 95.5 % (94-97)
--- NOTE | 2021-07-18 00:20 | ER ---
Nurse's Notes [facility] Name: Radha Saleh Age: 60 yrs Sex: Female : 1960 Arrival Date: 07/17/2021 Time: 20:39 Bed 2 Private MD: Diagnosis: Acute and chronic respiratory failure with hypercapnia;COPD/ Chronic obstructive pulmonary disease with (acute) exacerbation;Obesity, unspecified;Altered mental status, unspecified;Acidosis-respiratory;Hypoxemia Presentation: 07/17 21:02 Chief complaint: Patient states: CHF and COPD; FEELING "REAL FUNNY" Hallucinations per ld1 daughter states pt is seeing and talking to people that aren't there. Fell in kitchen today; unknown if hit head. Coronavirus screen: Vaccine status: Patient reports being unvaccinated. Client denies travel out of the [place] in the last 14 days. Ebola Screen: Patient negative for fever greater than or equal to 101.5 degrees Fahrenheit, and additional compatible Ebola Virus Disease symptoms Patient denies exposure to infectious person. Patient denies travel to an Ebola-affected area in the 21 days before illness onset. Initial Sepsis Screen: Does the patient meet any 2 criteria? No. Patient's initial sepsis screen is negative. Does the patient have a suspected source of infection? No. Patient's initial sepsis screen is negative. Risk Assessment: Do you want to hurt yourself or someone else? Patient reports no desire to harm self or others. Onset of symptoms. 21:02 Method Of Arrival: Ambulatory ld1 21:02 Acuity: OSMANY 3 ld1 Triage Assessment: 21:06 General: Appears distressed, uncomfortable, obese, Behavior is calm, cooperative, ld1 appropriate for age. Pain: Denies pain. Historical: - Allergies: 21:06 Morphine (Hives); ld1 - PMHx: 21:06 COPD; CVA; gastric ulcer; Hyperlipidemia; Hypertension; Hypothyroidism; Myocardial ld1 infarction; Sleep Apnea; - Immunization history:: Adult Immunizations up to date. - Social history:: Smoking status: Patient/guardian denies using tobacco, but has a distant history of tobacco abuse. Screenin:08 Abuse screen: Denies threats or abuse. Denies injuries from another. Nutritional ld1 screening: No deficits noted. Tuberculosis screening: No symptoms or risk factors identified. Fall Risk None identified. Assessment: 21:40 General: Appears obese, Behavior is cooperative. Neuro: Level of Consciousness is sm5 awake, alert, Oriented to Appropriate for age. 23:44 Cardiovascular: No deficits noted. Capillary refill < 3 seconds Patient's skin is warm sm5 and dry. Respiratory: Airway is patent Trachea midline Respiratory effort is even, labored. Derm: flaky skin. Vital Signs: 21:02 BP 145 / 81; Pulse 78; Resp 18; Temp 97.1; Pulse Ox 72% on R/A; Weight 136.08 kg; ld1 Height 5 ft. 3 in. (160.02 cm); 21:36 BP 135 / 86; Pulse 69; Resp 23; Pulse Ox 99% ; st1 07/18 01:04 BP 141 / 66; Pulse 77; Resp 22; Pulse Ox 94% on BiPAP; Pain 0/10; st1 07/17 21:02 Body Mass Index 53.14 (136.08 kg, 160.02 cm) ld1 ED Course: 07/17 20:39 Patient arrived in ED. as 21:06 Triage completed. ld1 21:06 Arm band placed on right wrist. ld1 21:08 Patient has correct armband on for positive identification. ld1 21:12 No provider procedures requiring assistance completed. ld1 21:19 Melecio Eubanks MD is Attending Physician. [facility] 21:25 Katherine Rasmussen, SUSANA is Primary Nurse. sm5 21:37 XRAY Chest (1 view) In Process Unspecified. EDMS 21:40 Inserted saline lock: 20 gauge in left antecubital area, using aseptic technique. Blood sm5 collected. 21:44 Lactate Sent. sm5 21:45 Lipase Sent. sm5 21:45 Basic Metabolic Panel Sent. sm5 21:45 CBC with Diff Sent. sm5 21:45 LFT's Sent. sm5 21:45 Magnesium Sent. sm5 21:45 NT PRO-BNP Sent. sm5 21:45 PT-INR Sent. sm5 21:45 Troponin HS Sent. sm5 22:55 Critical results CO >45. Dr. Eubanks notified. st1 07/18 00:16 Blanca Davila MD is Hospitalizing Provider. [facility] 01:03 BIPAP Sent. st1 02:19 Patient admitted, IV remains in place. sm5 Administered Medications: 07/17 22:25 Drug: SOLU-Medrol (methylPrednisoLONE) 125 mg Route: IVP; Site: right antecubital; [facility] 22:43 Drug: Xopenex (levalbuterol) 3.75 mg Route: Inhalation; [facility] 22:43 Drug: AtroVENT (ipratropium) Aerosol 0.5 mg Route: Inhalation; [facility] 07/18 01:02 Drug: Potassium Effervescent Tablet 25 mEq Route: PO; st1 01:02 Drug: Rocephin (cefTRIAXone) 2 grams Route: IV; Rate: per protocol; Site: right st1 antecubital; 01:02 Drug: Zithromax (azithromycin) 500 mg Route: PO; st1 Outcome: 00:19 Decision to Hospitalize by Provider. matt 02:19 Admitted to Med/surg accompanied by tech, via stretcher, with oxygen, with chart. [facility] 02:19 Condition: stable 02:19 Instructed on the need for admit. 02:19 [address] the ED[address] [facility] Signatures: Dispatcher [employer] EDMelecio Thornton MD MD cha Martinez, Amelia as Dibbern, Lauren, RN RN ld1 Katherine Rasmussen RN RN 5 Montserrat Hillman RN RN st1 Corrections: (The following items were deleted from the chart) 07/17 23:45 21:40 Neuro: Bibiana [facility]
--- NOTE | 2021-07-18 00:20 | EDPHYS ---
Physician Documentation [facility] Name: Radha Saleh Age: 60 yrs Sex: Female : 1960 Arrival Date: 07/17/2021 Time: 20:39 Bed 2 Private MD: ED Physician Melecio Eubanks HPI: 07/18 00:05 This 60 yrs old Female presents to ER via Ambulatory with complaints of matt Dizziness, hallucinations, Fall Injury. Historical: - Allergies: 07/17 21:06 Morphine (Hives); ld1 - PMHx: 21:06 COPD; CVA; gastric ulcer; Hyperlipidemia; Hypertension; Hypothyroidism; Myocardial ld1 infarction; Sleep Apnea; - Immunization history:: Adult Immunizations up to date. - Social history:: Smoking status: Patient/guardian denies using tobacco, but has a distant history of tobacco abuse. ROS: 07/18 00:12 Constitutional: Negative for fever, chills, and weight loss, Eyes: Negative for injury, matt pain, redness, and discharge, ENT: Negative for injury, pain, and discharge, Neck: Negative for injury, pain, and swelling, Cardiovascular: Negative for chest pain, palpitations, and edema, Abdomen/GI: Negative for abdominal pain, nausea, vomiting, diarrhea, and constipation, Back: Negative for injury and pain, : Negative for injury, bleeding, discharge, and swelling, MS/Extremity: Negative for injury and deformity, Skin: Negative for injury, rash, and discoloration, Neuro: Negative for headache, weakness, numbness, tingling, and seizure, Psych: Negative for depression, anxiety, suicide ideation, homicidal ideation, and hallucinations, Allergy/Immunology: Negative for hives, rash, and allergies, Endocrine: Negative for neck swelling, polydipsia, polyuria, polyphagia, and marked weight changes, Hematologic/Lymphatic: Negative for swollen nodes, abnormal bleeding, and unusual bruising. Respiratory: Positive for cough, "sounds productive", dyspnea on exertion, shortness of breath, at rest. Neuro: Positive for altered mental status, weakness. Exam: 00:12 Constitutional: This is a well developed, well nourished patient who is awake, alert, matt and in no acute distress. Head/Face: Normocephalic, atraumatic. Eyes: Pupils equal round and reactive to light, extra-ocular motions intact. Lids and lashes normal. Conjunctiva and sclera are non-icteric and not injected. Cornea within normal limits. Periorbital areas with no swelling, redness, or edema. ENT: Nares patent. No nasal discharge, no septal abnormalities noted. Tympanic membranes are normal and external auditory canals are clear. Oropharynx with no redness, swelling, or masses, exudates, or evidence of obstruction, uvula midline. Mucous membranes moist. Neck: Trachea midline, no thyromegaly or masses palpated, and no cervical lymphadenopathy. Supple, full range of motion without nuchal rigidity, or vertebral point tenderness. No Meningismus. Chest/axilla: Normal chest wall appearance and motion. Nontender with no deformity. No lesions are appreciated. Cardiovascular: Regular rate and rhythm with a normal S1 and S2. No gallops, murmurs, or rubs. Normal PMI, no JVD. No pulse deficits. Abdomen/GI: Soft, non-tender, with normal bowel sounds. No distension or tympany. No guarding or rebound. No evidence of tenderness throughout. Back: No spinal tenderness. No costovertebral tenderness. Full range of motion. Female : Normal external genitalia. Skin: Warm, dry with normal turgor. Normal color with no rashes, no lesions, and no evidence of cellulitis. MS/ Extremity: Pulses equal, no cyanosis. Neurovascular intact. Full, normal range of motion. Neuro: Awake and alert, GCS 15, oriented to person, place, time, and situation. Cranial nerves II-XII grossly intact. Motor strength 5/5 in all extremities. Sensory grossly intact. Cerebellar exam normal. Normal gait. Psych: Awake, alert, with orientation to person, place and time. Behavior, mood, and affect are within normal limits. 00:12 ECG was reviewed by the Attending Physician. 00:12 Respiratory: the patient does not display signs of respiratory distress, Respirations: labored breathing, that is mild, Breath sounds: bronchial sounds, that are mild, decreased breath sounds, that are moderate, are heard in the left posterior upper lobe, right posterior upper lobe, left posterior lower lobe, right posterior middle lobe and right posterior lower lobe. 00:12 Musculoskeletal/extremity: DVT Exam: No signs of deep vein thrombosis. no pain, no swelling, no tenderness, negative Homans' sign noted on exam, no appreciated bluish discoloration, no erythema, no increased warmth. Vital Signs: 07/17 21:02 BP 145 / 81; Pulse 78; Resp 18; Temp 97.1; Pulse Ox 72% on R/A; Weight 136.08 kg; ld1 Height 5 ft. 3 in. (160.02 cm); 21:36 BP 135 / 86; Pulse 69; Resp 23; Pulse Ox 99% ; st1 07/18 01:04 BP 141 / 66; Pulse 77; Resp 22; Pulse Ox 94% on BiPAP; Pain 0/10; st1 07/17 21:02 Body Mass Index 53.14 (136.08 kg, 160.02 cm) ld1 MDM: 07/17 21:19 Patient medically screened. [facility] 07/18 00:14 Differential diagnosis: cardiac arrhythmia, generalized weakness, hyperventilation, matt hypovolemia, idiopathic dizziness, near-syncope, sepsis. Data reviewed: vital signs, nurses notes, lab test result(s), EKG, radiologic studies, CT scan, plain films. Data interpreted: case monitor: rate is 69 beats/min, rhythm is regular, Pulse oximetry: on room air is 99 %. Test interpretation: by ED physician or midlevel provider: ECG, plain radiologic studies. Counseling: I had a detailed discussion with the patient and/or guardian regarding: the historical points, exam findings, and any diagnostic results supporting the discharge/admit diagnosis, lab results, radiology results, the need for further work-up and treatment in the hospital. 07/17 21:23 Order name: Basic Metabolic Panel; Complete Time: 23:21 [facility] 07/17 21:23 Order name: CBC with Diff; Complete Time: 22:38 [facility] 07/17 21:23 Order name: LFT's; Complete Time: 23:21 [facility] 07/17 21:23 Order name: Magnesium; Complete Time: 23:21 [facility] 07/17 21:23 Order name: NT PRO-BNP; Complete Time: 23:21 [facility] 07/17 21:23 Order name: PT-INR; Complete Time: 22:38 [facility] 07/17 21:23 Order name: Troponin HS; Complete Time: 23:21 [facility] 07/17 21:23 Order name: XRAY Chest (1 view); Complete Time: 22:38 [facility] 07/17 21:23 Order name: Blood Culture Adult (2) [facility] 07/17 21:23 Order name: Lipase; Complete Time: 23:21 [facility] 07/17 21:23 Order name: COVID-19/FLU A+B/RSV (Document "Date of Onset" if Symptomatic); Complete [facility] Time: 00:04 07/17 21:23 Order name: Lactate; Complete Time: 22:38 [facility] 07/17 22:32 Order name: Urine Dipstick-Ancillary; Complete Time: 22:38 [facility] 07/17 22:57 Order name: ABG; Complete Time: 00:04 [facility] 07/17 21:23 Order name: EKG; Complete Time: 21:24 [facility] 07/17 21:23 Order name: Cardiac monitoring; Complete Time: 21:45 [facility] 07/17 21:23 Order name: EKG - Nurse/Tech; Complete Time: 22:43 [facility] 07/17 21:23 Order name: IV Saline Lock; Complete Time: 21:45 [facility] 07/17 21:23 Order name: Labs collected and sent; Complete Time: 21:45 [facility] 07/17 21:23 Order name: O2 Per Protocol; Complete Time: 21:45 [facility] 07/17 21:23 Order name: O2 Sat Monitoring; Complete Time: 21:45 [facility] 07/17 21:23 Order name: Urine Dipstick-Ancillary (obtain specimen); Complete Time: 22:36 [facility] 07/17 22:57 Order name: BIPAP [facility] 07/18 01:00 Order name: CONS Physician Consult [facility] EC:12 Rate is 71 beats/min. Rhythm is regular. QRS [place] is Normal. NV interval is normal. QRS matt interval is normal. QT interval is normal. No Q waves. T waves are Normal. No ST changes noted. Clinical impression: NSR w/ Non-specific ST/T Changes, 1st degree heart block, and No evidence of ischemia. Interpreted by me. Reviewed by me. Administered Medications: 07/17 22:25 Drug: SOLU-Medrol (methylPrednisoLONE) 125 mg Route: IVP; Site: right antecubital; 22:43 Drug: Xopenex (levalbuterol) 3.75 mg Route: Inhalation; :43 Drug: AtroVENT (ipratropium) Aerosol 0.5 mg Route: Inhalation; 07/18 01:02 Drug: Potassium Effervescent Tablet 25 mEq Route: PO; st1 01:02 Drug: Rocephin (cefTRIAXone) 2 grams Route: IV; Rate: per protocol; Site: right st1 antecubital; 01:02 Drug: Zithromax (azithromycin) 500 mg Route: PO; st1 Disposition Summary: 07/18/21 00:19 Hospitalization Ordered Hospitalization Status: Inpatient Admission matt Provider: Blanca Davila cha Condition: Fair matt Problem: new matt Symptoms: have improved matt Bed/Room Type: Standard matt Location: Telemetry/MedSurg (Inpatient)(07/18/21 00:52) mw Room Assignment: 214(07/18/21 01:02) mw Diagnosis - Acute and chronic respiratory failure with hypercapnia matt - COPD/ Chronic obstructive pulmonary disease with (acute) exacerbation matt - Obesity, unspecified matt - Altered mental status, unspecified matt - Acidosis - respiratory matt - Hypoxemia matt Forms: - Medication Reconciliation Form matt - SBAR form matt Signatures: Dispatcher [employer] EDNani Petit RN RN Melecio Nesbitt MD MD cha Dibbern, Lauren, RN RN ld1 Katherine Rasmussen RN RN sm5 Montserrat Hillman, RN RN st1 Corrections: (The following items were deleted from the chart) 00:36 00:19 Telemetry/MedSurg (Inpatient) matt mw 00:36 00:19 matt mw 00:52 00:36 [facility] ER HOLD mw mw 00:52 00:36 ERHOLD- mw mw 01:02 00:52 mw mw
[2021-07-18] MEDS ORDERED: POTASSIUM 25 MEQ EFFERV TAB ONE (00:51)
[2021-07-18] MEDS ORDERED: AZITHROMYCIN 250 MG TAB ONE (00:55)
[2021-07-18] MEDS ORDERED: CEFTRIAXONE 500 MG/VIAL ONE (00:56)
[2021-07-18 02:35] LABS: Arterial Blood Carboxyhemoglob 1.3 % (0-1.5); Blood Gas Oxyhemoglobin 86.8 % (94-97); Blood O2 Saturation 88.9 % (92-98.5)
[2021-07-18] MEDS ORDERED: ONDANSETRON 4 MG/2 ML VIAL IV PRN (02:41)
[2021-07-18 02:45] VITALS: BMI 53.1
--- NOTE | 2021-07-18 03:22 | P.HP ---
Certification for Inpatient Patient admitted to: Inpatient With expected LOS: >2 Midnights Patient will require the following post-hospital care: None Practitioner: I am a practitioner with admitting privileges, knowledge of patient current condition, hospital course, and medical plan of care. Services: Services provided to patient in accordance with Admission requirements found in Title 42 Section 412.3 of the Code of Federal Regulations Patient History Date of Service: 07/18/21 Reason for admission: acute respiratory failure History of Present Illness: Ms. Saleh is a 60 yo F with COPD, HTN, HLD, TIA, hypothyroidism who presents with worsening cough and SOB over the past month. Today she felt week and had a fall in her bathroom. She says her knees gave out but she did not hit her head. Her daughter helped get her up. She has been dizzy and more confused recently. She is normally on 2L of home O2. She says that her nebulizer broke and she has been unable to give herself breathing treatments. She has had mild relief with her inhalers. Reports wheezing. Denies fever. She was hypercapnic upon arrival and was placed on BIPAP. Allergies morphine Allergy (Severe, Verified 03/08/13 22:11) Nausea/Vomiting Home Medications: Albuterol Sulfate [Proair Hfa] 2 puff IH TID PRN #1 hfa.aer.ad 08/22/20 Aspirin [Aspirin EC 81 MG] 81 mg PO DAILY #90 tablet.dr 08/22/20 Metoprolol Tartrate [Lopressor*] 12.5 mg PO BID 6AM 6PM #60 tab 08/22/20 Ranolazine [Ranolazine ER] 500 mg PO BID #60 tab.er.12h 08/22/20 Atorvastatin Calcium [Lipitor] 40 mg PO BEDTIME 07/18/21 Clopidogrel Bisulfate [Plavix] 75 mg PO DAILY 07/18/21 Isosorbide Mononitrate [Isosorbide Mononitrate ER] 60 mg PO DAILY 07/18/21 - Past Medical/Surgical History Has patient received pneumonia vaccine in the past: Yes Diabetic: No -: HTN -: HYPOTHYROIDISM -: HIGH CHOLESTEROL -: GASTRIC ULCER -: TIA -: COPD -: CESARIAN SECTION - Family History Mother -: Diabetes, Kidney disease Father -: Heart disease Brother -: Heart disease Notes: Stent - Social History Smoking Status: Former smoker Alcohol use: No CD- Drugs: No Caffeine use: Yes Place of Residence: Home Review of Systems 10-point ROS is otherwise unremarkable General: Weakness Eyes: Unremarkable ENT: Unremarkable Respiratory: Cough, Shortness of Breath, SOB with Excertion, Sputum, Wheezing, As per HPI Cardiovascular: Unremarkable Gastrointestinal: Unremarkable Genitourinary: Unremarkable Musculoskeletal: Unremarkable Integumentary: Unremarkable Neurological: Weakness, Confusion Lymphatics: Unremarkable Physical Examination - Vital Signs Temperature: 97.1 F Blood Pressure: 141/66 Pulse: 77 Respirations: 22 - Physical Exam General: Confused HEENT: Atraumatic, PERRLA, Mucous membr. moist/pink, EOMI, Sclerae nonicteric Neck: Supple, 2+ carotid pulse no bruit, No LAD, Without JVD or thyroid abnormality Respiratory: Diminished Cardiovascular: No edema, Regular rate/rhythm, Normal S1 S2 Gastrointestinal: Normal bowel sounds, No tenderness Musculoskeletal: No tenderness Integumentary: No rashes Neurological: Normal strength at 5/5 x4 extr, Normal tone, Abnormal speech, Abnormal affect Lymphatics: No axilla or inguinal lymphadenopathy - Studies Laboratory Data (last 24 hrs) 07/17/21 21:28: PT 10.7, INR 0.93 07/17/21 21:28: WBC 5.80, Hgb 11.1 L, Hct 35.3 L, Plt Count 202 07/17/21 21:28: Sodium 135 L, Potassium 3.4 L, BUN 7, Creatinine 0.98, Glucose 87, Magnesium 2.2, Total Bilirubin 0.2, AST 23, ALT 18, Alkaline Phosphatase 70, Lipase 154 Assessment and Plan - Problems (Diagnosis) (1) Acute respiratory failure with hypercapnia Current Visit: Yes Status: Acute (2) Respiratory acidosis Current Visit: Yes Status: Acute (3) COPD exacerbation Current Visit: Yes Status: Acute (4) Coronary artery disease Current Visit: No Status: Chronic Qualifiers: Coronary Disease-Associated Artery/Lesion type: unspecified vessel or lesion type [place] vs. transplanted heart: [place] heart Associated angina: without angina Qualified Code(s): I25.10 - Atherosclerotic heart disease of [place] coronary artery without angina pectoris (5) Transient ischemia Current Visit: No Status: Resolved (6) Dyslipidemia Onset Date: 02/22/18 Current Visit: No Status: Chronic (7) Hypertension Onset Date: 02/22/18 Current Visit: No Status: Chronic Qualifiers: Hypertension type: primary hypertension Qualified Code(s): I10 - Essential (primary) hypertension (8) Hypothyroid Onset Date: 02/22/18 Current Visit: No Status: Chronic Qualifiers: - Plan pulm consulted, RT consulted continue BIPAP, repeat ABG showed some improvement continue IV steroids continue breathing treatments procalcitonin and lactate pending reconcile and continue home medications DVT ppx Discharge Plan: Home Plan to discharge in: Greater than 2 days - Advance Directives Does patient have a Living Will: No Does patient have a Durable POA for Healthcare: No - Code Status/Comfort Care Code Status Assessed: Yes (full code ) Critical Care: No Time Spent Managing Pts Care (In Minutes): 70
[2021-07-18] MEDS ORDERED: IPRATROPIUM BROM 0.5MG/2.5ML NEB PRN (04:00)
[2021-07-18] MEDS ORDERED: METHYLPREDNISOLONE 125 MG INJ IV SCH (06:00)
[2021-07-18] MEDS ORDERED: INFLUENZA VACCINE (for 6+ mo) 0.5 ML DOSE IMVAC ONE (08:00)
[2021-07-18] MEDS: ENOXAPARIN 40 MG/0.4 ML SQ SCH (08:41)
[2021-07-18] MEDS ORDERED: POTASSIUM CL SA 10 MEQ TAB PO ONE (09:00)
--- NOTE | 2021-07-18 11:13 | P.CNS ---
Date of Consult: 07/18/21 Reason for Consult: COPD exacerbation Chief Complaint: acute respiratory failure History of Present Illness: Patient is 60 years of age metabolic syndrome history of COPD admitted with worsening cough congestion shortness of breath over the past month currently she felt weak had fell knees gave out feeling more dizzy and confused she is in patient is on oxygen and use her nebulizer currently on BiPAP Allergies morphine Allergy (Severe, Verified 03/08/13 22:11) Nausea/Vomiting Home Medications: Albuterol Sulfate [Proair Hfa] 2 puff IH TID PRN #1 hfa.aer.ad 08/22/20 Aspirin [Aspirin EC 81 MG] 81 mg PO DAILY #90 tablet.dr 08/22/20 Metoprolol Tartrate [Lopressor*] 12.5 mg PO BID 6AM 6PM #60 tab 08/22/20 Ranolazine [Ranolazine ER] 500 mg PO BID #60 tab.er.12h 08/22/20 Atorvastatin Calcium [Lipitor] 40 mg PO BEDTIME 07/18/21 Clopidogrel Bisulfate [Plavix] 75 mg PO DAILY 07/18/21 Isosorbide Mononitrate [Isosorbide Mononitrate ER] 60 mg PO DAILY 07/18/21 - Past Medical/Surgical History Diabetic: No -: HTN -: HYPOTHYROIDISM -: HIGH CHOLESTEROL -: GASTRIC ULCER -: TIA -: COPD -: CESARIAN SECTION - Family History Mother Medical History: Diabetes, Kidney disease Father Medical History: Heart disease Brother Medical History: Heart disease Notes: Stent - Social History Smoking Status: Former smoker Alcohol use: No CD- Drugs: No Caffeine use: Yes Place of Residence: Home Review of Systems General: Weakness Respiratory: Cough, Shortness of Breath Physical Examination Temp Pulse Resp BP Pulse Ox 95.7 F L 69 20 117/61 93 07/18/21 08:00 07/18/21 08:00 07/18/21 08:00 07/18/21 08:00 07/18/21 08:00 General: Alert, Oriented x3, Mild distress Respiratory: Clear to auscultation bilaterally, Diminished Cardiovascular: No edema, Normal S1 S2 Laboratory Data (last 24 hrs) 07/17/21 21:28: PT 10.7, INR 0.93 07/17/21 21:28: WBC 5.80, Hgb 11.1 L, Hct 35.3 L, Plt Count 202 07/17/21 21:28: Sodium 135 L, Potassium 3.4 L, BUN 7, Creatinine 0.98, Glucose 87, Magnesium 2.2, Total Bilirubin 0.2, AST 23, ALT 18, Alkaline Phosphatase 70, Lipase 154 - Problems (1) Acute respiratory failure with hypercapnia Current Visit: Yes Status: Acute Plan: Patient is 60 years of age I suspect she has terminal COPD admitted with hypoxic hypercapnic respiratory failure history of COPD on home oxygen at nebulizer broke labs reviewed patient has cardiomegaly on chest x-ray some interstitial changes add some IV fluids to be volume depleted Diamox titrate sat to 90% repeat ABGs reduce the dose of Solu-Medrol scheduled ipratropium
[2021-07-18 12:03] LABS: Arterial Blood Carboxyhemoglob 1.1 % (0-1.5); Blood Gas Oxyhemoglobin 89.4 % (94-97); Blood O2 Saturation 91.4 % (92-98.5)
[2021-07-18] MEDS: acetaZOLAMIDE 250 MG TAB PO SCH ×2 (12:19→21:26)
[2021-07-18] MEDS: NACHLORIDE 0.45% 1,000 ML IV SCH (12:24)
[2021-07-18 12:30] LABS: Potassium 4.3 mmol/L (3.5-5.1)
[2021-07-18] MEDS: IPRATROPIUM BROM 0.5MG/2.5ML NEB SCH ×2 (14:15→19:50)
--- NOTE | 2021-07-18 14:34 | P.PN ---
Date of Service: 07/18/21 Patient seen and examined. He is tolerating oxygen by nasal cannula. She used BiPAP last night. Acute respiratory failure with hypercapnia and hypoxia. COPD exacerbation Obesity hypoventilation syndrome. Plan: Continue IV steroid. Patient oxygen saturation in the mid 80s on her baseline oxygen. Bronchodilators-patient started on arformoterol. Pulmonology input appreciated.
[2021-07-18 15:27] LABS: Urine Appearance CLOUDY (Clear); Urine Bilirubin NEGATIVE (Negative); Urine Blood NEGATIVE (Negative); Urine Color YELLOW (Yellow); Urine Glucose NEGATIVE (Negative); Urine Protein 1+ (Negative); Urine Specific Gravity 1.015 (1.005-1.030); Urine Urobilinogen 0.2 mg/dL (0.2-1.0)
[2021-07-18 15:55] LABS: Urine Microscopic Reflex ORDER UMIC
[2021-07-18 16:48] LABS: Urine Bacteria >50 /HPF (<20); Urine Mucus HEAVY /HPF (NONE SEEN); Urine RBC NONE SEEN /HPF (NONE SEEN)
[2021-07-18] MEDS: ACETAMINOPHEN 500 MG TAB PO PRN (17:01)
[2021-07-18] MEDS: METOPROLOL TAR 25 MG TAB PO SCH (17:01)
[2021-07-18] MEDS: METHYLPREDNISOLONE 40 MG INJ IV SCH (17:02)
[2021-07-18] MEDS: ARFORMOTEROL TARTRATE 15 MCG/2 ML VIAL.NEB NEB SCH (19:50)
[2021-07-18] MEDS ORDERED: ATORVASTATIN 40 MG TAB PO SCH (21:00)
[2021-07-19] MEDS: METHYLPREDNISOLONE 40 MG INJ IV SCH (01:14)
[2021-07-19] MEDS: NACHLORIDE 0.45% 1,000 ML IV SCH ×2 (01:16→16:09)
[2021-07-19] MEDS: IPRATROPIUM BROM 0.5MG/2.5ML NEB SCH ×4 (02:10→20:00)
[2021-07-19 07:18] LABS: Absolute Lymphocytes (CBC) 0.6 K/uL (0.7-4.9); Hematocrit 34.6 % (36.0-45.0); Lymphocytes % 9.1 % (15.3-44.8); MPV 8.2 fL (7.6-11.3); RBC Red Blood Cell Count 3.92 M/uL (3.86-4.86)
[2021-07-19] MEDS: METOPROLOL TAR 25 MG TAB PO SCH ×2 (07:33→17:34)
[2021-07-19 07:35] LABS: Albumin 3.4 g/dL (3.4-5.0); Bilirubin Total 0.2 mg/dL (0.2-1.0); Magnesium 2.9 mg/dL (1.8-2.4); Phosphorus 2.7 mg/dL (2.5-4.9); Potassium 3.8 mmol/L (3.5-5.1); Protein, Total 7.5 g/dL (6.4-8.2)
[2021-07-19] MEDS: ARFORMOTEROL TARTRATE 15 MCG/2 ML VIAL.NEB NEB SCH (07:42)
[2021-07-19 07:47] LABS: Thyroid Stimulating Hormone 42.3 uIU/mL (0.360-3.740)
[2021-07-19] MEDS: DULERA 200/5 (MOMETASONE/FORMOTEROL) INHALER IH SCH ×2 (09:00→21:35)
[2021-07-19] MEDS: CLOPIDOGREL 75 MG TABLET PO SCH (09:42)
[2021-07-19] MEDS: ISOSORBIDE MONO SR 60 MG TAB PO SCH (09:42)
[2021-07-19] MEDS: predniSONE 20 MG TAB PO SCH ×2 (09:43→21:34)
[2021-07-19] MEDS: ENOXAPARIN 40 MG/0.4 ML SQ SCH (09:43)
[2021-07-19] MEDS: ASPIRIN EC 81 MG TAB PO SCH (09:43)
[2021-07-19] MEDS: acetaZOLAMIDE 250 MG TAB PO SCH ×2 (09:43→21:34)
--- NOTE | 2021-07-19 10:29 | P.PN ---
Subjective Date of Service: 07/19/21 Chief Complaint: Chronic respiratory failure Patient's condition is stable still on a BiPAP Review of Systems General: Weakness Respiratory: Shortness of Breath Physical Examination - Vital Signs Temperature: 96.9 F Blood Pressure: 129/58 Pulse: 69 Respirations: 21 Pulse Ox (%): 90 - Physical Exam General: Alert, Oriented x3, Cooperative Respiratory: Clear to auscultation bilaterally Cardiovascular: Regular rate/rhythm Assessment & Plan - Problems (Diagnosis) (1) Chronic respiratory failure with hypercapnia Current Visit: Yes Status: Acute Plan: Patient is 60 years of age has chronic respiratory failure secondary to presumed severe COPD I requested for a noninvasive ventilator for home use this will help to prevent recurrent hospital admissions BiPAP considered not indicated due to severity of patient's condition I have started patient on Dulera titrate sat to 90% with nasal cannula for now changed to p.o. prednisone bicarbonate level is improving may have some volume depletion continue with Diamox
[2021-07-19 10:49] LABS: Blood Morphology Comment NOTED (NOT SEEN); Platelet Estimate ADEQ; White Blood Cell Scan OK (OK)
[2021-07-19 10:57] LABS: Anisocytosis 1+; Polychromasia SLIGHT
--- NOTE | 2021-07-19 12:04 | P.DS ---
Admission Date: 07/18/21 Discharge Date: 07/19/21 Disposition: [place] [facility] Discharge Condition: FAIR Reason for Admission: Chronic respiratory failure Brief History of Present Illness: Ms. Saleh is a 60 yo F with COPD, HTN, HLD, TIA, hypothyroidism who presents with worsening cough and SOB over the past month. She stated she felt week and had a fall in her bathroom. She says her knees gave out but she did not hit her head. Her daughter helped get her up. She reported dizziness and intermittent confusion. She is normally on 2L of home O2. She says that her nebulizer broke and she has been unable to give herself breathing treatments. She reported wheezing. Denied fever. She was hypercapnic upon arrival and was placed on BIPAP. Hospital Course: Patient admitted to the medical floor and treated for COPD exacerbation with IV steroids, scheduled bronchodilators including arformoterol. She was also started on Diamox for metabolic alkalosis. Patient respiratory status improved to baseline. Currently tolerating 3-4 oxygen by nasal cannula. She was seen in consultation by pulmonary-Dr. Laura who assisted with management. Currently stable for discharge. She is prescribed a tapering dose of prednisone. Also prescribed nebulizer. Pulmonary started her on Trelegy. Vital Signs/Physical Exam: Temp Pulse Resp BP Pulse Ox 96.9 F 69 21 H 129/58 L 90 L 07/19/21 10:29 07/19/21 10:29 07/19/21 10:29 07/19/21 10:29 07/19/21 10:29 General: In no apparent distress, Oriented x3, Obese HEENT: Mucous membr. moist/pink Neck: JVD not distended Respiratory: Clear to auscultation bilaterally, Diminished Cardiovascular: No edema, Regular rate/rhythm, Normal S1 S2 Gastrointestinal: Normal bowel sounds, Soft and benign, Non-distended Musculoskeletal: No swelling Integumentary: No rashes Neurological: Normal strength at 5/5 x4 extr Laboratory Data at Discharge: WBC 6.60 K/uL (4.3-10.9) 07/19/21 06:53 Hgb 11.0 g/dL (12.0-15.0) L 07/19/21 06:53 Hct 34.6 % (36.0-45.0) L 07/19/21 06:53 Plt Count 228 K/uL (152-406) 07/19/21 06:53 PT 10.7 SECONDS (9.5-12.5) 07/17/21 21:28 INR 0.93 07/17/21 21:28 Sodium 134 mmol/L (136-145) L 07/19/21 06:53 Potassium 3.8 mmol/L (3.5-5.1) 07/19/21 06:53 BUN 10 mg/dL (7-18) 07/19/21 06:53 Creatinine 0.93 mg/dL (0.55-1.3) 07/19/21 06:53 Glucose 129 mg/dL (74-106) H 07/19/21 06:53 Phosphorus 2.7 mg/dL (2.5-4.9) 07/19/21 06:53 Magnesium 2.9 mg/dL (1.8-2.4) H D 07/19/21 06:53 Total Bilirubin 0.2 mg/dL (0.2-1.0) 07/19/21 06:53 AST 21 U/L (15-37) 07/19/21 06:53 ALT 17 U/L (12-78) 07/19/21 06:53 Alkaline Phosphatase 68 U/L (45-117) 07/19/21 06:53 Triglycerides 91 mg/dL (<150) 07/19/21 06:53 Cholesterol 355 mg/dL (<200) H 07/19/21 06:53 HDL Cholesterol 70 mg/dL (40-60) H 07/19/21 06:53 Cholesterol/HDL Ratio 5.07 07/19/21 06:53 Lipase 154 U/L (73-393) 07/17/21 21:28 Home Medications: Albuterol Sulfate [Proair Hfa] 2 puff IH TID PRN #1 hfa.aer.ad 08/22/20 Aspirin [Aspirin EC 81 MG] 81 mg PO DAILY #90 tablet. 08/22/20 Metoprolol Tartrate [Lopressor*] 12.5 mg PO BID 6AM 6PM #60 tab 08/22/20 Ranolazine [Ranolazine ER] 500 mg PO BID #60 tab.er.12h 08/22/20 Atorvastatin Calcium [Lipitor] 40 mg PO BEDTIME 07/18/21 Clopidogrel Bisulfate [Plavix] 75 mg PO DAILY 07/18/21 Isosorbide Mononitrate [Isosorbide Mononitrate ER] 60 mg PO DAILY 07/18/21 Fluticasone/Umeclidin/Vilanter [Trelegy Ellipta 100-62.5-25] 1 each IH DAILY 30 Days #30 blst.w.dev 07/19/21 acetaZOLAMIDE [Diamox*] 125 mg PO BID #160 tab 07/19/21 predniSONE [Prednisone*] 20 mg PO BID #18 tab 07/19/21 New Medications: acetaZOLAMIDE [Diamox*] 125 mg PO BID #160 tab predniSONE [Prednisone*] 20 mg PO BID #18 tab Fluticasone/Umeclidin/Vilanter [Trelegy Ellipta 100-62.5-25] 1 each IH DAILY 30 Days #30 blst.w.dev Diet: AHA Activity: Ad jannet Followup: Marianela Parr NP [Primary Care Provider] - 1-2 Weeks Time spent managing pt's care (in minutes): 37
--- NOTE | 2021-07-19 13:50 | P.PN ---
Subjective Date of Service: 07/19/21 Chief Complaint: Chronic respiratory failure Patient states she feels much better today. Her oxygen saturations in mid 90s on 4 L oxygen by nasal cannula. She denies any new complaint. Physical Examination - Vital Signs Temperature: 96.9 F Blood Pressure: 129/58 Pulse: 69 Respirations: 21 Pulse Ox (%): 90 - Physical Exam General: In no apparent distress, Oriented x3, Obese HEENT: Mucous membr. moist/pink Neck: JVD not distended Respiratory: Diminished, Other (No crackles) Cardiovascular: No edema, Regular rate/rhythm, Normal S1 S2 Gastrointestinal: Normal bowel sounds, Soft and benign, Non-distended Musculoskeletal: No swelling Integumentary: No rashes, No erythema, No cyanosis Neurological: Normal speech, Normal strength at 5/5 x4 extr Assessment And Plan - Current Problems (Diagnosis) (1) Acute respiratory failure with hypoxia and hypercapnia Current Visit: Yes Status: Acute (2) Obesity hypoventilation syndrome Current Visit: Yes Status: Acute (3) COPD exacerbation Current Visit: Yes Status: Acute (4) Hypertension Onset Date: 02/22/18 Current Visit: No Status: Chronic Qualifiers: Hypertension type: primary hypertension Qualified Code(s): I10 - Essential (primary) hypertension (5) Hypothyroid Onset Date: 02/22/18 Current Visit: No Status: Chronic Qualifiers: (6) Coronary artery disease Current Visit: No Status: Chronic Qualifiers: Coronary Disease-Associated Artery/Lesion type: unspecified vessel or lesion type [place] vs. transplanted heart: [place] heart Associated angina: without angina Qualified Code(s): I25.10 - Atherosclerotic heart disease of [place] coronary artery without angina pectoris - Plan Continue bronchodilators. Continue steroid. Validate and continue her home dose Synthroid. Patient currently in hypothyroid state. Wean oxygen as tolerated. BiPAP as needed. Pulmonary input appreciated. Continue home medications for coronary to disease.
[2021-07-19] MEDS: ACETAMINOPHEN 500 MG TAB PO PRN (16:09)
[2021-07-19] MEDS: ATORVASTATIN 80 MG TAB PO SCH (21:34)
[2021-07-20] MEDS: ALBUTEROL 2.5 MG/3 ML NEB SOL NEB PRN (01:35)
[2021-07-20] MEDS: IPRATROPIUM BROM 0.5MG/2.5ML NEB SCH ×4 (01:35→20:00)
[2021-07-20] MEDS: NACHLORIDE 0.45% 1,000 ML IV SCH ×3 (04:00→17:20)
[2021-07-20] MEDS: METOPROLOL TAR 25 MG TAB PO SCH ×2 (05:29→17:32)
[2021-07-20 06:26] LABS: Absolute Lymphocytes (CBC) 0.6 K/uL (0.7-4.9); Hematocrit 30.7 % (36.0-45.0); Lymphocytes % 8.4 % (15.3-44.8); MPV 8.2 fL (7.6-11.3); RBC Red Blood Cell Count 3.48 M/uL (3.86-4.86)
[2021-07-20 06:48] LABS: Potassium 3.6 mmol/L (3.5-5.1)
[2021-07-20] MEDS ORDERED: POTASSIUM CL SA 10 MEQ TAB PO ONE (09:00)
[2021-07-20] MEDS: acetaZOLAMIDE 250 MG TAB PO SCH ×2 (10:11→21:29)
[2021-07-20] MEDS: CLOPIDOGREL 75 MG TABLET PO SCH (10:11)
[2021-07-20] MEDS: ISOSORBIDE MONO SR 60 MG TAB PO SCH (10:11)
[2021-07-20] MEDS: ASPIRIN EC 81 MG TAB PO SCH (10:11)
[2021-07-20] MEDS: predniSONE 20 MG TAB PO SCH ×2 (10:11→21:29)
[2021-07-20] MEDS: DULERA 200/5 (MOMETASONE/FORMOTEROL) INHALER IH SCH ×2 (10:12→21:29)
[2021-07-20] MEDS: ENOXAPARIN 40 MG/0.4 ML SQ SCH (10:12)
--- NOTE | 2021-07-20 12:39 | P.PN ---
Subjective Date of Service: 07/20/21 Chief Complaint: Chronic respiratory failure Patient has no new complaints. She used CPAP last night Her oxygen saturations in mid 90s on 4 L oxygen by nasal cannula. Physical Examination - Vital Signs Temperature: 97.2 F Blood Pressure: 109/65 Pulse: 56 Respirations: 20 Pulse Ox (%): 90 - Physical Exam General: In no apparent distress HEENT: Other (On CPAP) Neck: JVD not distended Respiratory: Diminished (Bilateral) Cardiovascular: Regular rate/rhythm, Normal S1 S2, Edema (Trace bilateral lower extremity edema) Gastrointestinal: Soft and benign, Non-distended Musculoskeletal: No tenderness Integumentary: No rashes, No erythema Neurological: Normal strength at 5/5 x4 extr Assessment And Plan - Current Problems (Diagnosis) (1) Acute respiratory failure with hypoxia and hypercapnia Current Visit: Yes Status: Acute (2) Obesity hypoventilation syndrome Current Visit: Yes Status: Acute (3) COPD exacerbation Current Visit: Yes Status: Acute (4) Hypertension Onset Date: 02/22/18 Current Visit: No Status: Chronic Qualifiers: Hypertension type: primary hypertension Qualified Code(s): I10 - Essential (primary) hypertension (5) Hypothyroid Onset Date: 02/22/18 Current Visit: No Status: Chronic Qualifiers: (6) Coronary artery disease Current Visit: No Status: Chronic Qualifiers: Coronary Disease-Associated Artery/Lesion type: unspecified vessel or lesion type [place] vs. transplanted heart: [place] heart Associated angina: without angina Qualified Code(s): I25.10 - Atherosclerotic heart disease of [place] coronary artery without angina pectoris - Plan Continue bronchodilators. Continue steroid. Patient currently in hypothyroid state. Start Synthroid, recheck TSH in 8 weeks. Wean oxygen as tolerated. BiPAP as needed. Pulmonary is following. Continue home medications for coronary to disease. Arrange for home oxygen and nebulizer.
[2021-07-20] MEDS: ATORVASTATIN 80 MG TAB PO SCH (21:29)
[2021-07-21] MEDS: NACHLORIDE 0.45% 1,000 ML IV SCH ×2 (01:05→06:05)
[2021-07-21] MEDS: IPRATROPIUM BROM 0.5MG/2.5ML NEB SCH ×4 (02:05→19:25)
[2021-07-21 04:44] LABS: Potassium 3.8 mmol/L (3.5-5.1)
[2021-07-21] MEDS: METOPROLOL TAR 25 MG TAB PO SCH ×2 (05:18→17:10)
[2021-07-21] MEDS: ALBUTEROL 2.5 MG/3 ML NEB SOL NEB PRN (08:50)
[2021-07-21] MEDS ORDERED: POTASSIUM CL SA 10 MEQ TAB PO ONE (09:00)
[2021-07-21] MEDS: ASPIRIN EC 81 MG TAB PO SCH (09:08)
[2021-07-21] MEDS: ISOSORBIDE MONO SR 60 MG TAB PO SCH (09:08)
[2021-07-21] MEDS: acetaZOLAMIDE 250 MG TAB PO SCH ×2 (09:08→21:03)
[2021-07-21] MEDS: predniSONE 20 MG TAB PO SCH ×2 (09:08→21:04)
[2021-07-21] MEDS: ENOXAPARIN 40 MG/0.4 ML SQ SCH (09:09)
[2021-07-21] MEDS: ACETAMINOPHEN 500 MG TAB PO PRN (09:10)
[2021-07-21] MEDS: CLOPIDOGREL 75 MG TABLET PO SCH (09:10)
[2021-07-21] MEDS: DULERA 200/5 (MOMETASONE/FORMOTEROL) INHALER IH SCH ×2 (10:19→21:04)
--- NOTE | 2021-07-21 12:55 | P.PN ---
Subjective Date of Service: 07/21/21 Chief Complaint: Chronic respiratory failure Patient is doing better more alert responsive cooperative Review of Systems General: Weakness Respiratory: Shortness of Breath Physical Examination - Vital Signs Temperature: 97.7 F Blood Pressure: 145/82 Pulse: 60 Respirations: 20 Pulse Ox (%): 90 - Physical Exam General: Oriented x3 Respiratory: Clear to auscultation bilaterally, Diminished Cardiovascular: No edema Assessment & Plan - Problems (Diagnosis) (1) Chronic respiratory failure with hypercapnia Current Visit: Yes Status: Acute Plan: Patient is chronic hypoxic hypercapnic respiratory failure noninvasive ventilator has been requested DC IV fluid continue with inhaled bronchodilators Diamox continue with prednisone physical therapy oxygen saturations satisfactory stable discharge
--- NOTE | 2021-07-21 14:33 | P.PN ---
Subjective Date of Service: 07/21/21 Chief Complaint: Chronic respiratory failure Patient has no new complaints. She she has been using CPAP during sleep. Her oxygen saturations in mid 90s on 3 L oxygen by nasal cannula which is her baseline. Physical Examination - Vital Signs Temperature: 97.7 F Blood Pressure: 145/82 Pulse: 60 Respirations: 20 Pulse Ox (%): 90 - Physical Exam General: In no apparent distress, Obese HEENT: Mucous membr. moist/pink Neck: JVD not distended Respiratory: Diminished (Bilateral) Cardiovascular: Regular rate/rhythm, Edema (Bilateral lower extremity pedal edema.) Gastrointestinal: Soft and benign, Non-distended Musculoskeletal: No tenderness Integumentary: No rashes, No cyanosis Neurological: Normal speech, Normal strength at 5/5 x4 extr Assessment And Plan - Current Problems (Diagnosis) (1) Acute respiratory failure with hypoxia and hypercapnia Current Visit: Yes Status: Acute (2) Obesity hypoventilation syndrome Current Visit: Yes Status: Acute (3) COPD exacerbation Current Visit: Yes Status: Acute (4) Hypertension Onset Date: 02/22/18 Current Visit: No Status: Chronic Qualifiers: Hypertension type: primary hypertension Qualified Code(s): I10 - Essential (primary) hypertension (5) Hypothyroid Onset Date: 02/22/18 Current Visit: No Status: Chronic Qualifiers: (6) Coronary artery disease Current Visit: No Status: Chronic Qualifiers: Coronary Disease-Associated Artery/Lesion type: unspecified vessel or lesion type [place] vs. transplanted heart: [place] heart Associated angina: without angina Qualified Code(s): I25.10 - Atherosclerotic heart disease of [place] coronary artery without angina pectoris - Plan Continue bronchodilators. Continue steroid. Patient currently in hypothyroid state. Synthroid, recheck TSH in 8 weeks. Patient currently on baseline oxygen Use CPAP during sleep. Pulmonary is following. Continue home medications for coronary to disease. Awaiting for portable oxygen for discharge. Patient has oxygen concentrator at home. Home nebulizer ordered.
[2021-07-21] MEDS: ATORVASTATIN 80 MG TAB PO SCH (21:04)
[2021-07-22] MEDS: IPRATROPIUM BROM 0.5MG/2.5ML NEB SCH ×4 (02:25→19:57)
[2021-07-22] MEDS: METOPROLOL TAR 25 MG TAB PO SCH ×2 (05:39→17:09)
[2021-07-22] MEDS: LEVOTHYROXINE SOD 0.05 MG TABLET PO SCH (05:40)
[2021-07-22 06:12] LABS: Potassium 3.7 mmol/L (3.5-5.1)
--- NOTE | 2021-07-22 06:17 | P.PN ---
Date of Service: 07/22/21 Subjective: Feeling better, got some decent sleep last night, tolerating BiPAP Reports 1 episode of loose stool earlier this morning, feels bloated Passing flatus ROS: 10 point ROS as noted above, otherwise negative Physical exam GEN: Alert, oriented, NAD HEENT: Normal conjunctiva, sclera anicteric CV: Regular rate and rhythm, bilateral lower extremity edema Pulm: Nonlabored respirations on 4L NC, b/l expiratory wheeze ABD: Mild distention, nontender MSK: No joint tenderness Neuro: Normal speech, normal affect Problem List Acute hypoxemic respiratory failure with hypercapnia secondary to COPD exacerbation and obesity hypoventilation syndrome Hypertension Hypothyroid CAD Super morbid obesity Continue steroids, bronchodilators Pulmonology consulted Noninvasive vent while asleep, tolerating her baseline oxygen during the day Hypothyroid, continue Synthroid, recheck thyroid levels in 2 months Continue home chronic medications for coronary disease Patient has been improving Family is setting up for portable oxygen, she already has an oxygen contractor at home Family filling out paperwork and requirements to have NIV set up for discharge Suspect patient has been swallowing a lot of air from BiPAP, recommend ambulation, patient requesting Gas-X Dispo: DC home in the next 1 to 2 days, awaiting NIV and portable O2 to be arranged Time Spent Managing Pts Care (In Minutes): 35
[2021-07-22] MEDS: acetaZOLAMIDE 250 MG TAB PO SCH ×2 (08:31→20:38)
[2021-07-22] MEDS: predniSONE 20 MG TAB PO SCH ×2 (08:31→20:37)
[2021-07-22] MEDS: ENOXAPARIN 40 MG/0.4 ML SQ SCH (08:31)
[2021-07-22] MEDS: ASPIRIN EC 81 MG TAB PO SCH (08:32)
[2021-07-22] MEDS: CLOPIDOGREL 75 MG TABLET PO SCH (08:32)
[2021-07-22] MEDS: ISOSORBIDE MONO SR 60 MG TAB PO SCH (08:32)
[2021-07-22] MEDS: DULERA 200/5 (MOMETASONE/FORMOTEROL) INHALER IH SCH ×2 (08:32→20:39)
[2021-07-22] MEDS ORDERED: POTASSIUM CL SA 10 MEQ TAB PO ONE (09:00)
[2021-07-22] MEDS ORDERED: SIMETHICONE 125 MG TAB PO PRN (10:33)
[2021-07-22] MEDS: ACETAMINOPHEN 500 MG TAB PO PRN (20:37)
[2021-07-22] MEDS: ATORVASTATIN 80 MG TAB PO SCH (20:38)
[2021-07-23] MEDS: ALBUTEROL 2.5 MG/3 ML NEB SOL NEB PRN (02:58)
[2021-07-23] MEDS: IPRATROPIUM BROM 0.5MG/2.5ML NEB SCH ×2 (02:58→08:00)
[2021-07-23] MEDS: LEVOTHYROXINE SOD 0.05 MG TABLET PO SCH (05:33)
[2021-07-23] MEDS: METOPROLOL TAR 25 MG TAB PO SCH (05:33)
[2021-07-23 05:51] LABS: Hematocrit 30.8 % (36.0-45.0); MPV 8.1 fL (7.6-11.3); RBC Red Blood Cell Count 3.53 M/uL (3.86-4.86)
[2021-07-23 06:11] LABS: Magnesium 2.4 mg/dL (1.8-2.4); Potassium 3.7 mmol/L (3.5-5.1)
--- NOTE | 2021-07-23 06:23 | P.PN ---
Date of Service: 07/23/21 Subjective: ROS: 10 point ROS as noted above, otherwise negative Physical exam GEN: Alert, oriented, NAD HEENT: Normal conjunctiva, sclera anicteric CV: Regular rate and rhythm, bilateral lower extremity edema Pulm: Nonlabored respirations on 4L NC, b/l expiratory wheeze ABD: Mild distention, nontender MSK: No joint tenderness Neuro: Normal speech, normal affect Problem List Acute hypoxemic respiratory failure with hypercapnia secondary to COPD exacerbation and obesity hypoventilation syndrome Hypertension Hypothyroid CAD Super morbid obesity Continue steroids, bronchodilators Pulmonology consulted Noninvasive vent while asleep, tolerating her baseline oxygen during the day Hypothyroid, continue Synthroid, recheck thyroid levels in 2 months Continue home chronic medications for coronary disease Patient has been improving Family is setting up for portable oxygen, she already has an oxygen contractor at home Family filling out paperwork and requirements to have NIV set up for discharge Suspect patient has been swallowing a lot of air from BiPAP, recommend ambulation, patient requesting Gas-X Dispo: DC home in the next 1 to 2 days, awaiting NIV and portable O2 to be arranged Time Spent Managing Pts Care (In Minutes): 35
[2021-07-23] MEDS: CLOPIDOGREL 75 MG TABLET PO SCH (10:07)
[2021-07-23] MEDS: ASPIRIN EC 81 MG TAB PO SCH (10:07)
[2021-07-23] MEDS: predniSONE 20 MG TAB PO SCH (10:07)
[2021-07-23] MEDS: ENOXAPARIN 40 MG/0.4 ML SQ SCH (10:07)
[2021-07-23] MEDS: acetaZOLAMIDE 250 MG TAB PO SCH (10:07)
[2021-07-23] MEDS: DULERA 200/5 (MOMETASONE/FORMOTEROL) INHALER IH SCH (10:08)
[2021-07-23] MEDS: ISOSORBIDE MONO SR 60 MG TAB PO SCH (10:08)
[2021-07-23 12:21] VITALS: O2SAT 92
[2021-07-23 14:06] VITALS: BP 137/76; TEMP 96.9
--- NOTE | 2021-07-23 21:42 | P.DS ---
Admission Date: 07/18/21 Discharge Date: 07/23/21 Disposition: DC HOME/HOME HEALTH CARE Discharge Condition: FAIR Reason for Admission: Chronic respiratory failure Consultations: Pulmonology - Dr. Laura Procedures: Problem List Acute hypoxemic respiratory failure with hypercapnia secondary to COPD exacerbation and obesity hypoventilation syndrome Hypertension Hypothyroid CAD Super morbid obesity Brief History of Present Illness: 60 yo F with COPD, HTN, HLD, TIA, hypothyroidism who presents with worsening cough and SOB over the past month. Today she felt week and had a fall in her bathroom. She says her knees gave out but she did not hit her head. Her daughter helped get her up. She has been dizzy and more confused recently. She is normally on 2L of home O2. She says that her nebulizer broke and she has been unable to give herself breathing treatments. She has had mild relief with her inhalers. Reports wheezing. Denies fever. She was hypercapnic upon arrival and was placed on BIPAP. Hospital Course: Patient admitted to the medical floor and treated for COPD exacerbation with IV steroids, scheduled bronchodilators including arformoterol. She was also started on Diamox for metabolic alkalosis. Patient's respiratory status improved to baseline with use of NC during the day and BIPAP at night. Currently tolerating 3-4 oxygen by nasal cannula. She was seen in consultation by pulmonology-Dr. Laura who assisted with management - started patient on Trelegy and setting patient up for home NIV. Vital Signs/Physical Exam: Temp Pulse Resp BP Pulse Ox 96.9 F 59 18 137/76 96 07/23/21 12:00 07/23/21 12:00 07/23/21 12:00 07/23/21 12:00 07/23/21 12:00 General: Alert, In no apparent distress Neck: Supple Respiratory: Diminished (at bases bilaterally), Other (non-labored respirations on 3L NC) Cardiovascular: No edema, Regular rate/rhythm Gastrointestinal: Soft and benign, Non-distended, No tenderness Musculoskeletal: No tenderness Integumentary: No rashes Neurological: Normal speech, Normal affect Laboratory Data at Discharge: WBC 4.40 K/uL (4.3-10.9) D 07/23/21 05:14 Hgb 10.0 g/dL (12.0-15.0) L 07/23/21 05:14 Hct 30.8 % (36.0-45.0) L 07/23/21 05:14 Plt Count 202 K/uL (152-406) 07/23/21 05:14 PT 10.7 SECONDS (9.5-12.5) 07/17/21 21:28 INR 0.93 07/17/21 21:28 Sodium 134 mmol/L (136-145) L 07/23/21 05:14 Potassium 3.7 mmol/L (3.5-5.1) 07/23/21 05:14 BUN 15 mg/dL (7-18) 07/23/21 05:14 Creatinine 1.01 mg/dL (0.55-1.3) 07/23/21 05:14 Glucose 111 mg/dL (74-106) H 07/23/21 05:14 Phosphorus 2.7 mg/dL (2.5-4.9) 07/19/21 06:53 Magnesium 2.4 mg/dL (1.8-2.4) D 07/23/21 05:14 Total Bilirubin 0.2 mg/dL (0.2-1.0) 07/19/21 06:53 AST 21 U/L (15-37) 07/19/21 06:53 ALT 17 U/L (12-78) 07/19/21 06:53 Alkaline Phosphatase 68 U/L (45-117) 07/19/21 06:53 Triglycerides 91 mg/dL (<150) 07/19/21 06:53 Cholesterol 355 mg/dL (<200) H 07/19/21 06:53 HDL Cholesterol 70 mg/dL (40-60) H 07/19/21 06:53 Cholesterol/HDL Ratio 5.07 07/19/21 06:53 Lipase 154 U/L (73-393) 07/17/21 21:28 Home Medications: Albuterol Sulfate [Proair Hfa] 2 puff IH TID PRN #1 hfa.aer.ad 08/22/20 Aspirin [Aspirin EC 81 MG] 81 mg PO DAILY #90 tablet. 08/22/20 Metoprolol Tartrate [Lopressor*] 12.5 mg PO BID 6AM 6PM #60 tab 08/22/20 Ranolazine [Ranolazine ER] 500 mg PO BID #60 tab.er.12h 08/22/20 Atorvastatin Calcium [Lipitor] 40 mg PO BEDTIME 07/18/21 Clopidogrel Bisulfate [Plavix] 75 mg PO DAILY 07/18/21 Isosorbide Mononitrate [Isosorbide Mononitrate ER] 60 mg PO DAILY 07/18/21 Albuterol Neb [Proventil 0.083% Neb Soln] 2.5 mg NEB Q6HP PRN #120 amp 07/19/21 Fluticasone/Umeclidin/Vilanter [Trelegy Ellipta 100-62.5-25] 1 each IH DAILY 30 Days #30 blst.w.dev 07/19/21 Ipratropium Neb [Atrovent*] 0.5 mg NEB [id number] #120 amp 07/19/21 Nebulizer [Aeroneb Go Nebulizer] 1 each MC TID #1 each 07/19/21 acetaZOLAMIDE [Diamox*] 125 mg PO BID #160 tab 07/19/21 predniSONE [Prednisone*] 20 mg PO BID #18 tab 07/19/21 Levothyroxine [Synthroid*] 0.05 mg PO DAILYAC 30 Days #30 tablet 07/23/21 New Medications: Ipratropium Neb [Atrovent*] 0.5 mg NEB [id number] #120 amp Albuterol Neb [Proventil 0.083% Neb Soln] 2.5 mg NEB Q6HP PRN #120 amp PRN Reason: Shortness Of Breath Nebulizer [Aeroneb Go Nebulizer] 1 each MC TID #1 each acetaZOLAMIDE [Diamox*] 125 mg PO BID #160 tab predniSONE [Prednisone*] 20 mg PO BID #18 tab Levothyroxine [Synthroid*] 0.05 mg PO DAILYAC 30 Days #30 tablet Fluticasone/Umeclidin/Vilanter [Trelegy Ellipta 100-62.5-25] 1 each IH DAILY 30 Days #30 blst.w.dev Physician Discharge Instructions: Follow up with Dr. Laura in ~1-2 weeks You were also noted to be hypothyroid and started on thyroid hormone replacement. Follow up with your PCP in 1-2 weeks. You will need to have repeat thyroid testing in ~2-3 months Diet: AHA Activity: Ad jannet Followup: Oseas Laura MD [ACTIVE - CAN ADMIT] - Marianela Parr NP [Primary Care Provider] - 1-2 Weeks (Call to schedule appointment.) Time spent managing pt's care (in minutes): 45
== END 2021-07-23 14:45 | disposition home health service (06) | DRG 190 ==
LOC: ER 20:36 → ERHOLD 07-18 01:05 → 2ND 07-18 01:13
PROVIDERS: ADMIT Internal Medicine; ATTEND Hospitalist
PROC: 5A09557 Assistance with Respiratory Ventilation, Greater than 96 Consecutive Hours, Continuous Positive Airway Pressure (ICD-10-PCS; principal; 2021-07-18)
DX: J44.1 Chronic obstructive pulmonary disease with (acute) exacerbation (principal); J96.22 Acute and chronic respiratory failure with hypercapnia; J96.21 Acute and chronic respiratory failure with hypoxia; E87.2 Acidosis; Z68.43 Body mass index [BMI] 50.0-59.9, adult; E66.2 Morbid (severe) obesity with alveolar hypoventilation; E87.3 Alkalosis; E78.5 Hyperlipidemia, unspecified; I25.10 Atherosclerotic heart disease of native coronary artery without angina pectoris; E03.9 Hypothyroidism, unspecified; I99.8 Other disorder of circulatory system; I10 Essential (primary) hypertension; I25.2 Old myocardial infarction; Z86.73 Personal history of transient ischemic attack (TIA), and cerebral infarction without residual deficits; Z88.5 Allergy status to narcotic agent; Z99.81 Dependence on supplemental oxygen; Z79.82 Long term (current) use of aspirin; Z79.02 Long term (current) use of antithrombotics/antiplatelets; Z79.899 Other long term (current) drug therapy; Z87.891 Personal history of nicotine dependence; Z20.822 Contact with and (suspected) exposure to COVID-19; Z79.890 Hormone replacement therapy
CPT/HCPCS: 0241U; 36415; 71045; 80048; 80053; 80061; 80076; 81003; 81015; 82805; 83605; 83690; 83735; 83880; 84100; 84132; 84145; 84439; 84443; 84484; 85025; 85027; 85610; 87040; 93005; 94640; 94660; 94760; 96374; 96375; 97110; 97112; 97116; 97161; 99285; J0696; J1650; J2405; J2920; J2930; J7512; J7605; J7606; Q2035

== ENCOUNTER 2022-05-26 19:45 | Inpatient (IN) | payer OTHER ==
--- OUTSIDE RECORDS SUMMARY | 2022-05-26 19:50 | XMS REPORT | Continuity of Care Document ---
:1960 Author Organization [facility] t Address [address] [place] [address] [address] [place] [address] Care Team Providers Name Role Phone PCP, PATIENT DOES NOT HAVE A Primary Care Physician Unavaila ble Doctor Unassigned, [place] Attending Clinician Unavailable MAHENDRA BECK Attending Clinician Unavailable MAHENDRA BECK Admitting Clinician Unavailable Payers Payer Name Policy Type Policy Number Effective Date Expiration Date S ource Problems Condition Condition Condition Status Onset Resolution Last Treating Co mments Source Name Details Category Date Date Treatment Clinician Date HTN HTN Disease Active Univers (hypertens (hypertens 6-15 it y of ion) ion) 00:00: [address] High High Disease Active Univers cholestero cholestero 6-15 it y of l l 00:00: [address] Hypoxia Hypoxia Disease Active Univers 6-15 ity of 00:00: [address] Allergies, Adverse Reactions, Alerts Allergy Allergy Status Severity Reaction(s) Onset Inactive Treating Comm ents Source Name Type Date Date Clinician Morphine Propensi Active and ty to 8-16 Related adverse 00:00: - CLASS reaction 00 to drug Morphine Propensi Active Rash Univer s ty to 6-15 ity of adverse 00:00: [place] reaction 00 Medical s Branch MORPHINE DRUG Active Rash Univers INGREDI 6-15 ity of 00:00: [place] 00 Medical Branch Morphine Propensi Active ty to 3-05 adverse 00:00: reaction 00 to drug Social History Social Habit Start Date Stop Date Quantity Comments Source History SDAR University o f Alcohol Std Drinks [place] [facility] History SDAR [facility] o f Alcohol Binge [place] [facility] History SDAR [facility] o f Alcohol Comment [place] [facility] Alcohol intake 2019-06-22 2019-06-22 Lifetime University of 00:00:00 00:00:00 non-drinker [facility] (finding) Branch Cigarettes smoked 2018-12-28 2018-12-28 Univers ity of current (pack per 00:00:00 00:00:00 [facility] [place] ) - Reported Branch Cigarette 2018-12-28 2018-12-28 University of pack-years 00:00:00 00:00:00 [facility] Tobacco use and 2018-12-28 2018-12-28 Smokeless Universit y of exposure 00:00:00 00:00:00 tobacco non-user [facility] dical Branch History SDOH 2018-12-28 2018-12-28 1 University o f Alcohol Frequency 00:00:00 00:00:00 [facility] Tobacco Comment 2018-12-28 2018-12-28 quit December 2018 Unive rsity of 00:00:00 00:00:00 [facility] History of tobacco 2018-12-03 Cigarette Smoker University of use 00:00:00 [facility] Sex Ass[birth year] At [birth year] Universit y of 00:00:00 00:00:00 [facility] Smoking Status Start Date Stop Date Source Ex-smoker 2018-12-28 00:00:00 2018-12-28 00:00:00 Universi ty of [facility] Medications Ordered Filled Start Stop Current Ordering Indication Dosage Frequency Signature Comments Components Source Medication Medication Date Date Medication? Clinician (SIG) Name Name Dose No Unknown -21 00:00: 00 Dose 2022-0 No Unknown 5-19 00:00: 00 Dose 2022-0 No Unknown 5-18 00:00: 00 Dose 2022-0 No Unknown 5-18 00:00: 00 acetazolami 2022-0 No 5mg de 250 mg 5-18 tablet 00:00: 00 Euthyrox 2022-0 No 1mcg 150 mcg 5-18 tablet 00:00: 00 acetazolami 2022-0 No 1mg de ER 500 5-18 mg 00:00: capsule,ext 00 ended release Dulera 200 2-0 No 2mcg/ac mcg-5 5-18 tuation mcg/actuati 00:00: on HFA 00 aerosol inhaler Dulera 200 2-0 No 2mcg/ac mcg-5 5-18 tuation mcg/actuati 00:00: on HFA 00 aerosol inhaler ProAir HFA 2-0 No 2mcg/ac 90 4-04 tuation mcg/actuati 00:00: on aerosol 00 inhaler metoprolol 2-0 No 5mg tartrate 25 4-04 mg tablet 00:00: 00 Euthyrox 2022-0 No 1mcg 150 mcg 1-06 tablet 00:00: 00 Dose 2021-0 No Unknown 9-16 00:00: 00 Dose 2021-0 No Unknown 9-11 00:00: 00 clopidogrel 2021-0 No 1mg 75 mg 9-11 tablet 00:00: 00 isosorbide 2021-0 No 1mg mononitrate 9-11 ER 60 mg 00:00: tablet,exte 00 nded release 24 hr Dose 2021-0 No Unknown 9-11 00:00: 00 ranolazine 2021-0 No 1mg ER 500 mg 9-11 tablet,exte 00:00: nded 00 release,12 hr atorvastati 2021-0 No 1mg n 40 mg 9-11 tablet 00:00: 00 budesonide 2021-0 No 1mg/2 0.5 mg/2 mL 9-11 mL suspension 00:00: for 00 nebulizatio n furosemide 1-0 No 1mg 40 mg 7-12 tablet 00:00: 00 furosemide 2021-0 No 1mg 40 mg 6-02 tablet 00:00: 00 atorvastati 2021-0 No 1mg n 40 mg 4-24 tablet 00:00: 00 ProAir HFA 2020-0 No 2mcg/ac 90 4-22 tuation mcg/actuati 00:00: on aerosol 00 inhaler Dose 2020-0 No Unknown 4-22 00:00: 00 clopidogrel 1-0 No 1mg 75 mg 4-22 tablet 00:00: 00 isosorbide 1-0 No 1mg mononitrate 4-22 ER 60 mg 00:00: tablet,exte 00 nded release 24 hr clopidogrel 1-0 No 1mg 75 mg 4-22 tablet 00:00: 00 isosorbide 2020-0 No 1mg mononitrate 4-22 ER 60 mg 00:00: tablet,exte 00 nded release 24 hr furosemide 1-0 No 1mg 40 mg 4-22 tablet 00:00: 00 metoprolol 1-0 No 5mg tartrate 25 4-22 mg tablet 00:00: 00 ranolazine 2020-0 No 1mg ER 500 mg 4-22 tablet,exte 00:00: nded 00 release,12 hr furosemide 2020-0 No 1mg 40 mg 4-22 tablet 00:00: 00 metoprolol 1-0 No 5mg tartrate 25 4-22 mg tablet 00:00: 00 ranolazine 1-0 No 1mg ER 500 mg 4-22 tablet,exte 00:00: nded 00 release,12 hr Euthyrox 1-0 No 1mcg 150 mcg 4-22 tablet 00:00: 00 Euthyrox 1-0 No 1mcg 150 mcg 4-22 tablet 00:00: 00 budesonide 2020-0 No 1mg/2 0.5 mg/2 mL 4-22 mL suspension 00:00: for 00 nebulizatio n budesonide 2020-0 No 1mg/2 0.5 mg/2 mL 4-22 mL suspension 00:00: for nebulizatio n benzonatate Yes 100mg Take 100 U nivers 100 mg 6-26 mg by ity of capsule 11:46: mouth as [place] 53 needed for Medical Cough. Branch levothyroxi Yes 175ug Take 175 U nivers ne 50 mcg 6-26 mcg by ity of tablet 11:46: mouth [place] 53 every Medical morning. Branch atorvastati Yes [id number] 20mg Take 1 Univers n 20 mg 6-26 tablet by ity of tablet 00:00: mouth at [place] 00 bedtime. Medical Branch metoprolol Yes [id number] 25mg Take 1 U nivers tartrate 25 6-26 tablet by ity of mg tablet 00:00: mouth 2 [place] 00 (two) Medical times Branch daily. tiotropium Yes [id number] 18ug Inhale 1 Univers 18 mcg 6-26 capsule ity of inhalation 00:00: daily. [place] 00 Medical Branch CHLORPHENIR Yes 4mg Take 4 mg U nivers AMINE 6-20 by mouth ity of MALEATE 13:11: as needed [place] ORAL 04 (allergies Medical ). Branch nicotine 14 Yes [id number] 1{patch Apply 1 Univers mg/24 hr 6-20 } Patch to ity of patch 00:00: area(s) [place] 00 every 24 Medical (twenty-fo Branch ur) hours. cyanocobala Yes [id number] 1{capsu Take 1 Univers min, 6-19 le} capsule by ity of vitamin 00:00: mouth [place] B-12, 1,000 00 daily. Medica l mcg Cap Branch ipratropium Yes [id number] 3mL Inhale 3 Univers -albuterol 6-19 mL every 4 ity of 0.5 mg-3 00:00: (four) [place] mg(2.5 mg 00 hours. Medical base)/3 mL Branch nebulizer solution Nebulizer & Yes [id number] Use every Univers Compressor 6-19 4 hours as ity of For Neb 00:00: needed [place] 00 wheezing Medical or Branch shortness of breath levothyroxi No 1mcg ne 175 mcg 6-06 tablet 00:00: 00 levothyroxi No 1mcg ne 50 mcg 5-22 tablet 00:00: 00 atorvastati No 1mg n 20 mg 5-16 tablet 00:00: 00 lisinopril No 1mg 20 mg 5-16 tablet 00:00: 00 metoprolol No 1mg tartrate 25 5-16 mg tablet 00:00: 00 levothyroxi 2019-0 No 1mcg ne 125 mcg 5-16 tablet 00:00: 00 lisinopril 2019-0 No 1mg 20 mg 4-29 tablet 00:00: 00 metoprolol 2019-0 No 1mg tartrate 25 4-29 mg tablet 00:00: 00 levothyroxi 2019-0 No 1mcg ne 125 mcg 4-29 tablet 00:00: 00 ProAir HFA 2019-0 No 2mcg/ac 90 4-11 tuation mcg/actuati 00:00: on aerosol 00 inhaler doxycycline 2019-0 No 1mg hyclate 100 4-11 mg capsule 00:00: 00 lisinopril 2019-0 No 1mg 20 mg 4-01 tablet 00:00: 00 ranitidine 2019-0 No 1mg 150 mg 4-01 tablet 00:00: 00 metoprolol 2019-0 No 1mg tartrate 25 4-01 mg tablet 00:00: 00 levothyroxi 2019-0 No 1mcg ne 125 mcg 3-30 tablet 00:00: 00 levothyroxi 2019-0 No 1mcg ne 100 mcg 3-03 tablet 00:00: 00 Vitamin D2 2019-0 No 1unit 50,000 unit 1-21 capsule 00:00: 00 ranitidine 2019-0 No 1mg 150 mg 1-08 tablet 00:00: 00 lisinopril 2019-0 No 1mg 20 mg 1-08 tablet 00:00: 00 metoprolol 2019-0 No 1mg tartrate 25 1-08 mg tablet 00:00: 00 levothyroxi 2019-0 No 1mcg ne 50 mcg 1-08 tablet 00:00: 00 levothyroxi 2018-1 No 1mcg ne 50 mcg 0-01 tablet 00:00: 00 pantoprazol 2018-0 No 1mg e 40 mg 9-26 tablet,saniya 00:00: yed release 00 pantoprazol 2018-0 No 1mg e 40 mg 9-26 tablet,saniya 00:00: yed release 00 lisinopril 2018-0 No 1mg 20 mg 9-26 tablet 00:00: 00 metoprolol 2018-0 No 1mg tartrate 25 9-26 mg tablet 00:00: 00 levothyroxi 2018-0 No 1mcg ne 25 mcg 8-18 tablet 00:00: 00 lisinopril 2018-0 No 1mg 20 mg 8-16 tablet 00:00: 00 metoprolol 2018-0 No 1mg tartrate 25 8-16 mg tablet 00:00: 00 aspirin 325 2018-0 No 1mg mg tablet 804 00:00: 00 metoprolol 2018-0 No 1mg tartrate 25 8-02 mg tablet 00:00: 00 hydrochloro 2017-0 No 1mg thiazide 25 7-28 mg tablet 00:00: 00 lisinopril 2017-0 No 1mg 20 mg 7-28 tablet 00:00: 00 levothyroxi 2017-0 No 1mcg ne 112 mcg 7-28 tablet 00:00: 00 lisinopril 2017-0 No 1mg 20 mg 7-24 tablet 00:00: 00 hydrochloro 2017-0 No 1mg thiazide 25 7-24 mg tablet 00:00: 00 hydroxyzine 2017-0 No 12mg HCl 25 mg 7-24 tablet 00:00: 00 levothyroxi 2017-0 No 1mcg ne 112 mcg 7-24 tablet 00:00: 00 levothyroxi 2017-0 No 1mcg ne 112 mcg 3-18 tablet 00:00: 00 lisinopril 2017-0 No 1mg 20 mg 3-17 tablet 00:00: 00 hydrochloro 2017-0 No 1mg thiazide 25 3-17 mg tablet 00:00: 00 hydroxyzine 2017-0 No 12mg HCl 25 mg 3-17 tablet 00:00: 00 levothyroxi 2017-0 No 1mcg ne 100 mcg 3-17 tablet 00:00: 00 hydrochloro 2017-0 No 1mg thiazide 25 3-14 mg tablet 00:00: 00 amlodipine 2017-0 No 1mg 10 mg 3-14 tablet 00:00: 00 lisinopril 2017-0 No 1mg 20 mg 3-14 tablet 00:00: 00 levothyroxi 2017-0 No 1mcg ne 100 mcg 3-14 tablet 00:00: 00 lisinopril 2016-0 No 1mg 20 mg 9-23 tablet 00:00: 00 amlodipine 2016-0 No 1mg 10 mg 9-23 tablet 00:00: 00 hydrochloro 2016-0 No 1mg thiazide 25 9-23 mg tablet 00:00: 00 hydroxyzine 2015-0 No 12mg HCl 25 mg 9-23 tablet 00:00: 00 levothyroxi 2016-0 No 1mcg ne 100 mcg 9-23 tablet 00:00: 00 hydrochloro 2016-0 No 1mg thiazide 25 6-17 mg tablet 00:00: 00 amlodipine 2016-0 No 1mg 10 mg 6-17 tablet 00:00: 00 hydroxyzine 2016-0 No 12mg HCl 25 mg 6-17 tablet 00:00: 00 levothyroxi 2016-0 No 1mcg ne 100 mcg 6-17 tablet 00:00: 00 hydrochloro 2015-0 No 1mg thiazide 25 3-19 mg tablet 00:00: 00 levothyroxi 2015-0 No 1mcg ne 100 mcg 3-19 tablet 00:00: 00 Norvasc 10 2015-0 No 1mg mg tablet 3-19 00:00: 00 carvedilol 2015-0 No 1mg 12.5 mg 3-05 tablet 00:00: 00 lisinopril 2015-0 No 1mg 20 3-05 mg-hydrochl 00:00: orothiazide 00 12.5 mg tablet levothyroxi 2014-0 No 1mcg ne 50 mcg 3-05 tablet 00:00: 00 levothyroxi 2015-0 No 1mcg ne 50 mcg 3-05 tablet 00:00: 00 Immunizations Ordered Filled Immunization Date Status Comments Sour e Immunization Name Name zoster 2018-11-30 Completed 00:00:00 Influenza Virus 2018-04-04 Completed Universit y of Vaccine - Whole 00:00:00 [facility] ical Branch Pneumococcal 13 2018-04-04 Completed Universit y of Conjugate, PCV13 00:00:00 [facility] dical (Prevnar 13) Branch Tdap 2018-03-30 Completed 00:00:00 Vital Signs Vital Name Observation Time Observation Value Comments Source BP Systolic 2022-03-30 17:17:00 104 mm[Hg] BP Diastolic 2022-03-30 17:17:00 66 mm[Hg] Weight Measured 2022-03-30 17:17:00 267.20 pounds Height Measured 2022-03-30 17:17:00 64.00 inches Body Temperature 2022-03-30 17:17:00 98.20 degrees Heart Rate 2022-03-30 17:17:00 85.00 /min Respiratory Rate 2022-03-30 17:17:00 18.00 /min BP Systolic 2021-11-19 14:51:00 144 mm[Hg] BP Diastolic 2021-11-19 14:51:00 77 mm[Hg] Weight Measured 2021-11-19 14:51:00 267.40 pounds Height Measured 2021-11-19 14:51:00 64.00 inches Body Temperature 2021-11-19 14:51:00 98.40 degrees Heart Rate 2021-11-19 14:51:00 104.00 /min Respiratory Rate 2021-11-19 14:51:00 17.00 /min BP Systolic 2021-03-15 13:17:00 152 mm[Hg] BP Diastolic 2021-03-15 13:17:00 70 mm[Hg] Weight Measured 2021-03-15 13:17:00 276.80 pounds Height Measured 2021-03-15 13:17:00 64.00 inches Body Temperature 2021-03-15 13:17:00 98.00 degrees Heart Rate 2021-03-15 13:17:00 87.00 /min Respiratory Rate 2021-03-15 13:17:00 BP Systolic 2020-10-24 11:25:00 133 mm[Hg] BP Diastolic 2020-10-24 11:25:00 81 mm[Hg] Weight Measured 2020-10-24 11:25:00 256.00 pounds Height Measured 2020-10-24 11:25:00 64.00 inches Body Temperature 2020-10-24 11:25:00 98.40 degrees Heart Rate 2020-10-24 11:25:00 77.00 /min Respiratory Rate 2020-10-24 11:25:00 17.00 /min BP Systolic 2018-11-17 08:55:00 143 mm[Hg] BP Diastolic 2018-11-17 08:55:00 84 mm[Hg] Weight Measured 2018-11-17 08:55:00 217.40 pounds Height Measured 2018-11-17 08:55:00 64.00 inches Body Temperature 2018-11-17 08:55:00 98.50 degrees Heart Rate 2018-11-17 08:55:00 84.00 /min Respiratory Rate 2018-11-17 08:55:00 16.00 /min BP Systolic 2018-10-13 14:43:00 124 mm[Hg] BP Diastolic 2018-10-13 14:43:00 76 mm[Hg] Weight Measured 2018-10-13 14:43:00 217.80 pounds Height Measured 2018-10-13 14:43:00 64.00 inches Body Temperature 2018-10-13 14:43:00 98.90 degrees Heart Rate 2018-10-13 14:43:00 79.00 /min Respiratory Rate 2018-10-13 14:43:00 16.00 /min BP Systolic 2018-08-23 08:58:00 146 mm[Hg] BP Diastolic 2018-08-23 08:58:00 83 mm[Hg] Weight Measured 2018-08-23 08:58:00 217.20 pounds Height Measured 2018-08-23 08:58:00 64.00 inches Body Temperature 2018-08-23 08:58:00 98.10 degrees Heart Rate 2018-08-23 08:58:00 82.00 /min Respiratory Rate 2018-08-23 08:58:00 16.00 /min BP Systolic 2018-07-12 14:25:00 139 mm[Hg] BP Diastolic 2018-07-12 14:25:00 79 mm[Hg] Weight Measured 2018-07-12 14:25:00 217.20 pounds Height Measured 2018-07-12 14:25:00 64.00 inches Body Temperature 2018-07-12 14:25:00 98.40 degrees Heart Rate 2018-07-12 14:25:00 74.00 /min Respiratory Rate 2018-07-12 14:25:00 16.00 /min BP Systolic 2018-03-30 15:07:00 126 mm[Hg] BP Diastolic 2018-03-30 15:07:00 77 mm[Hg] Weight Measured 2018-03-30 15:07:00 Height Measured 2018-03-30 15:07:00 Body Temperature 2018-03-30 15:07:00 Heart Rate 2018-03-30 15:07:00 Respiratory Rate 2018-03-30 15:07:00 BP Systolic 2018-03-30 14:39:00 147 mm[Hg] BP Diastolic 2018-03-30 14:39:00 79 mm[Hg] Weight Measured 2018-03-30 14:39:00 201.40 pounds Height Measured 2018-03-30 14:39:00 64.00 inches Body Temperature 2018-03-30 14:39:00 98.10 degrees Heart Rate 2018-03-30 14:39:00 73.00 /min Respiratory Rate 2018-03-30 14:39:00 18.00 /min Procedures Procedure Date / Time Performed Performing Clinician [facility] e REFERRAL- 2022-03-31 05:01:00 Doctor Unassigned, No Univer [facility] [place] [place] REQUEST/RESPONSE Name Medical Branch Ekg 2018-07-12 00:00:00 [id number] Ecg Routine Ecg 2016-03-27 00:00:00 W/least 12 Lds W/i r Plan of Care Planned Activity Planned Date Details Comments Source Goal Plan of Care Note [code = 80970-6] Goal Plan of Care Note [code = 53865-6] Goal Plan of Care Note [code = 87760-1] Goal Plan of Care Note [code = 88925-6] Goal Plan of Care Note [code = 64707-9] Goal Plan of Care Note [code = 58616-1] Goal Plan of Care Note [code = 37986-9] Goal Plan of Care Note [code = 80021-5] Goal Plan of Care Note [code = 64086-6] Goal Plan of Care Note [code = 65684-6] Goal Plan of Care Note [code = 12541-3] Goal Plan of Care Note [code = 94336-9] Goal Plan of Care Note [code = 26695-4] Goal Plan of Care Note [code = 35075-5] Goal Plan of Care Note [code = 15990-7] Goal Plan of Care Note [code = 67295-2] Goal Plan of Care Note [code = 26948-9] Goal Plan of Care Note [code = 05844-1] Goal Plan of Care Note [code = 63346-8] Goal Plan of Care Note [code = 31139-3] Goal Plan of Care Note [code = 31089-3] Goal Plan of Care Note [code = 49617-3] Goal Plan of Care Note [code = 97664-6] Goal Plan of Care Note [code = 68118-1] Goal Plan of Care Note [code = 34393-9] Goal Plan of Care Note [code = 63107-5] Goal Plan of Care Note [code = 54717-5] Goal Plan of Care Note [code = 93151-5] Goal Plan of Care Note [code = 17866-8] Goal Plan of Care Note [code = 84568-7] Goal Plan of Care Note [code = 44591-3] Goal Plan of Care Note [code = 05534-2] Goal Plan of Care Note [code = 80252-6] Goal Plan of Care Note [code = 33045-9] Goal Plan of Care Note [code = 09410-6] Goal Plan of Care Note [code = 45534-3] Goal Plan of Care Note [code = 55637-2] Goal Plan of Care Note [code = 13895-0] Encounters Start End Encounter Admission Attending Care Care Encounter Source Date/Time Date/Time Type Type Clinicians Facility Department ID 2022-03-31 2022-03-31 Orders Doctor MERNA [id number] Univers 00:00:00 00:00:00 Only Unassigned, GUERITA 350.1.13.10 ity of [place] [facility] [id number] Yan as [id number] [address] 2022-03-30 2022-03-30 Outpatient [id number] 00:00:00 00:00:00 Visit [id number] 2019-06-22 2019-06-22 Emergency X KIRAN, [facility] ERT [id number] Univers 07:30:42 10:40:00 MAHENDRA [facility] 2008-10-18 2008-10-18 Outpatient [facility] [id number] Univers 00:00:00 00:00:00 7 [facility] Results Test Description Test Time Test Comments Results Result Comments Source JEAN-PAUL REFLEX AUTOIMMUNE AB PROFILE 2021-11-21 11:16:02 Test Item Value Reference Range Interpretation Comme nts ANTI-NUCLEAR ANTIBODIES (test NEGATIVE NEGATIVE Methodology is Indirect code = 3506) Immunofluoresce nt Assay (IFA) with a titering syst em using [id number] cells (Hep2 rosalva ls transfected with SS-A/Ro). C-REACTIVE [id number] 06:27:07 Test Item Value Reference Range Interpretation Comments C-REACTIVE PROTEIN (test code = 0.3 MG/DL <0.5 3513) RHEUMATOID FACTOR, [id number] 06:27:07 Test Item Value Reference Range Interpretation Comments RHEUMATOID FACTOR, QUANT (test code <10 IU/ML <14 = 3502) VITAMIN D, 25 [id number] 04:24:08 Test Item Value Reference Range Interpretation Comments VITAMIN D, 25 OH 8 NG/ML SEE BELOW L NOTE: 25-H YDROXYVITAMIN D (test code = 4958) ASSAY INC LUDES 25-HYDROXYVITAM IN D2 AND D3. METHODOLOGY IS CHEMILUMINESCEN T IMMUNOASSAY. INTERPRETIVE RA NGES PEDIATRIC (<17 YEARS) . . . . . . . . . . . NG/ML 20-100ADULT: IN SUFFICIENT . . . . . . . . . . . . . . NG/ML <20 SUBOP TIMAL . . . . . . . . . . . . . . . NG/ML 20-29 OPT IMAL . . . . . . . . . . . . . . . . . NG/ML 30-100 UN LESS OTHERWISE INDIC ATED, ALL TESTING PERFORM ED ATCLINICAL PATH [address] [address] LABORATORY DIRE CTOR: Dev RIZZO. CLIA NUMBER [id number] CAP ACCREDITATION N O. [id number] URIC [id number] 04:15:47 Test Item Value Reference Range Interpretation Comments URIC ACID (test code = 2233) 3.8 MG/DL 2.7-6.1 COMPREHENSIVE METABOLIC [id number] 04:15:47 Test Item Value Reference Range Interpretation Comments GLUCOSE (test code = 99 MG/DL 70-99 2216) BUN (test code = 5 MG/DL 6-20 L 2207) CREATININE (test 1.11 MG/DL 0.60-1.30 code = 2214) eGFR (2020 CKD-EPI) 57 ML/MIN/1.73 >60 L (test code = 61903) CALC BUN/CREAT (test 5 RATIO 6-28 L code = 2235) SODIUM (test code = 143 MEQ/L 208-492 9932) POTASSIUM (test code 3.6 MEQ/L 3.5-5.4 = 2227) CHLORIDE (test code 97 MEQ/L 95-107 = 2214) CARBON DIOXIDE (test 38 MEQ/L 19-31 H code = 2206) CALCIUM (test code = 9.0 MG/DL 8.5-10.5 2208) PROTEIN, TOTAL (test 6.7 G/DL 6.1-8.3 code = 222) ALBUMIN (test code = 4.3 G/DL 3.5-5.2 2200) CALC GLOBULIN (test 2.4 G/DL 1.9-3.7 code = 224) CALC A/G RATIO (test 1.8 RATIO 1.0-2.6 code = 223) BILIRUBIN, TOTAL <0.2 MG/DL See_Comment [Automated message] (test code = 2206) The syste m which generated this result transmit karol reference range : <=1.2. The refe rence range was not u sed to interpret th is result as normal/abnormal . ALKALINE PHOSPHATASE 67 U/L 40-136 (test code = 2203) AST (test code = 16 U/L 9-40 2217) ALT (test code = 9 U/L 5-40 2218) LIPID [id number] 04:15:47 Test Item Value Reference Range Interpretation Comments CHOLESTEROL (test 230 MG/DL <200 H code = 2210) TRIGLYCERIDES (test 146 MG/DL <150 code = 2232) HDL CHOLESTEROL (test 60 MG/DL >39 code = 2220) CALC LDL CHOL (test 142 MG/DL <100 H NOTE: C ALCULATED LDL code = 2237) IS BASED ON JOSEPH-SOLORIO METHOD WHICHINCLUDES ADJUSTABLE TRIGLYCERIDE:VL DL CHOLESTEROL RAT IO.THIS FACTOR VARIES B Y MEASURED TRIGLY CERIDE AND NON-HDLCHOL ESTEROL CONCENTRATIONS WITH INCREASED CALCU LATED LDL SEENIN HIGH ER TRIGLYCERIDE OR LOWER NON-HDL SPECIME NS. FOR MOREINFORMATION , SEE CLIENT ANNOUNCE MENT AT [email or web address] RATIO LDL/HDL 2.37 RATIO <3.22 (test code = 223) SEDIMENTATION [id number] 03:41:17 Test Item Value Reference Range Interpretation Comments SEDIMENTATION RATE (test code = 35 MM/HOUR 0-20 H 1017) HEMOGLOBIN [id number] 03:35:25 Test Item Value Reference Range Interpretation Comments HEMOGLOBIN A1c (test code = 63040) 5.5 % 4.2-5.6 PROTHROMBIN TIME (PT)2021-11-21 03:14:03 Test Item Value Reference Range Interpretation Comments PROTHROMBIN TIME 12.7 SECONDS 12.5-14.7 (PT) (test code = 1402) INR (test code = 0.9 SEE BELOW CURRENT 15959) RECOMMENDATIONS ARE FOR AN INR OF 2 .0-3.0 FOR ALL PATIENT S ON VITAMIN K ANTAG ONISTS, EXCEPT THOSE WI TH PROSTHETIC HEAR T VALVES, FOR WHO M INR OF 2.5-3.5 IS RECOMMENDED. CBC W/AUTO DIFF WITH [id number] 02:43:48 Test Item Value Reference Range Interpretation Comments WBC (test code = 6.0 K/UL 3.5-11.0 1001) RBC (test code = 3.40 M/UL 3.80-5.40 L 1002) HEMOGLOBIN (test code 10.2 G/DL 11.5-15.5 L = 1003) HEMATOCRIT (test code 31.8 % 34.0-45.0 L = 1004) MCV (test code = 93.5 fL 80.0-99.0 1005) MCH (test code = 30.0 PG 25.0-33.0 1006) MCHC (test code = 32.1 G/DL 31.0-36.0 1007) RDW (test code = 13.6 % 11.5-15.0 1038) NEUTROPHILS (test 70.0 % code = 1008) LYMPHOCYTES (test 20.4 % code = 1010) MONOCYTES (test code 6.8 % = 1011) EOSINOPHILS (test 2.0 % code = 1012) BASOPHILS (test code 0.5 % = 1013) IMMATURE GRANULOCYTES 0.3 % (test code = 1036) NUCLEATED RBCS (test 0.0 /100 WBC'S See_Comment [Aut omated code = 1065) message] The sy stem which generated this result transmitted reference range : 0.0. The refere nce range was not u sed to interpret th is result as normal/abnormal . PLATELET COUNT (test 202 K/UL 130-400 code = 1015) ABSOLUTE NEUTROPHILS 4.21 K/UL 1.50-7.50 (test code = 1066) ABSOLUTE LYMPHOCYTES 1.23 K/UL 1.00-4.00 (test code = 1067) ABSOLUTE MONOCYTES 0.41 K/UL 0.20-1.00 (test code = 1068) ABSOLUTE EOSINOPHILS 0.12 K/UL 0.00-0.50 (test code = 1040) ABSOLUTE BASOPHILS 0.03 K/UL 0.00-0.20 (test code = 1069) ABS IMMATURE 0.02 K/UL 0.00-0.10 GRANULOCYTES (test code = 1020) ABS NUCLEATED RBCS 0.02 K/UL 0.00-0.11 (test code = 19226) CBC W/AUTO [id number] 00:00:00 Test Item Value Reference Range Interpretation Comments WBC (test code = 1001) 6.0 K/UL RBC (test code = 1002) 3.40 M/UL HEMOGLOBIN (test code = 1003) 10.2 G/DL HEMATOCRIT (test code = 1004) 31.8 % MCV (test code = 1005) 93.5 fL MCH (test code = 1006) 30.0 PG MCHC (test code = 1007) 32.1 G/DL RDW (test code = 1038) 13.6 % NEUTROPHILS (test code = 1008) 70.0 % LYMPHOCYTES (test code = 1010) 20.4 % MONOCYTES (test code = 1011) 6.8 % EOSINOPHILS (test code = 1012) 2.0 % BASOPHILS (test code = 1013) 0.5 % IMMATURE GRANULOCYTES (test 0.3 % code = 1036) NUCLEATED RBCS (test code = 0.0 /100WBC'S 1065) PLATELET COUNT (test code = 202 K/UL 1015) ABSOLUTE NEUTROPHILS (test code 4.21 K/UL = 1066) ABSOLUTE LYMPHOCYTES (test code 1.23 K/UL = 1067) ABSOLUTE MONOCYTES (test code = 0.41 K/UL 1068) ABSOLUTE EOSINOPHILS (test code 0.12 K/UL = 1040) ABSOLUTE BASOPHILS (test code = 0.03 K/UL 1069) ABS IMMATURE GRANULOCYTES (test 0.02 K/UL code = 1020) ABS NUCLEATED RBCS (test code = 0.02 K/UL 71375) CBC W/AUTO [id number] 00:00:00 Test Item Value Reference Range Interpretation Comments WBC (test code = 1001) 6.0 K/UL RBC (test code = 1002) 3.40 M/UL HEMOGLOBIN (test code = 1003) 10.2 G/DL HEMATOCRIT (test code = 1004) 31.8 % MCV (test code = 1005) 93.5 fL MCH (test code = 1006) 30.0 PG MCHC (test code = 1007) 32.1 G/DL RDW (test code = 1038) 13.6 % NEUTROPHILS (test code = 1008) 70.0 % LYMPHOCYTES (test code = 1010) 20.4 % MONOCYTES (test code = 1011) 6.8 % EOSINOPHILS (test code = 1012) 2.0 % BASOPHILS (test code = 1013) 0.5 % IMMATURE GRANULOCYTES (test 0.3 % code = 1036) NUCLEATED RBCS (test code = 0.0 /100WBC'S 1065) PLATELET COUNT (test code = 202 K/UL 1015) ABSOLUTE NEUTROPHILS (test code 4.21 K/UL = 1066) ABSOLUTE LYMPHOCYTES (test code 1.23 K/UL = 1067) ABSOLUTE MONOCYTES (test code = 0.41 K/UL 1068) ABSOLUTE EOSINOPHILS (test code 0.12 K/UL = 1040) ABSOLUTE BASOPHILS (test code = 0.03 K/UL 1069) ABS IMMATURE GRANULOCYTES (test 0.02 K/UL code = 1020) ABS NUCLEATED RBCS (test code = 0.02 K/UL 49940) CBC W/AUTO [id number] 00:00:00 Test Item Value Reference Range Interpretation Comments WBC (test code = 1001) 6.0 K/UL RBC (test code = 1002) 3.40 M/UL HEMOGLOBIN (test code = 1003) 10.2 G/DL HEMATOCRIT (test code = 1004) 31.8 % MCV (test code = 1005) 93.5 fL MCH (test code = 1006) 30.0 PG MCHC (test code = 1007) 32.1 G/DL RDW (test code = 1038) 13.6 % NEUTROPHILS (test code = 1008) 70.0 % LYMPHOCYTES (test code = 1010) 20.4 % MONOCYTES (test code = 1011) 6.8 % EOSINOPHILS (test code = 1012) 2.0 % BASOPHILS (test code = 1013) 0.5 % IMMATURE GRANULOCYTES (test 0.3 % code = 1036) NUCLEATED RBCS (test code = 0.0 /100WBC'S 1065) PLATELET COUNT (test code = 202 K/UL 1015) ABSOLUTE NEUTROPHILS (test code 4.21 K/UL = 1066) ABSOLUTE LYMPHOCYTES (test code 1.23 K/UL = 1067) ABSOLUTE MONOCYTES (test code = 0.41 K/UL 1068) ABSOLUTE EOSINOPHILS (test code 0.12 K/UL = 1040) ABSOLUTE BASOPHILS (test code = 0.03 K/UL 1069) ABS IMMATURE GRANULOCYTES (test 0.02 K/UL code = 1020) ABS NUCLEATED RBCS (test code = 0.02 K/UL 39446) COMPREHENSIVE METABOLIC [id number] 00:00:00 Test Item Value Reference Range Interpretation Comments GLUCOSE (test code = 2217) 99 MG/DL BUN (test code = 2208) 5 MG/DL CREATININE (test code = 2214) 1.11 MG/DL eGFR (2020 CKD-EPI) (test code 57 ML/MIN/1.73 = 81171) CALC BUN/CREAT (test code = 5 RATIO 2235) SODIUM (test code = 2231) 143 MEQ/L POTASSIUM (test code = 2228) 3.6 MEQ/L CHLORIDE (test code = 2215) 97 MEQ/L CARBON DIOXIDE (test code = 38 MEQ/L 2205) CALCIUM (test code = 2209) 9.0 MG/DL PROTEIN, TOTAL (test code = 6.7 G/DL 2228) ALBUMIN (test code = 2201) 4.3 G/DL CALC GLOBULIN (test code = 2.4 G/DL 2240) CALC A/G RATIO (test code = 1.8 RATIO 2234) BILIRUBIN, TOTAL (test code = <0.2 MG/DL 2206) ALKALINE PHOSPHATASE (test 67 U/L code = 2204) AST (test code = 2218) 16 U/L ALT (test code = 2219) 9 U/L COMPREHENSIVE METABOLIC [id number] 00:00:00 Test Item Value Reference Range Interpretation Comments GLUCOSE (test code = 2217) 99 MG/DL BUN (test code = 2208) 5 MG/DL CREATININE (test code = 2214) 1.11 MG/DL eGFR (2020 CKD-EPI) (test code 57 ML/MIN/1.73 = 36769) CALC BUN/CREAT (test code = 5 RATIO 2235) SODIUM (test code = 2231) 143 MEQ/L POTASSIUM (test code = 2228) 3.6 MEQ/L CHLORIDE (test code = 2215) 97 MEQ/L CARBON DIOXIDE (test code = 38 MEQ/L 2205) CALCIUM (test code = 2209) 9.0 MG/DL PROTEIN, TOTAL (test code = 6.7 G/DL 2228) ALBUMIN (test code = 2201) 4.3 G/DL CALC GLOBULIN (test code = 2.4 G/DL 2239) CALC A/G RATIO (test code = 1.8 RATIO 2233) BILIRUBIN, TOTAL (test code = <0.2 MG/DL 2206) ALKALINE PHOSPHATASE (test 67 U/L code = 2204) AST (test code = 2218) 16 U/L ALT (test code = 2219) 9 U/L LIPID [id number] 00:00:00 Test Item Value Reference Range Interpretation Comments CHOLESTEROL (test code = 2210) 230 MG/DL TRIGLYCERIDES (test code = 2232) 146 MG/DL HDL CHOLESTEROL (test code = 2220) 60 MG/DL CALC LDL CHOL (test code = 2237) 142 MG/DL RISK RATIO LDL/HDL (test code = 2.37 RATIO 2238) LIPID [id number] 00:00:00 Test Item Value Reference Range Interpretation Comments CHOLESTEROL (test code = 2210) 230 MG/DL TRIGLYCERIDES (test code = 2232) 146 MG/DL HDL CHOLESTEROL (test code = 2220) 60 MG/DL CALC LDL CHOL (test code = 2237) 142 MG/DL RISK RATIO LDL/HDL (test code = 2.37 RATIO 2238) HEMOGLOBIN [id number] 00:00:00 Test Item Value Reference Range Interpretation Comments HEMOGLOBIN A1c (test code = 53711) 5.5 % HEMOGLOBIN [id number] 00:00:00 Test Item Value Reference Range Interpretation Comments HEMOGLOBIN A1c (test code = 50252) 5.5 % HEMOGLOBIN [id number] 00:00:00 Test Item Value Reference Range Interpretation Comments HEMOGLOBIN A1c (test code = 67739) 5.5 % PROTHROMBIN TIME (PT)2021-11-21 00:00:00 Test Item Value Reference Range Interpretation Comments PROTHROMBIN TIME (PT) (test code 12.7 SECONDS = 1402) INR (test code = 17438) 0.9 PROTHROMBIN TIME (PT)2021-11-21 00:00:00 Test Item Value Reference Range Interpretation Comments PROTHROMBIN TIME (PT) (test code 12.7 SECONDS = 1402) INR (test code = 97529) 0.9 URIC [id number] 00:00:00 Test Item Value Reference Range Interpretation Comments URIC ACID (test code = 2233) 3.8 MG/DL URIC [id number] 00:00:00 Test Item Value Reference Range Interpretation Comments URIC ACID (test code = 2233) 3.8 MG/DL JEAN-PAUL REFLEX AUTOIMMUNE AB [id number] 00:00:00 Test Item Value Reference Range Interpretation Comments ANTI-NUCLEAR ANTIBODIES (test code = NEGATIVE 3506) JEAN-PAUL REFLEX AUTOIMMUNE AB [id number] 00:00:00 Test Item Value Reference Range Interpretation Comments ANTI-NUCLEAR ANTIBODIES (test code = NEGATIVE 3506) SEDIMENTATION [id number] 00:00:00 Test Item Value Reference Range Interpretation Comments SEDIMENTATION RATE (test code = 35 MM/HOUR 1017) SEDIMENTATION [id number] 00:00:00 Test Item Value Reference Range Interpretation Comments SEDIMENTATION RATE (test code = 35 MM/HOUR 1017) C-REACTIVE [id number] 00:00:00 Test Item Value Reference Range Interpretation Comments C-REACTIVE PROTEIN (test code = 0.3 MG/DL 3513) C-REACTIVE [id number] 00:00:00 Test Item Value Reference Range Interpretation Comments C-REACTIVE PROTEIN (test code = 0.3 MG/DL 3513) RHEUMATOID FACTOR, [id number] 00:00:00 Test Item Value Reference Range Interpretation Comments RHEUMATOID FACTOR, QUANT (test code <10 IU/ML = 3502) RHEUMATOID FACTOR, [id number] 00:00:00 Test Item Value Reference Range Interpretation Comments RHEUMATOID FACTOR, QUANT (test code <10 IU/ML = 3502) RHEUMATOID FACTOR, [id number] 00:00:00 Test Item Value Reference Range Interpretation Comments RHEUMATOID FACTOR, QUANT (test code <10 IU/ML = 3502) VITAMIN D, 25 [id number] 00:00:00 Test Item Value Reference Range Interpretation Comments VITAMIN D, 25 OH (test code = 4958) 8 NG/ML VITAMIN D, 25 [id number] 00:00:00 Test Item Value Reference Range Interpretation Comments VITAMIN D, 25 OH (test code = 4958) 8 NG/ML LIPID [id number] 00:00:00 Test Item Value Reference Range Interpretation Comments CHOLESTEROL (test code = 2210) 423 MG/DL TRIGLYCERIDES (test code = 2232) 227 MG/DL HDL CHOLESTEROL (test code = 2220) 66 MG/DL CALC LDL CHOL (test code = 2237) 315 MG/DL RISK RATIO LDL/HDL (test code = 4.77 RATIO 2238) LIPID [id number] 00:00:00 Test Item Value Reference Range Interpretation Comments CHOLESTEROL (test code = 2210) 423 MG/DL TRIGLYCERIDES (test code = 2232) 227 MG/DL HDL CHOLESTEROL (test code = 2220) 66 MG/DL CALC LDL CHOL (test code = 2237) 315 MG/DL RISK RATIO LDL/HDL (test code = 4.77 RATIO 2238) COMPREHENSIVE METABOLIC [id number] 00:00:00 Test Item Value Reference Range Interpretation Comments GLUCOSE (test code = 2217) 103 MG/DL BUN (test code = 2208) 6 MG/DL CREATININE (test code = 2214) 0.88 MG/DL eGFR AMER. (test code 84 ML/MIN/1.73 = 17613) eGFR NON- AMER. (test 72 ML/MIN/1.73 code = 08263) CALC BUN/CREAT (test code = 7 RATIO 2235) SODIUM (test code = 2231) 137 MEQ/L POTASSIUM (test code = 2228) 3.9 MEQ/L CHLORIDE (test code = 2215) 88 MEQ/L CARBON DIOXIDE (test code = 32 MEQ/L 2205) CALCIUM (test code = 2209) 9.2 MG/DL PROTEIN, TOTAL (test code = 7.3 G/DL 2228) ALBUMIN (test code = 220) 4.1 G/DL CALC GLOBULIN (test code = 3.2 G/DL 2239) CALC A/G RATIO (test code = 1.3 RATIO 223) BILIRUBIN, TOTAL (test code = <0.2 MG/DL 2207) ALKALINE PHOSPHATASE (test 97 U/L code = 2204) AST (test code = 2218) 28 U/L ALT (test code = 2219) 29 U/L COMPREHENSIVE METABOLIC [id number] 00:00:00 Test Item Value Reference Range Interpretation Comments GLUCOSE (test code = 2217) 103 MG/DL BUN (test code = 2208) 6 MG/DL CREATININE (test code = 2214) 0.88 MG/DL eGFR AMER. (test code 84 ML/MIN/1.73 = 31683) eGFR NON- AMER. (test 72 ML/MIN/1.73 code = 90403) CALC BUN/CREAT (test code = 7 RATIO 2235) SODIUM (test code = 2231) 137 MEQ/L POTASSIUM (test code = 2228) 3.9 MEQ/L CHLORIDE (test code = 2215) 88 MEQ/L CARBON DIOXIDE (test code = 32 MEQ/L 2205) CALCIUM (test code = 2209) 9.2 MG/DL PROTEIN, TOTAL (test code = 7.3 G/DL 2228) ALBUMIN (test code = 2201) 4.1 G/DL CALC GLOBULIN (test code = 3.2 G/DL 2240) CALC A/G RATIO (test code = 1.3 RATIO 2234) BILIRUBIN, TOTAL (test code = <0.2 MG/DL 2206) ALKALINE PHOSPHATASE (test 97 U/L code = 2204) AST (test code = 2218) 28 U/L ALT (test code = 2219) 29 U/L [id number] 00:00:00 Test Item Value Reference Range Interpretation Comments TSH, THIRD GENERATION (test 81.600 UIU/ML code = 2821) [id number] 00:00:00 Test Item Value Reference Range Interpretation Comments TSH, THIRD GENERATION (test 81.600 UIU/ML code = 2821) [id number] 00:00:00 Test Item Value Reference Range Interpretation Comments TSH, THIRD GENERATION (test 81.600 UIU/ML code = 2821) CBC W/AUTO [id number] 00:00:00 Test Item Value Reference Range Interpretation Comments WBC (test code = 1001) 7.2 K/UL RBC (test code = 1002) 3.84 M/UL HEMOGLOBIN (test code = 1003) 10.5 G/DL HEMATOCRIT (test code = 1004) 33.2 % MCV (test code = 1005) 86.5 fL MCH (test code = 1006) 27.3 PG MCHC (test code = 1007) 31.6 G/DL RDW (test code = 1038) 14.5 % NEUTROPHILS (test code = 1008) 72.7 % LYMPHOCYTES (test code = 1010) 18.0 % MONOCYTES (test code = 1011) 6.4 % EOSINOPHILS (test code = 1012) 2.1 % BASOPHILS (test code = 1013) 0.4 % IMMATURE GRANULOCYTES (test 0.4 % code = 1036) NUCLEATED RBCS (test code = 0.0 /100WBC'S 1065) PLATELET COUNT (test code = 249 K/UL 1015) ABSOLUTE NEUTROPHILS (test code 5.24 K/UL = 1066) ABSOLUTE LYMPHOCYTES (test code 1.30 K/UL = 1067) ABSOLUTE MONOCYTES (test code = 0.46 K/UL 1068) ABSOLUTE EOSINOPHILS (test code 0.15 K/UL = 1040) ABSOLUTE BASOPHILS (test code = 0.03 K/UL 1069) ABS IMMATURE GRANULOCYTES (test 0.03 K/UL code = 1020) ABS NUCLEATED RBCS (test code = 0.00 K/UL 19689) CBC W/AUTO [id number] 00:00:00 Test Item Value Reference Range Interpretation Comments WBC (test code = 1001) 7.2 K/UL RBC (test code = 1002) 3.84 M/UL HEMOGLOBIN (test code = 1003) 10.5 G/DL HEMATOCRIT (test code = 1004) 33.2 % MCV (test code = 1005) 86.5 fL MCH (test code = 1006) 27.3 PG MCHC (test code = 1007) 31.6 G/DL RDW (test code = 1038) 14.5 % NEUTROPHILS (test code = 1008) 72.7 % LYMPHOCYTES (test code = 1010) 18.0 % MONOCYTES (test code = 1011) 6.4 % EOSINOPHILS (test code = 1012) 2.1 % BASOPHILS (test code = 1013) 0.4 % IMMATURE GRANULOCYTES (test 0.4 % code = 1036) NUCLEATED RBCS (test code = 0.0 /100WBC'S 1065) PLATELET COUNT (test code = 249 K/UL 1015) ABSOLUTE NEUTROPHILS (test code 5.24 K/UL = 1066) ABSOLUTE LYMPHOCYTES (test code 1.30 K/UL = 1067) ABSOLUTE MONOCYTES (test code = 0.46 K/UL 1068) ABSOLUTE EOSINOPHILS (test code 0.15 K/UL = 1040) ABSOLUTE BASOPHILS (test code = 0.03 K/UL 1069) ABS IMMATURE GRANULOCYTES (test 0.03 K/UL code = 1020) ABS NUCLEATED RBCS (test code = 0.00 K/UL 73230) CBC W/AUTO [id number] 00:00:00 Test Item Value Reference Range Interpretation Comments WBC (test code = 1001) 7.2 K/UL RBC (test code = 1002) 3.84 M/UL HEMOGLOBIN (test code = 1003) 10.5 G/DL HEMATOCRIT (test code = 1004) 33.2 % MCV (test code = 1005) 86.5 fL MCH (test code = 1006) 27.3 PG MCHC (test code = 1007) 31.6 G/DL RDW (test code = 1038) 14.5 % NEUTROPHILS (test code = 1008) 72.7 % LYMPHOCYTES (test code = 1010) 18.0 % MONOCYTES (test code = 1011) 6.4 % EOSINOPHILS (test code = 1012) 2.1 % BASOPHILS (test code = 1013) 0.4 % IMMATURE GRANULOCYTES (test 0.4 % code = 1036) NUCLEATED RBCS (test code = 0.0 /100WBC'S 1065) PLATELET COUNT (test code = 249 K/UL 1015) ABSOLUTE NEUTROPHILS (test code 5.24 K/UL = 1066) ABSOLUTE LYMPHOCYTES (test code 1.30 K/UL = 1067) ABSOLUTE MONOCYTES (test code = 0.46 K/UL 1068) ABSOLUTE EOSINOPHILS (test code 0.15 K/UL = 1040) ABSOLUTE BASOPHILS (test code = 0.03 K/UL 1069) ABS IMMATURE GRANULOCYTES (test 0.03 K/UL code = 1020) ABS NUCLEATED RBCS (test code = 0.00 K/UL 34377) CBC W/AUTO [id number] 00:00:00 Test Item Value Reference Range Interpretation Comments WBC (test code = 1001) 7.3 K/UL RBC (test code = 1002) 3.67 M/UL HEMOGLOBIN (test code = 1003) 10.3 G/DL HEMATOCRIT (test code = 1004) 31.8 % MCV (test code = 1005) 86.6 fL MCH (test code = 1006) 28.1 PG MCHC (test code = 1007) 32.4 G/DL RDW (test code = 1038) 15.3 % NEUTROPHILS (test code = 1008) 68.8 % LYMPHOCYTES (test code = 1010) 21.7 % MONOCYTES (test code = 1011) 7.4 % EOSINOPHILS (test code = 1012) 1.4 % BASOPHILS (test code = 1013) 0.3 % IMMATURE GRANULOCYTES (test 0.4 % code = 1036) NUCLEATED RBCS (test code = 0.0 /100WBC'S 1065) PLATELET COUNT (test code = 283 K/UL 1015) ABSOLUTE NEUTROPHILS (test code 4.99 K/UL = 1066) ABSOLUTE LYMPHOCYTES (test code 1.57 K/UL = 1067) ABSOLUTE MONOCYTES (test code = 0.54 K/UL 1068) ABSOLUTE EOSINOPHILS (test code 0.10 K/UL = 1040) ABSOLUTE BASOPHILS (test code = 0.02 K/UL 1069) ABS IMMATURE GRANULOCYTES (test 0.03 K/UL code = 1020) ABS NUCLEATED RBCS (test code = 0.00 K/UL 52580) CBC W/AUTO [id number] 00:00:00 Test Item Value Reference Range Interpretation Comments WBC (test code = 1001) 7.3 K/UL RBC (test code = 1002) 3.67 M/UL HEMOGLOBIN (test code = 1003) 10.3 G/DL HEMATOCRIT (test code = 1004) 31.8 % MCV (test code = 1005) 86.6 fL MCH (test code = 1006) 28.1 PG MCHC (test code = 1007) 32.4 G/DL RDW (test code = 1038) 15.3 % NEUTROPHILS (test code = 1008) 68.8 % LYMPHOCYTES (test code = 1010) 21.7 % MONOCYTES (test code = 1011) 7.4 % EOSINOPHILS (test code = 1012) 1.4 % BASOPHILS (test code = 1013) 0.3 % IMMATURE GRANULOCYTES (test 0.4 % code = 1036) NUCLEATED RBCS (test code = 0.0 /100WBC'S 1065) PLATELET COUNT (test code = 283 K/UL 1015) ABSOLUTE NEUTROPHILS (test code 4.99 K/UL = 1066) ABSOLUTE LYMPHOCYTES (test code 1.57 K/UL = 1067) ABSOLUTE MONOCYTES (test code = 0.54 K/UL 1068) ABSOLUTE EOSINOPHILS (test code 0.10 K/UL = 1040) ABSOLUTE BASOPHILS (test code = 0.02 K/UL 1069) ABS IMMATURE GRANULOCYTES (test 0.03 K/UL code = 1020) ABS NUCLEATED RBCS (test code = 0.00 K/UL 27060) CBC W/AUTO [id number] 00:00:00 Test Item Value Reference Range Interpretation Comments WBC (test code = 1001) 7.3 K/UL RBC (test code = 1002) 3.67 M/UL HEMOGLOBIN (test code = 1003) 10.3 G/DL HEMATOCRIT (test code = 1004) 31.8 % MCV (test code = 1005) 86.6 fL MCH (test code = 1006) 28.1 PG MCHC (test code = 1007) 32.4 G/DL RDW (test code = 1038) 15.3 % NEUTROPHILS (test code = 1008) 68.8 % LYMPHOCYTES (test code = 1010) 21.7 % MONOCYTES (test code = 1011) 7.4 % EOSINOPHILS (test code = 1012) 1.4 % BASOPHILS (test code = 1013) 0.3 % IMMATURE GRANULOCYTES (test 0.4 % code = 1036) NUCLEATED RBCS (test code = 0.0 /100WBC'S 1065) PLATELET COUNT (test code = 283 K/UL 1015) ABSOLUTE NEUTROPHILS (test code 4.99 K/UL = 1066) ABSOLUTE LYMPHOCYTES (test code 1.57 K/UL = 1067) ABSOLUTE MONOCYTES (test code = 0.54 K/UL 1068) ABSOLUTE EOSINOPHILS (test code 0.10 K/UL = 1040) ABSOLUTE BASOPHILS (test code = 0.02 K/UL 1069) ABS IMMATURE GRANULOCYTES (test 0.03 K/UL code = 1020) ABS NUCLEATED RBCS (test code = 0.00 K/UL 70467) LIPID [id number] 00:00:00 Test Item Value Reference Range Interpretation Comments CHOLESTEROL (test code = 2210) 280 MG/DL TRIGLYCERIDES (test code = 2232) 191 MG/DL HDL CHOLESTEROL (test code = 2220) 57 MG/DL CALC LDL CHOL (test code = 2237) 186 MG/DL RISK RATIO LDL/HDL (test code = 3.26 RATIO 2238) LIPID [id number] 00:00:00 Test Item Value Reference Range Interpretation Comments CHOLESTEROL (test code = 2210) 280 MG/DL TRIGLYCERIDES (test code = 2232) 191 MG/DL HDL CHOLESTEROL (test code = 2220) 57 MG/DL CALC LDL CHOL (test code = 2237) 186 MG/DL RISK RATIO LDL/HDL (test code = 3.26 RATIO 2238) COMPREHENSIVE METABOLIC [id number] 00:00:00 Test Item Value Reference Range Interpretation Comments GLUCOSE (test code = 2217) 81 MG/DL BUN (test code = 2208) 8 MG/DL CREATININE (test code = 2214) 0.77 MG/DL eGFR AMER. (test code 99 ML/MIN/1.73 = 48530) eGFR NON- AMER. (test 85 ML/MIN/1.73 code = 03986) CALC BUN/CREAT (test code = 10 RATIO 2235) SODIUM (test code = 2231) 140 MEQ/L POTASSIUM (test code = 2228) 4.7 MEQ/L CHLORIDE (test code = 2215) 98 MEQ/L CARBON DIOXIDE (test code = 35 MEQ/L 2205) CALCIUM (test code = 2209) 9.2 MG/DL PROTEIN, TOTAL (test code = 7.1 G/DL 2228) ALBUMIN (test code = 2201) 4.1 G/DL CALC GLOBULIN (test code = 3.0 G/DL 2240) CALC A/G RATIO (test code = 1.4 RATIO 2234) BILIRUBIN, TOTAL (test code = <0.2 MG/DL 2206) ALKALINE PHOSPHATASE (test 78 U/L code = 2204) AST (test code = 2218) 16 U/L ALT (test code = 2219) 12 U/L COMPREHENSIVE METABOLIC [id number] 00:00:00 Test Item Value Reference Range Interpretation Comments GLUCOSE (test code = 2217) 81 MG/DL BUN (test code = 2208) 8 MG/DL CREATININE (test code = 2214) 0.77 MG/DL eGFR AMER. (test code 99 ML/MIN/1.73 = 91102) eGFR NON- AMER. (test 85 ML/MIN/1.73 code = 57336) CALC BUN/CREAT (test code = 10 RATIO 2235) SODIUM (test code = 2231) 140 MEQ/L POTASSIUM (test code = 2228) 4.7 MEQ/L CHLORIDE (test code = 2215) 98 MEQ/L CARBON DIOXIDE (test code = 35 MEQ/L 2205) CALCIUM (test code = 2209) 9.2 MG/DL PROTEIN, TOTAL (test code = 7.1 G/DL 2228) ALBUMIN (test code = 2201) 4.1 G/DL CALC GLOBULIN (test code = 3.0 G/DL 2239) CALC A/G RATIO (test code = 1.4 RATIO 2233) BILIRUBIN, TOTAL (test code = <0.2 MG/DL 2206) ALKALINE PHOSPHATASE (test 78 U/L code = 2204) AST (test code = 2218) 16 U/L ALT (test code = 2219) 12 U/L [id number] 00:00:00 Test Item Value Reference Range Interpretation Comments TSH, THIRD GENERATION (test 13.700 UIU/ML code = 2821) [id number] 00:00:00 Test Item Value Reference Range Interpretation Comments TSH, THIRD GENERATION (test 13.700 UIU/ML code = 2821) [id number] 00:00:00 Test Item Value Reference Range Interpretation Comments TSH, THIRD GENERATION (test 13.700 UIU/ML code = 2821) [id number] 00:00:00 Test Item Value Reference Range Interpretation Comments TSH, THIRD GENERATION (test 43.290 UIU/ML code = 2821) [id number] 00:00:00 Test Item Value Reference Range Interpretation Comments TSH, THIRD GENERATION (test 43.290 UIU/ML code = 2821) [id number] 00:00:00 Test Item Value Reference Range Interpretation Comments TSH, THIRD GENERATION (test 43.290 UIU/ML code = 2821) [id number] 00:00:00 Test Item Value Reference Range Interpretation Comments TSH, THIRD GENERATION (test 37.660 UIU/ML code = 2821) [id number] 00:00:00 Test Item Value Reference Range Interpretation Comments TSH, THIRD GENERATION (test 37.660 UIU/ML code = 2821) [id number] 00:00:00 Test Item Value Reference Range Interpretation Comments TSH, THIRD GENERATION (test 37.660 UIU/ML code = 2821) [id number] 00:00:00 Test Item Value Reference Range Interpretation Comments TSH, THIRD GENERATION (test 63.140 UIU/ML code = 2821) [id number] 00:00:00 Test Item Value Reference Range Interpretation Comments TSH, THIRD GENERATION (test 63.140 UIU/ML code = 2821) [id number] 00:00:00 Test Item Value Reference Range Interpretation Comments TSH, THIRD GENERATION (test 63.140 UIU/ML code = 2821) BASIC METABOLIC [id number] 00:00:00 Test Item Value Reference Range Interpretation Comments GLUCOSE (test code = 2217) 74 MG/DL BUN (test code = 2208) 8 MG/DL CREATININE (test code = 2214) 0.87 MG/DL eGFR AMER. (test code 86 ML/MIN/1.73 = 60995) eGFR NON- AMER. (test 74 ML/MIN/1.73 code = 63186) SODIUM (test code = 2231) 135 MEQ/L POTASSIUM (test code = 2228) 4.2 MEQ/L CHLORIDE (test code = 2215) 93 MEQ/L CARBON DIOXIDE (test code = 29 MEQ/L 2206) CALCIUM (test code = 2209) 8.8 MG/DL BASIC METABOLIC [id number] 00:00:00 Test Item Value Reference Range Interpretation Comments GLUCOSE (test code = 2217) 74 MG/DL BUN (test code = 2208) 8 MG/DL CREATININE (test code = 2214) 0.87 MG/DL eGFR AMER. (test code 86 ML/MIN/1.73 = 17492) eGFR NON- AMER. (test 74 ML/MIN/1.73 code = 74229) SODIUM (test code = 2231) 135 MEQ/L POTASSIUM (test code = 2228) 4.2 MEQ/L CHLORIDE (test code = 2215) 93 MEQ/L CARBON DIOXIDE (test code = 29 MEQ/L 2206) CALCIUM (test code = 2209) 8.8 MG/DL COMPREHENSIVE METABOLIC [id number] 00:00:00 Test Item Value Reference Range Interpretation Comments GLUCOSE (test code = 2217) 75 MG/DL BUN (test code = 2208) 7 MG/DL CREATININE (test code = 2214) 0.91 MG/DL eGFR AMER. (test code 82 ML/MIN/1.73 = 93629) eGFR NON- AMER. (test 71 ML/MIN/1.73 code = 96015) CALC BUN/CREAT (test code = 8 RATIO 2235) SODIUM (test code = 2231) 128 MEQ/L POTASSIUM (test code = 2228) 4.7 MEQ/L CHLORIDE (test code = 2215) 93 MEQ/L CARBON DIOXIDE (test code = 30 MEQ/L 2205) CALCIUM (test code = 2209) 9.1 MG/DL PROTEIN, TOTAL (test code = 7.9 G/DL 2228) ALBUMIN (test code = 2201) 4.4 G/DL CALC GLOBULIN (test code = 3.5 G/DL 224) CALC A/G RATIO (test code = 1.3 RATIO 2234) BILIRUBIN, TOTAL (test code = <0.2 MG/DL 2206) ALKALINE PHOSPHATASE (test 75 U/L code = 2204) AST (test code = 2218) 22 U/L ALT (test code = 2219) 11 U/L COMPREHENSIVE METABOLIC [id number] 00:00:00 Test Item Value Reference Range Interpretation Comments GLUCOSE (test code = 2217) 75 MG/DL BUN (test code = 2208) 7 MG/DL CREATININE (test code = 2214) 0.91 MG/DL eGFR AMER. (test code 82 ML/MIN/1.73 = 97955) eGFR NON- AMER. (test 71 ML/MIN/1.73 code = 96307) CALC BUN/CREAT (test code = 8 RATIO 2235) SODIUM (test code = 2231) 128 MEQ/L POTASSIUM (test code = 2228) 4.7 MEQ/L CHLORIDE (test code = 2215) 93 MEQ/L CARBON DIOXIDE (test code = 30 MEQ/L 220) CALCIUM (test code = 2209) 9.1 MG/DL PROTEIN, TOTAL (test code = 7.9 G/DL 2228) ALBUMIN (test code = 2201) 4.4 G/DL CALC GLOBULIN (test code = 3.5 G/DL 2240) CALC A/G RATIO (test code = 1.3 RATIO 2234) BILIRUBIN, TOTAL (test code = <0.2 MG/DL 220) ALKALINE PHOSPHATASE (test 75 U/L code = 2204) AST (test code = 2218) 22 U/L ALT (test code = 2219) 11 U/L CBC W/AUTO [id number] 00:00:00 Test Item Value Reference Range Interpretation Comments WBC (test code = 1001) 7.8 K/UL RBC (test code = 1002) 3.57 M/UL HEMOGLOBIN (test code = 1003) 9.0 G/DL HEMATOCRIT (test code = 1004) 28.1 % MCV (test code = 1005) 78.7 fL MCH (test code = 1006) 25.2 PG MCHC (test code = 1007) 32.0 G/DL RDW (test code = 1038) 13.7 % NEUTROPHILS (test code = 1008) 58.5 % LYMPHOCYTES (test code = 1010) 30.8 % MONOCYTES (test code = 1011) 7.8 % EOSINOPHILS (test code = 1012) 2.4 % BASOPHILS (test code = 1013) 0.5 % PLATELET COUNT (test code = 1015) 291 K/UL CBC W/AUTO [id number] 00:00:00 Test Item Value Reference Range Interpretation Comments WBC (test code = 1001) 7.8 K/UL RBC (test code = 1002) 3.57 M/UL HEMOGLOBIN (test code = 1003) 9.0 G/DL HEMATOCRIT (test code = 1004) 28.1 % MCV (test code = 1005) 78.7 fL MCH (test code = 1006) 25.2 PG MCHC (test code = 1007) 32.0 G/DL RDW (test code = 1038) 13.7 % NEUTROPHILS (test code = 1008) 58.5 % LYMPHOCYTES (test code = 1010) 30.8 % MONOCYTES (test code = 1011) 7.8 % EOSINOPHILS (test code = 1012) 2.4 % BASOPHILS (test code = 1013) 0.5 % PLATELET COUNT (test code = 1015) 291 K/UL CBC W/AUTO [id number] 00:00:00 Test Item Value Reference Range Interpretation Comments WBC (test code = 1001) 7.8 K/UL RBC (test code = 1002) 3.57 M/UL HEMOGLOBIN (test code = 1003) 9.0 G/DL HEMATOCRIT (test code = 1004) 28.1 % MCV (test code = 1005) 78.7 fL MCH (test code = 1006) 25.2 PG MCHC (test code = 1007) 32.0 G/DL RDW (test code = 1038) 13.7 % NEUTROPHILS (test code = 1008) 58.5 % LYMPHOCYTES (test code = 1010) 30.8 % MONOCYTES (test code = 1011) 7.8 % EOSINOPHILS (test code = 1012) 2.4 % BASOPHILS (test code = 1013) 0.5 % PLATELET COUNT (test code = 1015) 291 K/UL [id number] 00:00:00 Test Item Value Reference Range Interpretation Comments TSH, THIRD GENERATION (test 74.530 UIU/ML code = 2821) [id number] 00:00:00 Test Item Value Reference Range Interpretation Comments TSH, THIRD GENERATION (test 74.530 UIU/ML code = 2821) [id number] 00:00:00 Test Item Value Reference Range Interpretation Comments TSH, THIRD GENERATION (test 74.530 UIU/ML code = 2821) LIPID [id number] 00:00:00 Test Item Value Reference Range Interpretation Comments CHOLESTEROL (test code = 2210) 192 MG/DL TRIGLYCERIDES (test code = 2232) 212 MG/DL HDL CHOLESTEROL (test code = 2220) 61 MG/DL CALC LDL CHOL (test code = 2237) 89 MG/DL RISK RATIO LDL/HDL (test code = 1.45 RATIO 2238) LIPID [id number] 00:00:00 Test Item Value Reference Range Interpretation Comments CHOLESTEROL (test code = 2210) 192 MG/DL TRIGLYCERIDES (test code = 2232) 212 MG/DL HDL CHOLESTEROL (test code = 2220) 61 MG/DL CALC LDL CHOL (test code = 2237) 89 MG/DL RISK RATIO LDL/HDL (test code = 1.45 RATIO 2238) VITAMIN D, 25 [id number] 00:00:00 Test Item Value Reference Range Interpretation Comments VITAMIN D, 25 OH (test code = 4958) 14 NG/ML VITAMIN D, 25 [id number] 00:00:00 Test Item Value Reference Range Interpretation Comments VITAMIN D, 25 OH (test code = 4958) 14 NG/ML VITAMIN B 12 AND FOLIC [id number] 00:00:00 Test Item Value Reference Range Interpretation Comments VITAMIN B-12 (test code = 2840) 295 PG/ML FOLIC ACID (test code = 2695) 5.7 UG/L VITAMIN B 12 AND FOLIC [id number] 00:00:00 Test Item Value Reference Range Interpretation Comments VITAMIN B-12 (test code = 2840) 295 PG/ML FOLIC ACID (test code = 2695) 5.7 UG/L COMPREHENSIVE METABOLIC PANEL [ADDED]2018-03-31 00:00:00 Test Item Value Reference Range Interpretation Comments GLUCOSE (test code = 2217) 76 MG/DL BUN (test code = 2208) 8 MG/DL CREATININE (test code = 2214) 0.79 MG/DL eGFR AMER. (test code 98 ML/MIN/1.73 = 08178) eGFR NON- AMER. (test 84 ML/MIN/1.73 code = 84976) CALC BUN/CREAT (test code = 10 RATIO 2235) SODIUM (test code = 2231) 133 MEQ/L POTASSIUM (test code = 2228) 4.7 MEQ/L CHLORIDE (test code = 2215) 93 MEQ/L CARBON DIOXIDE (test code = 31 MEQ/L 2206) CALCIUM (test code = 2209) 9.4 MG/DL PROTEIN, TOTAL (test code = 7.7 G/DL 2228) ALBUMIN (test code = 2201) 4.6 G/DL CALC GLOBULIN (test code = 3.1 G/DL 2240) CALC A/G RATIO (test code = 1.5 RATIO 2234) BILIRUBIN, TOTAL (test code = <0.2 MG/DL 2206) ALKALINE PHOSPHATASE (test 70 U/L code = 2204) AST (test code = 2218) 20 U/L ALT (test code = 2219) 12 U/L COMPREHENSIVE METABOLIC PANEL [ADDED]2018-03-31 00:00:00 Test Item Value Reference Range Interpretation Comments GLUCOSE (test code = 2217) 76 MG/DL BUN (test code = 2208) 8 MG/DL CREATININE (test code = 2214) 0.79 MG/DL eGFR AMER. (test code 98 ML/MIN/1.73 = 89434) eGFR NON- AMER. (test 84 ML/MIN/1.73 code = 55449) CALC BUN/CREAT (test code = 10 RATIO 2235) SODIUM (test code = 2231) 133 MEQ/L POTASSIUM (test code = 2228) 4.7 MEQ/L CHLORIDE (test code = 2215) 93 MEQ/L CARBON DIOXIDE (test code = 31 MEQ/L 220) CALCIUM (test code = 2209) 9.4 MG/DL PROTEIN, TOTAL (test code = 7.7 G/DL 2228) ALBUMIN (test code = 2201) 4.6 G/DL CALC GLOBULIN (test code = 3.1 G/DL 224) CALC A/G RATIO (test code = 1.5 RATIO 2234) BILIRUBIN, TOTAL (test code = <0.2 MG/DL 2206) ALKALINE PHOSPHATASE (test 70 U/L code = 220) AST (test code = 2218) 20 U/L ALT (test code = 2219) 12 U/L CBC W/AUTO DIFF WITH PLATELETS [ADDED]2018-03-31 00:00:00 Test Item Value Reference Range Interpretation Comments WBC (test code = 1001) 6.6 K/UL RBC (test code = 1002) 4.01 M/UL HEMOGLOBIN (test code = 1003) 9.8 G/DL HEMATOCRIT (test code = 1004) 30.7 % MCV (test code = 1005) 76.6 fL MCH (test code = 1006) 24.4 PG MCHC (test code = 1007) 31.9 G/DL RDW (test code = 1038) 22.4 % NEUTROPHILS (test code = 1008) 54.0 % LYMPHOCYTES (test code = 1010) 35.5 % MONOCYTES (test code = 1011) 7.0 % EOSINOPHILS (test code = 1012) 2.9 % BASOPHILS (test code = 1013) 0.6 % PLATELET COUNT (test code = 1015) 218 K/UL CBC W/AUTO DIFF WITH PLATELETS [ADDED]2018-03-31 00:00:00 Test Item Value Reference Range Interpretation Comments WBC (test code = 1001) 6.6 K/UL RBC (test code = 1002) 4.01 M/UL HEMOGLOBIN (test code = 1003) 9.8 G/DL HEMATOCRIT (test code = 1004) 30.7 % MCV (test code = 1005) 76.6 fL MCH (test code = 1006) 24.4 PG MCHC (test code = 1007) 31.9 G/DL RDW (test code = 1038) 22.4 % NEUTROPHILS (test code = 1008) 54.0 % LYMPHOCYTES (test code = 1010) 35.5 % MONOCYTES (test code = 1011) 7.0 % EOSINOPHILS (test code = 1012) 2.9 % BASOPHILS (test code = 1013) 0.6 % PLATELET COUNT (test code = 1015) 218 K/UL CBC W/AUTO DIFF WITH PLATELETS [ADDED]2018-03-31 00:00:00 Test Item Value Reference Range Interpretation Comments WBC (test code = 1001) 6.6 K/UL RBC (test code = 1002) 4.01 M/UL HEMOGLOBIN (test code = 1003) 9.8 G/DL HEMATOCRIT (test code = 1004) 30.7 % MCV (test code = 1005) 76.6 fL MCH (test code = 1006) 24.4 PG MCHC (test code = 1007) 31.9 G/DL RDW (test code = 1038) 22.4 % NEUTROPHILS (test code = 1008) 54.0 % LYMPHOCYTES (test code = 1010) 35.5 % MONOCYTES (test code = 1011) 7.0 % EOSINOPHILS (test code = 1012) 2.9 % BASOPHILS (test code = 1013) 0.6 % PLATELET COUNT (test code = 1015) 218 K/UL TSH, THIRD GENERATION [ADDED]2018-03-31 00:00:00 Test Item Value Reference Range Interpretation Comments TSH, THIRD GENERATION (test 45.690 UIU/ML code = 2821) TSH, THIRD GENERATION [ADDED]2018-03-31 00:00:00 Test Item Value Reference Range Interpretation Comments TSH, THIRD GENERATION (test 45.690 UIU/ML code = 2821) TSH, THIRD GENERATION [ADDED]2018-03-31 00:00:00 Test Item Value Reference Range Interpretation Comments TSH, THIRD GENERATION (test 45.690 UIU/ML code = 2821) [id number] 00:00:00 Test Item Value Reference Range Interpretation Comments TSH, THIRD GENERATION (test 60.970 UIU/ML code = 2821) [id number] 00:00:00 Test Item Value Reference Range Interpretation Comments TSH, THIRD GENERATION (test 60.970 UIU/ML code = 2821) [id number] 00:00:00 Test Item Value Reference Range Interpretation Comments TSH, THIRD GENERATION (test 60.970 UIU/ML code = 2821) CBC W/AUTO DIFF WITH PLATELETS [ADDED]2018-02-18 00:00:00 Test Item Value Reference Range Interpretation Comments WBC (test code = 1001) 7.1 K/UL RBC (test code = 1002) 3.71 M/UL HEMOGLOBIN (test code = 1003) 7.9 G/DL HEMATOCRIT (test code = 1004) 26.4 % MCV (test code = 1005) 71.2 fL MCH (test code = 1006) 21.3 PG MCHC (test code = 1007) 29.9 G/DL RDW (test code = 1038) 16.2 % NEUTROPHILS (test code = 1008) 60.6 % LYMPHOCYTES (test code = 1010) 28.7 % MONOCYTES (test code = 1011) 8.1 % EOSINOPHILS (test code = 1012) 1.6 % BASOPHILS (test code = 1013) 1.0 % PLATELET COUNT (test code = 1015) 407 K/UL COMMENTS (test code = 1016) (NOTE) CBC W/AUTO DIFF WITH PLATELETS [ADDED]2018-02-18 00:00:00 Test Item Value Reference Range Interpretation Comments WBC (test code = 1001) 7.1 K/UL RBC (test code = 1002) 3.71 M/UL HEMOGLOBIN (test code = 1003) 7.9 G/DL HEMATOCRIT (test code = 1004) 26.4 % MCV (test code = 1005) 71.2 fL MCH (test code = 1006) 21.3 PG MCHC (test code = 1007) 29.9 G/DL RDW (test code = 1038) 16.2 % NEUTROPHILS (test code = 1008) 60.6 % LYMPHOCYTES (test code = 1010) 28.7 % MONOCYTES (test code = 1011) 8.1 % EOSINOPHILS (test code = 1012) 1.6 % BASOPHILS (test code = 1013) 1.0 % PLATELET COUNT (test code = 1015) 407 K/UL COMMENTS (test code = 1016) (NOTE) CBC W/AUTO DIFF WITH PLATELETS [ADDED]2018-02-18 00:00:00 Test Item Value Reference Range Interpretation Comments WBC (test code = 1001) 7.1 K/UL RBC (test code = 1002) 3.71 M/UL HEMOGLOBIN (test code = 1003) 7.9 G/DL HEMATOCRIT (test code = 1004) 26.4 % MCV (test code = 1005) 71.2 fL MCH (test code = 1006) 21.3 PG MCHC (test code = 1007) 29.9 G/DL RDW (test code = 1038) 16.2 % NEUTROPHILS (test code = 1008) 60.6 % LYMPHOCYTES (test code = 1010) 28.7 % MONOCYTES (test code = 1011) 8.1 % EOSINOPHILS (test code = 1012) 1.6 % BASOPHILS (test code = 1013) 1.0 % PLATELET COUNT (test code = 1015) 407 K/UL COMMENTS (test code = 1016) (NOTE) CBC W/AUTO DIFF WITH PLATELETS [ADDED]2018-02-04 00:00:00 Test Item Value Reference Range Interpretation Comments WBC (test code = 1001) 6.8 K/UL RBC (test code = 1002) 3.95 M/UL HEMOGLOBIN (test code = 1003) 8.3 G/DL HEMATOCRIT (test code = 1004) 27.9 % MCV (test code = 1005) 70.6 fL MCH (test code = 1006) 21.0 PG MCHC (test code = 1007) 29.7 G/DL RDW (test code = 1038) 15.7 % NEUTROPHILS (test code = 1008) 59.9 % LYMPHOCYTES (test code = 1010) 31.0 % MONOCYTES (test code = 1011) 7.2 % EOSINOPHILS (test code = 1012) 1.0 % BASOPHILS (test code = 1013) 0.9 % PLATELET COUNT (test code = 1015) 314 K/UL CBC W/AUTO DIFF WITH PLATELETS [ADDED]2018-02-04 00:00:00 Test Item Value Reference Range Interpretation Comments WBC (test code = 1001) 6.8 K/UL RBC (test code = 1002) 3.95 M/UL HEMOGLOBIN (test code = 1003) 8.3 G/DL HEMATOCRIT (test code = 1004) 27.9 % MCV (test code = 1005) 70.6 fL MCH (test code = 1006) 21.0 PG MCHC (test code = 1007) 29.7 G/DL RDW (test code = 1038) 15.7 % NEUTROPHILS (test code = 1008) 59.9 % LYMPHOCYTES (test code = 1010) 31.0 % MONOCYTES (test code = 1011) 7.2 % EOSINOPHILS (test code = 1012) 1.0 % BASOPHILS (test code = 1013) 0.9 % PLATELET COUNT (test code = 1015) 314 K/UL CBC W/AUTO DIFF WITH PLATELETS [ADDED]2018-02-04 00:00:00 Test Item Value Reference Range Interpretation Comments WBC (test code = 1001) 6.8 K/UL RBC (test code = 1002) 3.95 M/UL HEMOGLOBIN (test code = 1003) 8.3 G/DL HEMATOCRIT (test code = 1004) 27.9 % MCV (test code = 1005) 70.6 fL MCH (test code = 1006) 21.0 PG MCHC (test code = 1007) 29.7 G/DL RDW (test code = 1038) 15.7 % NEUTROPHILS (test code = 1008) 59.9 % LYMPHOCYTES (test code = 1010) 31.0 % MONOCYTES (test code = 1011) 7.2 % EOSINOPHILS (test code = 1012) 1.0 % BASOPHILS (test code = 1013) 0.9 % PLATELET COUNT (test code = 1015) 314 K/UL HEMOGLOBIN A1c [ADDED]2018-02-04 00:00:00 Test Item Value Reference Range Interpretation Comments HEMOGLOBIN A1c (test code = 45053) 5.4 % HEMOGLOBIN A1c [ADDED]2018-02-04 00:00:00 Test Item Value Reference Range Interpretation Comments HEMOGLOBIN A1c (test code = 05643) 5.4 % HEMOGLOBIN A1c [ADDED]2018-02-04 00:00:00 Test Item Value Reference Range Interpretation Comments HEMOGLOBIN A1c (test code = 22294) 5.4 % LIPID PANEL [ADDED]2018-02-04 00:00:00 Test Item Value Reference Range Interpretation Comments CHOLESTEROL (test code = 2210) 276 MG/DL TRIGLYCERIDES (test code = 2232) 261 MG/DL HDL CHOLESTEROL (test code = 2220) 39 MG/DL CALC LDL CHOL (test code = 2237) 185 MG/DL RISK RATIO LDL/HDL (test code = 4.74 RATIO 2238) LIPID PANEL [ADDED]2018-02-04 00:00:00 Test Item Value Reference Range Interpretation Comments CHOLESTEROL (test code = 2210) 276 MG/DL TRIGLYCERIDES (test code = 2232) 261 MG/DL HDL CHOLESTEROL (test code = 2220) 39 MG/DL CALC LDL CHOL (test code = 2237) 185 MG/DL RISK RATIO LDL/HDL (test code = 4.74 RATIO 2238) COMPREHENSIVE METABOLIC PANEL [ADDED]2018-02-04 00:00:00 Test Item Value Reference Range Interpretation Comments GLUCOSE (test code = 2217) 87 MG/DL BUN (test code = 2208) 7 MG/DL CREATININE (test code = 0.71 MG/DL 2214) eGFR AMER. (test (NOTE) ML/MIN/1.73 code = 59765) eGFR NON- AMER. NO CALC ML/MIN/1.73 (test code = 85639) CALC BUN/CREAT (test code 10 RATIO = 2235) SODIUM (test code = 2231) 137 MEQ/L POTASSIUM (test code = 3.7 MEQ/L 2228) CHLORIDE (test code = 95 MEQ/L 2215) CARBON DIOXIDE (test code 29 MEQ/L = 2206) CALCIUM (test code = 2209) 9.3 MG/DL PROTEIN, TOTAL (test code 8.1 G/DL = 2229) ALBUMIN (test code = 2201) 4.4 G/DL CALC GLOBULIN (test code = 3.7 G/DL 2240) CALC A/G RATIO (test code 1.2 RATIO = 2234) BILIRUBIN, TOTAL (test 0.3 MG/DL code = 2207) ALKALINE PHOSPHATASE (test 80 U/L code = 2204) AST (test code = 2218) 17 U/L ALT (test code = 2219) 9 U/L COMPREHENSIVE METABOLIC PANEL [ADDED]2018-02-04 00:00:00 Test Item Value Reference Range Interpretation Comments GLUCOSE (test code = 2217) 87 MG/DL BUN (test code = 2208) 7 MG/DL CREATININE (test code = 0.71 MG/DL 2214) eGFR AMER. (test (NOTE) ML/MIN/1.73 code = 72955) eGFR NON- AMER. NO CALC ML/MIN/1.73 (test code = 87218) CALC BUN/CREAT (test code 10 RATIO = 2235) SODIUM (test code = 2231) 137 MEQ/L POTASSIUM (test code = 3.7 MEQ/L 2228) CHLORIDE (test code = 95 MEQ/L 2215) CARBON DIOXIDE (test code 29 MEQ/L = 2206) CALCIUM (test code = 2209) 9.3 MG/DL PROTEIN, TOTAL (test code 8.1 G/DL = 2229) ALBUMIN (test code = 2201) 4.4 G/DL CALC GLOBULIN (test code = 3.7 G/DL 2240) CALC A/G RATIO (test code 1.2 RATIO = 2234) BILIRUBIN, TOTAL (test 0.3 MG/DL code = 2207) ALKALINE PHOSPHATASE (test 80 U/L code = 2204) AST (test code = 2218) 17 U/L ALT (test code = 2219) 9 U/L [id number] 00:00:00 Test Item Value Reference Range Interpretation Comments TSH (test code = 2821) 24.460 UIU/ML [id number] 00:00:00 Test Item Value Reference Range Interpretation Comments TSH (test code = 2821) 24.460 UIU/ML [id number] 00:00:00 Test Item Value Reference Range Interpretation Comments TSH (test code = 2821) 24.460 UIU/ML COMPREHENSIVE METABOLIC [id number] 00:00:00 Test Item Value Reference Range Interpretation Comments GLUCOSE (test code = 2217) 89 MG/DL BUN (test code = 2208) 5 MG/DL CREATININE (test code = 2214) 0.68 MG/DL eGFR AMER. (test code 115 ML/MIN/1.73 = 60841) eGFR NON- AMER. (test 99 ML/MIN/1.73 code = 77072) CALC BUN/CREAT (test code = 7 RATIO 2235) SODIUM (test code = 2231) 139 MEQ/L POTASSIUM (test code = 2228) 4.3 MEQ/L CHLORIDE (test code = 2215) 99 MEQ/L CARBON DIOXIDE (test code = 27 MEQ/L 2206) CALCIUM (test code = 2209) 9.0 MG/DL PROTEIN, TOTAL (test code = 7.2 G/DL 222) ALBUMIN (test code = 2201) 4.3 G/DL CALC GLOBULIN (test code = 2.9 G/DL 2240) CALC A/G RATIO (test code = 1.5 RATIO 2234) BILIRUBIN, TOTAL (test code = 0.1 MG/DL 220) ALKALINE PHOSPHATASE (test 69 U/L code = 2204) AST (test code = 2218) 16 U/L ALT (test code = 2219) 12 U/L COMPREHENSIVE METABOLIC [id number] 00:00:00 Test Item Value Reference Range Interpretation Comments GLUCOSE (test code = 2217) 89 MG/DL BUN (test code = 2208) 5 MG/DL CREATININE (test code = 2214) 0.68 MG/DL eGFR AMER. (test code 115 ML/MIN/1.73 = 00794) eGFR NON- AMER. (test 99 ML/MIN/1.73 code = 00146) CALC BUN/CREAT (test code = 7 RATIO 2235) SODIUM (test code = 2231) 139 MEQ/L POTASSIUM (test code = 2228) 4.3 MEQ/L CHLORIDE (test code = 2215) 99 MEQ/L CARBON DIOXIDE (test code = 27 MEQ/L 2205) CALCIUM (test code = 2209) 9.0 MG/DL PROTEIN, TOTAL (test code = 7.2 G/DL 2228) ALBUMIN (test code = 2201) 4.3 G/DL CALC GLOBULIN (test code = 2.9 G/DL 2240) CALC A/G RATIO (test code = 1.5 RATIO 2234) BILIRUBIN, TOTAL (test code = 0.1 MG/DL 2206) ALKALINE PHOSPHATASE (test 69 U/L code = 2204) AST (test code = 2218) 16 U/L ALT (test code = 2219) 12 U/L LIPID [id number] 00:00:00 Test Item Value Reference Range Interpretation Comments CHOLESTEROL (test code = 2210) 196 MG/DL TRIGLYCERIDES (test code = 2232) 148 MG/DL HDL CHOLESTEROL (test code = 2220) 44 MG/DL CALC LDL CHOL (test code = 2237) 122 MG/DL RISK RATIO LDL/HDL (test code = 2.78 RATIO 2238) LIPID [id number] 00:00:00 Test Item Value Reference Range Interpretation Comments CHOLESTEROL (test code = 2210) 196 MG/DL TRIGLYCERIDES (test code = 2232) 148 MG/DL HDL CHOLESTEROL (test code = 2220) 44 MG/DL CALC LDL CHOL (test code = 2237) 122 MG/DL RISK RATIO LDL/HDL (test code = 2.78 RATIO 2238) HEMOGLOBIN [id number] 00:00:00 Test Item Value Reference Range Interpretation Comments HEMOGLOBIN A1c (test code = 26682) 5.5 % HEMOGLOBIN [id number] 00:00:00 Test Item Value Reference Range Interpretation Comments HEMOGLOBIN A1c (test code = 30886) 5.5 % HEMOGLOBIN [id number] 00:00:00 Test Item Value Reference Range Interpretation Comments HEMOGLOBIN A1c (test code = 83492) 5.5 % CBC W/AUTO [id number] 00:00:00 Test Item Value Reference Range Interpretation Comments WBC (test code = 1001) 6.9 K/UL RBC (test code = 1002) 3.88 M/UL HEMOGLOBIN (test code = 1003) 10.6 G/DL HEMATOCRIT (test code = 1004) 32.8 % MCV (test code = 1005) 84.5 fL MCH (test code = 1006) 27.3 PG MCHC (test code = 1007) 32.3 G/DL RDW (test code = 1038) 15.5 % NEUTROPHILS (test code = 1008) 58.7 % LYMPHOCYTES (test code = 1010) 32.8 % MONOCYTES (test code = 1011) 6.4 % EOSINOPHILS (test code = 1012) 1.7 % BASOPHILS (test code = 1013) 0.4 % PLATELET COUNT (test code = 1015) 360 K/UL CBC W/AUTO [id number] 00:00:00 Test Item Value Reference Range Interpretation Comments WBC (test code = 1001) 6.9 K/UL RBC (test code = 1002) 3.88 M/UL HEMOGLOBIN (test code = 1003) 10.6 G/DL HEMATOCRIT (test code = 1004) 32.8 % MCV (test code = 1005) 84.5 fL MCH (test code = 1006) 27.3 PG MCHC (test code = 1007) 32.3 G/DL RDW (test code = 1038) 15.5 % NEUTROPHILS (test code = 1008) 58.7 % LYMPHOCYTES (test code = 1010) 32.8 % MONOCYTES (test code = 1011) 6.4 % EOSINOPHILS (test code = 1012) 1.7 % BASOPHILS (test code = 1013) 0.4 % PLATELET COUNT (test code = 1015) 360 K/UL CBC W/AUTO [id number] 00:00:00 Test Item Value Reference Range Interpretation Comments WBC (test code = 1001) 6.9 K/UL RBC (test code = 1002) 3.88 M/UL HEMOGLOBIN (test code = 1003) 10.6 G/DL HEMATOCRIT (test code = 1004) 32.8 % MCV (test code = 1005) 84.5 fL MCH (test code = 1006) 27.3 PG MCHC (test code = 1007) 32.3 G/DL RDW (test code = 1038) 15.5 % NEUTROPHILS (test code = 1008) 58.7 % LYMPHOCYTES (test code = 1010) 32.8 % MONOCYTES (test code = 1011) 6.4 % EOSINOPHILS (test code = 1012) 1.7 % BASOPHILS (test code = 1013) 0.4 % PLATELET COUNT (test code = 1015) 360 K/UL COMPREHENSIVE METABOLIC [id number] 00:00:00 Test Item Value Reference Range Interpretation Comments GLUCOSE (test code = 2217) 89 MG/DL BUN (test code = 2208) 9 MG/DL CREATININE (test code = 2214) 0.79 MG/DL eGFR AMER. (test code 98 ML/MIN/1.73 = 69996) eGFR NON- AMER. (test 85 ML/MIN/1.73 code = 53251) CALC BUN/CREAT (test code = 11 RATIO 2235) SODIUM (test code = 2231) 125 MEQ/L POTASSIUM (test code = 2228) 3.5 MEQ/L CHLORIDE (test code = 2215) 82 MEQ/L CARBON DIOXIDE (test code = 29 MEQ/L 2206) CALCIUM (test code = 2209) 9.5 MG/DL PROTEIN, TOTAL (test code = 8.1 G/DL 2228) ALBUMIN (test code = 2201) 4.4 G/DL CALC GLOBULIN (test code = 3.7 G/DL 2240) CALC A/G RATIO (test code = 1.2 RATIO 2234) BILIRUBIN, TOTAL (test code = 0.1 MG/DL 220) ALKALINE PHOSPHATASE (test 89 U/L code = 2204) AST (test code = 2218) 17 U/L ALT (test code = 2219) 13 U/L COMPREHENSIVE METABOLIC [id number] 00:00:00 Test Item Value Reference Range Interpretation Comments GLUCOSE (test code = 2217) 89 MG/DL BUN (test code = 2208) 9 MG/DL CREATININE (test code = 2214) 0.79 MG/DL eGFR AMER. (test code 98 ML/MIN/1.73 = 64728) eGFR NON- AMER. (test 85 ML/MIN/1.73 code = 07635) CALC BUN/CREAT (test code = 11 RATIO 2235) SODIUM (test code = 2231) 125 MEQ/L POTASSIUM (test code = 2228) 3.5 MEQ/L CHLORIDE (test code = 2215) 82 MEQ/L CARBON DIOXIDE (test code = 29 MEQ/L 2206) CALCIUM (test code = 2209) 9.5 MG/DL PROTEIN, TOTAL (test code = 8.1 G/DL 2228) ALBUMIN (test code = 2201) 4.4 G/DL CALC GLOBULIN (test code = 3.7 G/DL 2240) CALC A/G RATIO (test code = 1.2 RATIO 2234) BILIRUBIN, TOTAL (test code = 0.1 MG/DL 2206) ALKALINE PHOSPHATASE (test 89 U/L code = 2204) AST (test code = 2218) 17 U/L ALT (test code = 2219) 13 U/L LIPID [id number] 00:00:00 Test Item Value Reference Range Interpretation Comments CHOLESTEROL (test code = 2210) 313 MG/DL TRIGLYCERIDES (test code = 2232) 434 MG/DL HDL CHOLESTEROL (test code = 39 MG/DL 2220) CALC LDL CHOL (test code = 2237) NOTE MG/DL RISK RATIO LDL/HDL (test code = (NOTE) RATIO 2238) LIPID [id number] 00:00:00 Test Item Value Reference Range Interpretation Comments CHOLESTEROL (test code = 2210) 313 MG/DL TRIGLYCERIDES (test code = 2232) 434 MG/DL HDL CHOLESTEROL (test code = 39 MG/DL 2220) CALC LDL CHOL (test code = 2237) NOTE MG/DL RISK RATIO LDL/HDL (test code = (NOTE) RATIO 2238) CBC W/AUTO [id number] 00:00:00 Test Item Value Reference Range Interpretation Comments WBC (test code = 1001) 8.3 K/UL RBC (test code = 1002) 4.03 M/UL HEMOGLOBIN (test code = 1003) 11.5 G/DL HEMATOCRIT (test code = 1004) 34.0 % MCV (test code = 1005) 84.4 fL MCH (test code = 1006) 28.5 PG MCHC (test code = 1007) 33.8 G/DL RDW (test code = 1038) 13.5 % NEUTROPHILS (test code = 1008) 61.5 % LYMPHOCYTES (test code = 1010) 28.7 % MONOCYTES (test code = 1011) 8.0 % EOSINOPHILS (test code = 1012) 1.3 % BASOPHILS (test code = 1013) 0.5 % PLATELET COUNT (test code = 1015) 352 K/UL CBC W/AUTO [id number] 00:00:00 Test Item Value Reference Range Interpretation Comments WBC (test code = 1001) 8.3 K/UL RBC (test code = 1002) 4.03 M/UL HEMOGLOBIN (test code = 1003) 11.5 G/DL HEMATOCRIT (test code = 1004) 34.0 % MCV (test code = 1005) 84.4 fL MCH (test code = 1006) 28.5 PG MCHC (test code = 1007) 33.8 G/DL RDW (test code = 1038) 13.5 % NEUTROPHILS (test code = 1008) 61.5 % LYMPHOCYTES (test code = 1010) 28.7 % MONOCYTES (test code = 1011) 8.0 % EOSINOPHILS (test code = 1012) 1.3 % BASOPHILS (test code = 1013) 0.5 % PLATELET COUNT (test code = 1015) 352 K/UL CBC W/AUTO [id number] 00:00:00 Test Item Value Reference Range Interpretation Comments WBC (test code = 1001) 8.3 K/UL RBC (test code = 1002) 4.03 M/UL HEMOGLOBIN (test code = 1003) 11.5 G/DL HEMATOCRIT (test code = 1004) 34.0 % MCV (test code = 1005) 84.4 fL MCH (test code = 1006) 28.5 PG MCHC (test code = 1007) 33.8 G/DL RDW (test code = 1038) 13.5 % NEUTROPHILS (test code = 1008) 61.5 % LYMPHOCYTES (test code = 1010) 28.7 % MONOCYTES (test code = 1011) 8.0 % EOSINOPHILS (test code = 1012) 1.3 % BASOPHILS (test code = 1013) 0.5 % PLATELET COUNT (test code = 1015) 352 K/UL HEMOGLOBIN [id number] 00:00:00 Test Item Value Reference Range Interpretation Comments HEMOGLOBIN A1c (test code = 93593) 5.7 % HEMOGLOBIN [id number] 00:00:00 Test Item Value Reference Range Interpretation Comments HEMOGLOBIN A1c (test code = 35623) 5.7 % HEMOGLOBIN [id number] 00:00:00 Test Item Value Reference Range Interpretation Comments HEMOGLOBIN A1c (test code = 80398) 5.7 % [id number] 00:00:00 Test Item Value Reference Range Interpretation Comments TSH (test code = 2821) 8.86 UIU/ML [id number] 00:00:00 Test Item Value Reference Range Interpretation Comments TSH (test code = 2821) 8.86 UIU/ML [id number] 00:00:00 Test Item Value Reference Range Interpretation Comments TSH (test code = 2821) 8.86 UIU/ML COMPREHENSIVE METABOLIC [id number] 00:00:00 Test Item Value Reference Range Interpretation Comments GLUCOSE (test code = 2217) 113 MG/DL BUN (test code = 2208) 7 MG/DL CREATININE (test code = 2214) 0.78 MG/DL eGFR AMER. (test code 101 ML/MIN/1.73 = 89929) eGFR NON- AMER. (test 87 ML/MIN/1.73 code = 37126) CALC BUN/CREAT (test code = 9 RATIO 2235) SODIUM (test code = 2231) 134 MEQ/L POTASSIUM (test code = 2228) 3.8 MEQ/L CHLORIDE (test code = 2215) 94 MEQ/L CARBON DIOXIDE (test code = 25 MEQ/L 2205) CALCIUM (test code = 2209) 9.2 MG/DL PROTEIN, TOTAL (test code = 8.2 G/DL 2228) ALBUMIN (test code = 2201) 4.5 G/DL CALC GLOBULIN (test code = 3.7 G/DL 2240) CALC A/G RATIO (test code = 1.2 RATIO 2234) BILIRUBIN, TOTAL (test code = 0.1 MG/DL 2206) ALKALINE PHOSPHATASE (test 86 U/L code = 2204) AST (test code = 2218) 15 U/L ALT (test code = 2219) 10 U/L COMPREHENSIVE METABOLIC [id number] 00:00:00 Test Item Value Reference Range Interpretation Comments GLUCOSE (test code = 2217) 113 MG/DL BUN (test code = 2208) 7 MG/DL CREATININE (test code = 2214) 0.78 MG/DL eGFR AMER. (test code 101 ML/MIN/1.73 = 68869) eGFR NON- AMER. (test 87 ML/MIN/1.73 code = 10981) CALC BUN/CREAT (test code = 9 RATIO 2235) SODIUM (test code = 2231) 134 MEQ/L POTASSIUM (test code = 2228) 3.8 MEQ/L CHLORIDE (test code = 2215) 94 MEQ/L CARBON DIOXIDE (test code = 25 MEQ/L 2205) CALCIUM (test code = 2209) 9.2 MG/DL PROTEIN, TOTAL (test code = 8.2 G/DL 2228) ALBUMIN (test code = 2201) 4.5 G/DL CALC GLOBULIN (test code = 3.7 G/DL 2240) CALC A/G RATIO (test code = 1.2 RATIO 2234) BILIRUBIN, TOTAL (test code = 0.1 MG/DL 2206) ALKALINE PHOSPHATASE (test 86 U/L code = 2204) AST (test code = 2218) 15 U/L ALT (test code = 2219) 10 U/L CBC W/AUTO [id number] 00:00:00 Test Item Value Reference Range Interpretation Comments WBC (test code = 1001) 4.1 K/UL RBC (test code = 1002) 4.36 M/UL HEMOGLOBIN (test code = 1003) 12.1 G/DL HEMATOCRIT (test code = 1004) 36.8 % MCV (test code = 1005) 84.4 fL MCH (test code = 1006) 27.8 PG MCHC (test code = 1007) 32.9 G/DL RDW (test code = 1038) 15.4 % NEUTROPHILS (test code = 1008) 56.3 % LYMPHOCYTES (test code = 1010) 30.1 % MONOCYTES (test code = 1011) 10.9 % EOSINOPHILS (test code = 1012) 1.7 % BASOPHILS (test code = 1013) 1.0 % PLATELET COUNT (test code = 1015) 253 K/UL CBC W/AUTO [id number] 00:00:00 Test Item Value Reference Range Interpretation Comments WBC (test code = 1001) 4.1 K/UL RBC (test code = 1002) 4.36 M/UL HEMOGLOBIN (test code = 1003) 12.1 G/DL HEMATOCRIT (test code = 1004) 36.8 % MCV (test code = 1005) 84.4 fL MCH (test code = 1006) 27.8 PG MCHC (test code = 1007) 32.9 G/DL RDW (test code = 1038) 15.4 % NEUTROPHILS (test code = 1008) 56.3 % LYMPHOCYTES (test code = 1010) 30.1 % MONOCYTES (test code = 1011) 10.9 % EOSINOPHILS (test code = 1012) 1.7 % BASOPHILS (test code = 1013) 1.0 % PLATELET COUNT (test code = 1015) 253 K/UL CBC W/AUTO [id number] 00:00:00 Test Item Value Reference Range Interpretation Comments WBC (test code = 1001) 4.1 K/UL RBC (test code = 1002) 4.36 M/UL HEMOGLOBIN (test code = 1003) 12.1 G/DL HEMATOCRIT (test code = 1004) 36.8 % MCV (test code = 1005) 84.4 fL MCH (test code = 1006) 27.8 PG MCHC (test code = 1007) 32.9 G/DL RDW (test code = 1038) 15.4 % NEUTROPHILS (test code = 1008) 56.3 % LYMPHOCYTES (test code = 1010) 30.1 % MONOCYTES (test code = 1011) 10.9 % EOSINOPHILS (test code = 1012) 1.7 % BASOPHILS (test code = 1013) 1.0 % PLATELET COUNT (test code = 1015) 253 K/UL HEMOGLOBIN [id number] 00:00:00 Test Item Value Reference Range Interpretation Comments HEMOGLOBIN A1c (test code = 64837) 5.7 % HEMOGLOBIN [id number] 00:00:00 Test Item Value Reference Range Interpretation Comments HEMOGLOBIN A1c (test code = 27014) 5.7 % HEMOGLOBIN [id number] 00:00:00 Test Item Value Reference Range Interpretation Comments HEMOGLOBIN A1c (test code = 64052) 5.7 % THYROID II PROFILE (T3U, T4, T7, TSH)2016-03-28 00:00:00 Test Item Value Reference Range Interpretation Comments T3 UPTAKE (test code = 2817) 26.3 % T4 (THYROXINE) (test code = 2819) 2.6 UG/DL CALCULATED T7 (FTI) (test code = 0.68 2820) TSH (test code = 2821) 79.3 UIU/ML THYROID II PROFILE (T3U, T4, T7, TSH)2016-03-28 00:00:00 Test Item Value Reference Range Interpretation Comments T3 UPTAKE (test code = 2817) 26.3 % T4 (THYROXINE) (test code = 2819) 2.6 UG/DL CALCULATED T7 (FTI) (test code = 0.68 2820) TSH (test code = 2821) 79.3 UIU/ML
[2022-05-26] MEDS ORDERED: ALBUTEROL 2.5 MG/3 ML NEB SOL ONE (20:25)
[2022-05-26] MEDS ORDERED: METHYLPREDNISOLONE 125 MG INJ ONE (20:26)
--- NOTE | 2022-05-26 20:51 | RAD REPORT ---
EXAM DESCRIPTION: RAD - Chest Single View - 05/26/2022 8:45 pm CLINICAL HISTORY: SOB COMPARISON: Chest Single View dated 04/04/2022; Chest Single View dated 07/17/2021; Chest Single View dated 12/10/2020; Chest Single View dated 08/17/2020; Chest For Pe Angio dated 12/10/2020 FINDINGS: Lines: None. Lungs: Diffuse prominence of the pulmonary interstitium. Pleural: No significant pleural effusions or pneumothorax. Cardiac: Cardiomegaly. Mediastinum: Within normal limits. Bones: No acute fractures. Other: None IMPRESSION: Pulmonary vascular congestion and moderate cardiomegaly.
[2022-05-26 21:42] LABS: Hematocrit 31.3 % (36.0-45.0); Lymphocytes % 19.8 % (15.3-44.8); MPV 7.9 fL (7.6-11.3); RBC Red Blood Cell Count 3.29 M/uL (3.86-4.86)
[2022-05-26 21:59] LABS: Protime INR 1.03
[2022-05-26 22:03] LABS: ALT/SGPT 17 U/L (12-78); AST/SGOT 21 U/L (15-37); Albumin 3.2 g/dL (3.4-5.0); Alkaline Phosphatase 61 U/L (45-117); BUN Blood Urea Nitrogen 16 mg/dL (7-18); Bilirubin Direct 0.2 mg/dL (0-0.2); Bilirubin Total 0.3 mg/dL (0.2-1.0); Glomerular Filtration Rate 62 ml/min (=/>90); Glucose Level 102 mg/dL (74-106); NT PRO-BNP 29 pg/mL (<125); Potassium 3.6 mmol/L (3.5-5.1); Protein, Total 6.6 g/dL (6.4-8.2); Sodium Level 137 mmol/L (136-145); Troponin High Sensitivity 10.1 pg/mL (<58.9)
[2022-05-26 22:05] LABS: Bicarbonate > 45 mmol/L (21-32)
[2022-05-26 22:28] LABS: SARS-COV-2 RT PCR NEGATIVE (NEGATIVE)
--- NOTE | 2022-05-26 22:45 | ER ---
Nurse's Notes [facility] Name: Radha Saleh Age: 61 yrs Sex: Female : 1960 Arrival Date: 05/26/2022 Time: 19:47 Bed 25 Private MD: Diagnosis: Acute and chronic respiratory failure with hypercapnia;Altered mental status, unspecified Presentation: 05/26 20:06 Chief complaint: Patient states: Increasing cough and SOB x1 week with hx of COPD. Pt kb3 is 3.5L O2 dependent, present without O2 reporting she does not have a portable tank. O2 sat 72% on room air. Placed on 3.5L NC and O2 sat increased to 97%. Pt reports she has been out of all medications for approximately 2 weeks. Coronavirus screen: Vaccine status: Patient reports being unvaccinated. Client denies travel out of the [place] in the last 14 days. Ebola Screen: Patient negative for fever greater than or equal to 101.5 degrees Fahrenheit, and additional compatible Ebola Virus Disease symptoms Patient denies exposure to infectious person. Patient denies travel to an Ebola-affected area in the 21 days before illness onset. Initial Sepsis Screen: Does the patient meet any 2 criteria? No. Patient's initial sepsis screen is negative. Does the patient have a suspected source of infection? No. Patient's initial sepsis screen is negative. Risk Assessment: Do you want to hurt yourself or someone else? Patient reports no desire to harm self or others. Onset of symptoms was May 19, 2022. 20:06 Method Of Arrival: Wheelchair kb3 20:06 Acuity: OSMANY 2 kb3 Triage Assessment: 20:09 General: Appears in no apparent distress. Behavior is calm, cooperative. Pain: Denies kb3 pain. Respiratory: Reports shortness of breath at rest cough that is Airway is patent Onset: The symptoms/episode began/occurred 1 week, the patient has mild shortness of breath. Historical: - Allergies: 20:09 Morphine (Hives); kb3 - Home Meds: 20:09 Unable to obtain [Active]; kb3 - PMHx: 20:09 COPD; CVA; gastric ulcer; Hyperlipidemia; Hypertension; Hypothyroidism; Myocardial kb3 infarction; Sleep Apnea; - PSHx: 20:09 None; kb3 - Immunization history:: Adult Immunizations unknown, Client reports having NOT received the Covid vaccine. Last tetanus immunization: unknown. - Social history:: Smoking status: Patient/guardian denies using tobacco, but has a distant history of tobacco abuse. Screenin:15 Abuse screen: Denies threats or abuse. Denies injuries from another. Nutritional eh3 screening: No deficits noted. Tuberculosis screening: No symptoms or risk factors identified. Fall Risk None identified. Assessment: 20:15 General: Appears in no apparent distress. uncomfortable, Behavior is cooperative, eh3 appropriate for age, anxious. Pain: Denies pain. Neuro: Level of Consciousness is awake, alert, obeys commands, Oriented to person, place, time, situation. Cardiovascular: Capillary refill < 3 seconds Patient's skin is warm and dry. Rhythm is sinus rhythm. Respiratory: Airway is patent Respiratory effort is even, labored, Respiratory pattern is regular, symmetrical, Breath sounds with wheezes bilaterally. GI: No signs and/or symptoms were reported involving the gastrointestinal system. : No signs and/or symptoms were reported regarding the genitourinary system. EENT: No signs and/or symptoms were reported regarding the EENT system. Derm: No signs and/or symptoms reported regarding the dermatologic system. Musculoskeletal: No signs and/or symptoms reported regarding the musculoskeletal system. 21:00 Reassessment: Patient appears in no apparent distress at this time. Patient and/or eh3 family updated on plan of care and expected duration. Pain level reassessed. 22:00 Reassessment: Patient appears in no apparent distress at this time. Patient and/or eh3 family updated on plan of care and expected duration. Pain level reassessed. 23:00 Reassessment: Patient appears in no apparent distress at this time. Patient and/or eh3 family updated on plan of care and expected duration. Pain level reassessed. Vital Signs: 20:06 BP 130 / 75; Pulse 73; Resp 26; Temp 98.7; Pulse Ox 97% 3.5 lpm ; Weight 113.4 kg; kb3 Height 5 ft. 4 in. (162.56 cm); Pain 0/10; 21:00 BP 112 / 81; Pulse 72; Resp 24; Pulse Ox 96% on 4 lpm NC; eh3 22:00 BP 106 / 92; Pulse 66; Resp 24; Pulse Ox 95% on 4 lpm NC; eh3 23:00 BP 121 / 88; Pulse 75; Resp 21; Pulse Ox 93% on 4 lpm NC; eh3 20:06 Body Mass Index 42.91 (113.40 kg, 162.56 cm) 3 ED Course: 19:47 Patient arrived in ED. ag3 19:52 Melecio Goldman PA is PHCP. cp 19:52 Melecio Eubanks MD is Attending Physician. cp 20:09 Triage completed. kb3 20:09 Arm band placed on right wrist. kb3 20:15 Patient has correct armband on for positive identification. Bed in low position. Call 3 light in reach. Side rails up X2. Client placed on continuous cardiac and pulse oximetry monitoring. NIBP monitoring applied. Door closed. Noise minimized. Lights dimmed. Warm blanket given. 20:47 XRAY Chest (1 view) In Process Unspecified. EDMS 20:59 Faith Rojas RN is Primary Nurse. eh3 22:04 Notified Nurse Practitioner and/or Physician Oncology Physician of a critical lab result(s), bb bicarb >45 Melecio CAMERON notified. 22:44 Dank Marie MD is Hospitalizing Provider. cp 23:21 BIPAP Sent. eh3 23:43 CT Chest For PE Angio In Process Unspecified. EDKS 05/27 00:00 Urine Microscopic Only Sent. 3 Administered Medications: 05/26 20:52 Drug: Albuterol - atroVENT (ipratropium) (3:1) (2.5 mg - 0.5 mg) 3 ml Route: Nebulizer; eh3 21:31 Follow up: Response: Wheezing diminished eh3 21:15 Drug: SOLU-Medrol (methylPrednisoLONE) 125 mg Route: IVP; Site: right antecubital; eh3 22:27 Follow up: Response: No adverse reaction eh3 23:00 Drug: LevaQUIN (levofloxacin) 750 mg Volume: 150 ml; Route: IVPB; Infused Over: 90 eh3 mins; Site: right antecubital; Outcome: 22:45 Decision to Hospitalize by Provider. cp 05/27 00:34 Patient left the ED. bb Signatures: Dispatcher [employer] EDKS Destinee Rebollar RN RN bb Page, Corey, PA PA cp Poornima [facility] Faith Rojas RN RN 3 Shala Low RN RN kb3 Corrections: (The following items were deleted from the chart) 05/26 23:23 21:15 Reassessment: Patient appears in no apparent distress at this time. Patient eh3 and/or family updated on plan of care and expected duration. Pain level reassessed. eh3
--- NOTE | 2022-05-26 22:46 | EDPHYS ---
Physician Documentation [facility] Name: Radha Saleh Age: 61 yrs Sex: Female : 1960 Arrival Date: 05/26/2022 Time: 19:47 Bed 25 Private MD: ED Physician Melecio Eubanks HPI: 05/26 20:20 This 61 yrs old Female presents to ER via Wheelchair with complaints of Shortness Of cp Breath, Low O2. 20:20 The patient has shortness of breath at rest. cp 20:20 Onset: The symptoms/episode began/occurred 1 week(s) ago. cp 20:20 Duration: The symptoms are continuous, and are steadily getting worse. cp 20:20 Associated signs and symptoms: Pertinent positives: confusion, Pertinent negatives: cp chest pain, productive cough, diaphoresis, fever, vomiting. Severity of symptoms: in the emergency department the symptoms are unchanged despite home interventions. Historical: - Allergies: 20:09 Morphine (Hives); kb3 - Home Meds: 20:09 Unable to obtain [Active]; kb3 - PMHx: 20:09 COPD; CVA; gastric ulcer; Hyperlipidemia; Hypertension; Hypothyroidism; Myocardial kb3 infarction; Sleep Apnea; - PSHx: 20:09 None; kb3 - Immunization history:: Adult Immunizations unknown, Client reports having NOT received the Covid vaccine. Last tetanus immunization: unknown. - Social history:: Smoking status: Patient/guardian denies using tobacco, but has a distant history of tobacco abuse. ROS: 20:25 Constitutional: Negative for fever, poor PO intake. cp 20:25 Cardiovascular: Negative for chest pain, edema, palpitations. cp 20:25 Respiratory: Positive for cough, with no reported sputum, shortness of breath, at rest. 20:25 Neuro: Positive for altered mental status. 20:25 Eyes: Negative for injury, pain, redness, and discharge. cp 20:25 ENT: Negative for sore throat, difficulty swallowing, difficulty handling secretions. 20:25 Abdomen/GI: Negative for abdominal pain, vomiting, diarrhea, constipation. 20:25 Skin: Negative for cellulitis, rash. 20:25 All other systems are negative. cp Exam: 20:30 Constitutional: The patient appears in no acute distress, alert, awake, cp non-diaphoretic, non-toxic, well developed, well nourished, obese. 20:30 Head/Face: Normocephalic, atraumatic. cp 20:30 Eyes: Periorbital structures: appear normal, Pupils: equal, round, and reactive to light and accomodation, Extraocular movements: intact throughout, Conjunctiva: normal, no exudate, no injection, Sclera: no appreciated abnormality, Lids and lashes: appear normal, bilaterally. 20:30 ENT: External ear(s): are unremarkable, Ear canal(s): are normal, clear, TM's: dullness, bilaterally, Nose: is normal, Mouth: Lips: moist, Oral mucosa: moist, Posterior pharynx: Airway: no evidence of obstruction, patent. 20:30 Neck: ROM/movement: is normal, is supple, without pain, no range of motions limitations, no meningismus. 20:30 Chest/axilla: Inspection: normal, Palpation: is normal, no crepitus, no tenderness. 20:30 Cardiovascular: Rate: normal, Rhythm: regular, Edema: is not appreciated, JVD: is not appreciated. 20:30 Respiratory: the patient does not display signs of respiratory distress, Respirations: normal, no use of accessory muscles, no retractions, Breath sounds: decreased breath sounds, that are moderate, throughout, stridor, is not appreciated, wheezing: is not appreciated. 20:30 Abdomen/GI: Inspection: abdomen appears normal, Palpation: abdomen is soft and non-tender, in all quadrants. 20:30 Back: pain, is absent, ROM is normal. 20:30 Skin: cellulitis, is not appreciated, no rash present. 20:30 Neuro: Orientation: to person, place, situation, Mentation: able to follow commands, slow to respond, Motor: moves all fours, strength is normal, Sensation: is normal. 20:57 ECG was reviewed by the Attending Physician. cp Vital Signs: 20:06 BP 130 / 75; Pulse 73; Resp 26; Temp 98.7; Pulse Ox 97% 3.5 lpm ; Weight 113.4 kg; kb3 Height 5 ft. 4 in. (162.56 cm); Pain 0/10; 21:00 BP 112 / 81; Pulse 72; Resp 24; Pulse Ox 96% on 4 lpm NC; eh3 22:00 BP 106 / 92; Pulse 66; Resp 24; Pulse Ox 95% on 4 lpm NC; eh3 23:00 BP 121 / 88; Pulse 75; Resp 21; Pulse Ox 93% on 4 lpm NC; eh3 20:06 Body Mass Index 42.91 (113.40 kg, 162.56 cm) kb3 MDM: 20:09 Patient medically screened. cp 21:00 Differential diagnosis: Bronchitis CHF exacerbation, Chronic Obstructive Pulmonary cp Disease pneumonia, Pneumothorax pulmonary edema, Pulmonary Embolism Sepsis. 22:45 Physician consultation: Meli Robertson PA-C was called at 22:45, was contacted at 22:45, cp regarding admission, to the telemetry unit. 23:55 Data reviewed: vital signs, nurses notes, lab test result(s), EKG, radiologic studies, cp plain films, and as a result, I will admit patient. 23:55 Antibiotic administration: Levaquin given. Test interpretation: by ED physician or cp midlevel provider: ECG, plain radiologic studies. 05/26 20:15 Order name: Basic Metabolic Panel; Complete Time: 22:07 05/26 22:07 Interpretation: Normal except: CL 86; CO2 > 45; GFR 62. 05/26 20:15 Order name: CBC with Diff; Complete Time: 22:07 05/26 22:07 Interpretation: Normal except: RBC 3.29; HGB 10.1; HCT 31.3; RDW 19.8. 05/26 20:15 Order name: Magnesium; Complete Time: 22:07 05/26 20:15 Order name: NT PRO-BNP; Complete Time: 22:07 05/26 20:15 Order name: PT-INR; Complete Time: 23:08 05/26 20:15 Order name: Troponin HS; Complete Time: 22:07 05/26 20:15 Order name: LFT's; Complete Time: 22:07 05/26 20:15 Order name: COVID-19/FLU A+B; Complete Time: 23:08 05/26 20:16 Order name: Urine Microscopic Only 05/26 22:08 Order name: Lactate w/ 2H reflex if indic.; Complete Time: 23:46 05/26 22:08 Order name: Blood Culture Adult (2) 05/26 22:08 Order name: Procalcitonin 05/26 22:08 Order name: ABG 05/26 20:15 Order name: XRAY Chest (1 view); Complete Time: 20:55 05/26 20:55 Interpretation: Report review. 05/26 20:15 Order name: EKG; Complete Time: 20:15 05/26 20:15 Order name: Cardiac monitoring; Complete Time: 21:00 05/26 20:15 Order name: EKG - Nurse/Tech; Complete Time: 21:00 05/26 20:15 Order name: IV Saline Lock; Complete Time: :31 05/26 20:15 Order name: Labs collected and sent; Complete Time: :31 05/26 20:15 Order name: O2 Per Protocol; Complete Time: 21:00 05/26 20:15 Order name: O2 Sat Monitoring; Complete Time: 21:00 05/26 20:16 Order name: Urine Dipstick-Ancillary (obtain specimen); Complete Time: 00:00 05/26 22:08 Order name: BIPAP 05/26 22:24 Order name: D-Dimer; Complete Time: 23:08 EDMS 05/26 22:41 Order name: CT Chest For PE Angio 05/26 23:59 Order name: Urine Dipstick-Ancillary; Complete Time: 00:00 EDMS 05/26 22:08 Order name: Cath; Complete Time: 00:00 cp EC:57 Rate is 68 beats/min. Rhythm is regular. NE interval is prolonged at 216 msec. QRS cp interval is normal. QT interval is normal. T waves are Inverted in lead I. Interpreted by me. Reviewed by me. Administered Medications: 20:52 Drug: Albuterol - atroVENT (ipratropium) (3:1) (2.5 mg - 0.5 mg) 3 ml Route: Nebulizer; eh3 21:31 Follow up: Response: Wheezing diminished eh3 21:15 Drug: SOLU-Medrol (methylPrednisoLONE) 125 mg Route: IVP; Site: right antecubital; eh3 22:27 Follow up: Response: No adverse reaction eh3 23:00 Drug: LevaQUIN (levofloxacin) 750 mg Volume: 150 ml; Route: IVPB; Infused Over: 90 eh3 mins; Site: right antecubital; Disposition Summary: 05/26/22 22:45 Hospitalization Ordered Hospitalization Status: Inpatient Admission cp Provider: Dank Marie cp Location: Telemetry/MedSurg (Inpatient) cp Condition: Serious cp Problem: an acute exacerbation cp Symptoms: have improved cp Bed/Room Type: Standard cp Room Assignment: 413(05/26/22 23:43) cg Diagnosis - Acute and chronic respiratory failure with hypercapnia cp - Altered mental status, unspecified cp Forms: - Medication Reconciliation Form cp - SBAR form cp Addendum: 06/07/2022 07:46 Co-signature as Attending Physician, Melecio Eubanks MD I agree with the assessment and c wooten plan of care. Signatures: Dispatcher [employer] EDOR Melecio Eubanks MD MD cha Page, Corey, PA Marisol Carrillo cp, RN RN Faith Estrella RN RN eh3 Shala Low RN RN kb3 Meli Robertson, PA-C PA-C sb4 Corrections: (The following items were deleted from the chart) 05/26 22:24 22:09 D-DIMER+COAG.LAB.BRZ ordered. [facility] 23:43 22:45 cp cg 05/28 00:19 05/27 20:20 Associated signs and symptoms: Pertinent positives: confusion, Pertinent cp negatives: chest pain, productive cough, diaphoresis, fever, vomiting, cp 05/28 00:19 05/27 20:20 Severity of symptoms: in the emergency department the symptoms are cp unchanged despite home interventions, cp
[2022-05-26 23:59] LABS: Urine Blood Negative (Negative); Urine Glucose Negative (Negative); Urine Protein Negative (Negative); Urine Specific Gravity <=1.005 (1.005-1.030)
--- NOTE | 2022-05-27 00:19 | P.HP ---
Certification for Inpatient Patient admitted to: Inpatient With expected LOS: >2 Midnights Patient will require the following post-hospital care: None Practitioner: I am a practitioner with admitting privileges, knowledge of patient current condition, hospital course, and medical plan of care. Services: Services provided to patient in accordance with Admission requirements found in Title 42 Section 412.3 of the Code of Federal Regulations Patient History Date of Service: 05/27/22 Primary Care Provider: Nita Rdz Reason for admission: COPD Exacerbation History of Present Illness: Patient is a 61 year old female with past medical history of chronic respiratory failure secondary to COPD on 3L home oxygen, HTN, HLD, history of TIA, CAD, and hypothyroidism who presented to the ED with shortness of breath that has progressively worsened over the past two weeks. Patient reports that she has been out of her home medications for about 2 weeks now and also feels like her home O2 has been malfunctioning. She is a very poor historian, does not know any of her home medications, nor does she have a list with her. She denies using home nebulizers or CPAP. ABG with pH 7.36, pCO2 87.5, pO2 50.7 bicarb 47.8. She was placed on bipap and received breathing treatment, solumedrol, and levaquin in ED. Chest xray and chest CT negative for acute findings. She is admitted for further management. Allergies morphine Allergy (Severe, Verified 03/08/13 22:11) Nausea/Vomiting Home medications list reviewed: Yes Home Medications: Albuterol Sulfate [Proair Hfa] 2 puff IH TID PRN #1 hfa.aer.ad 08/22/20 Aspirin [Aspirin EC 81 MG] 81 mg PO DAILY #90 tablet.dr 08/22/20 Metoprolol Tartrate [Lopressor*] 12.5 mg PO BID 6AM 6PM #60 tab 08/22/20 Ranolazine [Ranolazine ER] 500 mg PO BID #60 tab.er.12h 08/22/20 Atorvastatin Calcium [Lipitor] 40 mg PO BEDTIME 07/18/21 Clopidogrel Bisulfate [Plavix] 75 mg PO DAILY 07/18/21 Isosorbide Mononitrate [Isosorbide Mononitrate ER] 60 mg PO DAILY 07/18/21 Albuterol Neb [Proventil 0.083% Neb Soln] 2.5 mg NEB Q6HP PRN #120 amp 07/19/21 Fluticasone/Umeclidin/Vilanter [Trelegy Ellipta 100-62.5-25] 1 each IH DAILY 30 Days #30 blst.w.dev 07/19/21 Ipratropium Neb [Atrovent*] 0.5 mg NEB M1LUODL #120 amp 07/19/21 Nebulizer [Aeroneb Go Nebulizer] 1 each MC TID #1 each 07/19/21 acetaZOLAMIDE [Diamox*] 125 mg PO BID #160 tab 07/19/21 predniSONE [Prednisone*] 20 mg PO BID #18 tab 07/19/21 Levothyroxine [Synthroid*] 0.05 mg PO DAILYAC 30 Days #30 tablet 07/23/21 - Past Medical/Surgical History Diabetic: No -: HTN -: HYPOTHYROIDISM -: HIGH CHOLESTEROL -: GASTRIC ULCER -: TIA -: COPD -: CESARIAN SECTION Psychosocial/ Personal History: Patient lives at home with her daughter, son-in-law, and grandkids. - Family History Mother -: Diabetes, Kidney disease Father -: Heart disease Brother -: Heart disease Notes: Stent - Social History Smoking Status: Former smoker Alcohol use: No CD- Drugs: No Caffeine use: Yes Place of Residence: Home Review of Systems Respiratory: Shortness of Breath Physical Examination - Physical Exam General: Alert, In no apparent distress, Obese HEENT: Atraumatic, PERRLA, EOMI, Sclerae nonicteric Neck: Supple, 2+ carotid pulse no bruit, No LAD, Without JVD or thyroid abnormality Respiratory: Diminished, Expiratory wheezes Cardiovascular: Regular rate/rhythm, Normal S1 S2 Gastrointestinal: Normal bowel sounds, No tenderness Musculoskeletal: No tenderness Integumentary: No rashes Neurological: Normal speech, Normal strength at 5/5 x4 extr, Normal tone, Normal affect - Studies Laboratory Data (last 24 hrs) 05/26/22 21:26: PT 11.3, INR 1.03 05/26/22 21:26: WBC 4.90, Hgb 10.1 L, Hct 31.3 L, Plt Count 186 05/26/22 21:26: Sodium 137, Potassium 3.6, BUN 16, Creatinine 1.04, Glucose 102, Magnesium 2.0, Total Bilirubin 0.3, AST 21, ALT 17, Alkaline Phosphatase 61 Assessment and Plan - Problems (Diagnosis) (1) Acute respiratory failure with hypoxia and hypercapnia Current Visit: Yes Status: Acute (2) COPD exacerbation Current Visit: Yes Status: Acute (3) Obesity hypoventilation syndrome Current Visit: Yes Status: Chronic (4) Coronary artery disease Current Visit: Yes Status: Chronic Qualifiers: Coronary Disease-Associated Artery/Lesion type: [place] artery [place] vs. transplanted heart: galena heart Associated angina: without angina Qualified Code(s): I25.10 - Atherosclerotic heart disease of [place] coronary artery without angina pectoris (5) Dyslipidemia Current Visit: Yes Status: Chronic (6) Hypertension Current Visit: Yes Status: Chronic Qualifiers: Hypertension type: primary hypertension Qualified Code(s): I10 - Essential (primary) hypertension (7) Hypothyroid Current Visit: Yes Status: Chronic Qualifiers: Hypothyroidism type: acquired Qualified Code(s): E03.9 - Hypothyroidism, u nspecified (8) Anemia Current Visit: Yes Status: Chronic Qualifiers: Anemia type: other cause Other causes of anemia: chronic disease, other Qualified Code(s): D63.8 - Anemia in other chronic diseases classified elsewhere - Plan ABG suggestive of primary respiratory acidosis with secondary metabolic alkalosis. Pulmonology consulted. Continue bipap, IV steroids, scheduled breathing treatments, and levaquin. Thyroid and lipid panel ordered. Iron studies, B12, folate ordered to further evaluate anemia. Monitor and replete electrolytes per protocol. Reconcile and continue home medications. Lovenox for VTE prophylaxis. Full code Discharge Plan: Home Plan to discharge in: Greater than 2 days - Advance Directives Does patient have a Living Will: No Does patient have a Durable POA for Healthcare: No - Code Status/Comfort Care Code Status Assessed: Yes (Full) Critical Care: No Time Spent Managing Pts Care (In Minutes): 50
[2022-05-27 00:27] LABS: Arterial Blood Carboxyhemoglob 1.3 % (0-1.5); Blood Gas Oxyhemoglobin 84.2 % (94-97); Blood O2 Saturation 86.3 % (92-98.5)
[2022-05-27 00:29] LABS: Urine Bacteria <20 /HPF (<20); Urine RBC <5 /HPF (None Seen)
[2022-05-27] MEDS ORDERED: BENZONATATE 100 MG CAP PO PRN (01:29)
[2022-05-27] MEDS ORDERED: ONDANSETRON 4 MG/2 ML VIAL IV PRN (01:29)
[2022-05-27] MEDS ORDERED: Levofloxacin 750mg IV 750 MG/150 ML BAG IV SCH ×2 (02:00→23:00)
[2022-05-27] MEDS: ALBUTEROL 2.5 MG/3 ML NEB SOL NEB SCH ×5 (02:00→20:00)
[2022-05-27] MEDS: IPRATROPIUM BROM 0.5MG/2.5ML NEB SCH ×5 (02:05→20:00)
[2022-05-27 02:20] VITALS: BMI 42.9
[2022-05-27] MEDS: METHYLPREDNISOLONE 40 MG INJ IV SCH ×2 (02:41→08:54)
[2022-05-27 03:56] LABS: Hematocrit 32.3 % (36.0-45.0); Lymphocytes % 8.1 % (15.3-44.8); RBC Red Blood Cell Count 3.39 M/uL (3.86-4.86)
[2022-05-27 03:57] LABS: Absolute Lymphocytes (CBC) 0.5 K/uL (0.7-4.9)
[2022-05-27 05:01] LABS: Folic Acid, (Folate) 3.7 ng/mL (3.1-17.5); Phosphorus 2.4 mg/dL (2.5-4.9)
[2022-05-27 05:02] LABS: Thyroid Stimulating Hormone 49.3 uIU/mL (0.360-3.740)
[2022-05-27] MEDS ORDERED: INFLUENZA VACCINE (for 6+ mo) 0.5 ML DOSE IMVAC ONE (08:00)
[2022-05-27] MEDS: ENOXAPARIN 40 MG/0.4 ML SQ SCH (08:54)
[2022-05-27] MEDS: POTASS/SODIUM PHOSPHATE 1 PKT POWD.PACK PO SCH ×3 (08:54→11:15)
[2022-05-27] MEDS ORDERED: POTASSIUM CL SA 10 MEQ TAB PO ONE ×2 (09:00→21:00)
--- NOTE | 2022-05-27 09:25 | RAD REPORT ---
EXAM DESCRIPTION: CTA of the chest CLINICAL HISTORY: Shortness of breath. COMPARISON: CTA chest from December 10, 2020. TECHNIQUE: CTA of the chest was performed following intravenous administration of iodinated contrast . Axial soft tissue and lung window, and coronal and sagittal soft tissue window reconstructions were created and sent to PACS. 3D postprocessing was performed on an independent workstation, with images sent to PACS for subsequen t review. This exam was performed according to our departmental dose-optimization program, which includes autom ated exposure control, adjustment of the mA and/or kV according to patient size and/or use of iterati ve reconstruction technique. FINDINGS: Vascular: The pulmonary arteries are well-opacified to the segmental level. No CT evidence of acute pulmonary thromboembolism. No evidence of aortic aneurysm or dissection. Lungs and pleura: No pulmonary consolidation. No pleural effusion. No pneumothorax. Mild atelectasis in the lower lobes and lingula. Mediastinum and neck: No mediastinal lymphadenopathy by CT size criteria. Unremarkable appearance of the thyroid gland. Cardiac: Mild cardiomegaly. No pericardial effusion. Large amount of coronary artery calcifications. Abdomen: No significant upper abdominal abnormality identified. Musculoskeletal: No concerning osseous abnormality. IMPRESSION: 1. No CTA evidence of acute pulmonary thromboembolism. 2. No acute abnormality identified. Electronically signed by: Angeles Mathews MD 05/27/2022 12:16 AM TALENT ADVISOR Due to temporary technical issues with the PACS/Fluency reporting system, reports are being signed by the in house radiologists without review as a courtesy to insure prompt reporting. The interpreting radiologist is fully responsible for the content of the report.
--- NOTE | 2022-05-27 11:52 | P.CNS ---
Date of Consult: 05/15/22 Reason for Consult: Respiratory failure Primary Care Provider: [facility] Chief Complaint: COPD Exacerbation History of Present Illness: Patient is 61 years of age with a history of chronic respiratory failure COPD currently her oxygen equipment stopped working and became progressively worse over the past 2 weeks here in the hospital was hallucinating toxic hypercarbic elevated bicarb smoking recently Allergies morphine Allergy (Severe, Verified 03/08/13 22:11) Nausea/Vomiting Home Medications: Albuterol Sulfate [Proair Hfa] 2 puff IH TID PRN #1 hfa.aer.ad 08/22/20 Aspirin [Aspirin EC 81 MG] 81 mg PO DAILY #90 tablet.dr 08/22/20 Metoprolol Tartrate [Lopressor*] 12.5 mg PO BID 6AM 6PM #60 tab 08/22/20 Ranolazine [Ranolazine ER] 500 mg PO BID #60 tab.er.12h 08/22/20 Atorvastatin Calcium [Lipitor] 40 mg PO BEDTIME 07/18/21 Clopidogrel Bisulfate [Plavix] 75 mg PO DAILY 07/18/21 Isosorbide Mononitrate [Isosorbide Mononitrate ER] 60 mg PO DAILY 07/18/21 Albuterol Neb [Proventil 0.083% Neb Soln] 2.5 mg NEB Q6HP PRN #120 amp 07/19/21 Fluticasone/Umeclidin/Vilanter [Trelegy Ellipta 100-62.5-25] 1 each IH DAILY 30 Days #30 blst.w.dev 07/19/21 Ipratropium Neb [Atrovent*] 0.5 mg NEB [id number] #120 amp 07/19/21 Nebulizer [Aeroneb Go Nebulizer] 1 each MC TID #1 each 07/19/21 acetaZOLAMIDE [Diamox*] 125 mg PO BID #160 tab 07/19/21 predniSONE [Prednisone*] 20 mg PO BID #18 tab 07/19/21 Levothyroxine [Synthroid*] 0.05 mg PO DAILYAC 30 Days #30 tablet 07/23/21 - Past Medical/Surgical History Diabetic: No -: HTN -: HYPOTHYROIDISM -: HIGH CHOLESTEROL -: GASTRIC ULCER -: TIA -: COPD -: CESARIAN SECTION Psychosocial/ Personal History: Patient lives at home with her daughter, son-in-law, and grandkids. - Family History Mother Medical History: Diabetes, Kidney disease Father Medical History: Heart disease Brother Medical History: Heart disease Notes: Stent - Social History Smoking Status: Former smoker Alcohol use: No CD- Drugs: No Caffeine use: Yes Place of Residence: Home Review of Systems General: Weakness Respiratory: Cough, Shortness of Breath Physical Examination Temp Pulse Resp BP Pulse Ox 96.8 F 75 18 104/64 94 05/27/22 08:00 05/27/22 08:00 05/27/22 08:00 05/27/22 08:00 05/27/22 08:00 General: Alert, In no apparent distress, Mild distress Respiratory: Clear to auscultation bilaterally, Diminished Cardiovascular: No edema, Normal pulses, Regular rate/rhythm Gastrointestinal: Normal bowel sounds, Soft and benign Laboratory Data (last 24 hrs) 05/26/22 21:26: PT 11.3, INR 1.03 05/26/22 21:26: WBC 4.90, Hgb 10.1 L, Hct 31.3 L, Plt Count 186 05/26/22 21:26: Sodium 137, Potassium 3.6, BUN 16, Creatinine 1.04, Glucose 102, Magnesium 2.0, Total Bilirubin 0.3, AST 21, ALT 17, Alkaline Phosphatase 61 - Problems (1) Respiratory failure with hypoxia and hypercapnia Current Visit: Yes Status: Acute Plan: Patient is 61 years of age morbidly obese. With hypoxemia hypercapnia possibly due to underlying COPD benefit from a noninvasive ventilator possible underlying obstructive sleep apnea will benefit from outpatient sleep study chest x-ray shows cardiomegaly no evidence of pneumonia patient's bicarb is elevated secondary to CO2 retention add Diamox and will benefit from a noninvasive ventilator to avoid readmissions to the hospital BiPAP is not suitable tire changer to p.o. prednisone patient is also hypothyroid start patient on IV Synthroid Qualifiers: Chronicity: acute on chronic Qualified Code(s): J96.21 - Acute and chronic respiratory failure with hypoxia; J96.22 - Acute and chronic respiratory failure with hypercapnia
[2022-05-27] MEDS: acetaZOLAMIDE 250 MG TAB PO SCH (12:21)
[2022-05-27] MEDS: LEVOTHYROXINE SODIUM 100 MCG VIAL IV SCH (12:22)
--- NOTE | 2022-05-27 16:48 | P.PN ---
Date of Service: 05/27/22 Subjective: feels mild-mod improvement in symptoms dyspneic with movement ran out of meds 1-2 weeks ago, due to cost ROS: 10 point ROS as noted above, otherwise negative Physical exam GEN: Alert, oriented, NAD, morbidly obese HEENT: Normal conjunctiva, sclera anicteric CV: Regular rate and rhythm, no edema Pulm: mildly labored respirations on 3L NC, b/l wheeze ABD: Soft, nontender, nondistended Neuro: Normal speech, normal affect Problem List Acute hypoxemic, hypercapnic respiratory failure with hypercapnia secondary to COPD exacerbation and obesity hypoventilation syndrome Hypertension Hypothyroid CAD Super morbid obesity ran out of meds, difficulty affording meds continue steroids, NIV, nebs, levaquin pulm consults improving pulm recommended NIV pt also reports concern oxygen concentrator at home is not working well - spoke to socially responsible investment adviser to arrange HH to check TSH elevated, similar to earlier in year, unclear if she has been taking synthroid. pulm started IV synthroid anemia labs ordered VTE: lovenox Code: full Dispo: home, ~1-2 days NIV ordered by pulm
[2022-05-27] MEDS: predniSONE 20 MG TAB PO SCH (22:26)
[2022-05-28] MEDS: IPRATROPIUM BROM 0.5MG/2.5ML NEB SCH ×4 (00:50→20:04)
[2022-05-28] MEDS: ALBUTEROL 2.5 MG/3 ML NEB SOL NEB SCH ×4 (00:50→20:04)
[2022-05-28] MEDS: LEVOTHYROXINE SODIUM 100 MCG VIAL IV SCH (05:30)
[2022-05-28 05:35] LABS: Absolute Lymphocytes (CBC) 0.6 K/uL (0.7-4.9); Hematocrit 34.4 % (36.0-45.0); Lymphocytes % 10.5 % (15.3-44.8); MCV 94.9 fL (80-100); RBC Red Blood Cell Count 3.62 M/uL (3.86-4.86)
[2022-05-28 05:52] LABS: Phosphorus 3.1 mg/dL (2.5-4.9); Potassium 3.5 mmol/L (3.5-5.1)
[2022-05-28 06:00] LABS: Specific Gravity 1.011 (1.005-1.030); Urine Bilirubin NEGATIVE (Negative); Urine Blood Negative (Negative); Urine Clarity Clear (Clear); Urine Color Light-Yellow (Yellow); Urine Glucose NEGATIVE (Negative); Urine Protein NEGATIVE (Negative); Urine Urobilinogen Normal (Normal)
[2022-05-28] MEDS: CLOPIDOGREL 75 MG TABLET PO SCH (08:52)
[2022-05-28] MEDS: acetaZOLAMIDE 250 MG TAB PO SCH (08:52)
[2022-05-28] MEDS: predniSONE 20 MG TAB PO SCH ×2 (08:52→20:28)
[2022-05-28] MEDS: ENOXAPARIN 40 MG/0.4 ML SQ SCH (08:53)
[2022-05-28] MEDS ORDERED: POTASSIUM CL SA 10 MEQ TAB PO ONE (09:00)
--- NOTE | 2022-05-28 15:48 | P.PN ---
Date of Service: 05/28/22 Subjective: No acute events overnight Feels she is improving, down to 4 L nasal cannula on BIPAP overnight ROS: 10 point ROS as noted above, otherwise negative Physical exam GEN: Alert, oriented, NAD, morbidly obese HEENT: Normal conjunctiva, sclera anicteric CV: Regular rate and rhythm, no edema Pulm: mildly labored respirations on 4L NC, b/l wheeze ABD: Soft, nontender, nondistended Neuro: Normal speech, normal affect Problem List Acute hypoxemic, hypercapnic respiratory failure with hypercapnia secondary to COPD exacerbation and obesity hypoventilation syndrome Hypertension Hypothyroid CAD Super morbid obesity ran out of meds, difficulty affording meds continue steroids, NIV, nebs, levaquin pulm consulted improving pulm recommended NIV; family welfare social work professor consulted Patient reported oxygen concentrator not functioning properly, home health evaluated yesterday and reported tubing was the issue, to be replaced today TSH elevated, similar to earlier in year, unclear if she has been taking synthroid. pulm started IV synthroid VTE: lovenox Code: full Dispo: home, ~1-2 days NIV ordered by pulm
[2022-05-28] MEDS: ACETAMINOPHEN 325 MG TABLET PO PRN (20:31)
[2022-05-29] MEDS: ALBUTEROL 2.5 MG/3 ML NEB SOL NEB SCH ×4 (01:15→20:00)
[2022-05-29] MEDS: IPRATROPIUM BROM 0.5MG/2.5ML NEB SCH ×4 (01:15→20:00)
[2022-05-29] MEDS: LEVOTHYROXINE SODIUM 100 MCG VIAL IV SCH (05:33)
[2022-05-29 05:39] LABS: Absolute Lymphocytes (CBC) 0.7 K/uL (0.7-4.9); Hematocrit 34.7 % (36.0-45.0); Lymphocytes % 9.6 % (15.3-44.8); MCV 95.7 fL (80-100); MPV 8.1 fL (7.6-11.3); RBC Red Blood Cell Count 3.63 M/uL (3.86-4.86)
[2022-05-29 05:49] LABS: Magnesium 2.3 mg/dL (1.8-2.4); Potassium 3.9 mmol/L (3.5-5.1)
[2022-05-29 06:59] LABS: Anisocytosis SLIGHT; Blood Morphology Comment NOTED (NOT SEEN); Macrocytosis SLIGHT; Platelet Estimate ADEQ; White Blood Cell Scan OK (OK)
[2022-05-29] MEDS ORDERED: POTASSIUM CL SA 10 MEQ TAB PO ONE (09:00)
[2022-05-29] MEDS: CLOPIDOGREL 75 MG TABLET PO SCH (09:25)
[2022-05-29] MEDS: acetaZOLAMIDE 250 MG TAB PO SCH (09:26)
[2022-05-29] MEDS: predniSONE 20 MG TAB PO SCH ×2 (09:26→21:13)
[2022-05-29] MEDS: ENOXAPARIN 40 MG/0.4 ML SQ SCH (09:27)
--- NOTE | 2022-05-29 10:17 | P.PN ---
Subjective Date of Service: 05/29/22 Primary Care Provider: Nita Rdz Chief Complaint: COPD Exacerbation Subjective: Improving (Patient is doing well alert oriented responsive tolerating BiPAP) Review of Systems Unremarkable Physical Examination - Vital Signs Temperature: 96.8 F Blood Pressure: 127/70 Pulse: 70 Respirations: 18 Pulse Ox (%): 97 - Physical Exam General: Alert, Oriented x3 Respiratory: Clear to auscultation bilaterally, Diminished Cardiovascular: No edema, Regular rate/rhythm, Normal S1 S2 Gastrointestinal: Normal bowel sounds, Soft and benign Musculoskeletal: No clubbing, No swelling Integumentary: No rashes, No breakdown Assessment And Plan - Current Problems (Diagnosis) (1) Respiratory failure with hypoxia and hypercapnia Current Visit: Yes Status: Acute Plan: Patient is 61 years of age doing much better NIV has been ordered bicarbonate corrected most likely she is hypothyroid plan to discharge home on home O2 titrate sat to 90% continue with bronchodilators at home low-dose steroids 10 mg twice a day and Diamox in addition to spironolactone 25 mg daily patient's probably has underlying diastolic dysfunction blood cultures are likely a co ntaminant Qualifiers: Chronicity: acute on chronic Qualified Code(s): J96.21 - Acute and chronic respiratory failure with hypoxia; J96.22 - Acute and chronic respiratory failure with hypercapnia (2) Hypothyroid Current Visit: Yes Status: Chronic Plan: Patient is hypothyroid and is to p.o. thyroxine 75 mcg daily Qualifiers: Hypothyroidism type: acquired Qualified Code(s): E03.9 - Hypothyroidism, unspecified Discharge Plan: Home Plan to discharge in: 24 Hours
--- NOTE | 2022-05-29 17:30 | P.PN ---
Date of Service: 05/29/22 Subjective: No acute events overnight improving no new/worsening symptoms on bipap overnight ROS: 10 point ROS as noted above, otherwise negative Physical exam GEN: Alert, oriented, NAD, morbidly obese HEENT: Normal conjunctiva, sclera anicteric CV: Regular rate and rhythm, no edema Pulm: mildly labored respirations on 3L NC, b/l wheeze ABD: Soft, nontender, nondistended Neuro: Normal speech, normal affect Problem List Acute hypoxemic, hypercapnic respiratory failure with hypercapnia secondary to COPD exacerbation and obesity hypoventilation syndrome Hypertension Hypothyroid CAD Super morbid obesity ran out of meds, difficulty affording meds continue steroids, NIV, nebs, levaquin pulm consulted improving pulm recommended NIV; social worker clinical consulted, no updates, probably no update until wednesday will discuss with pulm if patient stable to go home and wait for NIV there, or needs to have it prior to discharge Patient reported oxygen concentrator not functioning properly, home health evaluated yesterday and reported tubing was the issue, to be replaced today TSH elevated, similar to earlier in year, unclear if she has been taking synthroid. last script filled in october. pulm started IV synthroid, transition to PO VTE: lovenox Code: full Dispo: home, ~1-2 days NIV ordered by pulm
[2022-05-29] MEDS: ACETAMINOPHEN 325 MG TABLET PO PRN (21:13)
[2022-05-29] MEDS: FAMOTIDINE 20 MG TAB PO PRN (23:15)
[2022-05-30] MEDS: ACETAMINOPHEN 325 MG TABLET PO PRN ×2 (00:48→20:07)
[2022-05-30] MEDS: ALBUTEROL 2.5 MG/3 ML NEB SOL NEB SCH ×3 (01:35→14:00)
[2022-05-30] MEDS: IPRATROPIUM BROM 0.5MG/2.5ML NEB SCH ×3 (01:35→14:00)
[2022-05-30 04:42] LABS: Magnesium 2.1 mg/dL (1.8-2.4); Potassium 3.8 mmol/L (3.5-5.1)
[2022-05-30] MEDS: LEVOTHYROXINE SOD 0.075 MG TAB PO SCH (05:01)
[2022-05-30] MEDS ORDERED: POTASSIUM CL SA 10 MEQ TAB PO ONE (09:00)
[2022-05-30] MEDS: acetaZOLAMIDE 250 MG TAB PO SCH (09:04)
[2022-05-30] MEDS: CLOPIDOGREL 75 MG TABLET PO SCH (09:04)
[2022-05-30] MEDS: predniSONE 20 MG TAB PO SCH ×2 (09:04→20:07)
[2022-05-30] MEDS: ENOXAPARIN 40 MG/0.4 ML SQ SCH (09:05)
--- NOTE | 2022-05-30 14:45 | P.PN ---
Date of Service: 05/30/22 Subjective: trial overnight on nasal cannula, off NIV patient noted to have several apneic episodes with SpO2 down to 70% felt tired / headache this morning ROS: 10 point ROS as noted above, otherwise negative Physical exam GEN: Alert, oriented, NAD, morbidly obese HEENT: Normal conjunctiva, sclera anicteric CV: Regular rate and rhythm, no edema Pulm: mildly labored respirations on BIPAP, mild wheeze ABD: Soft, nontender, nondistended Neuro: Normal speech, normal affect Problem List Acute hypoxemic, hypercapnic respiratory failure with hypercapnia secondary to COPD exacerbation and obesity hypoventilation syndrome Hypertension Hypothyroid CAD Super morbid obesity ran out of meds, difficulty affording meds continue steroids, NIV at night, nebs, levaquin pulm consulted improving pulm recommended NIV; clinical social work aide consulted, likely to be set up Wednesday discussed with family, will be able to afford NIV. in combination with O2 concentrator, monthly cost is ~$500 oxygen concentrator at home was evaluated by HH - broken tube was replaced TSH elevated pt has not filled meds in many months synthroid restarted VTE: lovenox Code: full Dispo: home, anticipate Wednesday, once NIV set up
[2022-05-30] MEDS ORDERED: ALBUTEROL 2.5 MG/3 ML NEB SOL NEB PRN (14:47)
[2022-05-30] MEDS ORDERED: IPRATROPIUM BROM 0.5MG/2.5ML NEB PRN (14:47)
[2022-05-30] MEDS: FAMOTIDINE 20 MG TAB PO PRN (20:07)
[2022-05-30] MEDS: MELATONIN 5 MG TABLET PO PRN (21:37)
[2022-05-31 03:32] LABS: Potassium 3.9 mmol/L (3.5-5.1)
[2022-05-31] MEDS: LEVOTHYROXINE SOD 0.075 MG TAB PO SCH (05:29)
[2022-05-31] MEDS ORDERED: POTASSIUM CL SA 10 MEQ TAB PO ONE (06:00)
[2022-05-31] MEDS: CLOPIDOGREL 75 MG TABLET PO SCH (08:53)
[2022-05-31] MEDS: ENOXAPARIN 40 MG/0.4 ML SQ SCH (08:53)
[2022-05-31] MEDS: acetaZOLAMIDE 250 MG TAB PO SCH (08:53)
[2022-05-31] MEDS: predniSONE 20 MG TAB PO SCH ×2 (08:53→21:04)
--- NOTE | 2022-05-31 08:57 | RAD REPORT ---
EXAM DESCRIPTION: RAD - Chest Single View - 05/31/2022 8:43 am CLINICAL HISTORY: hypoxia COMPARISON: Chest Single View dated 05/26/2022; Chest Single View dated 04/04/2022; Chest Single View dated 07/17/2021; Chest Single View dated 12/10/2020; Chest For Pe Angio dated 05/26/2022 FINDINGS: Lines: None. Lungs: No evidence of edema or pneumonia. Pleural: No significant pleural effusions or pneumothorax. Cardiac: Cardiomegaly. Mediastinum: Within normal limits. Bones: No acute fractures. Other: None IMPRESSION: No acute cardiopulmonary disease.
[2022-05-31] MEDS ORDERED: POLYETHYL GLY 3350 17 GM/DOSE PO ONE (15:51)
--- NOTE | 2022-05-31 22:50 | P.PN ---
Date of Service: 05/31/22 Subjective: doing ok, no significant changes dyspneic with movement no BM in several days, abd feels bloated ROS: 10 point ROS as noted above, otherwise negative Physical exam GEN: Alert, oriented, NAD, morbidly obese HEENT: Normal conjunctiva, sclera anicteric CV: Regular rate and rhythm, no edema Pulm: mildly labored respirations on BIPAP, mild wheeze ABD: mild distention, nontender Neuro: Normal speech, normal affect Problem List Acute hypoxemic, hypercapnic respiratory failure with hypercapnia secondary to COPD exacerbation and obesity hypoventilation syndrome Hypertension Hypothyroid CAD Super morbid obesity ran out of meds, difficulty affording meds continue steroids, NIV at night, nebs, levaquin pulm consulted improving pulm recommended NIV; health social work professor consulted, likely to be set up Wednesday discussed with family, will be able to afford NIV. in combination with O2 concentrator, monthly cost is ~$500 oxygen concentrator at home was evaluated by HH - broken tube was replaced TSH elevated pt has not filled meds in many months synthroid restarted distended abdomen suspect patient swallowed much air from bipap, and constipated trial miralax, stool softener VTE: lovenox Code: full Dispo: home, anticipate Wednesday, once NIV set up
[2022-05-31] MEDS ORDERED: POLYETHYL GLY 3350 17 GM/DOSE PO PRN (22:51)
[2022-05-31] MEDS: FAMOTIDINE 20 MG TAB PO PRN (23:05)
[2022-06-01 04:11] LABS: Arterial Blood Carboxyhemoglob 1.3 % (0-1.5); Blood Gas Oxyhemoglobin 89.4 % (94-97); Blood O2 Saturation 91.9 % (92-98.5)
[2022-06-01 04:13] LABS: Potassium 3.7 mmol/L (3.5-5.1)
[2022-06-01] MEDS: LEVOTHYROXINE SOD 0.075 MG TAB PO SCH (05:50)
[2022-06-01] MEDS: acetaZOLAMIDE 250 MG TAB PO SCH (09:09)
[2022-06-01] MEDS: predniSONE 20 MG TAB PO SCH (09:09)
[2022-06-01] MEDS: DOCUSATE NA 100 MG CAP PO SCH ×2 (09:09→20:38)
[2022-06-01] MEDS: ENOXAPARIN 40 MG/0.4 ML SQ SCH (09:09)
[2022-06-01] MEDS: CLOPIDOGREL 75 MG TABLET PO SCH (09:09)
--- NOTE | 2022-06-01 11:58 | P.PN ---
Subjective Date of Service: 06/01/22 Primary Care Provider: Nita Rdz Chief Complaint: COPD Exacerbation respiratory failure Patient's condition is stable she does have significant episodes of desat at night her is not able to afford about BiPAP Review of Systems General: Weakness Respiratory: Shortness of Breath Physical Examination - Vital Signs Temperature: 97.8 F Blood Pressure: 142/83 Pulse: 73 Respirations: 18 Pulse Ox (%): 94 - Physical Exam General: Alert, Oriented x3 HEENT: Atraumatic Neck: Supple Respiratory: Clear to auscultation bilaterally Cardiovascular: No edema, Normal S1 S2 - Studies Microbiology Data (last 24 hrs): 05/26/22 22:45 Blood - Blood Aerobic Blood Culture - Final No growth in 5 days. 05/26/22 22:45 Blood - Blood Anaerobic Blood Culture - Final No growth in 5 days. 05/26/22 22:22 Blood - Blood Aerobic Blood Culture - Final No growth in 5 days. 05/26/22 22:22 Blood - Blood Anaerobic Blood Culture - Final 05/26/22 22:22 Blood - Blood Gram Stain - Final Assessment And Plan - Current Problems (Diagnosis) (1) Respiratory failure with hypoxia and hypercapnia Current Visit: Yes Status: Acute Plan: Patient has chronic hypoxemia and hypercarbia respiratory failure cannot afford a noninvasive ventilator recommend continue with O2 patient advised to sleep in a recliner plan discussed with Dr. Blanco patient has NIV set up plan to discharge today continue with that Diamox is chronic hypoxemia hypoventilation continue with bronchodilator Qualifiers: Chronicity: chronic Qualified Code(s): J96.11 - Chronic respiratory failure with hypoxia; J96.12 - Chronic respiratory failure with hypercapnia (2) Hypothyroid Current Visit: Yes Status: Chronic Plan: Patient is hypothyroid and is to p.o. thyroxine 75 mcg daily no change Qualifiers: Hypothyroidism type: acquired Qualified Code(s): E03.9 - Hypothyroidism, unspecified
--- NOTE | 2022-06-01 13:01 | EKG ---
Test Date: 2022-05-26 Test Time: 20:51:44 Sluice Tender: NO MEASUREMENT RESULTS: Intervals: Rate: 68 SC: 216 QRSD: 94 QT: 380 QTc: 404 Gary: P: 79 SC: 216 QRS: 214 T: 123 INTERPRETIVE STATEMENTS: Sinus rhythm with 1st degree AV block Indeterminate axis Nonspecific T wave abnormality Abnormal ECG Compared to ECG 04/04/2022 20:57:53 First degree AV block now present Indeterminate axis now present T-wave abnormality now present Accelerated junctional rhythm no longer present Electronically Signed On 06-01-22 12:54:35 AGRONOMY SPECIALIST by French Bird
--- NOTE | 2022-06-01 17:46 | P.PN ---
Date of Service: 06/01/22 Subjective: worsening acidosis and hypercapnia on ABG this morning pt reports feeling tired, no new /worsening symptoms ROS: 10 point ROS as noted above, otherwise negative Physical exam GEN: Alert, oriented, NAD, morbidly obese HEENT: Normal conjunctiva, sclera anicteric CV: Regular rate and rhythm, no edema Pulm: mildly labored respirations on BIPAP, mild wheeze ABD: mild distention, nontender Neuro: Normal speech, normal affect Problem List Acute hypoxemic, hypercapnic respiratory failure with hypercapnia secondary to COPD exacerbation and obesity hypoventilation syndrome Hypertension Hypothyroid CAD Super morbid obesity ran out of meds, difficulty affording meds continue steroids, NIV as often as tolerated, nebs, levaquin pulm consulted improving pulm recommended NIV; 7th grade social studies teacher consulted discussed with family, will be able to afford NIV. in combination with O2 concentrator, monthly cost is ~$500 oxygen concentrator at home was evaluated by HH - broken tube was replaced worsening ABG on 06/01 AM continue NIV as much as tolerated , repeat ABG in AM TSH elevated pt has not filled meds in many months synthroid restarted distended abdomen suspect patient swallowed much air from bipap, and constipated trial miralax, stool softener VTE: lovenox Code: full Dispo: home, possibly tomorrow, if ABG improved with NIV will have NIV set up at home by 06/02
[2022-06-01] MEDS: predniSONE 10 MG TAB PO SCH (20:38)
[2022-06-01] MEDS: MELATONIN 5 MG TABLET PO PRN (22:20)
[2022-06-02 03:50] LABS: Hematocrit 33.5 % (36.0-45.0); MCV 95.5 fL (80-100); MPV 8.5 fL (7.6-11.3); RBC Red Blood Cell Count 3.51 M/uL (3.86-4.86)
[2022-06-02 04:04] LABS: Albumin 3.7 g/dL (3.4-5.0); Bilirubin Total 0.6 mg/dL (0.2-1.0); Magnesium 2.6 mg/dL (1.8-2.4); Protein, Total 7.1 g/dL (6.4-8.2)
[2022-06-02] MEDS: LEVOTHYROXINE SOD 0.075 MG TAB PO SCH (06:05)
[2022-06-02 06:21] LABS: Blood O2 Saturation 94.4 % (92-98.5)
[2022-06-02 06:22] LABS: Arterial Blood Carboxyhemoglob 1.5 % (0-1.5); Blood Gas Oxyhemoglobin 91.2 % (94-97)
[2022-06-02] MEDS: DOCUSATE NA 100 MG CAP PO SCH ×2 (09:00→16:33)
[2022-06-02] MEDS ORDERED: POTASSIUM CL SA 10 MEQ TAB PO ONE (09:00)
[2022-06-02] MEDS: acetaZOLAMIDE 250 MG TAB PO SCH (10:45)
[2022-06-02] MEDS: ENOXAPARIN 40 MG/0.4 ML SQ SCH (10:46)
[2022-06-02] MEDS: CLOPIDOGREL 75 MG TABLET PO SCH (10:46)
[2022-06-02] MEDS: predniSONE 10 MG TAB PO SCH ×2 (10:46→20:40)
--- NOTE | 2022-06-02 17:19 | P.PN ---
Subjective Date of Service: 06/02/22 Primary Care Provider: [facility] Chief Complaint: COPD Exacerbation respiratory failure Patient has no new complaint. Noted to be drowsy this morning. She states that she had a poor sleep last night and was trying to sleep. She was on oxygen by nasal cannula during my examination this morning. Physical Examination - Vital Signs Temperature: 96.8 F Blood Pressure: 131/61 Pulse: 72 Respirations: 18 Pulse Ox (%): 92 Assessment And Plan - Plan Physical exam GEN: Drowsy but easily arousable, oriented, NAD, morbidly obese HEENT: Normal conjunctiva, sclera anicteric CV: Regular rate and rhythm, no edema Pulm: Nonlabored breathing, bilateral diminished breath sounds. ABD: Nontender, nondistended. Neuro: Normal speech, normal affect Problem List Acute hypoxemic, hypercapnic respiratory failure with hypercapnia secondary to COPD exacerbation and obesity hypoventilation syndrome Hypertension Hypothyroid CAD Super morbid obesity Noncompliance with medication continue steroids, NIV as often as tolerated, nebs, levaquin pulm is following. Respiratory status is gradually improving. pulm recommended NIV; social secretary consulted to assist with arrangement oxygen concentrator at home was evaluated by HH - broken tube was replaced TSH elevated Patient has not filled meds in many months synthroid restarted. VTE: lovenox Code: full Dispo: Home pending NIV set up.
[2022-06-02] MEDS: MELATONIN 5 MG TABLET PO PRN (20:40)
[2022-06-03 03:45] LABS: Absolute Lymphocytes (CBC) 0.7 K/uL (0.7-4.9); Lymphocytes % 8.1 % (15.3-44.8); MCV 95.9 fL (80-100); MPV 8.5 fL (7.6-11.3); RBC Red Blood Cell Count 3.55 M/uL (3.86-4.86)
[2022-06-03 04:05] LABS: Potassium 2.9 mmol/L (3.5-5.1)
[2022-06-03] MEDS ORDERED: POTASSIUM 25 MEQ EFFERV TAB PO ONE (05:00)
[2022-06-03] MEDS: LEVOTHYROXINE SOD 0.075 MG TAB PO SCH (05:32)
[2022-06-03] MEDS: DOCUSATE NA 100 MG CAP PO SCH (07:52)
[2022-06-03] MEDS: acetaZOLAMIDE 250 MG TAB PO SCH (08:15)
[2022-06-03] MEDS: predniSONE 10 MG TAB PO SCH ×2 (08:15→20:41)
[2022-06-03] MEDS: CLOPIDOGREL 75 MG TABLET PO SCH (08:15)
[2022-06-03] MEDS: ENOXAPARIN 40 MG/0.4 ML SQ SCH (08:15)
[2022-06-03] MEDS ORDERED: POTASSIUM CL SA 10 MEQ TAB PO ONE ×2 (11:51→20:00)
--- NOTE | 2022-06-03 15:40 | P.PN ---
Subjective Date of Service: 06/03/22 Primary Care Provider: [facility] Chief Complaint: COPD Exacerbation respiratory failure Patient is complaining of diarrhea. She is more awake and interactive today Patient seen on oxygen by nasal cannula this morning She was on oxygen by nasal cannula during my examination this morning. Physical Examination - Vital Signs Temperature: 96.8 F Blood Pressure: 115/65 Pulse: 75 Respirations: 19 Pulse Ox (%): 95 Assessment And Plan - Plan Physical exam GEN: Drowsy but easily arousable, oriented, NAD, morbidly obese HEENT: Normal conjunctiva, sclera anicteric CV: Regular rate and rhythm, no edema Pulm: Nonlabored breathing, bilateral diminished breath sounds. ABD: Nontender, nondistended. Neuro: Normal speech, normal affect Problem List Acute hypoxemic, hypercapnic respiratory failure with hypercapnia secondary to COPD exacerbation and obesity hypoventilation syndrome Hypertension Hypothyroid CAD Super morbid obesity Diarrhea History of medication noncompliance continue steroids, NIV as often as tolerated, nebs. pulm is following. Respiratory status is gradually improving. pulm recommended NIV. Per report, NIV should be ready for patient at home at the time of discharge. oxygen concentrator at home was evaluated by HH - broken tube was replaced TSH elevated Patient has not filled meds in many months synthroid restarted. Stool studies ordered. On review of records, patient was given Levaquin for only 1 day. Low suspicion for C. diff. Lomotil as needed for diarrhea. VTE: lovenox Code: full Dispo: Home pending NIV set up.
[2022-06-03] MEDS ORDERED: DIPHENOX/ATROP SULF 1 TAB PO PRN (15:52)
--- NOTE | 2022-06-03 16:39 | P.DS ---
Admission Date: 05/26/22 Discharge Date: 06/04/22 Primary Care Provider: Nita Rdz Disposition: DC HOME/HOME HEALTH CARE Discharge Condition: FAIR Reason for Admission: COPD Exacerbation respiratory failure Brief History of Present Illness: Patient is a 61 year old female with past medical history of chronic respiratory failure secondary to COPD on 3L home oxygen, HTN, HLD, history of TIA, CAD, and hypothyroidism who presented to the ED with shortness of breath that has progressively worsened over the past two weeks. Patient reports that she was out of her home medications for about 2 weeks, and also feels like her home O2 has been malfunctioning. She denied using home nebulizers or CPAP. ABG with pH 7.36, pCO2 87.5, pO2 50.7 bicarb 47.8. She was placed on bipap and received breathing treatment, solumedrol, and levaquin in ED. Chest xray and chest CT negative for acute findings. She was admitted for further management. Hospital Course: Diagnosis Acute hypoxemic, hypercapnic respiratory failure with hypercapnia secondary to COPD exacerbation and obesity hypoventilation syndrome Hypertension Hypothyroid CAD Super morbid obesity Diarrhea History of medication noncompliance. Patient treated with IV steroids, nebulizers, BiPAP. She received a dose of IV Levaquin. Seen by pulmonary who assisted with management. Respiratory status is gradually improved with treatment. Noted CO2 retention. She was placed on Diamox. pulm recommended NIV. Per report, NIV should be ready for patient at home at the time of discharge. oxygen concentrator at home was evaluated by HH. Patient had a broken tube which was replaced TSH elevated, due to noncompliance. Home dose levothyroxine resumed on discharge Patient also given refills for her home medications. She complained of diarrhea. Stool studies were ordered but patient could not provide sample. Low suspicion for C. diff. Lomotil as needed for diarrhea prescribed. Patient has clinically improved and deemed stable for discharge. Vital Signs/Physical Exam: Temp Pulse Resp BP Pulse Ox 96.8 F 75 19 115/65 95 06/03/22 15:52 06/03/22 15:52 06/03/22 15:52 06/03/22 15:52 06/03/22 15:52 General: Alert, In no apparent distress, Obese HEENT: Mucous membr. moist/pink Neck: JVD not distended Respiratory: Diminished Cardiovascular: Regular rate/rhythm, Normal S1 S2 Gastrointestinal: Normal bowel sounds, Soft and benign Neurological: Normal strength at 5/5 x4 extr Laboratory Data at Discharge: WBC 9.10 K/uL (4.3-10.9) 06/03/22 03:11 Hgb 11.1 g/dL (12.0-15.0) L 06/03/22 03:11 Hct 34.0 % (36.0-45.0) L 06/03/22 03:11 Plt Count 197 K/uL (152-406) 06/03/22 03:11 PT 11.3 SECONDS (9.5-12.5) 05/26/22 21:26 INR 1.03 05/26/22 21:26 Sodium 131 mmol/L (136-145) L 06/03/22 03:11 Potassium 3.1 mmol/L (3.5-5.1) L 06/03/22 11:28 BUN 22 mg/dL (7-18) H 06/03/22 03:11 Creatinine 0.84 mg/dL (0.55-1.3) 06/03/22 03:11 Glucose 112 mg/dL (74-106) H 06/03/22 03:11 Phosphorus 3.1 mg/dL (2.5-4.9) 05/28/22 05:11 Magnesium 2.6 mg/dL (1.8-2.4) H 06/02/22 02:57 Total Bilirubin 0.6 mg/dL (0.2-1.0) 06/02/22 02:57 AST 20 U/L (15-37) 06/02/22 02:57 ALT 25 U/L (12-78) 06/02/22 02:57 Alkaline Phosphatase 57 U/L (45-117) 06/02/22 02:57 Triglycerides 70 mg/dL (<150) 05/27/22 03:22 Cholesterol 189 mg/dL (<200) 05/27/22 03:22 HDL Cholesterol 90 mg/dL (40-60) H 05/27/22 03:22 Cholesterol/HDL Ratio 2.10 05/27/22 03:22 Home Medications: Albuterol Sulfate [Proair Hfa] 2 puff IH TID PRN #1 hfa.aer.ad 08/22/20 Atorvastatin Calcium [Lipitor] 40 mg PO BEDTIME 01/14/22 Albuterol Neb [Proventil 0.083% Neb Soln] 2.5 mg NEB [id number] PRN #120 amp 06/03/22 Benzonatate [Tessalon Perle*] 200 mg PO TID PRN #30 cap 06/03/22 Budesonide [Pulmicort*] 1 puff IH BID #60 amp 06/03/22 Clopidogrel Bisulfate [Plavix*] 75 mg PO DAILY #30 tab 06/03/22 Diphenox/Atropine [Lomotil*] 1 tab PO QID PRN #20 tab 06/03/22 Furosemide [Lasix*] 40 mg PO DAILY #30 tab 06/03/22 Ipratropium Neb [Atrovent*] 0.5 mg NEB [id number] PRN #120 amp 06/03/22 Levothyroxine Sodium [Unithroid] 150 mcg PO [id number] #30 tab 06/03/22 Lisinopril [Zestril] 20 mg PO DAILY #30 tab 06/03/22 Metoprolol Tartrate [Lopressor*] 12.5 mg PO BID 6AM 6PM #60 tab 06/03/22 Mometasone/Formoterol [Dulera 200 Mcg-5 Mcg Inhaler] 2 puff IH BID #1 inh 06/03/22 Ranolazine [Ranolazine ER] 500 mg PO BID #60 tab.er.12h 06/03/22 acetaZOLAMIDE [Diamox*] 500 mg PO DAILY #60 tab 06/03/22 predniSONE [Deltasone*] 10 mg PO BID #10 tab 06/03/22 Isosorbide Mononitrate [Isosorbide Mononitrate ER] 30 mg PO DAILY #30 tab 06/04/22 New Medications: Ipratropium Neb [Atrovent*] 0.5 mg NEB [id number] PRN #120 amp PRN Reason: Shortness Of Breath Albuterol Neb [Proventil 0.083% Neb Soln] 2.5 mg NEB [id number] PRN #120 amp PRN Reason: Shortness Of Breath predniSONE [Deltasone*] 10 mg PO BID #10 tab acetaZOLAMIDE [Diamox*] 500 mg PO DAILY #60 tab Mometasone/Formoterol [Dulera 200 Mcg-5 Mcg Inhaler] 2 puff IH BID #1 inh Isosorbide Mononitrate [Isosorbide Mononitrate ER] 30 mg PO DAILY #30 tab Furosemide [Lasix*] 40 mg PO DAILY #30 tab Diphenox/Atropine [Lomotil*] 1 tab PO QID PRN #20 tab PRN Reason: Diarrhea Metoprolol Tartrate [Lopressor*] 12.5 mg PO BID 6AM 6PM #60 tab Clopidogrel Bisulfate [Plavix*] 75 mg PO DAILY #30 tab Budesonide [Pulmicort*] 1 puff IH BID #60 amp Ranolazine [Ranolazine ER] 500 mg PO BID #60 tab.er.12h Benzonatate [Tessalon Perle*] 200 mg PO TID PRN #30 cap PRN Reason: Cough Levothyroxine Sodium [Unithroid] 150 mcg PO [id number] #30 tab Lisinopril [Zestril] 20 mg PO DAILY #30 tab Diet: AHA Activity: Ad jannet Followup: Oseas Laura MD [ACTIVE - CAN ADMIT] - 1-2 Weeks (call for an apt) Time spent managing pt's care (in minutes): 37
[2022-06-04] MEDS ORDERED: POTASSIUM CL SA 10 MEQ TAB PO ONE (02:16)
[2022-06-04] MEDS: LEVOTHYROXINE SOD 0.075 MG TAB PO SCH (05:54)
[2022-06-04] MEDS: predniSONE 10 MG TAB PO SCH (08:32)
[2022-06-04] MEDS: ENOXAPARIN 40 MG/0.4 ML SQ SCH (08:32)
[2022-06-04] MEDS: CLOPIDOGREL 75 MG TABLET PO SCH (08:32)
[2022-06-04] MEDS: acetaZOLAMIDE 250 MG TAB PO SCH (08:32)
[2022-06-04 11:09] VITALS: O2SAT 95
[2022-06-04 12:32] VITALS: BP 119/67; TEMP 96.9
== END 2022-06-04 14:30 | disposition home health service (06) | DRG 190 ==
LOC: ER 19:45 → ERHOLD 23:47 → 4TH 05-27 00:27
PROVIDERS: ADMIT Hospitalist; ATTEND Internal Medicine
PROC: 5A09557 Assistance with Respiratory Ventilation, Greater than 96 Consecutive Hours, Continuous Positive Airway Pressure (ICD-10-PCS; principal; 2022-05-27)
DX: J44.1 Chronic obstructive pulmonary disease with (acute) exacerbation (principal); J96.21 Acute and chronic respiratory failure with hypoxia; J96.22 Acute and chronic respiratory failure with hypercapnia; Z68.41 Body mass index [BMI] 40.0-44.9, adult; E66.2 Morbid (severe) obesity with alveolar hypoventilation; E87.4 Mixed disorder of acid-base balance; I10 Essential (primary) hypertension; D63.8 Anemia in other chronic diseases classified elsewhere; I25.10 Atherosclerotic heart disease of native coronary artery without angina pectoris; E03.9 Hypothyroidism, unspecified; E78.5 Hyperlipidemia, unspecified; I25.2 Old myocardial infarction; Z88.5 Allergy status to narcotic agent; Z99.81 Dependence on supplemental oxygen; Z86.73 Personal history of transient ischemic attack (TIA), and cerebral infarction without residual deficits; Z79.82 Long term (current) use of aspirin; Z79.52 Long term (current) use of systemic steroids; Z91.14 Patient's other noncompliance with medication regimen; Z79.02 Long term (current) use of antithrombotics/antiplatelets; Z79.890 Hormone replacement therapy; Z87.891 Personal history of nicotine dependence; Z28.310 Unvaccinated for COVID-19; Z79.899 Other long term (current) drug therapy; Z20.822 Contact with and (suspected) exposure to COVID-19
CPT/HCPCS: 0240U; 36415; 71045; 71275; 80048; 80053; 80061; 80076; 81003; 81015; 82607; 82746; 82805; 83540; 83605; 83735; 83880; 84100; 84132; 84145; 84439; 84443; 84466; 84484; 85025; 85027; 85379; 85610; 87040; 87205; 93005; 94010; 94640; 94660; 94760; 96374; 96375; 99284; J1650; J2405; J2920; J2930; J7512; J7613; J7644; Q9967